=== PATIENT | male | born 1945 | race American Indian/Alaskan Native ===

== ENCOUNTER 2016-10-14 13:35 | Inpatient (IN) | payer MEDICARE, OTHER ==
[2016-10-14 13:45] VITALS: BMI 24.4
[2016-10-14 14:07] LABS: ADD MANUAL DIFF? NO
[2016-10-14 14:15] LABS: BASO # 0.02 K/mm3 (0.0-2.0); BASO % 0.3 % (0.0-3.0); EOS # 0.1 (0.0-0.7); EOS % 1.2 % (1.5-5.0); GRAN # 3.23 (1.4-6.5); GRAN % 53.1 % (50.0-68.0); HEMATOCRIT 37.8 % (42.0-52.0); LYMPH # 2.4 (1.2-3.4); MEAN CELL VOLUME 76.1 fL (80.0-105.0); MEAN CORPUSCULAR HGB CONC 34.1 g/dl (31.0-37.0); MONO # 0.3 (0.1-0.6); MONO % 5.4 % (1.0-6.0); PLATELET COUNT 219 10^3/uL (120.0-450.0); RED CELL DISTRIBUTION WIDTH 16.7 % (11.5-14.5); WHITE BLOOD COUNT 6.1 10^3/ul (4.5-11.0)
--- NOTE | 2016-10-14 14:17 | ED PDOC ---
Arrival/HPI - General Chief Complaint: Shortness Of Breath Time Seen by Provider: 10/14/16 13:39 Historian: Patient - History of Present Illness Narrative History of Present Illness (Text): 10/14/16 13:46 Lucas Harkins Jr. is a 71 year old male, whose past medical history includes hypertension, who presents to the emergency room complaining of runny nose, nasal congestion, body aches and shortness of breath for about one week. Patient says his shortness of breath worsens whenever he walks and says today he got very sob with walking a few steps. Patient's [id number] states that patient has been taking medications (phenergan DM, tamiflu, antihistamine, and flonase) since 10/10/16 which bring no relief. Patient denies and nausea, vomiting , diarrhea, swelling, headache, dizziness, visual changes, appetite changes, urinary symptoms, or any other complaint at this time. PMD: Dr. Martinez Time/Duration: 1 week Symptom Onset: Gradual Symptom Course: Unchanged Activities at Onset: Rest Context: Home Past Medical History - Provider Review Nursing Documentation Reviewed: Yes - Cardiac Hx Hypertension: Yes - Pulmonary Hx Respiratory Disorders: No - Neurological Hx Neurological Disorder: No - HEENT Hx HEENT Disorder: No - Renal Hx Renal Disorder: No - Endocrine/Metabolic Hx Endocrine Disorders: No - Hematological/Oncological Hx Blood Disorders: No - Integumentary Hx Dermatological Disorder: No - Musculoskeletal/Rheumatological Hx Musculoskeletal Disorders: No - Gastrointestinal Hx Gastrointestinal Disorders: No - Genitourinary/Gynecological Hx Genitourinary Disorders: No - Psychiatric Hx Psychophysiologic Disorder: No Hx Substance Use: No - Surgical History Hx Orthopedic Surgery: Yes (left knee) - Anesthesia Hx Anesthesia: Yes Hx Anesthesia Reactions: No Family/Social History - Physician Review Nursing Documentation Reviewed: Yes Family/Social History: No Known Family HX Smoking Status: Current Some Days Smoker Hx Alcohol Use: No Hx Substance Use: No Allergies/Home Meds Allergies/Adverse Reactions: Allergies No Known Allergies Allergy (Verified 10/14/16 13:50) Home Medications: Home Meds Medication Instructions Recorded Confirmed Atorvastatin [Lipitor] 20 mg PO DAILY 10/14/16 10/14/16 Fluticasone Propionate [Flonase] 2 spray .ROUTE DAILY 10/14/16 10/14/16 Loratadine [Allerclear] 10 mg PO DAILY 10/14/16 10/14/16 Metoprolol Succinate [Metoprolol 100 mg PO DAILY 10/14/16 10/14/16 Succinate] Oseltamivir Phosphate [Tamiflu] 75 mg PO DAILY 10/14/16 10/14/16 Promethazine DM [Phenergan DM 10 ml PO TID 10/14/16 10/14/16 Syrup] amLODIPine [Norvasc] 10 mg PO DAILY 10/14/16 10/14/16 Review of Systems - Physician Review All systems were reviewed & negative as marked: Yes - Review of Systems Constitutional: Other (Body aches) Eyes: absent: Vision Changes ENT: absent: Hearing Changes Respiratory: SOB Cardiovascular: TORRES. absent: Chest Pain, Palpitations, Edema Gastrointestinal: absent: Diarrhea, Nausea, Vomiting, Appetite Changes Genitourinary Male: absent: Urinary Output Changes Musculoskeletal: absent: Back Pain, Neck Pain Neurological: absent: Headache, Dizziness Endocrine: absent: Diaphoresis Hemo/Lymphatic: absent: Adenopathy Psychiatric: absent: Depression Physical Exam Vital Signs Reviewed: Yes Vital Signs Temp Pulse Resp BP Pulse Ox 10/14/16 15:04 75 161/126 H 10/14/16 15:03 75 161/126 H 10/14/16 13:36 97.7 F 94 H 18 203/146 H 98 Temperature: Afebrile Blood Pressure: Hypertensive Pulse: Tachycardic Respiratory Rate: Normal Appearance: Positive for: Well-Appearing, Non-Toxic, Comfortable Pain Distress: None Mental Status: Positive for: Alert and Oriented X 3 - Systems Exam Pupils: Present: PERRL Conjunctiva: Present: Normal Mouth: Present: Dry Pharnyx: Present: Normal. No: ERYTHEMA, EXUDATE Neck: Present: JVD Respiratory/Chest: Present: Clear to Auscultation, Good Air Exchange. No: Respiratory Distress, Accessory Muscle Use Cardiovascular: Present: Regular Rate and Rhythm, Normal S1, S2. No: Murmurs Abdomen: Present: Normal Bowel Sounds. No: Tenderness, Distention, Peritoneal Signs Back: Present: Normal Inspection Lower Extremity: Present: Normal Inspection. No: Edema Medical Decision Making ED Course and Treatment: 10/14/16 14:19 Impression: 71 year old male complaining of runny nose, nasal congestion, body aches and shortness of breath for about one week. Differential: pneumonia vs Flu-like illness vs CHF vs atypical ACS Plan: -- EKG -- Chest X-ray -- VBG, Blood Culture -- Urinalysis -- Labs -- Reassess and disposition Progress Notes: Patient with elevated BP; noncompliant with BP meds. CXR shows vascular congestion c/w CHF and BNP is nearly 5K - will give iv lasix. Given significant TORRES - will need to admit to tele for iv diuresis and cardiology eval. Discussed with Dr. Martinez. - Lab Interpretations Lab Results: 10/14/16 14:06 10/14/16 14:06 Lab Results 10/14/16 14:06: WBC 6.1, RBC 4.97, Hgb 12.9 L, Hct 37.8 L, MCV 76.1 L, MCH 26.0 , MCHC 34.1, RDW 16.7 H, Plt Count 219, Gran % 53.1, Lymph % (Auto) 40.0 H, [place] % (Auto) 5.4, Eos % (Auto) 1.2 L, Baso % (Auto) 0.3, Gran # 3.23, Lymph # 2.4, [place] # 0.3, Eos # 0.1, Baso # 0.02, PT 11.0, INR 1.02, APTT 28.2, Sodium 147, Potassium 3.9, Chloride 106, Carbon Dioxide 29, Anion Gap 16, BUN 18, Creatinine 1.1, Est GFR ( Amer) > 60, Est GFR (Non-Af Amer) > 60, Random Glucose 104, Calcium 9.8, Total Bilirubin 0.7, AST 22, ALT 12, Alkaline Phosphatase 100, Lactate Dehydrogenase 425, Total Creatine Kinase 59, Troponin I < 0.01, NT-Pro-B Natriuret Pep 4960 H, Total Protein 8.5 H, Albumin 4.2, Globulin 4.2, Albumin/Globulin Ratio 1.0 L, Lipase 117 I have reviewed the lab results: Yes - RAD Interpretation Radiology Orders: 10/14/16 13:52 CHEST PORTABLE [RAD] Stat - EKG Interpretation EKG Interpretation (Text): 10/14/16 15:36 NSR @ 97 with RBBB wtih LAD with bifascicular block; LVH; QRS is 182; QTc is 548 - Medication Orders Current Medication Orders: Discontinued Medications Amlodipine Besylate (Norvasc) 10 mg PO STAT STA Stop: 10/14/16 14:49 Last Admin: 10/14/16 15:04 Dose: 10 MG MAR Pulse and Blood Pressure Document 10/14/16 15:04 EWO (Rec: 10/14/16 15:[id number]) Pulse Pulse Rate (60-90) 75 Blood Pressure Blood Pressure (100/60-150/90) 161/126 Furosemide (Lasix) 40 mg IVP STAT STA Stop: 10/14/16 14:49 Last Admin: 10/14/16 15:04 Dose: 40 MG MAR Blood Pressure Document 10/14/16 15:04 EWO (Rec: 10/14/16 15:04 [place] [id number]) Blood Pressure Blood Pressure (100/60-150/90) 161/126 IVP Administration Document 10/14/16 15:04 EWO (Rec: 10/14/16 15:04 [place] [id number]) Charges for Administration # of IVP Administrations 1 Metoprolol Tartrate (Lopressor) 100 mg PO STAT STA Stop: 10/14/16 14:48 Last Admin: 10/14/16 15:03 Dose: 100 MG MAR Pulse and Blood Pressure Document 10/14/16 15:03 EWO (Rec: 10/14/16 15:04 [place] [id number]) Pulse Pulse Rate (60-90) 75 Blood Pressure Blood Pressure (100/60-150/90) 161/126 Disposition/Present on Arrival - Present on Arrival Any Indicators Present on Arrival: No History of DVT/PE: No History of Uncontrolled Diabetes: No Urinary Catheter: No History of Decub. Ulcer: No History Surgical Site Infection Following: None - Disposition Have Diagnosis and Disposition been Completed?: Yes Diagnosis: Congestive heart failure, Uncontrolled hypertension Disposition: HOSPITALIZED Disposition Time: 15:15 Patient Plan: Admission, Telemetry Condition: FAIR Discharge Instructions (ExitCare): Heart Failure (ED)
[2016-10-14 14:25] LABS: INR 1.02 (0.93-1.08); PARTIAL THROMBOPLASTIN TIME 28.2 Seconds (23.7-30.8)
[2016-10-14 14:26] LABS: ALKALINE PHOSPHATASE 100 U/L (38-133); ALT/SGPT 12 U/L (7-56); AST/SGOT 22 U/L (15-59); BILIRUBIN,TOTAL 0.7 mg/dL (0.2-1.3); BLOOD UREA NITROGEN 18 mg/dL (7-21); CALCIUM 9.8 mg/dL (8.4-10.5); CARBON DIOXIDE 29 mmol/L (21-33); CHLORIDE 106 mmol/L (98-107); GFR AFRICAN-AMERICAN > 60; GLUCOSE,RANDOM 104 mg/dL (70-110); LIPASE 117 U/L (23-300); POTASSIUM 3.9 mmol/L (3.6-5.0); SODIUM 147 mmol/L (132-148); TOTAL PROTEIN 8.5 g/dL (5.8-8.3)
--- NOTE | 2016-10-14 14:36 | RAD ---
PROCEDURE: Chest portable HISTORY: sob COMPARISON: TECHNIQUE: Technique: Single view portable semi erect @ 14:00. FINDINGS: Cardiomegaly, pulmonary vascular congestion/ CHF. No pleural or osseous abnormalities detected IMPRESSION: Mild congestive heart failure.
[2016-10-14 14:40] LABS: TROPONIN I < 0.01 ng/mL
--- NOTE | 2016-10-14 16:07 | CARD ---
APPROVED REPORT EKG Measurement Heart [id number] [id number] <Conclusion> Sinus rhythm with marked sinus arrhythmia with occasional premature ventricular complexes Right bundle branch block Left anterior fascicular block Bifascicular block Left ventricular hypertrophy with repolarization abnormality Anterior infarct, age undetermined Abnormal ECG
[2016-10-14] MEDS ORDERED: Albuterol-Ipratrop 3 mg / 0.5 (3 ml) UD IH STA (16:55)
[2016-10-14] MEDS: Enoxaparin 40 mg Syringe SC SCH (17:20)
[2016-10-14] MEDS: Nitroglycerin 2% Ointment Foilpak UD TOP SCH ×2 (17:21→21:13)
--- NOTE | 2016-10-14 18:11 | HP ---
ADMITTING DIAGNOSES: Congestive heart failure, pulmonary edema, chest pain. HISTORY OF PRESENT ILLNESS: This unfortunate 71-year-old male began feeling increasing shortness of breath about 5 days ago. He went to [facility] and was given cough medicine and some Tamiflu but he failed to improve. He experienced substernal chest pain radiating to his left arm earlier thi s week and this morning, extremely short of breath, he presented to [facility], was found to be in pulmonary edema. PAST MEDICAL HISTORY: Significant for hypertension, with variable compliance on diet and medications . He reports not taking his medicine frequently and eating ribs rubbed with salt last night. He als o has hyperlipidemia and arthritis. He has had knee arthroscopy surgery in the past. SOCIAL HISTORY: The patient is a smoker, has smoked for over 35 years, still smokes a few cigarettes a day. Does not drink alcohol. FAMILY HISTORY: Significant for heart disease in his father, leukemia in sister. REVIEW OF SYSTEMS: Significant for above-mentioned shortness of breath and chest pain. Denies any n ausea, vomiting, diarrhea, fever, chills, or altered bowel habits. PHYSICAL EXAMINATION: GENERAL: He is a pleasant, well-developed, well-nourished, tall black gentleman, awake, alert, orien caroline x 3 in no acute distress. VITAL SIGNS: Reveal blood pressure of 161/126, respirations 20-24, pulse is 75, temperature 97.7. HEENT: PERRLA, EOMI. Mucous membranes moist. NECK: No JVD. CHEST: Symmetrical. LUNGS: Rales bilaterally. HEART: Regular rhythm and rate. ABDOMEN: Soft, nontender. No guarding or rebound tenderness. EXTREMITIES: No cyanosis, clubbing, or edema. NEUROLOGIC: Nonfocal. LABORATORY DATA: Significant for a proBNP of 4160, BUN 18, creatinine 1.1, GFR greater than 60. Tro ponin less than 0.01. EKG is biventricular block. Hemoglobin 12.9, hematocrit 37.8, platelet count is 219. Chest x-ray with mild congestive heart failure. ASSESSMENT: We have a 71-year-old gentleman with uncontrolled hypertension with congestive heart solo lure with pulmonary edema and progressive shortness of breath the past 4 or 5 days associated with so me chest pain radiating to his left arm. Though his troponin is negative, his EKG abnormal and there are no prior grafts currently available. Electrolytes, CBC, troponin will be followed successively. Cardiology is consulted. Nitro paste and Cozaar have been added to his regimen of amlodipine and m etoprolol. Supplemental oxygen delivered with beneficent effect. More extensive strong admonitions were given to the patient about his smoking. DuoNeb added to the regimen along with 1 aspirin today. Jf Posey MD cc: 84 TT: 10/14/2016 18:11:08 jn
[2016-10-14 18:56] LABS: VENOUS BLOOD GAS BASE EXCESS -0.7 mmol/L (0.0-2.0); VENOUS BLOOD PH 7.39 (7.32-7.43)
[2016-10-14 18:57] LABS: PH,URINE 6.5 (4.7-8.0); URINE BILIRUBIN NEGATIVE (NEGATIVE); URINE BLOOD TRACE-INTACT (NEGATIVE); URINE GLUCOSE (UA) NEGATIVE (NEGATIVE); URINE KETONE NEGATIVE (NEGATIVE); URINE LEUKOCYTE ESTERASE NEGATIVE Leu/uL (NEGATIVE); URINE PROTEIN NEGATIVE mg/dL (<30 mg/dL); URINE UROBILINOGEN 0.2 E.U./dL (<1 E.U./dL)
[2016-10-14 19:08] LABS: URINE APPEARANCE CLEAR (CLEAR); URINE COLOR YELLOW (YELLOW)
[2016-10-14] MEDS ORDERED: Influenza Vaccine 45 MCG/0.5 ml IM ONE (19:12)
[2016-10-14] MEDS ORDERED: Pneumococcal 23-Valent Vaccine IM ONE (19:12)
[2016-10-14 19:13] LABS: URINE BACTERIA FEW (NEG); URINE RBC NEGATIVE /hpf (0-2); URINE WBC 0 - 2 /hpf (0-6)
[2016-10-15] MEDS: Nitroglycerin 2% Ointment Foilpak UD TOP SCH ×6 (00:30→21:54)
[2016-10-15 07:05] LABS: ADD MANUAL DIFF? NO
[2016-10-15 07:30] LABS: BASO # 0.01 K/mm3 (0.0-2.0); BASO % 0.1 % (0.0-3.0); EOS # 0.1 (0.0-0.7); EOS % 1.3 % (1.5-5.0); GRAN # 3.41 (1.4-6.5); GRAN % 48.8 % (50.0-68.0); HEMATOCRIT 38.2 % (42.0-52.0); LYMPH # 3.2 (1.2-3.4); LYMPH % 45.1 % (22.0-35.0); MEAN CELL VOLUME 76.6 fL (80.0-105.0); MEAN CORPUSCULAR HEMOGLOBIN 25.7 pg (25.0-35.0); MEAN CORPUSCULAR HGB CONC 33.5 g/dl (31.0-37.0); MONO # 0.3 (0.1-0.6); MONO % 4.7 % (1.0-6.0); PLATELET COUNT 226 10^3/uL (120.0-450.0); RED CELL DISTRIBUTION WIDTH 16.8 % (11.5-14.5)
[2016-10-15 07:32] LABS: BLOOD UREA NITROGEN 19 mg/dL (7-21); CALCIUM 9.8 mg/dL (8.4-10.5); CARBON DIOXIDE 31 mmol/L (21-33); CHLORIDE 106 mmol/L (98-107); GFR AFRICAN-AMERICAN > 60; GLUCOSE,RANDOM 86 mg/dL (70-110); POTASSIUM 3.5 mmol/L (3.6-5.0); SODIUM 147 mmol/L (132-148)
[2016-10-15] MEDS: Enoxaparin 40 mg Syringe SC SCH (11:39)
--- NOTE | 2016-10-15 15:56 | CARD ---
APPROVED REPORT EKG Measurement Heart [id number] <Conclusion> Sinus bradycardia with occasional premature ventricular complexes Right bundle branch block Left anterior fascicular block Bifascicular block Left ventricular hypertrophy with repolarization abnormality Abnormal ECG
--- NOTE | 2016-10-15 15:58 | CT ---
PROCEDURE: CT HEAD WITHOUT CONTRAST. HISTORY: increased confusion COMPARISON: None available. TECHNIQUE: Axial computed tomography images were obtained through the head/brain without intravenous contrast. Radiation dose: Total exam DLP = 774.23 mGy-cm. FINDINGS: HEMORRHAGE: No intracranial hemorrhage. BRAIN: No mass effect or edema. Cortical atrophy, periventricular small vessel disease. Lacune or infarcts identified right basal ganglia and thalamus. VENTRICLES: Unremarkable. No hydrocephalus. CALVARIUM: Unremarkable. PARANASAL SINUSES: Unremarkable as visualized. No significant inflammatory changes. MASTOID AIR CELLS: Unremarkable as visualized. No inflammatory changes. OTHER FINDINGS: None. IMPRESSION: No acute intracranial abnormalities. No significant findings to account for the clinical presentation.
[2016-10-15] MEDS ORDERED: Potassium Chloride 20 mEq ER Tab PO STA (16:01)
[2016-10-15] MEDS: Insulin Lispro (humaLOG) LOW Coverage SC SCH (17:34)
[2016-10-15] MEDS ORDERED: Potassium Chloride 20 mEq 100 ML IVPB STA (19:29)
[2016-10-15] MEDS ORDERED: Labetalol 5 mg/ml Inj 20ML IV ONE (19:49)
[2016-10-15] MEDS ORDERED: Labetalol 5 mg/ml Inj 20ML ONE (19:56)
[2016-10-15 19:58] LABS: ARTERIAL BLOOD GAS HCO3 16.7 mmol/L (21-28); ARTERIAL BLOOD GAS PH 7.47 (7.35-7.45)
[2016-10-15] MEDS: Potassium Chloride 10 mEq 100 ML IVPB SCH ×2 (20:00→22:05)
[2016-10-15] MEDS ORDERED: Potassium Chloride 20 mEq ER Tab PO ONE (20:00)
--- NOTE | 2016-10-15 20:04 | PN ---
DATE: 10/15/2016 SUBJECTIVE: The patient appears confused this morning on awakening. Family expressed concern. The patient not oriented to place. PHYSICAL EXAMINATION: VITAL SIGNS: Stable. Temperature is 96.6, respirations 16, pulse of 54, current blood pressure 178/ 99. LUNGS: Clear. HEART: Regular rate and rhythm. ABDOMEN: Soft, nontender. EXTREMITIES: No edema. Bladder scan revealed [address] brain performed is negative for acute process. Blood work unremarkable. PLAN: Continue Ativan 2 mg q. 4 hours as needed for p.r.n. agitation or for possible withdrawal symp toms. The family and patient deny any alcoholism at all or any other substance abuse. Follow electro lytes and CBC and BRAYDEN tomorrow. Cardiology followup greatly appreciated. We will keep patient on 1: 1 while he remains confused, most likely secondary to hospital psychosis. The patient appears to be responding to Ativan 2 mg q. 4 hours. Jf Posey MD cc: 84 TT: 10/15/2016 20:04:09 Confirmation # [id number] Dictation # [id number] thom
--- NOTE | 2016-10-15 20:19 | CP.PCM.PN ---
Subjective - Date & Time of Evaluation Date of Evaluation: 10/15/16 Time of Evaluation: 20:12 - Subjective Subjective: Responded to RAPID RESPONSE announcement. Patient was agitated, BP 209/ 115 , Pulse 150/min RR 20/min, Temp; pulse ox 98% on 2L/min. Monitor showed runs of VTACH, SVT. Earlier it was bradyarrhythmia on monitor. This 71 year old male was admitted with sob, cold, congestion symptoms /CHF,pulmonary edema. Has history of HTN,CHF, hyperlipidemia, arthritis. Objective - Vital Signs/Intake and Output Vital Signs (last 24 hours): Temp Pulse Resp BP Pulse Ox 97.4 F L 58 L 19 145/107 H 97 10/15/16 18:00 10/15/16 18:00 10/15/16 18:00 10/15/16 18:46 10/15/16 06:00 - Medications Medications: Current Medications Aspirin (Aspirin Chewable) 81 mg PO DAILY [facility] Last Admin: 10/15/16 18:45 Dose: Not Given Enoxaparin Sodium (Lovenox) 40 mg SC DAILY [facility] PRN Reason: Protocol Last Admin: 10/15/16 11:39 Dose: 40 mg Famotidine (Pepcid) 40 mg PO HS [facility] Last Admin: 10/14/16 21:13 Dose: 40 mg Furosemide (Lasix) 40 mg IVP BID [facility] Last Admin: 10/15/16 18:46 Dose: 40 mg Hydralazine HCl (Apresoline) 10 mg IVP STAT [facility] Last Admin: 10/14/16 20:24 Dose: Not Given Hydralazine HCl (Apresoline) 25 mg PO TID [facility] Potassium Chloride (Potassium Chloride 20 Meq/100 Ml) 100 mls @ 50 mls/hr IVPB STAT STA Stop: 10/15/16 21:28 Nicardipine HCl (Cardene Iv Premix) 200 mls @ 50 mls/hr IV .Q4H PRN; Protocol; 5 MG/HR PRN Reason: TITRATE PER MD ORDER Potassium Chloride (Potassium Chloride 10 Meq/100 Ml) 100 mls @ 100 mls/hr IVPB Q2H [facility]AL[facility] Stop: 10/15/16 22:59 Lisinopril (Zestril) 10 mg PO DAILY [facility] Lorazepam (Ativan) 2 mg IVP Q4H PRN; Protocol PRN Reason: Agitation Nitroglycerin (Nitro-Bid 2% Oint) 1 ea TOP Q4H [facility] Last Admin: 10/15/16 13:05 Dose: 1 ea Pantoprazole Sodium (Protonix Ec Tab) 40 mg PO ACB [facility] Potassium Chloride (K-Dur 20 Meq Er Tab) 20 meq PO BRK [facility] Thiamine HCl (Vitamin B1 Tab) 100 mg PO DAILY ROSALIA - Labs Labs: 10/15/16 07:03 10/15/16 07:03 PT 11.0 Seconds (9.9-11.8) 10/14/16 14:06 INR 1.02 (0.93-1.08) 10/14/16 14:06 APTT 28.2 Seconds (23.7-30.8) 10/14/16 14:06 - Constitutional Appears: In Acute Distress - Head Exam Head Exam: ATRAUMATIC, NORMAL INSPECTION, NORMOCEPHALIC - Eye Exam Eye Exam: Normal appearance - ENT Exam ENT Exam: Normal External Ear Exam - Neck Exam Neck Exam: Normal Inspection - Respiratory Exam Respiratory Exam: Rales (Basal rales positive.) - Cardiovascular Exam Cardiovascular Exam: Tachycardia, REGULAR RHYTHM - GI/Abdominal Exam GI & Abdominal Exam: absent: Distended - Rectal Exam Rectal Exam: Deferred - Extremities Exam Extremities Exam: Normal Inspection - Back Exam Back Exam: NORMAL INSPECTION - Neurological Exam Neurological Exam: Altered - Psychiatric Exam Psychiatric exam: Agitated - Skin Skin Exam: Normal Color Assessment and Plan - Assessment and Plan (Free Text) Assessment: A/P: Short run of VTACH. SVT. Uncontrolled hypertension. Agitated. CHF. Hypokalemia. Borderline anemia. CBC,CMP,troponin, magnesium, ABG ,EKG, lactate level. Hydralazine 10 mg IV x 1. NTP 2 " to ACW stat. Amiadarone 150 mg IV x 2. Adenosine 6 mg IV ,12 mg IV . Ativan 2 mg IV x 1. Geodon 20 mg IM x 1. labetolol 20 mg IV x 1. transferred to ICU. 2, # 20 angiocaths were inserted in right hand. CRITICAL CARE TIME SPENT:30 MINUTES.
[2016-10-15 20:30] LABS: ADD MANUAL DIFF? NO
[2016-10-15] MEDS ORDERED: Amiodarone 360 mg/D5W 200 ml 200 ML IV SCH (20:30)
[2016-10-15 20:39] LABS: BASO # 0.01 K/mm3 (0.0-2.0); BASO % 0.2 % (0.0-3.0); EOS # 0.1 (0.0-0.7); EOS % 0.9 % (1.5-5.0); GRAN # 3.91 (1.4-6.5); GRAN % 60.3 % (50.0-68.0); HEMATOCRIT 37.1 % (42.0-52.0); LYMPH # 2.2 (1.2-3.4); LYMPH % 33.7 % (22.0-35.0); MEAN CELL VOLUME 74.2 fL (80.0-105.0); MEAN CORPUSCULAR HEMOGLOBIN 25.8 pg (25.0-35.0); MEAN CORPUSCULAR HGB CONC 34.8 g/dl (31.0-37.0); MONO # 0.3 (0.1-0.6); MONO % 4.9 % (1.0-6.0); PLATELET COUNT 225 10^3/uL (120.0-450.0); RED CELL DISTRIBUTION WIDTH 16.9 % (11.5-14.5); WHITE BLOOD COUNT 6.5 10^3/ul (4.5-11.0)
[2016-10-15 20:58] LABS: ALKALINE PHOSPHATASE 113 U/L (38-133); ALT/SGPT 12 U/L (7-56); AST/SGOT 32 U/L (15-59); BILIRUBIN,TOTAL 0.7 mg/dL (0.2-1.3); BLOOD UREA NITROGEN 21 mg/dL (7-21); CALCIUM 9.9 mg/dL (8.4-10.5); CARBON DIOXIDE 24 mmol/L (21-33); CHLORIDE 105 mmol/L (98-107); GFR AFRICAN-AMERICAN > 60; GLUCOSE,RANDOM 175 mg/dL (70-110); MAGNESIUM 1.8 mg/dL (1.7-2.2); POTASSIUM 3.5 mmol/L (3.6-5.0); SODIUM 145 mmol/L (132-148); TOTAL PROTEIN 9.1 g/dL (5.8-8.3)
--- NOTE | 2016-10-15 21:04 | CP.PCM.CON ---
History of Present Illness - History of Present Illness History of Present Illness: Reason for ICU Consult: rapid response with ?Vtach vs Afib w/rvr HPI: 71 y/o male with a PMHx Htn, dyslipidemia, Arthritis admitted yesterday for complaints of progressing shortness of breath as well as substernal chest pain radiating to his left arm. The patient was tried on a trial of cough medication as well as tamiflu as an outpatient 2 days prior to arrival to the hospital without any significant improvement. Earlier this evening the patient had an episode of tachycardia, reported to me by the symone LIAO as having sustained Vtach along with acute delirium/agitation requiring extensive sedatives and restraints. The patient was not verbalizing complaints but rather was attempting to remove his leads and IV lines. He was also noted to have a SBP of over 220mmHg. He was treated during the rapid response with Ativan, Geodon, Adenosine, Hydralazine, Labetolol IV and also Amiodarone 150mg IV x 2 doses. Upon my arrival the patient was awake and alert, but disoriented and unable to participate in giving any history. He was extremely agitated and required wrist and ankle restraints however now that he is in the ICU he is much more calm and relaxed. He is lethargic at this time, which is likely secondary to the sedatives, however he is protecting his airway and hemodynamically much more improved now than on the telemetry floor. PMHx: Htn Dyslipidemia Arthritis (Likely has undiagnosed CHF) Allergies: NKDA Fam Hx: Heart disease in his father Leukemia in his sister Soc Hx: tobacco x 35yrs; no history of etoh or drug abuse Home Meds: lipitor 20mg po hs norvasc 10mg po daily metoprolol 100mg po daily phenergan 10ml po tid Tamiflu 75mg po daily Flonase Review of Systems - Review of Systems Systems not reviewed;Unavailable: Altered Mental Status Past Patient History - Past Social History Smoking Status: Current Some Days Smoker Alcohol: None Drugs: Denies Home Situation {Lives}: With Family - CARDIAC Hx Cardiac Disorders: Yes Hx Congestive Heart Failure: Yes Hx Hypertension: Yes - PULMONARY Hx Respiratory Disorders: Yes (SMOKES CIGARETTES 1/2 PPD FOR 40 YRS) - NEUROLOGICAL Hx Neurological Disorder: No - HEENT Hx HEENT Problems: Yes Hx Cataracts: Yes (BILATERAL SX) - RENAL Hx Chronic Kidney Disease: No - ENDOCRINE/METABOLIC Hx Endocrine Disorders: No - HEMATOLOGICAL/ONCOLOGICAL Hx Blood Disorders: No - INTEGUMENTARY Hx Dermatological Problems: Yes (BILATERAL LE SKIN DRYNESS,DRY THIN FLAKY SKIN) - MUSCULOSKELETAL/RHEUMATOLOGICAL Hx Musculoskeletal Disorders: Yes (L KNEE SURGERY) Hx Falls: No - GASTROINTESTINAL Hx Gastrointestinal Disorders: No - GENITOURINARY/GYNECOLOGICAL Hx Genitourinary Disorders: No - PSYCHIATRIC Hx Psychophysiologic Disorder: No Hx Substance Use: No - SURGICAL HISTORY Hx Surgeries: Yes (BILATERAL CATARACT SURGERY) Hx Orthopedic Surgery: Yes (left knee) - ANESTHESIA Hx Anesthesia: Yes Hx Anesthesia Reactions: No Meds Allergies/Adverse Reactions: Allergies Allergy/AdvReac Type Severity Reaction Status Date / Time No Known Allergies Allergy Verified 10/14/16 17:48 - Medications Medications: Current Medications Aspirin (Aspirin Chewable) 81 mg PO DAILY [facility] Last Admin: 10/15/16 18:45 Dose: Not Given Enoxaparin Sodium (Lovenox) 40 mg SC DAILY [facility] PRN Reason: Protocol Last Admin: 10/15/16 11:39 Dose: 40 mg Famotidine (Pepcid) 40 mg PO HS [facility] Last Admin: 10/14/16 21:13 Dose: 40 mg Furosemide (Lasix) 40 mg IVP BID [facility] Last Admin: 10/15/16 18:46 Dose: 40 mg Hydralazine HCl (Apresoline) 10 mg IVP STAT [facility] Last Admin: 10/14/16 20:24 Dose: Not Given Hydralazine HCl (Apresoline) 25 mg PO TID [facility] Potassium Chloride (Potassium Chloride 20 Meq/100 Ml) 100 mls @ 50 mls/hr IVPB STAT STA Stop: 10/15/16 21:28 Nicardipine HCl (Cardene Iv Premix) 200 mls @ 50 mls/hr IV .Q4H PRN; Protocol; 5 MG/HR PRN Reason: TITRATE PER MD ORDER Potassium Chloride (Potassium Chloride 10 Meq/100 Ml) 100 mls @ 100 mls/hr IVPB Q2H [facility] Stop: 10/15/16 22:59 Amiodarone HCl/Dextrose (Nexterone 360 Mg In D5w 200 Ml (Premix)) 200 mls @ 33.333 mls/hr IV .Q6H [facility]; 1 MG/MIN PRN Reason: Protocol Lisinopril (Zestril) 10 mg PO DAILY [facility] Lorazepam (Ativan) 2 mg IVP Q4H PRN; Protocol PRN Reason: Agitation Nitroglycerin (Nitro-Bid 2% Oint) 1 ea TOP Q4H [facility] Last Admin: 10/15/16 13:05 Dose: 1 ea Pantoprazole Sodium (Protonix Ec Tab) 40 mg PO ACB [facility] Potassium Chloride (K-Dur 20 Meq Er Tab) 20 meq PO BRK [facility] Thiamine HCl (Vitamin B1 Tab) 100 mg PO DAILY [facility] Physical Exam - Constitutional Appears: Non-toxic, Agitated, Confused - Head Exam Head Exam: ATRAUMATIC, NORMOCEPHALIC - Eye Exam Eye Exam: EOMI, Normal appearance - ENT Exam ENT Exam: Mucous Membranes Dry - Neck Exam Neck exam: Positive for: Full Rom, Normal Inspection - Respiratory Exam Respiratory Exam: Decreased Breath Sounds (decreased basilar breath sounds), NORMAL BREATHING PATTERN. absent: Respiratory Distress - Cardiovascular Exam Cardiovascular Exam: REGULAR RHYTHM, +S1, +S2 - GI/Abdominal Exam GI & Abdominal Exam: Normal Bowel Sounds, Soft. absent: Guarding, Rebound, Tenderness - Rectal Exam Rectal Exam: Deferred - Extremities Exam Extremities exam: Positive for: normal inspection. Negative for: calf tenderness - Neurological Exam Neurological exam: Alert, Altered - Psychiatric Exam Additional comments: less agitated than earlier; appears more calm and relaxed now - Skin Skin Exam: Dry, Intact, Normal Color, Warm Results - Vital Signs Recent Vital Signs: Last Vital Signs Temp 97.4 F L 10/15/16 18:00 Pulse 58 L 10/15/16 18:00 Resp 19 10/15/16 18:00 BP 145/107 H 10/15/16 18:46 Pulse Ox 97 10/15/16 06:00 - Labs Result Diagrams: 10/15/16 20:25 10/15/16 20:25 Labs: Laboratory Results - last 24 hr 10/14/16 10/15/16 10/15/16 21:45 07:03 19:28 WBC 7.0 RBC 4.99 Hgb 12.8 L Hct 38.2 L MCV 76.6 L MCH 25.7 MCHC 33.5 RDW 16.8 H Plt Count 226 Gran % 48.8 L Lymph % (Auto) 45.1 H Newton % (Auto) 4.7 Eos % (Auto) 1.3 L Baso % (Auto) 0.1 Gran # 3.41 Lymph # 3.2 Newton # 0.3 Eos # 0.1 Baso # 0.01 Sodium 147 Potassium 3.5 L Chloride 106 Carbon Dioxide 31 Anion Gap 14 BUN 19 Creatinine 1.2 Est GFR ( Amer) > 60 Est GFR (Non-Af Amer) 59 POC Glucose (mg/dL) 129 H Random Glucose 86 Calcium 9.8 Troponin I < 0.01 - EKG Data EKG Interpreted by: Myself Rate: Normal (SR @ 97 bpm; PVC's; bifascicular block as seen on earlier EKG this morning) - Imaging and Cardiology CT scan - head Status: Report reviewed by me (no acute infarct/mass/shift) Assessment & Plan - Assessment and Plan (Free Text) Assessment: 71 y/o male with a PMHx Htn, Dyslipidemia, Arthirits and likely CHF was admitted to the hospital for worsening shortness of breath and chest discomfort. While on the telemetry floor the patient became acutely agitated and developed SVT, reportedly had sustained Vtach requiring Amiodarone and also multiple sedatives. He is now transferred to the ICU for further care and management. Plan: Neuro: patient appears to have acute delerium; unclear as to the exact cause, does not appear to be septic/infectious; CT Head was negative; no reason to suspect liver disease; ABG reviewed and he is not hypercapnic; will monitor him closely and evaluate for other possible causes of his acute delirious state; neuro checks Q4h; 1:1 sitter and soft wrist restraints to avoid having him remove his leads and IV lines. Pulm: saturating well; ABG showing adequate oxygenation; will continue on nasal cannula and add xopenex prn for shortness of breath to avoid tachycardia associated with duonebs CVS: I witnessed SVT on the monitor; he was reported to have sustained Vtach however after I reviewed the rhythm strips, I did not see any such event; just wide complex tachycardia. He was placed on Amio 150mg IV x 2; his heart rate is now in the 80's so I will avoid continuing with Amiodarone; hypokalemia is being replaced; will check his magnesium and replace if necessary. His SBP was in the 220's during his acute episode of agitation, which I suspect was secondary to acute systolic CHF worsening his delirium; he has been given Lasix 40mg IV and his SBP is now in the 130's. Will continue with lopressor 5mg IV Q4H prn for HR greater than 130. Will hold off on Cardene drip which was ordered by the rapid response team. Will also check additional trop levels although the first 2 were negative, this does not appear to be ischemic in nature thus far. GI: no acute issues at this time; will remain NPO overnight and attempt a heart healthy diet in the AM Renal: will monitor strict i's and o's; marcos catheter placed with immediate output of about 600cc urine. Will replete his Potassium with IV KCL and recheck a Bmp in the AM ID: blood cultures already sent, urine is negative; will monitor for signs of fever or infection and panculture if needed; I do not think he requires IV Abx at this time. An ABG shock panel was performed during his acute distress revealing an elevated lactic acid of 5.9 which I believe may be secondary to hypoperfusion during the time given a HR nearing 180-190; will repeat a lactate level in the AM to ensure it has normalized. heme: no acute issues at this time; will monitor with daily cbc's psych: will monitor his delirium; 1:1 sitter in the meantime Case discussed with Dr. Elizabeth who is seeing the patient at bedside in the ICU now labs and images reviewed personally Total time of care: 45 minutes
[2016-10-15] MEDS ORDERED: Metoprolol 1 mg/ml Inj IVP PRN (21:05)
[2016-10-15 21:09] LABS: TROPONIN I < 0.01 ng/mL
[2016-10-15] MEDS: Nicardipine 20 MG/200 ML 200 ML IV PRN (23:00)
--- NOTE | 2016-10-16 00:18 | CON ---
DATE: 10/15/2016 LOCATION: ICU bed 128-4. REASON FOR CONSULTATION: Congestive heart failure, run of atrial fib rapid rate. HISTORY OF PRESENT ILLNESS: The patient known to have hypertension, hyperlipidemia, arthritis, admit caroline with shortness of breath, which started a few days ago and continued to get worse. The patient h as experienced some substernal chest pain radiating to his left arm earlier in the week. The patient came to hospital with extreme shortness of breath. The patient was being treated for CHF on the rylan or with IV Lasix and another medication and he started becoming restless and developed atrial fibrill ation, rapid rate. So, patient was transferred to intensive care unit where he is now maintaining si nus rhythm, no chest pain, no palpitation. PAST MEDICAL HISTORY: Significant for hypertension. The patient is not compliant with medication an d he is also noncompliant with diet, hyperlipidemia, arthritis. The patient had knee arthroscopic ely rgery. PERSONAL HISTORY: The patient smokes. He continues to smoke. Denies alcohol intake. FAMILY HISTORY: Father had cardiac problems. MEDICATIONS: The patient's home medication included Lipitor 20 mg daily, Norvasc 10 mg daily, metopr olol succinate 100 mg daily, Phenergan cough syrup, Tamiflu 75 mg daily, loratadine 10 mg daily, Flon ase 2 spray daily. ALLERGIES: No known allergies. REVIEW OF SYSTEMS: All the systems were reviewed, positive mentioned in the history, others were neg ative. PHYSICAL EXAMINATION: VITAL SIGNS: Blood pressure 145/107, respirations 19, pulse 58, temperature 97.4. HEENT: Head is normocephalic. Eyes: Pupils normal. Conjunctivae normal. NECK: JVP low. Carotid equal. THORAX: AP diameter normal. LUNGS: Bibasilar rales. CARDIOVASCULAR: S1, S2. No rub. No click. ABDOMEN: Soft, nontender, no organomegaly. EXTREMITIES: No clubbing, no cyanosis. LABORATORY DATA: WBC 6.5, hemoglobin 12.9, hematocrit 37.1, platelet 225. Sodium 145, potassium 3.5 , BUN 21, creatinine 1.3. Troponin x 2 were negative. Total protein 9.1, albumin 4.5. AST, ALT nor mal. Calcium normal. Magnesium 1.8, normal. AST, ALT normal. BUN 21 and creatinine 1.3. Chest x- ray consistent with congestive heart failure. EKG showed sinus rhythm, occasional PAC, PVCs, right b undle branch block. Rhythm strip showed a run of atrial fibrillation with rapid rate. DIAGNOSES: Congestive heart failure, hypertension, run off atrial fibrillation with rapid rate. Karin st pain radiating to left arm, rule out coronary artery disease, hypokalemia. PLAN: To put patient on hydralazine 25 mg t.i.d., Lasix 40 mg IV b.i.d., potassium 40 mEq p.o. stat was given, now patient in the ICU getting further potassium therapy, Lovenox 40 mg subQ daily, nitro ointment 1 inch q. 4 hourly, Pepcid 40 mg p.o. at bedtime, IV potassium has been ordered, lisinopril 10 mg p.o. daily. The patient also received amiodarone IV. The patient's echo has been already orde red to evaluate LV function and will put on Coreg 3.125 b.i.d. We will correct the potassium and wi ll repeat the labs in the morning, Lasix already 40 IV b.i.d. We will check a lipid profile and TSH and repeat labs in the morning and we will follow with you. Lucrecia Elizabeth MD cc: [id number] TT: 10/16/2016 00:17:23 Confirmation # [id number] Dictation # [id number] hn
[2016-10-16] MEDS: Potassium Chloride 20 mEq 100 ML IVPB SCH ×2 (02:00→05:00)
[2016-10-16] MEDS: Nitroglycerin 2% Ointment Foilpak UD TOP SCH ×2 (02:00→05:13)
[2016-10-16] MEDS: Nicardipine 20 MG/200 ML 200 ML IV PRN ×2 (02:30→04:30)
--- NOTE | 2016-10-16 04:10 | CP.PCM.PN ---
Subjective - Date & Time of Evaluation Date of Evaluation: 10/16/16 Time of Evaluation: 04:10 - Subjective Subjective: Two # 22 angiocath were inserted in left hand dorsum. Dx:Poor venous access. Objective - Vital Signs/Intake and Output Vital Signs (last 24 hours): Temp Pulse Resp BP Pulse Ox 98 F 121 H 31 H 186/117 H 97 10/15/16 20:49 10/16/16 01:28 10/16/16 01:28 10/16/16 01:28 10/16/16 01:28 - Medications Medications: Current Medications Aspirin (Aspirin Chewable) 81 mg PO DAILY [facility] Last Admin: 10/15/16 18:45 Dose: Not Given Enoxaparin Sodium (Lovenox) 40 mg SC DAILY [facility] PRN Reason: Protocol Last Admin: 10/15/16 11:39 Dose: 40 mg Famotidine (Pepcid) 40 mg PO HS [facility] Last Admin: 10/15/16 22:09 Dose: Not Given Furosemide (Lasix) 40 mg IVP BID [facility] Last Admin: 10/15/16 18:46 Dose: 40 mg Hydralazine HCl (Apresoline) 10 mg IVP STAT [facility] Last Admin: 10/14/16 20:24 Dose: Not Given Hydralazine HCl (Apresoline) 25 mg PO TID [facility] Last Admin: 10/15/16 18:45 Dose: Not Given Nicardipine HCl (Cardene Iv Premix) 200 mls @ 50 mls/hr IV .Q4H PRN; Protocol; 5 MG/HR PRN Reason: TITRATE PER MD ORDER Last Titration: 10/16/16 02:30 Dose: 10 mg/hr Potassium Chloride (Potassium Chloride 20 Meq/100 Ml) 100 mls @ 50 mls/hr IVPB Q2H [facility] Stop: 10/16/16 05:29 Last Admin: 10/16/16 02:00 Dose: 50 mls/hr Lisinopril (Zestril) 10 mg PO DAILY [facility] Last Admin: 10/15/16 16:30 Dose: Not Given Lorazepam (Ativan) 2 mg IVP Q4H PRN; Protocol PRN Reason: Agitation Last Admin: 10/15/16 23:55 Dose: 2 mg Metoprolol Tartrate (Lopressor) 5 mg IVP Q4H PRN PRN Reason: Heart rate Last Admin: 10/15/16 21:54 Dose: 5 mg Nitroglycerin (Nitro-Bid 2% Oint) 1 ea TOP Q4H [facility] Last Admin: 10/16/16 02:00 Dose: 1 ea Pantoprazole Sodium (Protonix Ec Tab) 40 mg PO ACB [facility] Potassium Chloride (K-Dur 20 Meq Er Tab) 20 meq PO BRK [facility] Thiamine HCl (Vitamin B1 Tab) 100 mg PO DAILY [facility] Last Admin: 10/15/16 18:45 Dose: Not Given - Labs Labs: 10/15/16 20:25 10/15/16 20:25 PT 11.0 Seconds (9.9-11.8) 10/14/16 14:06 INR 1.02 (0.93-1.08) 10/14/16 14:06 APTT 28.2 Seconds (23.7-30.8) 10/14/16 14:06
[2016-10-16 05:56] LABS: ADD MANUAL DIFF? NO
[2016-10-16 06:03] LABS: BASO # 0.01 K/mm3 (0.0-2.0); BASO % 0.1 % (0.0-3.0); GRAN # 6.26 (1.4-6.5); GRAN % 83.7 % (50.0-68.0); HEMATOCRIT 39.4 % (42.0-52.0); LYMPH # 0.9 (1.2-3.4); LYMPH % 11.7 % (22.0-35.0); MEAN CELL VOLUME 75.8 fL (80.0-105.0); MEAN CORPUSCULAR HEMOGLOBIN 25.8 pg (25.0-35.0); MEAN PLATELET VOLUME 11.4 fl (7.0-11.0); MONO # 0.3 (0.1-0.6); MONO % 4.5 % (1.0-6.0); PLATELET COUNT 242 10^3/uL (120.0-450.0); RED CELL DISTRIBUTION WIDTH 16.5 % (11.5-14.5); WHITE BLOOD COUNT 7.5 10^3/ul (4.5-11.0)
[2016-10-16 06:28] LABS: BLOOD UREA NITROGEN 24 mg/dL (7-21); CARBON DIOXIDE 25 mmol/L (21-33); CHLORIDE 103 mmol/L (95-110); CHOLESTEROL 251 mg/dL (130-200); GFR AFRICAN-AMERICAN > 60; GLUCOSE,RANDOM 201 mg/dL (70-110); MAGNESIUM 1.8 mg/dL (1.7-2.2); POTASSIUM 3.8 mmol/L (3.6-5.0); SODIUM 143 mmol/L (132-148)
[2016-10-16 07:29] LABS: TROPONIN I < 0.01 ng/mL
[2016-10-16] MEDS ORDERED: Pantoprazole 40 mg EC Tab PO SCH (07:30)
[2016-10-16] MEDS ORDERED: Potassium Chloride 20 mEq ER Tab PO SCH (08:00)
[2016-10-16] MEDS: Enoxaparin 40 mg Syringe SC SCH (09:04)
--- NOTE | 2016-10-16 09:44 | CON ---
DATE: 10/16/2016 This is a 71-year-old gentleman with history of hypertension with variable compliance with his medication, who started having increasing shortness of breath about 5 days ago. Since then he was treated with OTC cough medicine and Tamiflu, however, failed to improve. His shortness of breath was getting worse , his mental status was getting dimmer, and he was brought into [facility] by his for further management and evaluation. The patient was admitted to telemetry where he was found to have high blood pressure, not responding to boluses and conventional antihypertensive medication. The patient was transferred to ICU where nicardipine drip was started and diuresis given. Blood pressure substantially improved. Nicardipine drip was weaned. The patient diuresed about 2 liters overnight with subsequent stabilization of his respiratory status and blood pressure. Nevertheless, today patient has substantially altered mental status. It is difficult to wake him up. Seemed protecting his airways, Of note, head CT that was done yesterday did not reveal any acute intracranial pathology. PAST MEDICAL HISTORY: Hypertension. ALLERGIES: NKDA. FAMILY HISTORY: Noncontributory. SOCIAL HISTORY: No alcohol or illicit drug abuse. No tobacco smoking. I spoke with the patient's who said that the patient was fairly awake and alert prior to admission to the hospital. REVIEW OF SYSTEMS: Review of 12-organ system, other than mentioned in history of present illness, is negative. PHYSICAL EXAMINATION: VITAL SIGNS: Blood pressure 154/101, heart rate 82, oxygen saturation 96% on 2 liters nasal cannula. HEAD AND NECK: Atraumatic. LUNGS: Clear to auscultation bilaterally. HEART: Regular rate and rhythm. S1, S2 normal. ABDOMEN: Soft, nontender, nondistended. MUSCULOSKELETAL: No C/C/E. NEUROLOGIC: The patient moves all extremities spontaneously. SKIN: Moist. PSYCHIATRIC: The patient is confused, lethargic and disoriented. LABORATORY DATA: Sodium 143, potassium 3.8, chloride 103, carbon dioxide 25, BUN 24, creatinine 1.4, glucose 201. Troponin x 2 negative. ProBNP 4916. LDL cholesterol 251, HDL cholesterol 195. WBC 7.5, hemoglobin 13.4, platelet count 242. Lactic acid yesterday 5.9. MEDICATIONS: Hydralazine, aspirin, Lasix, metoprolol, Lovenox, Pepcid, Protonix , lisinopril. ASSESSMENT AND PLAN: This is a 71-year-old gentleman who initially presented with hypertensive emergency with altered mental status. Blood pressure was controlled with nicardipine drip; however, patient's mental status continued to deteriorate. His CT head was negative for any intracranial abnormalities; however, I am still concerned about acute intracranial abnormalities that could have been missed by CTH Thus, I will order MRI of the brain. The patient will stay in the ICU for airway monitoring. I will also address advanced directive status with patient's once she arrives at bedside in case we need to consider intubation for airway protection. I will order echocardiogram. The patient will be followed with neurology, cardiology and staffing clerk. We will continue to target euvolemia, euglycemia, normothermia and oxygen saturation more than 90%. We might need to put an NG tube for the medication. Head of bed elevated more than 35 degrees. Aspiration precautions. Deep venous thrombosis and gastrointestinal prophylaxis. Addendum: patient had MRI done, which despite motion artefacts was readable based on my conversation with Dr. Kennedy and did not reveal acute stroke, mass(es ) or temporal lobes acute pathologies (also based on my conversation with Dr. Kennedy). 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 Shortly after patient returned from MRI, mental status deteriorated, saliva and secretion started to pool in the mouth--patient was unable to manage it, started to drool-->decision was made to intubate for airway protection. Will proceed with protective lung ventilation strategy, conservative fluid management. Echo showed LV systolic and diastolic dysfunction -->ACEI were ordered by cardiology consult (Dr. Elizabeth), beta-blockers also were ordered. Patient is hemodynamically stable--no signs of cardiogenic shock, thus will hold off on inotropes. Will get input from neuro, mainly whether LP is indicated for diagnostic purposes (I have my doubts as there is no leukocytosis, patient is afebrile, MRI is negative for temporal lesions and it is not a season for endemic viral encephalitis, and patient doesnt have focal or flaccid paralysis). Will keep eye on renal function-->if continue to deteriorate may need hydration and switching from ACEI to hydralazine/nitrates for afterload reduction. ccm time 40 min Thang Youssef MD cc: [id number] TT: 10/16/2016 09:43:19 Confirmation # [id number] Dictation # [id number] mn MTDD
[2016-10-16] MEDS ORDERED: Potassium Chloride 20 mEq/15 ml LIQ UD PO STA (10:35)
[2016-10-16] MEDS ORDERED: Sodium Chloride 0.9% 1,000 ML IV SCH (11:00)
--- NOTE | 2016-10-16 11:06 | RAD ---
HISTORY: s/p dobhoff COMPARISON: No prior. FINDINGS: LUNGS: No active pulmonary disease. PLEURA: No significant pleural effusion identified, no pneumothorax apparent. CARDIOVASCULAR: Normal. OSSEOUS STRUCTURES: No significant abnormalities. VISUALIZED UPPER ABDOMEN: Normal. OTHER FINDINGS: None. IMPRESSION: The Dobhoff feeding tube is an the left bronchus. I spoke to the patient's nurse at 10:50 a.m.
--- NOTE | 2016-10-16 11:14 | PN ---
DATE: 10/16/2016 REASON FOR CONSULTATION: Congestive heart failure, paroxysmal atrial fibrillation, rule out ventricu lar tachycardia (AFib with aberrancy). BRIEF CLINICAL HISTORY: This is a 71-year-old male with a past medical history of hypertension, hype rlipidemia, arthritis. Admitted with shortness of breath. A few days ago prior to admission, it got worse. The patient was in the telemetry, had a rapid response, found to be wide complex tachycardia , which is AFib with rapid bundle branch block, thought to be VT, transferred to ICU. The patient is restless, confused last night, now is in 2-point restraint. Now is normal sinus, converted to lisa l sinus, probably sedated, did not wake up on calling the name, lying comfortable, hemodynamically st able. PHYSICAL EXAMINATION: VITAL SIGNS: Heart rate 70, blood pressure 130/82. HEENT: PERRLA. Extraocular muscles intact. NECK: Supple. No carotid bruits. No thyromegaly. CHEST: Clear to auscultation. HEART: S1, S2 regular. ABDOMEN: Soft. EXTREMITIES: Clubbing, cyanosis negative. BLOOD WORKUP: WBC 7. , hemoglobin 13.4, hematocrit 39.4, platelet count 242. Chemistry shows so dium 143, potassium 3.8, chloride 103, carbon dioxide 25, anion gap of 19, BUN , creatinine 1.4. Troponin x 4 negative. Triglycerides 73, cholesterol , LDL 195, HDL 42. TSH 0.9. EKG on adm ission, 10/14/2016, sinus rhythm with right bundle branch block, left anterior hemiblock. Yesterday, EKG at 5:15 p.m., sinus tachycardia. IMPRESSION: Paroxysmal atrial fibrillation, now has gone back to sinus, status post rapid response, wide complex tachycardia secondary to right bundle branch block and fast rate atrial fibrillation, so far no evidence of acute myocardial infarction, no evidence of acute coronary syndrome, altered ment al status, confused. RECOMMENDATION: Since the patient is not taking p.o. and now the blood pressure is elevated, we will start IV Lopressor. Continue IV Lopressor. Continue p.r.n. hydralazine for blood pressure. I will give 5 mg of Lopressor if the patient cannot take p.o. Otherwise, we will continue low dose p.o. Lo pressor and hydralazine. We will follow with you. Currently, patient is on nicardipine for IV, but we will follow. I will get an echo to assess left ventricular function. Further recommendation base d on the hospital course and findings of the initial workup. We will simplify the medical regimen de pending upon the patient's intake p.o. Thank you, Dr. Posey, for providing us the opportunity in taking care of the patient. We will foll ow with you. Lucrecia Pérez MD cc: [id number] TT: 10/16/2016 11:14:04 Confirmation # [id number] Dictation # [id number]
--- NOTE | 2016-10-16 11:29 | PN ---
DATE: 10/16/2016 ATTENDING: The patient transferred to CCU last night after arrhythmia noted on monitor. The patient was bolused with amiodarone. MRI brain canceled this morning because of increased agitation despite lorazepam. PHYSICAL EXAMINATION: VITAL SIGNS: Stable. Temperature is 98, respiration 23, pulse is 104, blood pressure 154/101. LUNGS: Have rhonchi. HEART: Regular rhythm, tachycardic. ABDOMEN: Soft, nontender. EXTREMITIES: No edema. Dobbhoff tube placed and discontinued, to be reinserted after intubation for airway protection during MRI. PLAN: Continue CCU monitoring. Cardiology emergent input greatly appreciated. Follow electrolytes, CBC, troponin later today and tomorrow morning. Telemarketing Manager's efforts appreciated as well. Intubation and mechanical ventilation discussed with patient's , _Dank____. Jf Posey MD cc: [id number] TT: 10/16/2016 11:28:58 Confirmation # [id number] Dictation # [id number] en MTDD
--- NOTE | 2016-10-16 11:29 | MRI ---
PROCEDURE: MRI BRAIN WITHOUT CONTRAST HISTORY: stroke COMPARISON: None. TECHNIQUE: Multiplanar, multisequence MR images of the brain were obtained without intravenous contrast enhancement. The study was degraded by motion artifact. FINDINGS: HEMORRHAGE: None DWI: No evidence of an acute or early subacute infarction. BRAIN PARENCHYMA: No mass effect or edema. Severe chronic microvascular changes are seen in the periventricular white matter. VENTRICLES: Unremarkable. No hydrocephalus. CRANIUM: Unremarkable. ORBITS: Grossly unremarkable. PARANASAL SINUSES/MASTOIDS: Clear VASCULAR SYSTEM: Skull base flow voids intact. OTHER FINDINGS: None. IMPRESSION: Study limited by motion artifact. No evidence of acute infarct on diffusion images.
--- NOTE | 2016-10-16 12:22 | RAD ---
HISTORY: ETT placement, NGT COMPARISON: No prior. FINDINGS: LUNGS: No active pulmonary disease. PLEURA: No significant pleural effusion identified, no pneumothorax apparent. CARDIOVASCULAR: Normal. OSSEOUS STRUCTURES: No significant abnormalities. VISUALIZED UPPER ABDOMEN: Normal. OTHER FINDINGS: The endotracheal tube is in satisfactory position. The nasogastric tube terminates in the distal esophagus above the diaphragm and should be advanced IMPRESSION: Suboptimal position of nasogastric tube in the distal esophagus
--- NOTE | 2016-10-16 13:55 | CARD ---
APPROVED REPORT EKG Measurement Heart [id number] <Conclusion> Sinus Tachycardia with frequent and consecutive premature ventricular complexes and fusion complexes Left axis deviation Nonspecific IVCD Left ventricular hypertrophy with QRS widening and repolarization abnormality Abnormal ECG
[2016-10-16 14:01] LABS: ARTERIAL BLOOD GAS HCO3 22.9 mmol/L (21-28); ARTERIAL BLOOD GAS O2 CAPACITY 18.8 mL/dl (16-24); ARTERIAL BLOOD GAS O2 CONTENT 18.7 ML/dl (15-23); ARTERIAL BLOOD HGB O2 SAT 96.9 % (95.0-98.0); CARBOXYHEMOGLOBIN 1.8 % (0.5-1.5); HHB 0.3 % (0-5); METHEMOGLOBIN 0.9 % (0.0-3.0)
--- NOTE | 2016-10-16 15:14 | RAD ---
PROCEDURE: Portable chest HISTORY: repositioned OGT COMPARISON: Earlier same day TECHNIQUE: FINDINGS: IMPRESSION: The gastric tube has been advanced and is now in satisfactory position within the fundus. Endotracheal tube unchanged
--- NOTE | 2016-10-16 15:31 | CARD ---
APPROVED REPORT EXAM: Two-dimensional and M-mode echocardiogram with Doppler and color Doppler. INDICATION Chest Pain 2D DIMENSIONS IVSd1.7 (0.7-1.1cm)LVDd6.4 (3.9-5.9cm) PWd1.6 (0.7-1.1cm)LVDs5.4 (2.5-4.0cm) FS (%) 15.8 %LVEF (%)32.5 (>50%) M-Mode DIMENSIONS Aortic Root3.30 (2.2-3.7cm)Aortic Cusp Exc.1.20 (1.5-2.0cm) Aortic Valve AoV Peak Yqapnejf507.0cm/Sil Peak GR.14mmHg Mitral Valve E/A ratio0.0 TDI E/Lateral E'0.0E/Medial E'0.0 Tricuspid Valve TR Peak [id number]/sRAP [id number] Peak Gr.25mmHg [id number] LEFT VENTRICLE The Left Ventricle is moderately dilated. There is mild to moderate concentric left ventricular hypertrophy. The systolic function is moderately impaired. Multiple wall motion abnormalities.C/W CAD Transmitral Doppler flow pattern is Grade III-reversible restrictive diastolic dysfunction. No left ventricle thrombus noted on this study. There is no ventricular septal defect visualized. There is no left ventricular aneurysm. There is no mass noted in the left ventricle. RIGHT VENTRICLE The right ventricle is normal size. There is normal right ventricular wall thickness. The right ventricular systolic function is normal. ATRIA The left atrium is mildly dilated. The right atrium size is normal. The interatrial septum is intact with no evidence for an atrial septal defect. AORTIC VALVE The aortic valve is calcified and displays decreased opening. The aortic valve is moderately sclerotic. There is mild to moderate aortic regurgitation. There is mild valvular aortic stenosis. There is no aortic valvular vegetation. MITRAL VALVE The mitral valve is thickened but opens well. Mitral annular calcification is mild. Mitral regurgitation is mild. There is no mitral valve stenosis. There is no evidence of mitral valve prolapse. TRICUSPID VALVE The tricuspid valve leaflets are thickened , but open well. There is mild tricuspid regurgitation.RVSP-35 mmof hg. There is no tricuspid valve stenosis. There is no tricuspid valve prolapse or vegetation. PULMONIC VALVE The pulmonic valve is borderline thickened. There is trace pulmonic valvular regurgitation. There is no pulmonic valvular stenosis. GREAT VESSELS The aortic root is normal in size. The ascending aorta is normal in size. The pulmonary artery is normal. The IVC is normal in size and collapses >50% with inspiration. PERICARDIAL EFFUSION There is no pleural effusion. There is a trace pericardial effusion. <Conclusion> The Left Ventricle is moderately dilated. There is mild to moderate concentric left ventricular hypertrophy. The systolic function is moderately impaired. Multiple wall motion abnormalities.C/W CAD There is mild to moderate aortic regurgitation. There is mild valvular aortic stenosis. Mitral regurgitation is mild. There is mild tricuspid regurgitation.RVSP-35 mmof hg. There is a trace pericardial effusion.
--- NOTE | 2016-10-16 16:42 | CARD ---
APPROVED REPORT EKG Measurement Heart [id number] <Conclusion> Sinus rhythm with premature atrial complexes and borderline 1st degree AVB RBBB LAHB STTW changes
[2016-10-16] MEDS ORDERED: Potassium Chloride 20 mEq ER Tab PO ONE (20:00)
[2016-10-17 05:16] LABS: ARTERIAL BLOOD GAS HCO3 23.2 mmol/L (21-28); ARTERIAL BLOOD GAS O2 CAPACITY 16.8 mL/dl (16-24); ARTERIAL BLOOD GAS O2 CONTENT 16.7 ML/dl (15-23); ARTERIAL BLOOD GAS PH 7.43 (7.35-7.45); ARTERIAL BLOOD HGB O2 SAT 96.1 % (95.0-98.0); CARBOXYHEMOGLOBIN 1.9 % (0.5-1.5); HHB 0.5 % (0-5); METHEMOGLOBIN 1.5 % (0.0-3.0)
[2016-10-17 05:17] LABS: ADD MANUAL DIFF? NO
[2016-10-17 05:19] LABS: BASO # 0.01 K/mm3 (0.0-2.0); BASO % 0.1 % (0.0-3.0); EOS % 0.1 % (1.5-5.0); GRAN # 6.63 (1.4-6.5); GRAN % 76.4 % (50.0-68.0); HEMATOCRIT 35.3 % (42.0-52.0); LYMPH # 1.4 (1.2-3.4); LYMPH % 16.1 % (22.0-35.0); MEAN CELL VOLUME 75.3 fL (80.0-105.0); MEAN CORPUSCULAR HEMOGLOBIN 25.8 pg (25.0-35.0); MEAN CORPUSCULAR HGB CONC 34.3 g/dl (31.0-37.0); MONO # 0.6 (0.1-0.6); MONO % 7.3 % (1.0-6.0); PLATELET COUNT 229 10^3/uL (120.0-450.0); RED CELL DISTRIBUTION WIDTH 16.6 % (11.5-14.5); WHITE BLOOD COUNT 8.7 10^3/ul (4.5-11.0)
[2016-10-17 05:56] LABS: ALB/GLOB RATIO 0.9 (1.1-1.8); ALKALINE PHOSPHATASE 102 U/L (38-133); ALT/SGPT 8 U/L (7-56); AST/SGOT 33 U/L (15-59); BILIRUBIN,TOTAL 0.7 mg/dL (0.2-1.3); BLOOD UREA NITROGEN 36 mg/dL (7-21); CALCIUM 9.3 mg/dL (8.4-10.5); CARBON DIOXIDE 24 mmol/L (21-33); CHLORIDE 107 mmol/L (95-110); GFR AFRICAN-AMERICAN 45; GLUCOSE,RANDOM 94 mg/dL (70-110); MAGNESIUM 1.8 mg/dL (1.7-2.2); PHOSPHOROUS 4.1 mg/dL (2.5-4.5); POTASSIUM 3.9 mmol/L (3.6-5.0); SODIUM 145 mmol/L (132-148); TOTAL PROTEIN 8.3 g/dL (5.8-8.3)
[2016-10-17 06:11] LABS: TROPONIN I < 0.01 ng/mL
--- NOTE | 2016-10-17 07:34 | PN ---
DATE: 10/17/2016 REASON FOR CONSULTATION: Congestive heart failure, paroxysmal atrial fibrillation, rule out VT AFib with . BRIEF CLINICAL HISTORY: A 71-year-old male with past medical history significant for hypertension, h yperlipidemia, arthritis, admitted with shortness of breath a few days prior to admission, get more s hort of breath. The patient was in telemetry, had a rapid response, wide complex tachycardia, which is AFib with rapid rate and bundle branch block, thought to be VT transferred to ICU. The patient is restless, confused last night, 2-point restraints. Now the patient is reading normal sinus, convert ed to normal sinus, status post respiratory failure. PHYSICAL EXAMINATION: VITAL SIGNS: Temperature afebrile, heart rate 92, blood pressure 150/120. He is intubated. HEENT: PERRLA. Extraocular muscles intact. NECK: Supple. No carotid bruits. No thyromegaly. CHEST: Clear to auscultation. HEART: Good air entry. ABDOMEN: Soft. EXTREMITIES: Clubbing and cyanosis negative. LABORATORY DATA: Blood workup as follows: WBC 7.5, hemoglobin 13.4, hematocrit 39.4, platelet count 242. Chemistry shows sodium 143, potassium 3.0, chloride 103, carbon dioxide 25, anion gap of 19, B UN 24, creatinine 1.4. Triglycerides 73, VLDL 251, LDL 195, HDL of 42. Troponin 0.01 x2 negative. IMPRESSION: No evidence of acute myocardial infarction, status post respiratory failure, intubated, paroxysmal atrial fibrillation, right bundle branch block. The patient had echocardiography done yes terday, that shows LV is moderately dilated, moderately dilated concentric LVH, systolic function mod erately. Multiple wall motion abnormalities consistent with coronary artery disease, uhqe-jr-anmaniz e aortic stenosis, qhde-bl-jggdgbvr aortic regurgitation, mild aortic stenosis, mild mitral regurgita tion, mild tricuspid regurgitation, right ventricular systolic pressure of 35. Cardiomyopathy, now patient back in sinus, he is status post rapid response, but complex tachycardia secondary to bundle branch block, paroxysmal atrial fibrillation. No evidence of acute myocardial in farction, status post respiratory failure, intubated, altered mental status. RECOMMENDATION: Continue vent management. Continue antibiotic. Continue p.r.n. hydralazine. Tatiana nue Lasix. We will DC IV fluid, continue NG free fluid, lisinopril, and continue p.r.n. hydralazine. Since the patient has decreased LV function. Ejection fraction is in the range of 30%-35%. If it is in 30-35%, we will start low dose of digoxin, amiodarone to prevent back into AFib, through the NG tube continue hydralazine. We will put amiodarone and put Coreg. We will follow with you. Thank you, us the opportunity in taking patient's care. The patient needs to be extubated and is stabilized, consider cardiac catheterization. We will follow with you. We will continue DVT prophylaxis. Lucrecia Pérez MD cc: [id number] TT: 10/17/2016 07:33:58 Confirmation # [id number] Dictation # [id number] tn
--- NOTE | 2016-10-17 10:03 | CON ---
DATE: 10/16/2016 CONSULTATION REQUESTED BY: Dr. Posey. REASON FOR CONSULTATION: Acute renal failure. HISTORY OF PRESENT ILLNESS: The patient is a patient previously unknown to me. This 71-year-old gen adamsman presented to [facility]'s Emergency Department on 10/14 with a complaint of runny nose, nasal congestion, myalgias as well as dyspnea that had worsened to the point that it was occurr ing with minimal exertion. He had been taking several medications including Tamiflu for approximatel y 5 days without any relief. On arrival to the ED, the patient was noted to have a blood pressure of 203/146 with a heart rate of 94, breathing at 18 breaths per minute with an oral temperature of 97.7 . Oxygen saturation was 98%. Chest x-ray revealed mild congestive heart failure and EKG revealed a bifascicular block. He did have sinus rhythm with marked sinus arrhythmia and LVH as well as evidenc ed an anterior wall infarction. CT scan of his head was also performed without contrast, which did n ot reveal any acute pathology. With respect to the patient's elevated blood pressure, he was given n itro paste as well as losartan to continue his outpatient regimen of amlodipine and metoprolol. He w as subsequently admitted for further evaluation and management. The day following admission, the pat ient was noted to be quite agitated with a blood pressure of 209/115 and a heart rate of 150 with medina tricular tachycardia noted on monitoring. He appeared to be in distress and was given amiodarone as well as adenosine, Ativan, Geodon, labetalol and transferred to the intensive care unit for further e valuation and management. Since then, he has been intubated. MRI was performed of his brain without contrast, which revealed severe chronic microvascular disease, but no evidence of an acute infarct. Chest x-ray from 10/16 is unremarkable and an echocardiogram performed earlier in the day revealed a moderately dilated left ventricle with moderate concentric LVH with an ejection fraction of 33%, mul tiple wall motion abnormalities were also noted consistent with coronary artery disease. The patient also had mild aortic stenosis and trace pericardial effusion. At present, he remains intubated in t intensive care unit. Since having been admitted, his creatinine has increased slowly from 1.1 up to 1.4 today. Of note, this is his first hospitalization here at [facility] and there ar e no prior labs of which to compare these. It is noted that his blood pressure has trended down and on several occasions he has had a systolic blood pressure less than 100 since having been admitted, w hich appears to be much less than his baseline. He is currently not on any nephrotoxic medications, although he is on twice daily furosemide for his CHF and 10 mg daily of lisinopril for afterload redu ction. He is not on any NSAIDs and there is no recent IV contrast agents that he received either. O f note, urinalysis reveals only trace microscopic hematuria without any proteinuria on admission. REVIEW OF SYSTEMS: Could not be obtained from the patient because he was intubated, but was reviewed across the chart with all 10 systems in 14 points and was negative unless stated otherwise above. PAST MEDICAL HISTORY: Significant for hypertension with left ventricular hypertrophy, coronary arter y disease with decreased left ventricular systolic function, and dyslipidemia. MEDICATIONS: The patient has been taking at home and prior to admission included atorvastatin 20 mg orally daily, amlodipine 10 mg orally daily, metoprolol succinate 100 mg orally daily, promethazine D M 10 mL orally 3 times a day, Tamiflu 75 mg orally daily, loratadine 10 mg orally daily, and Flonase 2 sprays to each nostril daily. ALLERGIES: The patient had no known drug allergies. SOCIAL HISTORY: Notable for the patient not having any history of tobacco, alcohol, or illicit drug use. FAMILY HISTORY: Negative for any inheritable renal or electrolyte disorders and was otherwise noncon tributory. PHYSICAL EXAMINATION: GENERAL APPEARANCE: When I saw the patient, he was intubated and sedated with Diprivan. The Mathur c atheter was also in place. He was receiving intravenous fluids and had an OG tube in place as well. He had an FiO2 of 50%. VITAL SIGNS: Blood pressure is 127/95 in the last 24-hour period, has been as low as 113/59 and as h igh as 168/112; heart rate is 74, but has ranged from the 70s to approximately 100 beats per minute w ith sinus rhythm and sinus tachycardia noted on telemetry; oral temperature is 98.9 degrees and the p atient's temperature has fluctuated from 96.6 to 98.9; respiratory rate is 15 breaths per minute, but has ranged from 14-38 breaths per minute in the last 24-hour period; oxygen saturation is 100%, but has ranged from 92-100% on an FIO2 of 50%. I's and O's are documented as 1700/2800. The remainder o f the exam is as follows. HEENT: The patient was normocephalic and atraumatic without any sinus tenderness. NECK: Supple with a full range of motion. Trachea midline and freely movable. Thyroid was nontende r nor was it enlarged. There was no jugular venous distention that I could appreciate. Conjunctivae were neither pale nor were they icteric. CHEST: Lungs buckley on my exam were grossly clear to auscultation. There were no rales, rhonchi, or wheezing. CARDIAC: Had a regular rate and rhythm without any rubs or gallops. There were no heaves. PMI was not displaced. ABDOMEN: Soft and mildly distended, but nontender, without any rebounding, guarding, or rigidity. T here was no hepatosplenomegaly. EXTREMITIES: Had trace edema. GENITOURINARY: Notable for the presence of a Mathur catheter. There was no suprapubic tenderness. LABORATORY STUDIES: White count is 7.5, H and H is 13.4/39.4 with a platelet count 242,000. There a re 84% neutrophils, 12% lymphocytes, 5% monocytes. Sodium is 143, potassium 3.8, chloride 103, bicar bonate 25, BUN/creatinine is 24/1.4 with a glucose of 201. Calcium is 10.0, total protein/albumin is 9.1/4.5, AST/ALT is 32/12, alkaline phosphatase is 113. CPK is 59. Urinalysis was yellow, clear wi th a pH of 6.5, specific gravity of 1.010, trace blood, but without any proteinuria. Influenza was n egative for A and B. White count is 7.5 with an H and H of 13.4/39.4 with a platelet count of 242,00 0 with an MCV of 76. There are 84% neutrophils, 12% lymphocytes, 5% monocytes. Most recent chest x- ray is unchanged. IMAGING: As stated above. IMPRESSION AND PLAN: The patient is a 71-year-old gentleman with a known history of hypertension and left ventricular hypertrophy, dyslipidemia, coronary artery disease with decreased left ventricular systolic function on the bases of an echocardiogram performed this hospitalization, admitted with inc reasing shortness of breath that is progressive dyspnea on exertion. He was found to have uncontroll ed hypertension with congestive heart failure compatible with hypertensive emergency. After being ho spitalized, the patient also developed ventricular tachycardia in the setting of uncontrolled hyperte nsion again. He had been on a nicardipine infusion earlier during this hospitalization, but is now o ff it. Of note, review of his blood pressure suggest that it is quite labile, which in my opinion wo uld merit a workup for pheochromocytoma. We can start off by checking plasma total and fractionated metanephrines to rule out this possibility. If these are equivocal as may be the case in patient's o f essential hypertension, then he may need a 24-hour urinary collection for volume creatinine as well as total and fractionated catecholamines and metanephrines. Of note, the patient's creatinine has s teadily increased since admission and now meets criteria for stage I acute kidney injury. I suspect that this may be secondary to relative for the patient, but nonetheless for his benefit he does require treatment for hypertension as is being given. For now, I have no objection to continuing hi m on lisinopril as well as furosemide 40 mg intravenously twice daily, carvedilol 3.125 mg orally twi ce daily as well. I would also add amlodipine 5 mg orally daily for the time being if his blood pres sure would increase. Ultimately, however, his goal blood pressure given the fact that he is a 71-yea r-old should be less than 140/90. For deep venous thrombosis prophylaxis, the patient is currently o n Lovenox 40 mg subcutaneously daily, but if his creatinine continues to increase, we may have to dec rease to 30 mg subcutaneously daily. For gastrointestinal prophylaxis he is currently on pantoprazol e. Cardiology consultation is appreciated and given the fact that the patient has ventricular tachyc ardia as well as paroxysmal atrial fibrillation, now back in sinus rhythm, he is also on the beta blo cker as well. I will be following this complex patient closely for the above complex medical problem s. I thank you very much for the courtesy of this consultation. More than 35 minutes were spent in the care of this ICU patient today. Erik Chan MD cc: [id number] TT: 10/17/2016 10:01:58 Confirmation # [id number] Dictation # [id number]
--- NOTE | 2016-10-17 10:31 | RAD ---
HISTORY: ett COMPARISON: No prior. FINDINGS: LUNGS: The endotracheal tube and nasogastric tube are in satisfactory position PLEURA: No significant pleural effusion identified, no pneumothorax apparent. CARDIOVASCULAR: Mild cardiomegaly OSSEOUS STRUCTURES: No significant abnormalities. VISUALIZED UPPER ABDOMEN: Normal. OTHER FINDINGS: None. IMPRESSION: Endotracheal and nasogastric tubes in satisfactory position
[2016-10-17] MEDS ORDERED: Morphine 2 mg/ml ISec IVP PRN (10:54)
--- NOTE | 2016-10-17 11:38 | CP.CCUPN ---
<Rachael Casillas - Last Filed: 10/17/16 12:04> CCU Subjective - Physician Review Events Since Last Encounter (Free Text): 10/17/16 11:35 Patient seen and examined bedside. BP elevated overnight 178/114. IVF DCed, patient now on Free water flushes 200cc Q6hr through OGT. PRVC 500/14/40/5 sedated on propofol @20mcg. Critical Care Time Spent (in minutes): 30 CCU Objective - Vital Signs / Intake & Output Vital Signs (Last 4 hours): Vital Signs Pulse Resp BP Pulse Ox 10/17/16 11:31 85 25 H 147/72 100 10/17/16 10:15 76 17 100 10/17/16 10:00 84 15 147/72 99 10/17/16 09:54 74 137/47 L 10/17/16 09:45 98 H 20 10/17/16 09:35 28 H 100 10/17/16 09:32 84 23 10/17/16 09:30 75 15 100 10/17/16 09:20 21 100 10/17/16 09:17 25 H 100 10/17/16 09:15 115 H 23 100 10/17/16 09:14 38 H 100 10/17/16 09:00 74 14 144/95 H 100 10/17/16 08:45 86 16 100 10/17/16 08:30 77 14 100 10/17/16 08:15 79 14 100 10/17/16 08:00 83 14 137/47 L 100 10/17/16 07:45 116 H 100 Intake and Output (Last 8hrs): Intake & Output 10/16/16 10/17/16 10/17/16 22:59 06:59 14:59 Intake Total 900 620 Output Total 400 600 Balance 500 20 Weight 178 lb Intake: IV 900 420 Left Hand 800 420 Left thumb 100 Other 200 Output: Urine 400 600 Urethral (Marcos) 400 600 Other: Voiding Method Incontinent # Bowel Movements 1 - Physical Exam Pupils: Positive for: PERRL Extroacular Muscles: Positive for: EOMI Conjunctiva: Positive for: Normal Mouth: Positive for: Dry Pharnyx: Positive for: Normal. Negative for: ERYTHEMA, EXUDATE Neck: Positive for: JVD Respiratory/Chest: Positive for: Good Air Exchange. Negative for: Clear to Auscultation (coarse breath sounds throughout. Intubated PRVC 500/14/40/5), Respiratory Distress, Accessory Muscle Use Cardiovascular: Positive for: Regular Rate and Rhythm, Normal S1, S2. Negative for: Murmurs Abdomen: Positive for: Normal Bowel Sounds. Negative for: Tenderness, Distention, Peritoneal Signs Back: Positive for: Normal Inspection Lower Extremity: Positive for: Normal Inspection. Negative for: Edema Other physical findings (Free Text): sedated RAAS -4 - Medications Active Medications: Active Medications Generic Name Dose Route Start Last Admin Trade Name Freq PRN Reason Stop Dose Admin Amiodarone HCl 200 mg 10/17/16 10:00 10/17/16 09:54 Cordarone PO 200 mg DAILY ROSALIA Administration Aspirin 81 mg 10/15/16 16:15 10/17/16 09:53 Aspirin Chewable PO 81 mg DAILY ROSALIA Administration Atorvastatin Calcium 40 mg 10/16/16 17:00 10/16/16 18:17 Lipitor PO 40 mg DIN ROSALIA Administration Carvedilol 3.125 mg 10/17/16 10:00 10/17/16 09:54 Coreg PO 3.125 mg BID ROSALIA Administration Cyanocobalamin 1,000 mcg 10/16/16 11:30 10/16/16 18:16 Vitamin B12 1000 Mcg/Ml Inj IM 10/19/16 23:59 1,000 mcg BID ROSALIA Administration Digoxin 0.125 mg 10/17/16 14:00 Lanoxin PO 1400 ROSALIA Enoxaparin Sodium 40 mg 10/14/16 17:00 10/16/16 09:04 Lovenox SC 40 mg DAILY ROSALIA Administration Protocol Hydralazine HCl 10 mg 10/16/16 10:35 Apresoline PO QID PRN for SBP>170 7 Diastolic>100 Propofol 100 mls @ 2.411 mls/hr 10/16/16 11:15 10/17/16 09:56 Diprivan IV 10 mcg/kg/min .Q24H PRN Titration TITRATE PER MD ORDER Protocol 5 MCG/KG/MIN Lisinopril 10 mg 10/15/16 16:00 10/16/16 12:55 Zestril PO 10 mg DAILY ROSALIA Administration Lorazepam 2 mg 10/15/16 16:46 10/17/16 08:58 Ativan IVP 2 mg Q4H PRN Administration Agitation Protocol Morphine Sulfate 2 mg 10/17/16 10:54 Morphine IVP Q4H PRN Pain, moderate (4-7) Pantoprazole Sodium 40 mg 10/16/16 12:45 10/17/16 09:55 Protonix Inj IVP 40 mg DAILY ROSALIA Administration Thiamine HCl 100 mg 10/15/16 17:00 10/17/16 09:55 Vitamin B1 Tab PO 100 mg DAILY ROSALIA Administration - Patient Studies Lab Studies: Microbiology Studies 10/15/16 22:40 MRSA Culture (Admit) - Final Nose MRSA NOT DETECTED 10/14/16 18:35 Blood Culture - Preliminary Blood-Venous NO GROWTH AFTER 48 HOURS Lab Studies 10/17/16 10/16/16 Range/Units 05:00 13:57 WBC 8.7 (4.5-11.0) 10^3/ul RBC 4.69 (3.5-6.1) 10^6/uL Hgb 12.1 L (14.0-18.0) gm/dL Hct 35.3 L (42.0-52.0) % MCV 75.3 L (80.0-105.0) fL MCH 25.8 (25.0-35.0) pg MCHC 34.3 (31.0-37.0) g/dl RDW 16.6 H (11.5-14.5) % Plt Count 229 (120.0-450.0) 10^3/uL Gran % 76.4 H (50.0-68.0) % Lymph % (Auto) 16.1 L (22.0-35.0) % [place] % (Auto) 7.3 H (1.0-6.0) % Eos % (Auto) 0.1 L (1.5-5.0) % Baso % (Auto) 0.1 (0.0-3.0) % Gran # 6.63 H (1.4-6.5) Lymph # 1.4 (1.2-3.4) [place] # 0.6 (0.1-0.6) Eos # 0.0 (0.0-0.7) Baso # 0.01 (0.0-2.0) K/mm3 pCO2 35 37 (35-45) mm/Hg pO2 129.0 H 152.0 H (80-100) mm/Hg HCO3 23.2 22.9 (21-28) mmol/L ABG pH 7.43 7.40 (7.35-7.45) ABG Total CO2 24.3 24.0 (22-28) mmol.L ABG O2 Saturation 99.5 H 99.7 H (95-98) % ABG O2 Content 16.7 18.7 (15-23) ML/dl ABG Base Excess -0.7 -1.5 (-2.0-3.0) mmol/L ABG Hemoglobin 12.2 13.5 (11.7-17.4) g/dL ABG Carboxyhemoglobin 1.9 H 1.8 H (0.5-1.5) % POC ABG HHb (Measured) 0.5 0.3 (0-5) % ABG Methemoglobin 1.5 0.9 (0.0-3.0) % ABG O2 Capacity 16.8 18.8 (16-24) mL/dl Hgb O2 Saturation 96.1 96.9 (95.0-98.0) % FiO2 40.0 50.0 % Sodium 145 (132-148) mmol/L Potassium 3.9 (3.6-5.0) mmol/L Chloride 107 (95-110) mmol/L Carbon Dioxide 24 (21-33) mmol/L Anion Gap 18 (10-20) BUN 36 H (7-21) mg/dL Creatinine 1.8 H (0.5-1.4) mg/dL Est GFR ( Amer) 45 Est GFR (Non-Af Amer) 37 Random Glucose 94 (70-110) mg/dL Calcium 9.3 (8.4-10.5) mg/dL Phosphorus 4.1 (2.5-4.5) mg/dL Magnesium 1.8 (1.7-2.2) mg/dL Total Bilirubin 0.7 (0.2-1.3) mg/dL AST 33 (15-59) U/L ALT 8 (7-56) U/L Alkaline Phosphatase 102 (38-133) U/L Lactate Dehydrogenase 409 (333-699) U/L Total Creatine Kinase 389 H (35-230) U/L CK-MB (CK-2) 1.3 (0.0-3.6) ng/mL CK-MB (CK-2) % Cancelled Troponin I < 0.01 ng/mL Total Protein 8.3 (5.8-8.3) g/dL Albumin 4.0 (3.0-4.8) g/dL Globulin 4.3 gm/dL Albumin/Globulin Ratio 0.9 L (1.1-1.8) Digoxin < 0.4 L (0.8-2.0) ng/mL Laboratory Results - last 24 hr 10/16/16 10/17/16 13:57 05:00 WBC 8.7 RBC 4.69 Hgb 12.1 L Hct 35.3 L MCV 75.3 L MCH 25.8 MCHC 34.3 RDW 16.6 H Plt Count 229 Gran % 76.4 H Lymph % (Auto) 16.1 L [place] % (Auto) 7.3 H Eos % (Auto) 0.1 L Baso % (Auto) 0.1 Gran # 6.63 H Lymph # 1.4 [place] # 0.6 Eos # 0.0 Baso # 0.01 pCO2 37 35 pO2 152.0 H 129.0 H HCO3 22.9 23.2 ABG pH 7.40 7.43 ABG Total CO2 24.0 24.3 ABG O2 Saturation 99.7 H 99.5 H ABG O2 Content 18.7 16.7 ABG Base Excess -1.5 -0.7 ABG Hemoglobin 13.5 12.2 ABG Carboxyhemoglobin 1.8 H 1.9 H POC ABG HHb (Measured) 0.3 0.5 ABG Methemoglobin 0.9 1.5 ABG O2 Capacity 18.8 16.8 Hgb O2 Saturation 96.9 96.1 FiO2 50.0 40.0 Sodium 145 Potassium 3.9 Chloride 107 Carbon Dioxide 24 Anion Gap 18 BUN 36 H Creatinine 1.8 H Est GFR ( Amer) 45 Est GFR (Non-Af Amer) 37 Random Glucose 94 Calcium 9.3 Phosphorus 4.1 Magnesium 1.8 Total Bilirubin 0.7 AST 33 ALT 8 Alkaline Phosphatase 102 Lactate Dehydrogenase 409 Total Creatine Kinase 389 H CK-MB (CK-2) 1.3 CK-MB (CK-2) % Cancelled Troponin I < 0.01 Total Protein 8.3 Albumin 4.0 Globulin 4.3 Albumin/Globulin Ratio 0.9 L Digoxin < 0.4 L EKG/Cardiology Studies: Cardiology / EKG Studies 10/16/16 10:37 ELECTROCARDIOGRAM Urgent Comment: rythm changed to NSR Reason For Exam: A fib 10/17/16 07:00 ELECTROCARDIOGRAM Routine Comment: Reason For Exam: chest pain PAF PRE OP:: N Does Patient Have a Pacemaker?: No PERFORMING PHYSICIAN/PROVIDER:: Lucrecia Pérez Review of Systems - Review of Systems Systems not reviewed;Unavailable: Intubated Critical Care Progress Note - Ventilator Checklist Head of Bed 30 Degrees: Yes PUD Prophalyxis: Yes DVT Prophylaxis: Yes Assessment/Plan - Assessment and Plan (Free Text) Assessment: 71 yo M w h/o HTN, HLD, arthritis, medical noncompliance admitted for hypertensive emergency with AMS, transferred to ICU following [employer] for HTN and SVT on Nicardipine drip that has since been weaned off now intubated day #2 for airway protection, course further complicated by JESUSITA. Plan: Neuro: sedated on propofol currently at 20 mcg/kg/min. Wean sedation to maintain RAAS -3 while on PS. Neuro c/s pending. Recs appreciated. Ativan PRN agitation. Morphine PRN pain. Maintain normothermia. CV: HD stable. Cardio following. Continue amio, coreg, lipitor, ASA, hydralazine PRN as per cardio 2D ECHO shows LVEF 35%, mild-mod AR, mild , mild MR, mild TR, RVSP 35mmHg, trace pericardial effusion, grade 3 diastolic dysfunction. Pulm: Pressure support trial, possible extubation today/tomorrow. Daily ABGs, CXRs. Aspiration precautions. HOB >35degrees. Protective lung ventilation strategy. Maintain SpO2>90, PaO2>60 GI: GI ppx. NPO Endo: No active issues. A1c Pending. Maintain euglycemia 140-180 Renal: JESUSITA. DC Lasix, lisinopril, lovenox, potassium, digoxin. Start SQH. Hold all nephrotoxins. Will obtain renal US. Nephrology consult noted and appreciated. Metanephrines pending. Continue free water flushes, monitor renal function ID: No active issues. No signs of infection at this time. Heme: Mild microcytic anemia. Hb 12.1, stable. No signs of bleeding. Hematuria noted in marcos bag yesterday resolved --?trauma Vit B12 deficiency FEN: NPO DVT/GI ppx: SQH. IV protonix. NPO - Date & Time Date: 10/17/16 Time: 11:39 <Ashvin Herrera - Last Filed: 10/17/16 12:41> CCU Objective - Vital Signs / Intake & Output Vital Signs (Last 4 hours): Vital Signs Pulse Resp BP Pulse Ox 10/17/16 12:24 76 10/17/16 11:31 85 25 H 147/72 100 10/17/16 10:15 76 17 100 10/17/16 10:00 84 15 147/72 99 10/17/16 09:54 74 137/47 L 10/17/16 09:45 98 H 20 10/17/16 09:35 28 H 100 10/17/16 09:32 84 23 10/17/16 09:30 75 15 100 10/17/16 09:20 21 100 10/17/16 09:17 25 H 100 10/17/16 09:15 115 H 23 100 10/17/16 09:14 38 H 100 10/17/16 09:00 74 14 144/95 H 100 10/17/16 08:45 86 16 100 Intake and Output (Last 8hrs): Intake & Output 10/16/16 10/17/16 10/17/16 22:59 06:59 14:59 Intake Total 900 620 Output Total 400 600 Balance 500 20 Weight 178 lb Intake: IV 900 420 Left Hand 800 420 Left thumb 100 Other 200 Output: Urine 400 600 Urethral (Marcos) 400 600 Other: Voiding Method Incontinent # Bowel Movements 1 - Medications Active Medications: Active Medications Generic Name Dose Route Start Last Admin Trade Name Freq PRN Reason Stop Dose Admin Amiodarone HCl 200 mg 10/17/16 10:00 10/17/16 09:54 Cordarone PO 200 mg DAILY ROSALIA Administration Aspirin 81 mg 10/15/16 16:15 10/17/16 09:53 Aspirin Chewable PO 81 mg DAILY ROSALIA Administration Atorvastatin Calcium 40 mg 10/16/16 17:00 10/16/16 18:17 Lipitor PO 40 mg DIN ROSALIA Administration Carvedilol 3.125 mg 10/17/16 10:00 10/17/16 09:54 Coreg PO 3.125 mg BID ROSALIA Administration Cyanocobalamin 1,000 mcg 10/16/16 11:30 10/16/16 18:16 Vitamin B12 1000 Mcg/Ml Inj IM 10/19/16 23:59 1,000 mcg BID ROSALIA Administration Digoxin 0.125 mg 10/17/16 14:00 Lanoxin PO 1400 ROSALIA Enoxaparin Sodium 40 mg 10/14/16 17:00 10/16/16 09:04 Lovenox SC 40 mg DAILY ROSALIA Administration Protocol Hydralazine HCl 10 mg 10/16/16 10:35 Apresoline PO QID PRN for SBP>170 7 Diastolic>100 Propofol 100 mls @ 2.411 mls/hr 10/16/16 11:15 10/17/16 09:56 Diprivan IV 10 mcg/kg/min .Q24H PRN Titration TITRATE PER MD ORDER Protocol 5 MCG/KG/MIN Lisinopril 10 mg 10/15/16 16:00 10/16/16 12:55 Zestril PO 10 mg DAILY ROSALIA Administration Lorazepam 2 mg 10/15/16 16:46 10/17/16 08:58 Ativan IVP 2 mg Q4H PRN Administration Agitation Protocol Morphine Sulfate 2 mg 10/17/16 10:54 Morphine IVP Q4H PRN Pain, moderate (4-7) Pantoprazole Sodium 40 mg 10/16/16 12:45 10/17/16 09:55 Protonix Inj IVP 40 mg DAILY ROSALIA Administration Thiamine HCl 100 mg 10/15/16 17:00 10/17/16 09:55 Vitamin B1 Tab PO 100 mg DAILY ROSALIA Administration - Patient Studies Lab Studies: Microbiology Studies 10/15/16 22:40 MRSA Culture (Admit) - Final Nose MRSA NOT DETECTED 10/14/16 18:35 Blood Culture - Preliminary Blood-Venous NO GROWTH AFTER 48 HOURS Lab Studies 10/17/16 10/16/16 Range/Units 05:00 13:57 WBC 8.7 (4.5-11.0) 10^3/ul RBC 4.69 (3.5-6.1) 10^6/uL Hgb 12.1 L (14.0-18.0) gm/dL Hct 35.3 L (42.0-52.0) % MCV 75.3 L (80.0-105.0) fL MCH 25.8 (25.0-35.0) pg MCHC 34.3 (31.0-37.0) g/dl RDW 16.6 H (11.5-14.5) % Plt Count 229 (120.0-450.0) 10^3/uL Gran % 76.4 H (50.0-68.0) % Lymph % (Auto) 16.1 L (22.0-35.0) % [place] % (Auto) 7.3 H (1.0-6.0) % Eos % (Auto) 0.1 L (1.5-5.0) % Baso % (Auto) 0.1 (0.0-3.0) % Gran # 6.63 H (1.4-6.5) Lymph # 1.4 (1.2-3.4) [place] # 0.6 (0.1-0.6) Eos # 0.0 (0.0-0.7) Baso # 0.01 (0.0-2.0) K/mm3 pCO2 35 37 (35-45) mm/Hg pO2 129.0 H 152.0 H (80-100) mm/Hg HCO3 23.2 22.9 (21-28) mmol/L ABG pH 7.43 7.40 (7.35-7.45) ABG Total CO2 24.3 24.0 (22-28) mmol.L ABG O2 Saturation 99.5 H 99.7 H (95-98) % ABG O2 Content 16.7 18.7 (15-23) ML/dl ABG Base Excess -0.7 -1.5 (-2.0-3.0) mmol/L ABG Hemoglobin 12.2 13.5 (11.7-17.4) g/dL ABG Carboxyhemoglobin 1.9 H 1.8 H (0.5-1.5) % POC ABG HHb (Measured) 0.5 0.3 (0-5) % ABG Methemoglobin 1.5 0.9 (0.0-3.0) % ABG O2 Capacity 16.8 18.8 (16-24) mL/dl Hgb O2 Saturation 96.1 96.9 (95.0-98.0) % FiO2 40.0 50.0 % Sodium 145 (132-148) mmol/L Potassium 3.9 (3.6-5.0) mmol/L Chloride 107 (95-110) mmol/L Carbon Dioxide 24 (21-33) mmol/L Anion Gap 18 (10-20) BUN 36 H (7-21) mg/dL Creatinine 1.8 H (0.5-1.4) mg/dL Est GFR ( Amer) 45 Est GFR (Non-Af Amer) 37 Random Glucose 94 (70-110) mg/dL Calcium 9.3 (8.4-10.5) mg/dL Phosphorus 4.1 (2.5-4.5) mg/dL Magnesium 1.8 (1.7-2.2) mg/dL Total Bilirubin 0.7 (0.2-1.3) mg/dL AST 33 (15-59) U/L ALT 8 (7-56) U/L Alkaline Phosphatase 102 (38-133) U/L Lactate Dehydrogenase 409 (333-699) U/L Total Creatine Kinase 389 H (35-230) U/L CK-MB (CK-2) 1.3 (0.0-3.6) ng/mL CK-MB (CK-2) % Cancelled Troponin I < 0.01 ng/mL Total Protein 8.3 (5.8-8.3) g/dL Albumin 4.0 (3.0-4.8) g/dL Globulin 4.3 gm/dL Albumin/Globulin Ratio 0.9 L (1.1-1.8) Digoxin < 0.4 L (0.8-2.0) ng/mL Laboratory Results - last 24 hr 10/16/16 10/17/16 13:57 05:00 WBC 8.7 RBC 4.69 Hgb 12.1 L Hct 35.3 L MCV 75.3 L MCH 25.8 MCHC 34.3 RDW 16.6 H Plt Count 229 Gran % 76.4 H Lymph % (Auto) 16.1 L [place] % (Auto) 7.3 H Eos % (Auto) 0.1 L Baso % (Auto) 0.1 Gran # 6.63 H Lymph # 1.4 [place] # 0.6 Eos # 0.0 Baso # 0.01 pCO2 37 35 pO2 152.0 H 129.0 H HCO3 22.9 23.2 ABG pH 7.40 7.43 ABG Total CO2 24.0 24.3 ABG O2 Saturation 99.7 H 99.5 H ABG O2 Content 18.7 16.7 ABG Base Excess -1.5 -0.7 ABG Hemoglobin 13.5 12.2 ABG Carboxyhemoglobin 1.8 H 1.9 H POC ABG HHb (Measured) 0.3 0.5 ABG Methemoglobin 0.9 1.5 ABG O2 Capacity 18.8 16.8 Hgb O2 Saturation 96.9 96.1 FiO2 50.0 40.0 Sodium 145 Potassium 3.9 Chloride 107 Carbon Dioxide 24 Anion Gap 18 BUN 36 H Creatinine 1.8 H Est GFR ( Amer) 45 Est GFR (Non-Af Amer) 37 Random Glucose 94 Calcium 9.3 Phosphorus 4.1 Magnesium 1.8 Total Bilirubin 0.7 AST 33 ALT 8 Alkaline Phosphatase 102 Lactate Dehydrogenase 409 Total Creatine Kinase 389 H CK-MB (CK-2) 1.3 CK-MB (CK-2) % Cancelled Troponin I < 0.01 Total Protein 8.3 Albumin 4.0 Globulin 4.3 Albumin/Globulin Ratio 0.9 L Digoxin < 0.4 L EKG/Cardiology Studies: Cardiology / EKG Studies 10/17/16 07:00 ELECTROCARDIOGRAM Routine Comment: Reason For Exam: chest pain PAF PRE OP:: N Does Patient Have a Pacemaker?: No PERFORMING PHYSICIAN/PROVIDER:: Lucrecia Pérez Attending/Attestation - Attestation I have personally seen and examined this patient.: Yes I have fully participated in the care of the patient.: Yes I have reviewed all pertinent clinical information: Yes Notes (Text): 10/17/16 12:37 The patient was seen and examined at the bedside. Patient care was discussed with resident Medical records, lab studies, and imaging were reviewed and management issues were discussed and formulated. Last 24H events reviewed. Agree with above treatment plans as outlined in 's note with addition of the following: -hemodynamic monitoring to maintain MAP>65 -continue ASA, Amio and coreg as per cardiology team -mechanical ventilation and o2 supplementation to maintain Spo2 >90 Pao2>60 -monitor for TV 6ml\kg IBW and plateau pressure <30 -ABG in AM reviewed -PS trial this AM -f\u repeat CXR -f\u Bun\Cr and U\o; JESUSITA noted this AM -d\c K+ BID, d\c Lasix, D\c lisinopril, d\c lovenox and switch to heparin subq for DVT prophylaxis -obtain Digoxin level -f\u renal US -consider nephrology eval -tube feeds and aspiration precautions -DVT \ PUD prophylaxis CCM f\u 37min
--- NOTE | 2016-10-17 12:32 | CARD ---
APPROVED REPORT EKG Measurement Heart [id number] <Conclusion> RSR with APCs, PVCs RBBB LAHB STTW changes PVCs are new
--- NOTE | 2016-10-17 13:37 | PN ---
DATE: 10/17/2016 Attending The patient is still in ICU, intubated endotracheally and sedated. Nephrology followup is appreciated as are manager systems's efforts. PHYSICAL EXAMINATION: VITAL SIGNS: Stable. Temperature is 98, respiration is 17-25, blood pressure 147/72, O2 sat 100%. LUNGS: Clear. HEART: Regular rhythm. ABDOMEN: Soft. EXTREMITIES: No edema. MRI brain reported chronic changes. Chest x-ray without acute infiltrates. Troponin is negative. RECOMMENDATION: Continue current therapy with extubation when feasible. We will discuss further care with manager systems and the family. Recommend psychiatric input for his disorientation. If intubation is prolonged would begin enteral feeds Jf Posey MD cc: [id number] TT: 10/17/2016 13:37:19 Confirmation # [id number] Dictation # [id number] MTDD
--- NOTE | 2016-10-17 13:57 | US ---
HISTORY: JESUSITA Move COMPARISON: None. TECHNIQUE: Sonographic evaluation of the retroperitoneum. FINDINGS: RIGHT KIDNEY:: Measures 10 x 5.7cm. Normal echogenicity. No calculus, mass, or hydronephrosis. LEFT KIDNEY:: Measures 10.3 x 4.9cm. Normal echogenicity. No calculus, mass, or hydronephrosis. OTHER FINDINGS: None . IMPRESSION: No significant or acute findings to account for/ related to the clinical presentation.
[2016-10-17] MEDS ORDERED: Digoxin 125 mcg (0.125 mg) Tab PO SCH (14:00)
--- NOTE | 2016-10-18 07:53 | CP.CCUPN ---
<Rachael Casillas - Last Filed: 10/18/16 10:38> CCU Subjective - Physician Review Events Since Last Encounter (Free Text): 10/18/16 09:28 Patient seen and examined bedside. No acute events overnight. Will try off sedation this morning, on CPAP Pressure support 5/5 @35%. Patient has been on PRVC 500/14/35/5, failed weaning trial yesterday. 10/18/16 10:38 Patient agitated, tachycardic, placed back on PRVC, propofol drip, PRN ativan and morphine. Critical Care Time Spent (in minutes): 35 CCU Objective - Vital Signs / Intake & Output Vital Signs (Last 4 hours): Vital Signs Temp Pulse Resp BP Pulse Ox 10/18/16 07:42 97.4 F L 10/18/16 07:15 15 98 10/18/16 06:30 95 H 97 10/18/16 06:15 79 99 10/18/16 06:00 74 15 103/43 L 98 10/18/16 05:45 82 15 98 10/18/16 05:30 92 H 27 H 96 10/18/16 05:15 89 20 100 10/18/16 05:00 87 24 162/86 H 100 10/18/16 04:45 84 16 100 10/18/16 04:30 89 18 100 10/18/16 04:15 86 17 100 10/18/16 04:00 91 H 45 H 153/76 H 100 Intake and Output (Last 8hrs): Intake & Output 10/17/16 10/18/16 10/18/16 22:59 06:59 14:59 Intake Total 0 0 Balance 0 0 Intake: IV 0 0 Other: Voiding Method Indwelling Catheter - Physical Exam Head: Positive for: Atraumatic, Normocephalic Pupils: Positive for: PERRL Extroacular Muscles: Positive for: EOMI Conjunctiva: Positive for: Normal Mouth: Positive for: Dry Pharnyx: Positive for: Normal. Negative for: ERYTHEMA, EXUDATE Neck: Positive for: JVD Respiratory/Chest: Positive for: Good Air Exchange. Negative for: Clear to Auscultation (coarse breath sounds throughout. Intubated PRVC 500/14/40/5), Respiratory Distress, Accessory Muscle Use Cardiovascular: Positive for: Regular Rate and Rhythm, Normal S1, S2. Negative for: Murmurs Abdomen: Positive for: Normal Bowel Sounds. Negative for: Tenderness, Distention, Peritoneal Signs Back: Positive for: Normal Inspection Lower Extremity: Positive for: Normal Inspection. Negative for: Edema - Medications Active Medications: Active Medications Generic Name Dose Route Start Last Admin Trade Name Freq PRN Reason Stop Dose Admin Amiodarone HCl 200 mg 10/17/16 10:00 10/17/16 09:54 Cordarone PO 200 mg DAILY ROSALIA Administration Aspirin 81 mg 10/15/16 16:15 10/17/16 09:53 Aspirin Chewable PO 81 mg DAILY ROSALIA Administration Atorvastatin Calcium 40 mg 10/16/16 17:00 10/17/16 17:00 Lipitor PO 40 mg DIN ROSALIA Administration Carvedilol 3.125 mg 10/17/16 10:00 10/17/16 17:00 Coreg PO 3.125 mg BID ROSALIA Administration Cyanocobalamin 1,000 mcg 10/16/16 11:30 10/17/16 17:14 Vitamin B12 1000 Mcg/Ml Inj IM 10/19/16 23:59 1,000 mcg BID ROSALIA Administration Digoxin 0.125 mg 10/17/16 14:00 Lanoxin PO 1400 ROSALIA Heparin Sodium (Porcine) 5,000 units 10/17/16 13:45 10/17/16 22:30 Heparin SC 5,000 units Q12 ROSALIA Administration Hydralazine HCl 10 mg 10/16/16 10:35 Apresoline PO QID PRN for SBP>170 7 Diastolic>100 Hydralazine HCl 10 mg 10/17/16 18:33 10/17/16 23:26 Apresoline IVP 10 mg Q6 PRN Administration Systolic Blood Pressure Propofol 100 mls @ 2.411 mls/hr 10/16/16 11:15 10/18/16 07:35 Diprivan IV 10 mcg/kg/min .Q24H PRN Titration TITRATE PER MD ORDER Protocol 5 MCG/KG/MIN Lisinopril 10 mg 10/15/16 16:00 10/16/16 12:55 Zestril PO 10 mg DAILY ROSALIA Administration Lorazepam 2 mg 10/15/16 16:46 10/17/16 08:58 Ativan IVP 2 mg Q4H PRN Administration Agitation Protocol Morphine Sulfate 2 mg 10/17/16 10:54 Morphine IVP Q4H PRN Pain, moderate (4-7) Pantoprazole Sodium 40 mg 10/16/16 12:45 10/17/16 09:55 Protonix Inj IVP 40 mg DAILY ROSALIA Administration Thiamine HCl 100 mg 10/15/16 17:00 10/17/16 09:55 Vitamin B1 Tab PO 100 mg DAILY ROSALIA Administration - Patient Studies Lab Studies: Microbiology Studies 10/14/16 18:35 Blood Culture - Preliminary Blood-Venous NO GROWTH AFTER 3 DAYS 10/15/16 22:40 MRSA Culture (Admit) - Final Nose MRSA NOT DETECTED Lab Studies 10/17/16 Range/Units 05:00 Digoxin < 0.4 L (0.8-2.0) ng/mL Laboratory Results - last 24 hr 10/17/16 05:00 Digoxin < 0.4 L EKG/Cardiology Studies: Cardiology / EKG Studies 10/17/16 07:00 ELECTROCARDIOGRAM Routine Comment: Reason For Exam: chest pain PAF PRE OP:: N Does Patient Have a Pacemaker?: No PERFORMING PHYSICIAN/PROVIDER:: Lucrecia Pérez Review of Systems - Review of Systems Systems not reviewed;Unavailable: Intubated Critical Care Progress Note - Ventilator Checklist PUD Prophalyxis: Yes DVT Prophylaxis: Yes Assessment/Plan - Assessment and Plan (Free Text) Assessment: 71 yo M w h/o HTN, HLD, arthritis, medical noncompliance admitted for hypertensive emergency with AMS, transferred to ICU following [employer]OR [employer] for HTN and SVT on Nicardipine drip that has since been weaned off now intubated day #3 for airway protection, course further complicated by JESUSITA. Plan: Neuro: sedated on propofol currently at 20 mcg/kg/min. Wean sedation to maintain RAAS -3 Neuro c/s pending. Recs appreciated. Ativan PRN agitation. Morphine PRN pain. Maintain normothermia. CV: PAF. HD stable. Cardio following. Continue amio, coreg, lipitor, ASA, hydralazine PRN as per cardio 2D ECHO shows LVEF 35%, mild-mod AR, mild , mild MR, mild TR, RVSP 35mmHg, trace pericardial effusion, grade 3 diastolic dysfunction. Pulm: Failed pressure support trial. Daily ABGs, CXRs. Aspiration precautions. HOB >35degrees. Protective lung ventilation strategy. Maintain SpO2>90, PaO2>60 GI: GI ppx. Tube feeds Endo: No active issues. A1c Pending. Maintain euglycemia 140-180 Renal: JESUSITA worsening. Continue holding Lasix, lisinopril, lovenox, potassium, digoxin. SQH. Hold all nephrotoxins. Renal US showed no significant or acute findings Nephrology consult noted and appreciated. Metanephrines pending. ID: No active issues. Afebrile. No signs of infection at this time. Will send blood, urine, sputum cultures. Blood cultures 10/14 negative at 3 days Heme: Mild microcytic anemia. Hb 13.3, stable. No signs of bleeding. Vit B12 deficiency being replaced IM BID DVT/GI ppx: SQH. IV protonix. Tube feeds - Date & Time Date: 10/18/16 Time: 10:44 <Ashvin Herrera - Last Filed: 10/18/16 11:57> CCU Objective - Vital Signs / Intake & Output Vital Signs (Last 4 hours): Vital Signs Pulse BP 10/18/16 09:03 90 129/69 10/18/16 09:02 88 129/69 10/18/16 08:23 92 H Intake and Output (Last 8hrs): Intake & Output 10/17/16 10/18/16 10/18/16 22:59 06:59 14:59 Intake Total 0 0 Balance 0 0 Intake: IV 0 0 Other: Voiding Method Indwelling Catheter Indwelling Catheter - Medications Active Medications: Active Medications Generic Name Dose Route Start Last Admin Trade Name Freq PRN Reason Stop Dose Admin Albuterol/Ipratropium 3 ml 10/18/16 11:30 Duoneb 3 Mg/0.5 Mg (3 Ml) Ud IH [id number] COUNTS INCLUDE 234 BEDS AT THE [facility] Amiodarone HCl 200 mg 10/17/16 10:00 10/18/16 09:02 Cordarone PO 200 mg DAILY ROSALIA Administration Aspirin 81 mg 10/15/16 16:15 10/18/16 09:02 Aspirin Chewable PO 81 mg DAILY ROSALIA Administration Atorvastatin Calcium 40 mg 10/16/16 17:00 10/17/16 17:00 Lipitor PO 40 mg DIN ROSALIA Administration Carvedilol 3.125 mg 10/17/16 10:00 10/18/16 09:03 Coreg PO 3.125 mg BID ROSALIA Administration Cyanocobalamin 1,000 mcg 10/16/16 11:30 10/18/16 09:04 Vitamin B12 1000 Mcg/Ml Inj IM 10/19/16 23:59 1,000 mcg BID ROSALIA Administration Digoxin 0.125 mg 10/17/16 14:00 Lanoxin PO 1400 ROSALIA Heparin Sodium (Porcine) 5,000 units 10/17/16 13:45 10/18/16 09:03 Heparin SC 5,000 units Q12 ROSALIA Administration Hydralazine HCl 10 mg 10/16/16 10:35 Apresoline PO QID PRN for SBP>170 7 Diastolic>100 Hydralazine HCl 10 mg 10/17/16 18:33 10/17/16 23:26 Apresoline IVP 10 mg Q6 PRN Administration Systolic Blood Pressure Propofol 100 mls @ 2.411 mls/hr 10/16/16 11:15 10/18/16 10:12 Diprivan IV 30 mcg/kg/min .Q24H PRN Titration TITRATE PER MD ORDER Protocol 5 MCG/KG/MIN Sodium Chloride 1,000 mls @ 75 mls/hr 10/18/16 10:30 Sodium Chloride 0.9% IV .[id number] COUNTS INCLUDE 234 BEDS AT THE [facility] Lisinopril 10 mg 10/15/16 16:00 10/16/16 12:55 Zestril PO 10 mg DAILY ROSALIA Administration Lorazepam 2 mg 10/15/16 16:46 10/18/16 09:15 Ativan IVP 2 mg Q4H PRN Administration Agitation Protocol Morphine Sulfate 2 mg 10/17/16 10:54 Morphine IVP Q4H PRN Pain, moderate (4-7) Pantoprazole Sodium 40 mg 10/16/16 12:45 10/18/16 09:04 Protonix Inj IVP 40 mg DAILY ROSALIA Administration Thiamine HCl 100 mg 10/15/16 17:00 10/18/16 09:02 Vitamin B1 Tab PO 100 mg DAILY ROSALIA Administration - Patient Studies Lab Studies: Microbiology Studies 10/14/16 18:35 Blood Culture - Preliminary Blood-Venous NO GROWTH AFTER 3 DAYS 10/15/16 22:40 MRSA Culture (Admit) - Final Nose MRSA NOT DETECTED Lab Studies 10/18/16 10/18/16 Range/Units 08:50 08:30 WBC 9.8 (4.5-11.0) 10^3/ul RBC 5.14 (3.5-6.1) 10^6/uL Hgb 13.3 L (14.0-18.0) gm/dL Hct 39.1 L (42.0-52.0) % MCV 76.1 L (80.0-105.0) fL MCH 25.9 (25.0-35.0) pg MCHC 34.0 (31.0-37.0) g/dl RDW 16.6 H (11.5-14.5) % Plt Count 224 (120.0-450.0) 10^3/uL Gran % 78.3 H (50.0-68.0) % Lymph % (Auto) 13.2 L (22.0-35.0) % [place] % (Auto) 8.5 H (1.0-6.0) % Eos % (Auto) 0.0 L (1.5-5.0) % Baso % (Auto) 0.0 (0.0-3.0) % Gran # 7.66 H (1.4-6.5) Lymph # 1.3 (1.2-3.4) [place] # 0.8 H (0.1-0.6) Eos # 0.0 (0.0-0.7) Baso # 0.00 (0.0-2.0) K/mm3 pCO2 33 L (35-45) mm/Hg pO2 88.0 (80-100) mm/Hg HCO3 20.0 L (21-28) mmol/L ABG pH 7.39 (7.35-7.45) ABG Total CO2 21.0 L (22-28) mmol.L ABG O2 Saturation 98.6 H (95-98) % ABG O2 Content 17.6 (15-23) ML/dl ABG Base Excess -4.1 L (-2.0-3.0) mmol/L ABG Hemoglobin 13.0 (11.7-17.4) g/dL ABG Carboxyhemoglobin 1.8 H (0.5-1.5) % POC ABG HHb (Measured) 1.4 (0-5) % ABG Methemoglobin 0.8 (0.0-3.0) % ABG O2 Capacity 17.8 (16-24) mL/dl Hgb O2 Saturation 96.0 (95.0-98.0) % FiO2 35.0 % Sodium 148 (132-148) mmol/L Potassium 3.9 (3.6-5.0) mmol/L Chloride 110 H (98-107) mmol/L Carbon Dioxide 23 (21-33) mmol/L Anion Gap 19 (10-20) BUN 52 H (7-21) mg/dL Creatinine 2.0 H (0.5-1.4) mg/dL Est GFR ( Amer) 40 Est GFR (Non-Af Amer) 33 Random Glucose 103 (70-110) mg/dL Calcium 9.9 (8.4-10.5) mg/dL Phosphorus 5.2 H (2.5-4.5) mg/dL Magnesium 2.2 (1.7-2.2) mg/dL Total Bilirubin 0.9 (0.2-1.3) mg/dL AST 29 (15-59) U/L ALT 13 (7-56) U/L Alkaline Phosphatase 110 (38-133) U/L Total Protein 8.7 H (5.8-8.3) g/dL Albumin 4.2 (3.0-4.8) g/dL Globulin 4.5 gm/dL Albumin/Globulin Ratio 0.9 L (1.1-1.8) Laboratory Results - last 24 hr 10/18/16 10/18/16 08:30 08:50 WBC 9.8 RBC 5.14 Hgb 13.3 L Hct 39.1 L MCV 76.1 L MCH 25.9 MCHC 34.0 RDW 16.6 H Plt Count 224 Gran % 78.3 H Lymph % (Auto) 13.2 L [place] % (Auto) 8.5 H Eos % (Auto) 0.0 L Baso % (Auto) 0.0 Gran # 7.66 H Lymph # 1.3 [place] # 0.8 H Eos # 0.0 Baso # 0.00 pCO2 33 L pO2 88.0 HCO3 20.0 L ABG pH 7.39 ABG Total CO2 21.0 L ABG O2 Saturation 98.6 H ABG O2 Content 17.6 ABG Base Excess -4.1 L ABG Hemoglobin 13.0 ABG Carboxyhemoglobin 1.8 H POC ABG HHb (Measured) 1.4 ABG Methemoglobin 0.8 ABG O2 Capacity 17.8 Hgb O2 Saturation 96.0 FiO2 35.0 Sodium 148 Potassium 3.9 Chloride 110 H Carbon Dioxide 23 Anion Gap 19 BUN 52 H Creatinine 2.0 H Est GFR ( Amer) 40 Est GFR (Non-Af Amer) 33 Random Glucose 103 Calcium 9.9 Phosphorus 5.2 H Magnesium 2.2 Total Bilirubin 0.9 AST 29 ALT 13 Alkaline Phosphatase 110 Total Protein 8.7 H Albumin 4.2 Globulin 4.5 Albumin/Globulin Ratio 0.9 L Attending/Attestation - Attestation I have personally seen and examined this patient.: Yes I have fully participated in the care of the patient.: Yes I have reviewed all pertinent clinical information: Yes Notes (Text): 10/18/16 11:54 The patient was seen and examined at the bedside. Patient care was discussed with resident Medical records, lab studies, and imaging were reviewed and management issues were discussed and formulated. Last 24H events reviewed. Agree with above treatment plans as outlined in 's note with addition of the following: -hemodynamic monitoring to maintain MAP>65 -continue ASA, Amio and coreg as per cardiology team -mechanical ventilation and o2 supplementation to maintain Spo2 >90 Pao2>60 -monitor for TV 6ml\kg IBW and plateau pressure <30 -ABG in AM reviewed -continue PS trials this AM -f\u repeat CXR -f\u Bun\Cr and U\o; JESUSITA worsened; hold nephrotoxic meds -start NS at 75ml\hr -renal team eval appreciated -renal US shows no hydronephrosis -tube feeds and aspiration precautions -neurology team eval -monitor WBC and fever curve closely; f\u cultures -DVT \ PUD prophylaxis CCM f\u 37min
[2016-10-18 08:52] LABS: ADD MANUAL DIFF? NO
[2016-10-18 09:00] LABS: GRAN # 7.66 (1.4-6.5); GRAN % 78.3 % (50.0-68.0); HEMATOCRIT 39.1 % (42.0-52.0); LYMPH # 1.3 (1.2-3.4); LYMPH % 13.2 % (22.0-35.0); MEAN CELL VOLUME 76.1 fL (80.0-105.0); MEAN CORPUSCULAR HEMOGLOBIN 25.9 pg (25.0-35.0); MONO # 0.8 (0.1-0.6); MONO % 8.5 % (1.0-6.0); PLATELET COUNT 224 10^3/uL (120.0-450.0); RED CELL DISTRIBUTION WIDTH 16.6 % (11.5-14.5); WHITE BLOOD COUNT 9.8 10^3/ul (4.5-11.0)
[2016-10-18 09:02] LABS: ARTERIAL BLOOD GAS O2 CAPACITY 17.8 mL/dl (16-24); ARTERIAL BLOOD GAS O2 CONTENT 17.6 ML/dl (15-23); ARTERIAL BLOOD GAS PH 7.39 (7.35-7.45); CARBOXYHEMOGLOBIN 1.8 % (0.5-1.5); HHB 1.4 % (0-5); METHEMOGLOBIN 0.8 % (0.0-3.0)
[2016-10-18 09:05] LABS: ALB/GLOB RATIO 0.9 (1.1-1.8); BILIRUBIN,TOTAL 0.9 mg/dL (0.2-1.3); CALCIUM 9.9 mg/dL (8.4-10.5); MAGNESIUM 2.2 mg/dL (1.7-2.2); PHOSPHOROUS 5.2 mg/dL (2.5-4.5); POTASSIUM 3.9 mmol/L (3.6-5.0); TOTAL PROTEIN 8.7 g/dL (5.8-8.3)
--- NOTE | 2016-10-18 09:59 | PN ---
DATE: 10/18/2016 REASON FOR CONSULTATION AND FOLLOWUP: Congestive heart failure, proximal atrial fibrillation, status post rapid response, status post intubated, status post wide complex tachycardia, through to be VT ( AFib with bundle branch block). BRIEF CLINICAL HISTORY: This is a 71-year-old male with a past medical history significant for hyper tension, hyperlipidemia, arthritis. Admitted with shortness of breath. A few days ago, got more jazmine rt of breath. The patient was in telemetry, had a rapid response. It was wide complex tachycardia, which was thought to be initially VFib, VT, but actually it is AFib with bundle branch block. The everton paige is still being intubated, is in ICU. PHYSICAL EXAMINATION: VITAL SIGNS: Temperature afebrile, heart rate 92, blood pressure 103/43. HEENT: PERRLA. Extraocular muscles intact. NECK: Supple. No carotid bruit, no thyromegaly. CHEST: Clear to auscultation. HEART: S1, S2 regular. ABDOMEN: Soft. EXTREMITIES: Clubbing, cyanosis negative. BLOOD WORKUP: WBC 8.7, hemoglobin 12.1, hematocrit 35.3, platelet count 229. Chemistry shows sodium 145, potassium 3.9, chloride 107, carbon dioxide 24, anion gap of 18, BUN 36, creatinine 1.8. Tropo carie 0.01 x 3, negative. IMPRESSION: No evidence of acute coronary syndrome, troponin negative, no evidence of unstable angin a, acute kidney injury, status post respiratory failure, wide complex tachycardia, thought to be vent ricular tachycardia, but actually it is atrial fibrillation with bundle branch block. Baseline EKG i s right bundle, left anterior hemiblock, QRS is 170 milliseconds, so that is when the patient went in to atrial fibrillation, appears ventricular tachycardia because atrial fibrillation with rapid ventri cular rate, now telemetry is in normal sinus with atrial premature contractions and premature ventric ular contractions. The patient had echocardiography done that shows multiple wall motion abnormality consistent with coronary artery disease, decreased left ventricular function, ejection fraction arou nd 30%-35%, mild aortic stenosis, mild mitral regurgitation, mild tricuspid regurgitation, right vent ricular systolic pressure 35, status post intubated, respiratory failure, cardiomyopathy. Now, patie nt is back to normal sinus, paroxysmal atrial fibrillation. RECOMMENDATIONS: Yesterday feeding started. Continue antibiotic. We will start free fluid 200 mL a n hour. Continue amiodarone to prevent going back into AFib. Continue low dose Coreg, p.r.n. hydral azine, low dose Coreg started. Supplement electrolytes as needed. Digoxin also started low dose. C ontinue atorvastatin. Hold lisinopril because of the renal insufficiency and we will give p.r.n. [place] as needed. Start free fluid 200 mL through the NG tube. Also increase feeding to 50 mL an hour. We will increase tube feeding to 50 mL an hour. Try to extubate the patient. Continue vent managem ent for now. Once patient gets extubated, is stable, consider cardiac catheterization because of mul tiple wall motion abnormalities as well as cardiomyopathy. We will follow with you. Thank you, Dr. Posey, for providing us the opportunity in taking care of the patient. We will also start aspirin if it is not given. We will follow with you. Once the renal function improves, we wi ll restart CHELLE inhibitor. Right now, patient is not on CHELLE inhibitor because of the worsening renal insufficiency. Lucrecia Pérez MD cc: [id number] TT: 10/18/2016 09:58:54 Confirmation # [id number] Dictation # [id number]
--- NOTE | 2016-10-18 10:05 | RAD ---
HISTORY: on vent COMPARISON: 10/17/2016 FINDINGS: LUNGS: No active pulmonary disease. PLEURA: No significant pleural effusion identified, no pneumothorax apparent. CARDIOVASCULAR: Mild cardiomegaly OSSEOUS STRUCTURES: No significant abnormalities. VISUALIZED UPPER ABDOMEN: Normal. OTHER FINDINGS: Endotracheal and nasogastric tubes are in satisfactory position IMPRESSION: No active disease.
[2016-10-18] MEDS ORDERED: Sodium Chloride 0.9% 1,000 ML IV SCH (10:30)
[2016-10-18] MEDS: Albuterol-Ipratrop 3 mg / 0.5 (3 ml) UD IH SCH ×4 (13:09→23:50)
--- NOTE | 2016-10-18 13:13 | PN ---
DATE: 10/18/2016 SUBJECTIVE: The patient is seen in the intensive care unit. He currently remains intubated with an FIO2 of 35%. He is being sedated with propofol. OG tube is in place and he is receiving feeds at 30 mL per hour as well as water flushes 200 mL every 6 hours via the OG tube. Mathur catheter is also n oted to be in place. The patient has been restless and has wrist restraints in place as well. At pr esent, because he is sedated he is not responsive. OBJECTIVE: VITAL SIGNS: Blood pressure is 129/69 with a minimum blood pressure of 103/43 and a maximum of 196/1 19 in the last 24-hour period. Heart rate is 90, but has ranged from the 80s approximately 102 beats per minute in the last 24-hour period. Oral temperature is 97.4 and the patient has been afebrile f or the last 24-hour period. Respiratory rate is 15, but has ranged from 15-45 breaths per minute in the last 24-hour period. Oxygen saturation is 100%, but has ranged from 95-100% in the last 24-hour period with an FIO2 of 35%. I's and O's are 1520/1000. HEENT: The patient was normocephalic. As stated above, he was intubated and did have an OG tube in place. NECK: There is no jugular venous distention that I could appreciate. Conjunctivae were neither pale nor were they icteric. CHEST: Lungs buckley are auscultated anteriorly and were clear without any rales, rhonchi or wheezing . Diaphragmatic excursion as well as airflow into both lung buckley was bilaterally symmetrical. CARDIAC: Shows a regular rate and rhythm without any rubs or gallops. Earlier he was noted to have had atrial fibrillation with rapid ventricular response. ABDOMEN: Distended but nontender, without any rebound, guarding or rigidity. There is no hepatosple nomegaly that I could appreciate. EXTREMITIES: Had 1+ sacral edema. VASCULAR: Had no bruits. GENITOURINARY: Notable for Mathur catheter with linda colored urine. There was no suprapubic tendern ess. NEUROLOGIC: He was sedated as stated above. SKIN: Intact. LABORATORY STUDIES: White count is 9.8, H and H are 13.3 and 39.1 with a platelet count of 224,000. There are 78% neutrophils, 13% lymphocytes, 9% monocytes. Sodium is 148, potassium 3.0, chloride 11 0, bicarbonate 23, BUN/creatinine is 52 is 2.0 with a glucose of 103, phosphorus is 5.2, calcium is 9 .9. Total protein/albumin is 8.7/4.2. ABG has a pH of 7.39 with a pCO2 of 33, PaO2 of 88 and an oxy gen saturation of 99%. Influenza is negative. Blood cultures have no growth to date. Chest x-ray f rom earlier today does not reveal any acute pathology but did reveal mild cardiomegaly. IMPRESSION AND PLAN: The patient is a 71-year-old gentleman with history of hypertension and left ve ntricular hypertrophy, dyslipidemia, coronary artery disease with decreased left ventricular systolic function as per echocardiogram performed during this hospitalization, admitted with dyspnea on exert ion. He was found to have uncontrolled hypertension with congestive heart failure compatible with hy pertensive emergency for which he was on a nicardipine infusion. Hospitalization has been complicate d by ventricular tachycardia as well. Of note, the patient is currently intubated. Since having ursula lambert admitted, he has developed acute kidney injury with an increase in his creatinine from 1.1 up to 2. 0 in the setting of blood pressures that have been quite labile, as low as 97/33 two days earlier. 1. The patient's sodium is trending higher despite being on 200 mL of water every 6 hours, and I wou ld increase it to 300 mL every 6 hours instead. 2. The patient's creatinine has increased, but I believe that this reflects episodes of occasional h ypotension. I would hold off on starting intravenous fluids at this time and, rather, observe the everton paige for now. He has demonstrated excursions in his blood pressure that are quite worrisome, and I fear that we may increase his blood pressure dramatically if we were to start intravenous fluids. 3. Given his labile hypertension, labs have been sent to rule out pheochromocytoma (total and fracti onated plasma metanephrines) and these are currently pending. If these are borderline then he will r equire 24-hour urine collection for volume creatinine as well as total and fractionated catecholamine s, and total and fractionated metanephrines. 4. Given the fact that the patient is in acute kidney injury, I would perhaps consider administratin g digoxin every other day instead of on a daily basis. 5. Continue to hold lisinopril while the patient does have acute kidney injury. 6. Given his history of coronary artery disease and known decreased left ventricular systolic functi on, I agree with carvedilol and high intensity statin therapy with atorvastatin as well as aspirin 81 mg orally daily. For his recent ventricular tachycardia, he is also on amiodarone. He is receiving hydralazine, but only on a p.r.n. basis, and we could start this 25 mg via OG tube 3 times a day if his blood pressure does remain elevated for afterload reduction with isosorbide added for preload red uction. 7. For now, continue Mathur catheter in place while the patient remains intubated and while he has ac [place] kidney injury. 8. Continue OG tube feeds at present. 9. Another reservation I have about giving intravenous fluids is that I feel we should try to extuba te the patient early as possible. 10. For deep venous thrombosis prophylaxis, the patient remains on heparin 5000 units subcutaneously twice daily. For gastrointestinal prophylaxis, he is on pantoprazole. Via the chart, review of systems, past medical history, social history and family history were all re viewed and there were no new changes. More than 35 minutes were spent in the care of this ICU patien t today. Erik Chan MD cc: [phone] TT: 10/18/2016 13:13:06 Confirmation # [id number] Dictation # [id number] mn
[2016-10-18] MEDS ORDERED: Vancomycin 1gm in NS 250ml 250 ML IVPB STA (15:15)
[2016-10-18] MEDS: Piperacillin/Tazobact 3.375 gm 100 ML IVPB SCH ×2 (15:49→17:01)
[2016-10-18] MEDS ORDERED: Linezolid 600 mg in D5W 300 ml 300 ML IVPB SCH (16:45)
--- NOTE | 2016-10-18 16:46 | CT ---
PROCEDURE: CT HEAD WITHOUT CONTRAST. HISTORY: ?cva COMPARISON: Comparison is made to the previous study dated 10/15/2016 TECHNIQUE: Axial computed tomography images were obtained through the head/brain without intravenous contrast. Radiation dose: Total exam DLP = 823.97 mGy-cm. FINDINGS: HEMORRHAGE: No intracranial hemorrhage. BRAIN: Foci of calcification in the basal ganglia are again seen. Old lacunar infarcts are again seen especially at the right basal ganglia. Atrophy and moderate white matter chronic microvascular ischemic disease are again seen. VENTRICLES: Unremarkable. No hydrocephalus. CALVARIUM: Unremarkable. PARANASAL SINUSES: Mild sinuses mucosal thickening. Opacification at the posterior nasal cavity. MASTOID AIR CELLS: Unremarkable as visualized. No inflammatory changes. OTHER FINDINGS: None. IMPRESSION: No evidence of acute intracranial hemorrhage territorial infarct mass effect or midline shift. No significant interval change in the brain since previous exam. Mild sinuses mucosal thickening.
--- NOTE | 2016-10-18 17:54 | PN ---
DATE: 10/18/2016 Attending. SUBJECTIVE: The patient seen in ICU, still on ventilator. Wean unsuccessful due to agitation yester day. Propofol, currently discontinued. The patient spiked a fever above 103 today. PHYSICAL EXAMINATION: CURRENT VITAL SIGNS: Temperature 102.2, respirations 21, pulse is 113, blood pressure 138/79. LUNGS: Have decreased sounds bilaterally. HEART: Regular rhythm, tachycardic. ABDOMEN: Soft. EXTREMITIES: No edema. PLAN: I agree with holding propofol, repeating chest x-ray, urinalysis. Urinary catheter reveals bl ood in urine. We will check for RBC casts. BRAYDEN is still pending. We will discontinue hydralazine a t this time. Follow electrolytes, CBC today and tomorrow. Jf Posey MD cc: [id number] TT: 10/18/2016 17:53:53 Confirmation # [id number] Dictation # [id number]
[2016-10-18 17:57] LABS: ADD MANUAL DIFF? NO
--- NOTE | 2016-10-18 17:57 | RAD ---
HISTORY: Fever. Technique: Single view portable semi erect @ 17:15. COMPARISON: October 18, 2016. 09:16. FINDINGS: LUNGS: No active pulmonary disease. PLEURA: No significant pleural effusion identified, no pneumothorax apparent. CARDIOVASCULAR: Cardiomegaly. No evidence of acute, significant cardiovascular disease. OSSEOUS STRUCTURES: No significant abnormalities. VISUALIZED UPPER ABDOMEN: Normal. OTHER FINDINGS: Stable, satisfactory position ventilatory and nasogastric apparatus. IMPRESSION: No significant interval change compared to the prior examination(s).
[2016-10-18 18:08] LABS: BASO # 0.01 K/mm3 (0.0-2.0); BASO % 0.1 % (0.0-3.0); GRAN # 5.72 (1.4-6.5); GRAN % 80.8 % (50.0-68.0); HEMATOCRIT 37.7 % (42.0-52.0); LYMPH # 0.7 (1.2-3.4); LYMPH % 9.5 % (22.0-35.0); MEAN CELL VOLUME 76.5 fL (80.0-105.0); MEAN CORPUSCULAR HEMOGLOBIN 26.2 pg (25.0-35.0); MEAN CORPUSCULAR HGB CONC 34.2 g/dl (31.0-37.0); MONO # 0.7 (0.1-0.6); MONO % 9.6 % (1.0-6.0); PLATELET COUNT 210 10^3/uL (120.0-450.0); RED CELL DISTRIBUTION WIDTH 16.5 % (11.5-14.5); WHITE BLOOD COUNT 7.1 10^3/ul (4.5-11.0)
[2016-10-18 18:12] LABS: BLOOD UREA NITROGEN 66 mg/dL (7-21); CALCIUM 9.2 mg/dL (8.4-10.5); CARBON DIOXIDE 22 mmol/L (21-33); CHLORIDE 109 mmol/L (98-107); GFR AFRICAN-AMERICAN 31; GLUCOSE,RANDOM 159 mg/dL (70-110); POTASSIUM 3.7 mmol/L (3.6-5.0); SODIUM 144 mmol/L (132-148)
[2016-10-18 18:27] LABS: TROPONIN I < 0.01 ng/mL
[2016-10-18] MEDS: Meropenem 1 GM in Sodium Chloride 0.9% 100 ML IVPB SCH (19:04)
[2016-10-19] MEDS: Piperacillin/Tazobact 3.375 gm 100 ML IVPB SCH (00:29)
[2016-10-19 01:47] LABS: PH,URINE 5.5 (4.7-8.0); URINE BILIRUBIN NEGATIVE (NEGATIVE); URINE BLOOD LARGE (NEGATIVE); URINE GLUCOSE (UA) NEGATIVE (NEGATIVE); URINE KETONE NEGATIVE (NEGATIVE); URINE LEUKOCYTE ESTERASE TRACE Leu/uL (NEGATIVE); URINE PROTEIN 100 mg/dL (<30 mg/dL)
[2016-10-19 01:59] LABS: URINE COLOR LIGHT RED (YELLOW)
[2016-10-19 02:00] LABS: URINE APPEARANCE CLOUDY (CLEAR)
[2016-10-19 02:04] LABS: URINE BACTERIA SMALL (NEG); URINE EPITHELIAL CELLS 0 - 2 /hpf (0-5); URINE RBC TNTC /hpf (0-2)
[2016-10-19] MEDS: Albuterol-Ipratrop 3 mg / 0.5 (3 ml) UD IH SCH ×5 (03:30→21:27)
[2016-10-19] MEDS ORDERED: Vancomycin 1gm in NS 250ml 250 ML IVPB SCH (05:00)
[2016-10-19 06:12] LABS: ARTERIAL BLOOD GAS HCO3 19.5 mmol/L (21-28); ARTERIAL BLOOD GAS PH 7.42 (7.35-7.45)
[2016-10-19 06:31] LABS: ALB/GLOB RATIO 0.9 (1.1-1.8); CALCIUM 9.4 mg/dL (8.4-10.5); MAGNESIUM 2.3 mg/dL (1.7-2.2); PHOSPHOROUS 3.8 mg/dL (2.5-4.5); POTASSIUM 3.6 mmol/L (3.6-5.0)
[2016-10-19 06:48] LABS: HEMATOCRIT 36.4 % (42.0-52.0); MEAN CELL VOLUME 75.2 fL (80.0-105.0); MEAN CORPUSCULAR HGB CONC 34.6 g/dl (31.0-37.0); PLATELET COUNT 194 10^3/uL (120.0-450.0); RED CELL DISTRIBUTION WIDTH 16.2 % (11.5-14.5); WHITE BLOOD COUNT 8.8 10^3/ul (4.5-11.0)
[2016-10-19 07:01] LABS: ADD MANUAL DIFF? YES
[2016-10-19 08:45] LABS: BAND 6 % (0-2); NEUTROPHIL 85 % (50.0-70.0); PLATELET ESTIMATE NORMAL (NORMAL)
[2016-10-19 08:46] LABS: ANISOCYTOSIS 1+; MICROCYTOSIS 1+; OVALOCYTES SLIGHT; TEAR DROP CELLS SLIGHT
[2016-10-19 08:47] LABS: POIKILOCYTOSIS SLIGHT
[2016-10-19] MEDS: Meropenem 1 GM in Sodium Chloride 0.9% 100 ML IVPB SCH ×2 (09:43→21:14)
--- NOTE | 2016-10-19 09:44 | CP.PCM.CON ---
History of Present Illness - History of Present Illness History of Present Illness: Palliative consult requested by Dr Ajit Posey notified 71 year old male who presented to ED with increasing shortness of breath x 5 days, new sub sternal chest pain which radiated to left arm. EKG showed RBBB, LAFB, anterior infarct,age undetermined. Chest xray reveals CHF. Troponin normal , BNP 4960. On the evening of admission the patient developed a run of V tach associated with altered mental and was transferred to the ICU. He subsequently developed pneumonia, respiratory distress and is intubated. PMHx: HTN, hyperlipidemia,poor compliance with medications, arthritis Social History: Current long time smoker, denied alcohol or drug use. , lives with spouse. Family History: Significant for heart disease in father,sister had leukemia. Advance Care Planning:The patient does not have an advanced directive Review of Systems: Patient is intubated, unable to obtain. Past Patient History - Past Social History Smoking Status: Current Some Days Smoker Alcohol: None Drugs: Denies Home Situation {Lives}: With Family - CARDIAC Hx Cardiac Disorders: Yes Hx Congestive Heart Failure: Yes Hx Hypertension: Yes - PULMONARY Hx Respiratory Disorders: Yes (SMOKES CIGARETTES 1/2 PPD FOR 40 YRS) - NEUROLOGICAL Hx Neurological Disorder: No - HEENT Hx HEENT Problems: Yes Hx Cataracts: Yes (BILATERAL SX) - RENAL Hx Chronic Kidney Disease: No - ENDOCRINE/METABOLIC Hx Endocrine Disorders: No - HEMATOLOGICAL/ONCOLOGICAL Hx Blood Disorders: No - INTEGUMENTARY Hx Dermatological Problems: Yes (BILATERAL LE SKIN DRYNESS,DRY THIN FLAKY SKIN) - MUSCULOSKELETAL/RHEUMATOLOGICAL Hx Musculoskeletal Disorders: Yes (L KNEE SURGERY) Hx Falls: No - GASTROINTESTINAL Hx Gastrointestinal Disorders: No - GENITOURINARY/GYNECOLOGICAL Hx Genitourinary Disorders: No - PSYCHIATRIC Hx Psychophysiologic Disorder: No Hx Substance Use: No - SURGICAL HISTORY Hx Surgeries: Yes (BILATERAL CATARACT SURGERY) Hx Orthopedic Surgery: Yes (left knee) - ANESTHESIA Hx Anesthesia: Yes Hx Anesthesia Reactions: No Meds Allergies/Adverse Reactions: Allergies Allergy/AdvReac Type Severity Reaction Status Date / Time No Known Allergies Allergy Verified 10/14/16 17:48 - Medications Medications: Current Medications Acetaminophen (Tylenol 325mg Tab) 650 mg PO Q6H PRN PRN Reason: Fever >100.4 F Last Admin: 10/18/16 15:34 Dose: 650 mg Albuterol/Ipratropium (Duoneb 3 Mg/0.5 Mg (3 Ml) Ud) 3 ml IH [id number] [facility] Last Admin: 10/19/16 07:38 Dose: 3 ml Amiodarone HCl (Cordarone) 200 mg PO DAILY [facility] Last Admin: 10/18/16 09:02 Dose: 200 mg Aspirin (Aspirin Chewable) 81 mg PO DAILY [facility] Last Admin: 10/18/16 09:02 Dose: 81 mg Atorvastatin Calcium (Lipitor) 40 mg PO DIN [facility] Last Admin: 10/18/16 17:20 Dose: 40 mg Carvedilol (Coreg) 3.125 mg PO BID [facility] Last Admin: 10/18/16 17:21 Dose: 3.125 mg Cyanocobalamin (Vitamin B12 1000 Mcg/Ml Inj) 1,000 mcg IM BID [facility] Stop: 10/19/16 23:59 Last Admin: 10/18/16 17:21 Dose: 1,000 mcg Digoxin (Lanoxin) 0.125 mg PO 1400 [facility] Heparin Sodium (Porcine) (Heparin) 5,000 units SC Q12 [facility] Last Admin: 10/18/16 22:41 Dose: 5,000 units Propofol (Diprivan) 100 mls @ 2.411 mls/hr IV .Q24H PRN; Protocol; 5 MCG/KG/MIN PRN Reason: TITRATE PER MD ORDER Last Titration: 10/19/16 08:01 Dose: 5 mcg/kg/min Meropenem 1 gm/ Sodium (Chloride) 100 mls @ 100 mls/hr IVPB Q12 [facility] PRN Reason: Protocol Stop: 10/25/16 16:46 Last Admin: 10/18/16 19:04 Dose: 100 mls/hr Lorazepam (Ativan) 2 mg IVP Q4H PRN; Protocol PRN Reason: Agitation Last Admin: 10/18/16 12:59 Dose: 2 mg Morphine Sulfate (Morphine) 2 mg IVP Q4H PRN PRN Reason: Pain, moderate (4-7) Pantoprazole Sodium (Protonix Inj) 40 mg IVP DAILY [facility] Last Admin: 10/18/16 09:04 Dose: 40 mg Thiamine HCl (Vitamin B1 Tab) 100 mg PO DAILY [facility] Last Admin: 10/18/16 09:02 Dose: 100 mg Physical Exam - Constitutional Appears: Chronically Ill - Head Exam Head Exam: NORMAL INSPECTION - Eye Exam Eye Exam: Normal appearance, PERRL - ENT Exam ENT Exam: Mucous Membranes Moist Additional comments: OG tube /feedings - Respiratory Exam Respiratory Exam: Decreased Breath Sounds, NORMAL BREATHING PATTERN - Cardiovascular Exam Cardiovascular Exam: Tachycardia, Irregular Rhythm, +S1, +S2 - GI/Abdominal Exam GI & Abdominal Exam: Normal Bowel Sounds, Soft Additional comments: no tenderness - Extremities Exam Extremities exam: Positive for: normal capillary refill, pedal edema - Neurological Exam Additional comments: sedated - Skin Skin Exam: Dry - Additional Findings Additional findings: Palliative performance scale rating 20 % Results - Vital Signs Recent Vital Signs: Last Vital Signs Temp 98.4 F 10/19/16 08:00 Pulse 75 10/19/16 06:45 Resp 34 H 10/18/16 15:30 BP 102/47 L 10/19/16 06:00 Pulse Ox 98 10/19/16 06:45 - Labs Result Diagrams: 10/19/16 06:40 10/19/16 06:00 Labs: Laboratory Results - last 24 hr 10/17/16 10/18/16 10/19/16 05:00 17:50 01:25 WBC 7.1 D RBC 4.93 Hgb 12.9 L Hct 37.7 L MCV 76.5 L MCH 26.2 MCHC 34.2 RDW 16.5 H Plt Count 210 Gran % 80.8 H Lymph % (Auto) 9.5 L [place] % (Auto) 9.6 H Eos % (Auto) 0.0 L Baso % (Auto) 0.1 Gran # 5.72 Lymph # 0.7 L [place] # 0.7 H Eos # 0.0 Baso # 0.01 Neutrophils % (Manual) Band Neutrophils % Lymphocytes % (Manual) Monocytes % (Manual) Platelet Evaluation Poikilocytosis (manual Anisocytosis (manual) Microcytosis (manual) Tear Drop Cells Ovalocytes pCO2 pO2 HCO3 ABG pH ABG Total CO2 ABG O2 Saturation ABG Base Excess ABG Potassium Glucose Lactate FiO2 Sodium 144 Potassium 3.7 Chloride 109 H Carbon Dioxide 22 Anion Gap 17 BUN 66 H Creatinine 2.5 H Est GFR ( Amer) 31 Est GFR (Non-Af Amer) 25 Random Glucose 159 H Hemoglobin A1c 5.1 Calcium 9.2 Phosphorus Magnesium Total Bilirubin AST ALT Alkaline Phosphatase Troponin I < 0.01 Total Protein Albumin Globulin Albumin/Globulin Ratio Procalcitonin 27.54 H Arterial Blood Potassium Urine Color Light red Urine Appearance Cloudy Urine pH 5.5 Ur Specific [place] 1.025 Urine Protein 100 H Urine Glucose (UA) Negative Urine Ketones Negative Urine Blood Large H Urine Nitrate Positive H Urine Bilirubin Negative Urine Urobilinogen 1.0 H Ur Leukocyte Esterase Trace H Urine RBC Tntc Urine WBC 1 - 3 Ur Epithelial Cells 0 - 2 Urine Bacteria Small Vancomycin Trough 10/19/16 10/19/16 10/19/16 06:00 06:08 06:40 WBC 8.8 D RBC 4.84 Hgb 12.6 L Hct 36.4 L MCV 75.2 L MCH 26.0 MCHC 34.6 RDW 16.2 H Plt Count 194 Gran % Lymph % (Auto) [place] % (Auto) Eos % (Auto) Baso % (Auto) Gran # Lymph # [place] # Eos # Baso # Neutrophils % (Manual) 85 H Band Neutrophils % 6 H Lymphocytes % (Manual) 8 L Monocytes % (Manual) 1 Platelet Evaluation Normal Poikilocytosis (manual Slight Anisocytosis (manual) 1+ Microcytosis (manual) 1+ Tear Drop Cells Slight Ovalocytes Slight pCO2 30 L pO2 70.0 L HCO3 19.5 L ABG pH 7.42 ABG Total CO2 20.4 L ABG O2 Saturation 96.8 ABG Base Excess -3.9 L ABG Potassium 3.0 L Glucose 106 Lactate 1.1 FiO2 35.0 Sodium 147 145.0 Potassium 3.6 Chloride 109 H 119.0 H Carbon Dioxide 24 Anion Gap 18 BUN 73 H Creatinine 2.3 H Est GFR ( Amer) 34 Est GFR (Non-Af Amer) 28 Random Glucose 123 H Hemoglobin A1c Calcium 9.4 Phosphorus 3.8 Magnesium 2.3 H Total Bilirubin 1.0 AST 35 ALT 10 Alkaline Phosphatase 81 Troponin I Total Protein 8.0 Albumin 3.7 Globulin 4.3 Albumin/Globulin Ratio 0.9 L Procalcitonin Arterial Blood Potassium 3.0 L Urine Color Urine Appearance Urine pH Ur Specific [place] Urine Protein Urine Glucose (UA) Urine Ketones Urine Blood Urine Nitrate Urine Bilirubin Urine Urobilinogen Ur Leukocyte Esterase Urine RBC Urine WBC Ur Epithelial Cells Urine Bacteria Vancomycin Trough < 5.0 L Assessment & Plan - Assessment and Plan (Free Text) Assessment: 71 year old male admitted with uncontrolled hypertension, respiratory failure, intubated,,ventricular arrhythmia, JESUSITA, altered mental status. Patient's and son at bedside. Family states that patient was not always compliant with blood pressure medication at home. They state that over the prior weeks he had a decreased appetite, mild fatigue and shortness of breath. Family denies any behavioral changes prior to this admission. Family states the patient did not have an advance directive. They understand that he is critically ill but are hoping that he will bounce back to baseline status. They did ask what would happen if he does not improve, specifically if he is unable to breath on his own. We briefly talked about decisions that would have to be made in such a situation. I explained that in the interim the medical team will continue to treat underlying illness. Psychosocial support given. Family is appreciative of supportive care. Plan: Continue current medical management Will follow and assist family in with establishing future goals of care
--- NOTE | 2016-10-19 09:56 | CP.PCM.CON ---
History of Present Illness - History of Present Illness History of Present Illness: 71 year old male with PMH of HTN, dyslipidemia, arthritis S/P left knee surgery , S/P bilateral cataract surgery was initially admitted in [facility] because of altered mental status associated with Supraventricular tachycardia and acute renal failure. He was sent to the ICU since he was in critical condition with hypertensive emergency and was also put on the ventilator because of his mental status and needed airway protection. The BP, SVT was being controlled, and the acute renal failure is slowly improving. The patient yesterday, on the 3rd day of intubation, started developing fever and Infectious Diseases consult is requested to further evaluate and manage. Currently the patient is on the ventilator and sedated but arousable by verbal and tactile stimuli. He had fever at midnight (100.6 F), not tachypneic at the moment, no note of diarrhea, no no hematuria, no convulsions. Full review of systems is unobtainable because of the patient's medical condition. Review of Systems - Review of Systems Systems not reviewed;Unavailable: Intubated Past Patient History - Past Medical History & Family History Past Medical History?: Yes - Past Social History Smoking Status: Current Some Days Smoker Alcohol: None Drugs: Denies Home Situation {Lives}: With Family - CARDIAC Hx Cardiac Disorders: Yes Hx Congestive Heart Failure: Yes Hx Hypertension: Yes - PULMONARY Hx Respiratory Disorders: Yes (SMOKES CIGARETTES 1/2 PPD FOR 40 YRS) - NEUROLOGICAL Hx Neurological Disorder: No - HEENT Hx HEENT Problems: Yes Hx Cataracts: Yes (BILATERAL SX) - RENAL Hx Chronic Kidney Disease: No - ENDOCRINE/METABOLIC Hx Endocrine Disorders: No - HEMATOLOGICAL/ONCOLOGICAL Hx Blood Disorders: No - INTEGUMENTARY Hx Dermatological Problems: Yes (BILATERAL LE SKIN DRYNESS,DRY THIN FLAKY SKIN) - MUSCULOSKELETAL/RHEUMATOLOGICAL Hx Musculoskeletal Disorders: Yes (L KNEE SURGERY) Hx Falls: No - GASTROINTESTINAL Hx Gastrointestinal Disorders: No - GENITOURINARY/GYNECOLOGICAL Hx Genitourinary Disorders: No - PSYCHIATRIC Hx Psychophysiologic Disorder: No Hx Substance Use: No - SURGICAL HISTORY Hx Surgeries: Yes (BILATERAL CATARACT SURGERY) Hx Orthopedic Surgery: Yes (left knee) - ANESTHESIA Hx Anesthesia: Yes Hx Anesthesia Reactions: No Meds Allergies/Adverse Reactions: Allergies Allergy/AdvReac Type Severity Reaction Status Date / Time No Known Allergies Allergy Verified 03/11/17 17:48 - Medications Medications: Current Medications Acetaminophen (Tylenol 325mg Tab) 650 mg PO Q6H PRN PRN Reason: Fever >100.4 F Last Admin: 10/18/16 15:34 Dose: 650 mg Albuterol/Ipratropium (Duoneb 3 Mg/0.5 Mg (3 Ml) Ud) 3 ml IH [id number] [facility] Last Admin: 10/18/16 13:09 Dose: 3 ml Amiodarone HCl (Cordarone) 200 mg PO DAILY [facility] Last Admin: 10/18/16 09:02 Dose: 200 mg Aspirin (Aspirin Chewable) 81 mg PO DAILY [facility] Last Admin: 10/18/16 09:02 Dose: 81 mg Atorvastatin Calcium (Lipitor) 40 mg PO DIN [facility] Last Admin: 10/17/16 17:00 Dose: 40 mg Carvedilol (Coreg) 3.125 mg PO BID [facility] Last Admin: 10/18/16 09:03 Dose: 3.125 mg Cyanocobalamin (Vitamin B12 1000 Mcg/Ml Inj) 1,000 mcg IM BID [facility] Stop: 10/19/16 23:59 Last Admin: 10/18/16 09:04 Dose: 1,000 mcg Digoxin (Lanoxin) 0.125 mg PO 1400 [facility] Heparin Sodium (Porcine) (Heparin) 5,000 units SC Q12 [facility] Last Admin: 10/18/16 09:03 Dose: 5,000 units Hydralazine HCl (Apresoline) 10 mg PO QID PRN PRN Reason: for SBP>170 7 Diastolic>100 Hydralazine HCl (Apresoline) 10 mg IVP Q6 PRN PRN Reason: Systolic Blood Pressure Last Admin: 10/17/16 23:26 Dose: 10 mg Propofol (Diprivan) 100 mls @ 2.411 mls/hr IV .Q24H PRN; Protocol; 5 MCG/KG/MIN PRN Reason: TITRATE PER MD ORDER Last Titration: 10/18/16 13:26 Dose: 25 mcg/kg/min Piperacillin Sod/Tazobactam Sod (Zosyn 3.375 In Ns 100ml) 100 mls @ 200 mls/hr IVPB Q6 [facility] PRN Reason: Protocol Stop: 10/19/16 00:29 Last Admin: 10/18/16 15:49 Dose: 200 mls/hr Vancomycin HCl (Vancomycin 1gm) 250 mls @ 167 mls/hr IVPB STAT STA PRN Reason: Protocol Stop: 10/18/16 16:44 Lorazepam (Ativan) 2 mg IVP Q4H PRN; Protocol PRN Reason: Agitation Last Admin: 10/18/16 12:59 Dose: 2 mg Morphine Sulfate (Morphine) 2 mg IVP Q4H PRN PRN Reason: Pain, moderate (4-7) Pantoprazole Sodium (Protonix Inj) 40 mg IVP DAILY [facility] Last Admin: 10/18/16 09:04 Dose: 40 mg Thiamine HCl (Vitamin B1 Tab) 100 mg PO DAILY [facility] Last Admin: 10/18/16 09:02 Dose: 100 mg Physical Exam - Constitutional Appears: Other (Intubated and sedated, arousable by verbal and tactile stimuli; not in distress) - Head Exam Head Exam: NORMAL INSPECTION - ENT Exam ENT Exam: Mucous Membranes Moist - Neck Exam Neck exam: Negative for: Lymphadenopathy, Meningismus - Respiratory Exam Respiratory Exam: Decreased Breath Sounds - Cardiovascular Exam Cardiovascular Exam: +S1, +S2 - GI/Abdominal Exam GI & Abdominal Exam: Soft. absent: Tenderness Results - Vital Signs Recent Vital Signs: Last Vital Signs Temp 103.5 F H 10/18/16 16:21 Pulse 113 H 10/18/16 15:00 Resp 15 10/18/16 07:15 BP 138/79 10/18/16 15:01 Pulse Ox 96 10/18/16 15:02 - Labs Result Diagrams: 10/19/16 06:40 10/19/16 06:00 Labs: Laboratory Results - last 24 hr 10/17/16 10/18/16 10/18/16 05:00 08:30 08:50 WBC 9.8 RBC 5.14 Hgb 13.3 L Hct 39.1 L MCV 76.1 L MCH 25.9 MCHC 34.0 RDW 16.6 H Plt Count 224 Gran % 78.3 H Lymph % (Auto) 13.2 L [place] % (Auto) 8.5 H Eos % (Auto) 0.0 L Baso % (Auto) 0.0 Gran # 7.66 H Lymph # 1.3 [place] # 0.8 H Eos # 0.0 Baso # 0.00 pCO2 33 L pO2 88.0 HCO3 20.0 L ABG pH 7.39 ABG Total CO2 21.0 L ABG O2 Saturation 98.6 H ABG O2 Content 17.6 ABG Base Excess -4.1 L ABG Hemoglobin 13.0 ABG Carboxyhemoglobin 1.8 H POC ABG HHb (Measured) 1.4 ABG Methemoglobin 0.8 ABG O2 Capacity 17.8 Hgb O2 Saturation 96.0 FiO2 35.0 Sodium 148 Potassium 3.9 Chloride 110 H Carbon Dioxide 23 Anion Gap 19 BUN 52 H Creatinine 2.0 H Est GFR ( Amer) 40 Est GFR (Non-Af Amer) 33 Random Glucose 103 Hemoglobin A1c 5.1 Calcium 9.9 Phosphorus 5.2 H Magnesium 2.2 Total Bilirubin 0.9 AST 29 ALT 13 Alkaline Phosphatase 110 Total Protein 8.7 H Albumin 4.2 Globulin 4.5 Albumin/Globulin Ratio 0.9 L Assessment & Plan - Assessment and Plan (Free Text) Plan: Assessment Systemic Inflammatory Response Syndrome (fever and tachycardia) in a patient who is currently with ventilator-dependent respiratory failure, R/O sepsis, R/O ventilator-acquired pneumonia Hypertensive emergency with acute renal failure HTN dyslipidemia arthritis S/P left knee surgery S/P bilateral cataract surgery Plan Patient given one dose of IV Vancomycin and started Merrem pending sputum cx, blood cx, urine cx, PCT; awaiting repeat CXR done today Will monitor clinically Discussed with Dr. Herrera, ICU physician
--- NOTE | 2016-10-19 09:56 | CARD ---
APPROVED REPORT EKG Measurement Heart [id number] <Conclusion> RSR PVCs RBBB LAHB STTW changes No change
--- NOTE | 2016-10-19 11:08 | CP.CCUPN ---
<Rachael Casillas - Last Filed: 10/19/16 13:04> CCU Subjective - Physician Review Events Since Last Encounter (Free Text): 10/19/16 11:19 Patient seen and examined bedside. Febrile overnight and last evening Tmax 103.5. New opacities on CXR, now on abx. Currently on propofol at 15mcg/kg/min. Patient going for PICC line today. Critical Care Time Spent (in minutes): 45 CCU Objective - Vital Signs / Intake & Output Vital Signs (Last 4 hours): Vital Signs Temp Pulse BP 10/19/16 09:29 72 141/74 10/19/16 08:55 68 10/19/16 08:00 98.4 F Intake and Output (Last 8hrs): Intake & Output 10/18/16 10/19/16 10/19/16 22:59 06:59 14:59 Intake Total 1665 881 Output Total 200 300 Balance 1465 581 Weight 179 lb 3.2 oz Intake: IV 845 141 Right Forearm 650 55 Right Thumb 195 86 Tube Feeding 370 440 Other 450 300 Output: Urine 200 300 Urethral (Mathur) 200 300 Emesis 0 Oral Regurgitation 0 Other 0 Other: Voiding Method Indwelling Catheter # Bowel Movements 0 - Physical Exam Head: Positive for: Atraumatic, Normocephalic Pupils: Positive for: PERRL Extroacular Muscles: Positive for: EOMI Conjunctiva: Positive for: Normal Mouth: Positive for: Dry Pharnyx: Positive for: Normal. Negative for: ERYTHEMA, EXUDATE Neck: Positive for: JVD Respiratory/Chest: Positive for: Good Air Exchange. Negative for: Clear to Auscultation (coarse breath sounds throughout. Intubated PRVC 500/14/40/5), Respiratory Distress, Accessory Muscle Use Cardiovascular: Positive for: Regular Rate and Rhythm, Normal S1, S2. Negative for: Murmurs Abdomen: Positive for: Normal Bowel Sounds. Negative for: Tenderness, Distention, Peritoneal Signs Back: Positive for: Normal Inspection Lower Extremity: Positive for: Normal Inspection. Negative for: Edema - Medications Active Medications: Active Medications Generic Name Dose Route Start Last Admin Trade Name Freq PRN Reason Stop Dose Admin Acetaminophen 650 mg 10/18/16 15:23 10/18/16 15:34 Tylenol 325mg Tab PO 650 mg Q6H PRN Administration Fever >100.4 F Albuterol/Ipratropium 3 ml 10/18/16 11:30 10/19/16 07:38 Duoneb 3 Mg/0.5 Mg (3 Ml) Ud IH 3 ml [id number] ROSALIA Administration Amiodarone HCl 200 mg 10/17/16 10:00 10/19/16 09:29 Cordarone PO 200 mg DAILY ROSALIA Administration Aspirin 81 mg 10/15/16 16:15 10/19/16 09:29 Aspirin Chewable PO 81 mg DAILY ROSALIA Administration Atorvastatin Calcium 40 mg 10/16/16 17:00 10/18/16 17:20 Lipitor PO 40 mg DIN ROSALIA Administration Carvedilol 3.125 mg 10/17/16 10:00 10/19/16 09:29 Coreg PO 3.125 mg BID ROSALIA Administration Cyanocobalamin 1,000 mcg 10/16/16 11:30 10/19/16 09:28 Vitamin B12 1000 Mcg/Ml Inj IM 10/19/16 23:59 1,000 mcg BID ROSALIA Administration Digoxin 0.125 mg 10/17/16 14:00 Lanoxin PO 1400 ROSALIA Heparin Sodium (Porcine) 5,000 units 10/17/16 13:45 10/19/16 09:28 Heparin SC 5,000 units Q12 ROSALIA Administration Propofol 100 mls @ 2.411 mls/hr 10/16/16 11:15 10/19/16 08:01 Diprivan IV 5 mcg/kg/min .Q24H PRN Titration TITRATE PER MD ORDER Protocol 5 MCG/KG/MIN Meropenem 1 gm/ Sodium 100 mls @ 100 mls/hr 10/18/16 16:45 10/19/16 09:43 Chloride IVPB 10/25/16 16:46 100 mls/hr Q12 ROSALIA Administration Protocol Lorazepam 2 mg 10/15/16 16:46 10/18/16 12:59 Ativan IVP 2 mg Q4H PRN Administration Agitation Protocol Morphine Sulfate 2 mg 10/17/16 10:54 Morphine IVP Q4H PRN Pain, moderate (4-7) Pantoprazole Sodium 40 mg 10/16/16 12:45 10/19/16 09:32 Protonix Inj IVP 40 mg DAILY ROSALIA Administration Thiamine HCl 100 mg 10/15/16 17:00 03/16/17 09:29 Vitamin B1 Tab PO 100 mg DAILY ROSALIA Administration - Patient Studies Lab Studies: Microbiology Studies 10/18/16 14:58 Gram Stain - Final Trachasp 10/14/16 18:35 Blood Culture - Preliminary Blood-Venous NO GROWTH AFTER 4 DAYS Lab Studies 10/19/16 10/19/16 10/19/16 Range/Units 06:40 06:08 06:00 WBC 8.8 D (4.5-11.0) 10^3/ul RBC 4.84 (3.5-6.1) 10^6/uL Hgb 12.6 L (14.0-18.0) gm/dL Hct 36.4 L (42.0-52.0) % MCV 75.2 L (80.0-105.0) fL MCH 26.0 (25.0-35.0) pg MCHC 34.6 (31.0-37.0) g/dl RDW 16.2 H (11.5-14.5) % Plt Count 194 (120.0-450.0) 10^3/uL Gran % (50.0-68.0) % Lymph % (Auto) (22.0-35.0) % Hardeman % (Auto) (1.0-6.0) % Eos % (Auto) (1.5-5.0) % Baso % (Auto) (0.0-3.0) % Gran # (1.4-6.5) Lymph # (1.2-3.4) Hardeman # (0.1-0.6) Eos # (0.0-0.7) Baso # (0.0-2.0) K/mm3 Neutrophils % (Manual) 85 H (50.0-70.0) % Band Neutrophils % 6 H (0-2) % Lymphocytes % (Manual) 8 L (22.0-35.0) % Monocytes % (Manual) 1 (1.0-6.0) % Platelet Evaluation Normal (NORMAL) Poikilocytosis (manual Slight Anisocytosis (manual) 1+ Microcytosis (manual) 1+ Tear Drop Cells Slight Ovalocytes Slight pCO2 30 L (35-45) mm/Hg pO2 70.0 L (80-100) mm/Hg HCO3 19.5 L (21-28) mmol/L ABG pH 7.42 (7.35-7.45) ABG Total CO2 20.4 L (22-28) mmol.L ABG O2 Saturation 96.8 (95-98) % ABG Base Excess -3.9 L (-2.0-3.0) mmol/L ABG Potassium 3.0 L (3.6-5.2) mmol/L Sodium 145.0 147 (132-148) mmol/L Chloride 119.0 H 109 H (98-107) mmol/L Glucose 106 (75-110) mg/dl Lactate 1.1 (0.7-2.1) mmol/L FiO2 35.0 % Potassium 3.6 (3.6-5.0) mmol/L Carbon Dioxide 24 (21-33) mmol/L Anion Gap 18 (10-20) BUN 73 H (7-21) mg/dL Creatinine 2.3 H (0.5-1.4) mg/dL Est GFR ( Amer) 34 Est GFR (Non-Af Amer) 28 Random Glucose 123 H (70-110) mg/dL Hemoglobin A1c (4.2-6.5) % Calcium 9.4 (8.4-10.5) mg/dL Phosphorus 3.8 (2.5-4.5) mg/dL Magnesium 2.3 H (1.7-2.2) mg/dL Total Bilirubin 1.0 (0.2-1.3) mg/dL AST 35 (15-59) U/L ALT 10 (7-56) U/L Alkaline Phosphatase 81 (38-133) U/L Troponin I ng/mL Total Protein 8.0 (5.8-8.3) g/dL Albumin 3.7 (3.0-4.8) g/dL Globulin 4.3 gm/dL Albumin/Globulin Ratio 0.9 L (1.1-1.8) Procalcitonin (0.19-0.49) NG/ML Arterial Blood Potassium 3.0 L (3.6-5.2) mmol/L Urine Color (YELLOW) Urine Appearance (CLEAR) Urine pH (4.7-8.0) Ur Specific [place] (1.005-1.035) Urine Protein (<30 mg/dL) mg/dL Urine Glucose (UA) (NEGATIVE) mg/dL Urine Ketones (NEGATIVE) mg/dL Urine Blood (NEGATIVE) Urine Nitrate (NEGATIVE) Urine Bilirubin (NEGATIVE) Urine Urobilinogen (<1 E.U./dL) E.U./dL Ur Leukocyte Esterase (NEGATIVE) Natali/uL Urine RBC (0-2) /hpf Urine WBC (0-6) /hpf Ur Epithelial Cells (0-5) /hpf Urine Bacteria (NEG) Vancomycin Trough < 5.0 L (5.0-10.0) ug/mL 10/19/16 10/18/16 10/17/16 Range/Units 01:25 17:50 05:00 WBC 7.1 D (4.5-11.0) 10^3/ul RBC 4.93 (3.5-6.1) 10^6/uL Hgb 12.9 L (14.0-18.0) gm/dL Hct 37.7 L (42.0-52.0) % MCV 76.5 L (80.0-105.0) fL MCH 26.2 (25.0-35.0) pg MCHC 34.2 (31.0-37.0) g/dl RDW 16.5 H (11.5-14.5) % Plt Count 210 (120.0-450.0) 10^3/uL Gran % 80.8 H (50.0-68.0) % Lymph % (Auto) 9.5 L (22.0-35.0) % Hardeman % (Auto) 9.6 H (1.0-6.0) % Eos % (Auto) 0.0 L (1.5-5.0) % Baso % (Auto) 0.1 (0.0-3.0) % Gran # 5.72 (1.4-6.5) Lymph # 0.7 L (1.2-3.4) Hardeman # 0.7 H (0.1-0.6) Eos # 0.0 (0.0-0.7) Baso # 0.01 (0.0-2.0) K/mm3 Neutrophils % (Manual) (50.0-70.0) % Band Neutrophils % (0-2) % Lymphocytes % (Manual) (22.0-35.0) % Monocytes % (Manual) (1.0-6.0) % Platelet Evaluation (NORMAL) Poikilocytosis (manual Anisocytosis (manual) Microcytosis (manual) Tear Drop Cells Ovalocytes pCO2 (35-45) mm/Hg pO2 (80-100) mm/Hg HCO3 (21-28) mmol/L ABG pH (7.35-7.45) ABG Total CO2 (22-28) mmol.L ABG O2 Saturation (95-98) % ABG Base Excess (-2.0-3.0) mmol/L ABG Potassium (3.6-5.2) mmol/L Sodium 144 (132-148) mmol/L Chloride 109 H (98-107) mmol/L Glucose (75-110) mg/dl Lactate (0.7-2.1) mmol/L FiO2 % Potassium 3.7 (3.6-5.0) mmol/L Carbon Dioxide 22 (21-33) mmol/L Anion Gap 17 (10-20) BUN 66 H (7-21) mg/dL Creatinine 2.5 H (0.5-1.4) mg/dL Est GFR ( Amer) 31 Est GFR (Non-Af Amer) 25 Random Glucose 159 H (70-110) mg/dL Hemoglobin A1c 5.1 (4.2-6.5) % Calcium 9.2 (8.4-10.5) mg/dL Phosphorus (2.5-4.5) mg/dL Magnesium (1.7-2.2) mg/dL Total Bilirubin (0.2-1.3) mg/dL AST (15-59) U/L ALT (7-56) U/L Alkaline Phosphatase (38-133) U/L Troponin I < 0.01 ng/mL Total Protein (5.8-8.3) g/dL Albumin (3.0-4.8) g/dL Globulin gm/dL Albumin/Globulin Ratio (1.1-1.8) Procalcitonin 27.54 H (0.19-0.49) NG/ML Arterial Blood Potassium (3.6-5.2) mmol/L Urine Color Light red (YELLOW) Urine Appearance Cloudy (CLEAR) Urine pH 5.5 (4.7-8.0) Ur Specific [place] 1.025 (1.005-1.035) Urine Protein 100 H (<30 mg/dL) mg/dL Urine Glucose (UA) Negative (NEGATIVE) mg/dL Urine Ketones Negative (NEGATIVE) mg/dL Urine Blood Large H (NEGATIVE) Urine Nitrate Positive H (NEGATIVE) Urine Bilirubin Negative (NEGATIVE) Urine Urobilinogen 1.0 H (<1 E.U./dL) E.U./dL Ur Leukocyte Esterase Trace H (NEGATIVE) Natali/uL Urine RBC Tntc (0-2) /hpf Urine WBC 1 - 3 (0-6) /hpf Ur Epithelial Cells 0 - 2 (0-5) /hpf Urine Bacteria Small (NEG) Vancomycin Trough (5.0-10.0) ug/mL Laboratory Results - last 24 hr 10/17/16 10/18/16 10/19/16 05:00 17:50 01:25 WBC 7.1 D RBC 4.93 Hgb 12.9 L Hct 37.7 L MCV 76.5 L MCH 26.2 MCHC 34.2 RDW 16.5 H Plt Count 210 Gran % 80.8 H Lymph % (Auto) 9.5 L Hardeman % (Auto) 9.6 H Eos % (Auto) 0.0 L Baso % (Auto) 0.1 Gran # 5.72 Lymph # 0.7 L Hardeman # 0.7 H Eos # 0.0 Baso # 0.01 Neutrophils % (Manual) Band Neutrophils % Lymphocytes % (Manual) Monocytes % (Manual) Platelet Evaluation Poikilocytosis (manual Anisocytosis (manual) Microcytosis (manual) Tear Drop Cells Ovalocytes pCO2 pO2 HCO3 ABG pH ABG Total CO2 ABG O2 Saturation ABG Base Excess ABG Potassium Glucose Lactate FiO2 Sodium 144 Potassium 3.7 Chloride 109 H Carbon Dioxide 22 Anion Gap 17 BUN 66 H Creatinine 2.5 H Est GFR ( Amer) 31 Est GFR (Non-Af Amer) 25 Random Glucose 159 H Hemoglobin A1c 5.1 Calcium 9.2 Phosphorus Magnesium Total Bilirubin AST ALT Alkaline Phosphatase Troponin I < 0.01 Total Protein Albumin Globulin Albumin/Globulin Ratio Procalcitonin 27.54 H Arterial Blood Potassium Urine Color Light red Urine Appearance Cloudy Urine pH 5.5 Ur Specific [place] 1.025 Urine Protein 100 H Urine Glucose (UA) Negative Urine Ketones Negative Urine Blood Large H Urine Nitrate Positive H Urine Bilirubin Negative Urine Urobilinogen 1.0 H Ur Leukocyte Esterase Trace H Urine RBC Tntc Urine WBC 1 - 3 Ur Epithelial Cells 0 - 2 Urine Bacteria Small Vancomycin Trough 10/19/16 10/19/16 10/19/16 06:00 06:08 06:40 WBC 8.8 D RBC 4.84 Hgb 12.6 L Hct 36.4 L MCV 75.2 L MCH 26.0 MCHC 34.6 RDW 16.2 H Plt Count 194 Gran % Lymph % (Auto) [place]eman % (Auto) Eos % (Auto) Baso % (Auto) Gran # Lymph # Hardeman # Eos # Baso # Neutrophils % (Manual) 85 H Band Neutrophils % 6 H Lymphocytes % (Manual) 8 L Monocytes % (Manual) 1 Platelet Evaluation Normal Poikilocytosis (manual Slight Anisocytosis (manual) 1+ Microcytosis (manual) 1+ Tear Drop Cells Slight Ovalocytes Slight pCO2 30 L pO2 70.0 L HCO3 19.5 L ABG pH 7.42 ABG Total CO2 20.4 L ABG O2 Saturation 96.8 ABG Base Excess -3.9 L ABG Potassium 3.0 L Glucose 106 Lactate 1.1 FiO2 35.0 Sodium 147 145.0 Potassium 3.6 Chloride 109 H 119.0 H Carbon Dioxide 24 Anion Gap 18 BUN 73 H Creatinine 2.3 H Est GFR ( Amer) 34 Est GFR (Non-Af Amer) 28 Random Glucose 123 H Hemoglobin A1c Calcium 9.4 Phosphorus 3.8 Magnesium 2.3 H Total Bilirubin 1.0 AST 35 ALT 10 Alkaline Phosphatase 81 Troponin I Total Protein 8.0 Albumin 3.7 Globulin 4.3 Albumin/Globulin Ratio 0.9 L Procalcitonin Arterial Blood Potassium 3.0 L Urine Color Urine Appearance Urine pH Ur Specific [place] Urine Protein Urine Glucose (UA) Urine Ketones Urine Blood Urine Nitrate Urine Bilirubin Urine Urobilinogen Ur Leukocyte Esterase Urine RBC Urine WBC Ur Epithelial Cells Urine Bacteria Vancomycin Trough < 5.0 L EKG/Cardiology Studies: Cardiology / EKG Studies 10/18/16 17:11 EKG [ELECTROCARDIOGRAM] Stat Comment: Reason For Exam: extrasystoles PRE OP:: N Does Patient Have a Pacemaker?: No 10/19/16 10:57 EKG [ELECTROCARDIOGRAM] Routine Comment: Reason For Exam: followup r/o heart block Review of Systems - Review of Systems Systems not reviewed;Unavailable: Intubated Critical Care Progress Note - Ventilator Checklist PUD Prophalyxis: Yes DVT Prophylaxis: Yes - Vent Settings MODE:: PRVC TIDAL VOLUME:: 450 RESP RATE:: 15 FIO2:: 35 PEEP:: 5 Assessment/Plan - Assessment and Plan (Free Text) Assessment: 71 yo M w h/o HTN, HLD, arthritis, medical noncompliance admitted for hypertensive emergency with AMS, transferred to ICU following GAUGER DELIVERY for HTN and SVT on Nicardipine drip that has since been weaned off now intubated day #4 for airway protection, course further complicated by JESUSITA. Plan: Neuro: sedated on propofol currently at 5mcg/kg/min. Wean sedation to maintain RAAS -3 Neuro c/s pending. Recs appreciated. Ativan PRN agitation. Morphine PRN pain. Maintain normothermia. 3 CT head showed no evidence of acute intracranial hemorrhage, territorial infarct, masseffect or midline shift. 10/16 MRI brain had a lot of movement artifact but no significant intracranial pathology as per radiology read Neurology following CV: PAF. Slight hypotension this AM 102/47, resolved. Cardio following. Continue amio, coreg, lipitor, ASA, hydralazine PRN as per cardio Maintain MAP>65 2D ECHO shows LVEF 35%, mild-mod AR, mild , mild MR, mild TR, RVSP 35mmHg, trace pericardial effusion, grade 3 diastolic dysfunction. Possible cardiac cath once extubated and medically stable as per cardiology recs Pulm: VDRF Day #4. Failed pressure support trial. Daily ABGs, CXRs. Aspiration precautions. HOB >35degrees. Protective lung ventilation strategy. Maintain SpO2>90, PaO2>60 GI: GI ppx. Tube feeds and free water flushes Endo: No active issues. A1c 5.1. Maintain euglycemia 140-180 Renal: JESUSITA Slightly improved today. Continue holding Lasix, lisinopril, lovenox , potassium, digoxin; Hold all nephrotoxins. Renal US showed no significant or acute findings Nephrology consult noted and appreciated. Metanephrines pending. ID: Procalcitonin [id number]. New opacities on CXR. Sputum gram stain significant for many GNR, moderate GPC, few GPB. Continue Meropenem as per ID. Blood cultures negative after 4 days. Heme: Mild microcytic anemia. Hb 12.6, stable. No signs of bleeding. Vit B12 deficiency being replaced IM BID DVT/GI ppx: SQH. IV protonix. Tube feeds with free water flushes - Date & Time Date: 10/19/16 Time: 13:04 <Ashvin Herrera - Last Filed: 10/19/16 13:30> CCU Objective - Vital Signs / Intake & Output Vital Signs (Last 4 hours): Vital Signs Temp Pulse BP Pulse Ox 10/19/16 10:34 98.1 F 66 110/59 L 98 10/19/16 10:30 98.1 F 66 98 10/19/16 10:15 98.4 F 69 98 10/19/16 10:10 98.4 F 70 98 10/19/16 10:00 98.2 F 70 92/41 L 96 10/19/16 09:45 98.2 F 69 96 10/19/16 09:30 98.1 F 71 97 Intake and Output (Last 8hrs): Intake & Output 10/18/16 10/19/16 10/19/16 22:59 06:59 14:59 Intake Total 1665 881 Output Total 200 300 Balance 1465 581 Weight 179 lb 3.2 oz Intake: IV 845 141 Right Forearm 650 55 Right Thumb 195 86 Tube Feeding 370 440 Other 450 300 Output: Urine 200 300 Urethral (Mathur) 200 300 Emesis 0 Oral Regurgitation 0 Other 0 Other: Voiding Method Indwelling Catheter Indwelling Catheter # Bowel Movements 0 - Medications Active Medications: Active Medications Generic Name Dose Route Start Last Admin Trade Name Freq PRN Reason Stop Dose Admin Acetaminophen 650 mg 10/18/16 15:23 10/18/16 15:34 Tylenol 325mg Tab PO 650 mg Q6H PRN Administration Fever >100.4 F Albuterol/Ipratropium 3 ml 10/18/16 11:30 10/19/16 12:02 Duoneb 3 Mg/0.5 Mg (3 Ml) Ud IH 3 ml [id number] ROSALIA Administration Amiodarone HCl 200 mg 10/17/16 10:00 10/19/16 09:29 Cordarone PO 200 mg DAILY ROSALIA Administration Aspirin 81 mg 10/15/16 16:15 10/19/16 09:29 Aspirin Chewable PO 81 mg DAILY ROSALIA Administration Atorvastatin Calcium 40 mg 10/16/16 17:00 10/18/16 17:20 Lipitor PO 40 mg DIN ROSALIA Administration Carvedilol 3.125 mg 10/17/16 10:00 10/19/16 09:29 Coreg PO 3.125 mg BID ROSALIA Administration Cyanocobalamin 1,000 mcg 10/16/16 11:30 10/19/16 09:28 Vitamin B12 1000 Mcg/Ml Inj IM 10/19/16 23:59 1,000 mcg BID ROSALIA Administration Digoxin 0.125 mg 10/17/16 14:00 Lanoxin PO 1400 ROSALIA Heparin Sodium (Porcine) 5,000 units 10/17/16 13:45 10/19/16 09:28 Heparin SC 5,000 units Q12 ROSALIA Administration Propofol 100 mls @ 2.411 mls/hr 10/16/16 11:15 10/19/16 13:00 Diprivan IV 10 mcg/kg/min .Q24H PRN Titration TITRATE PER MD ORDER Protocol 5 MCG/KG/MIN Meropenem 1 gm/ Sodium 100 mls @ 100 mls/hr 10/18/16 16:45 10/19/16 09:43 Chloride IVPB 10/25/16 16:46 100 mls/hr Q12 ROSALIA Administration Protocol Lorazepam 2 mg 10/15/16 16:46 10/18/16 12:59 Ativan IVP 2 mg Q4H PRN Administration Agitation Protocol Morphine Sulfate 2 mg 10/17/16 10:54 Morphine IVP Q4H PRN Pain, moderate (4-7) Pantoprazole Sodium 40 mg 10/16/16 12:45 10/19/16 09:32 Protonix Inj IVP 40 mg DAILY ROSALIA Administration Thiamine HCl 100 mg 10/15/16 17:00 10/19/16 09:29 Vitamin B1 Tab PO 100 mg DAILY ROSALIA Administration - Patient Studies Lab Studies: Microbiology Studies 10/18/16 14:58 Gram Stain - Final Trachasp Sputum Culture - Preliminary Gram Negative Ever 10/18/16 11:30 Blood Culture - Preliminary Blood NO GROWTH AFTER 24 HOURS 10/14/16 18:35 Blood Culture - Preliminary Blood-Venous NO GROWTH AFTER 4 DAYS Lab Studies 10/19/16 10/19/16 10/19/16 Range/Units 12:02 06:40 06:08 WBC 8.8 D (4.5-11.0) 10^3/ul RBC 4.84 (3.5-6.1) 10^6/uL Hgb 12.6 L (14.0-18.0) gm/dL Hct 36.4 L (42.0-52.0) % MCV 75.2 L (80.0-105.0) fL MCH 26.0 (25.0-35.0) pg MCHC 34.6 (31.0-37.0) g/dl RDW 16.2 H (11.5-14.5) % Plt Count 194 (120.0-450.0) 10^3/uL Gran % (50.0-68.0) % Lymph % (Auto) (22.0-35.0) % [place] % (Auto) (1.0-6.0) % Eos % (Auto) (1.5-5.0) % Baso % (Auto) (0.0-3.0) % Gran # (1.4-6.5) Lymph # (1.2-3.4) [place] # (0.1-0.6) Eos # (0.0-0.7) Baso # (0.0-2.0) K/mm3 Neutrophils % (Manual) 85 H (50.0-70.0) % Band Neutrophils % 6 H (0-2) % Lymphocytes % (Manual) 8 L (22.0-35.0) % Monocytes % (Manual) 1 (1.0-6.0) % Platelet Evaluation Normal (NORMAL) Poikilocytosis (manual Slight Anisocytosis (manual) 1+ Microcytosis (manual) 1+ Tear Drop Cells Slight Ovalocytes Slight pCO2 30 L (35-45) mm/Hg pO2 70.0 L (80-100) mm/Hg HCO3 19.5 L (21-28) mmol/L ABG pH 7.42 (7.35-7.45) ABG Total CO2 20.4 L (22-28) mmol.L ABG O2 Saturation 96.8 (95-98) % ABG Base Excess -3.9 L (-2.0-3.0) mmol/L ABG Potassium 3.0 L (3.6-5.2) mmol/L Sodium 145.0 (132-148) mmol/L Chloride 119.0 H (98-107) mmol/L Glucose 106 (75-110) mg/dl Lactate 1.1 (0.7-2.1) mmol/L FiO2 35.0 % Potassium (3.6-5.0) mmol/L Carbon Dioxide (21-33) mmol/L Anion Gap (10-20) BUN (7-21) mg/dL Creatinine (0.5-1.4) mg/dL Est GFR ( Amer) Est GFR (Non-Af Amer) Random Glucose (70-110) mg/dL Hemoglobin A1c (4.2-6.5) % Calcium (8.4-10.5) mg/dL Phosphorus (2.5-4.5) mg/dL Magnesium (1.7-2.2) mg/dL Total Bilirubin (0.2-1.3) mg/dL AST (15-59) U/L ALT (7-56) U/L Alkaline Phosphatase (38-133) U/L Troponin I ng/mL Total Protein (5.8-8.3) g/dL Albumin (3.0-4.8) g/dL Globulin gm/dL Albumin/Globulin Ratio (1.1-1.8) Procalcitonin (0.19-0.49) NG/ML Arterial Blood Potassium 3.0 L (3.6-5.2) mmol/L Urine Color Yellow (YELLOW) Urine Appearance Cloudy (CLEAR) Urine pH 5.5 (4.7-8.0) Ur Specific [place] 1.020 (1.005-1.035) Urine Protein Trace H (<30 mg/dL) mg/dL Urine Glucose (UA) Negative (NEGATIVE) mg/dL Urine Ketones Negative (NEGATIVE) mg/dL Urine Blood Large H (NEGATIVE) Urine Nitrate Negative (NEGATIVE) Urine Bilirubin Negative (NEGATIVE) Urine Urobilinogen 0.2 (<1 E.U./dL) E.U./dL Ur Leukocyte Esterase Negative (NEGATIVE) Natali/uL Urine RBC Tntc (0-2) /hpf Urine WBC 0 - 2 (0-6) /hpf Ur Epithelial Cells 0 - 2 (0-5) /hpf Amorphous Sediment Few Urine Bacteria Few (NEG) Vancomycin Trough (5.0-10.0) ug/mL 10/19/16 10/19/16 10/18/16 Range/Units 06:00 01:25 17:50 WBC 7.1 D (4.5-11.0) 10^3/ul RBC 4.93 (3.5-6.1) 10^6/uL Hgb 12.9 L (14.0-18.0) gm/dL Hct 37.7 L (42.0-52.0) % MCV 76.5 L (80.0-105.0) fL MCH 26.2 (25.0-35.0) pg MCHC 34.2 (31.0-37.0) g/dl RDW 16.5 H (11.5-14.5) % Plt Count 210 (120.0-450.0) 10^3/uL Gran % 80.8 H (50.0-68.0) % Lymph % (Auto) 9.5 L (22.0-35.0) % [place] % (Auto) 9.6 H (1.0-6.0) % Eos % (Auto) 0.0 L (1.5-5.0) % Baso % (Auto) 0.1 (0.0-3.0) % Gran # 5.72 (1.4-6.5) Lymph # 0.7 L (1.2-3.4) [place] # 0.7 H (0.1-0.6) Eos # 0.0 (0.0-0.7) Baso # 0.01 (0.0-2.0) K/mm3 Neutrophils % (Manual) (50.0-70.0) % Band Neutrophils % (0-2) % Lymphocytes % (Manual) (22.0-35.0) % Monocytes % (Manual) (1.0-6.0) % Platelet Evaluation (NORMAL) Poikilocytosis (manual Anisocytosis (manual) Microcytosis (manual) Tear Drop Cells Ovalocytes pCO2 (35-45) mm/Hg pO2 (80-100) mm/Hg HCO3 (21-28) mmol/L ABG pH (7.35-7.45) ABG Total CO2 (22-28) mmol.L ABG O2 Saturation (95-98) % ABG Base Excess (-2.0-3.0) mmol/L ABG Potassium (3.6-5.2) mmol/L Sodium 147 144 (132-148) mmol/L Chloride 109 H 109 H (98-107) mmol/L Glucose (75-110) mg/dl Lactate (0.7-2.1) mmol/L FiO2 % Potassium 3.6 3.7 (3.6-5.0) mmol/L Carbon Dioxide 24 22 (21-33) mmol/L Anion Gap 18 17 (10-20) BUN 73 H 66 H (7-21) mg/dL Creatinine 2.3 H 2.5 H (0.5-1.4) mg/dL Est GFR ( Amer) 34 31 Est GFR (Non-Af Amer) 28 25 Random Glucose 123 H 159 H (70-110) mg/dL Hemoglobin A1c (4.2-6.5) % Calcium 9.4 9.2 (8.4-10.5) mg/dL Phosphorus 3.8 (2.5-4.5) mg/dL Magnesium 2.3 H (1.7-2.2) mg/dL Total Bilirubin 1.0 (0.2-1.3) mg/dL AST 35 (15-59) U/L ALT 10 (7-56) U/L Alkaline Phosphatase 81 (38-133) U/L Troponin I < 0.01 ng/mL Total Protein 8.0 (5.8-8.3) g/dL Albumin 3.7 (3.0-4.8) g/dL Globulin 4.3 gm/dL Albumin/Globulin Ratio 0.9 L (1.1-1.8) Procalcitonin 27.54 H (0.19-0.49) NG/ML Arterial Blood Potassium (3.6-5.2) mmol/L Urine Color Light red (YELLOW) Urine Appearance Cloudy (CLEAR) Urine pH 5.5 (4.7-8.0) Ur Specific [place] 1.025 (1.005-1.035) Urine Protein 100 H (<30 mg/dL) mg/dL Urine Glucose (UA) Negative (NEGATIVE) mg/dL Urine Ketones Negative (NEGATIVE) mg/dL Urine Blood Large H (NEGATIVE) Urine Nitrate Positive H (NEGATIVE) Urine Bilirubin Negative (NEGATIVE) Urine Urobilinogen 1.0 H (<1 E.U./dL) E.U./dL Ur Leukocyte Esterase Trace H (NEGATIVE) Natali/uL Urine RBC Tntc (0-2) /hpf Urine WBC 1 - 3 (0-6) /hpf Ur Epithelial Cells 0 - 2 (0-5) /hpf Amorphous Sediment Urine Bacteria Small (NEG) Vancomycin Trough < 5.0 L (5.0-10.0) ug/mL 10/17/16 Range/Units 05:00 WBC (4.5-11.0) 10^3/ul RBC (3.5-6.1) 10^6/uL Hgb (14.0-18.0) gm/dL Hct (42.0-52.0) % MCV (80.0-105.0) fL MCH (25.0-35.0) pg MCHC (31.0-37.0) g/dl RDW (11.5-14.5) % Plt Count (120.0-450.0) 10^3/uL Gran % (50.0-68.0) % Lymph % (Auto) (22.0-35.0) % [place] % (Auto) (1.0-6.0) % Eos % (Auto) (1.5-5.0) % Baso % (Auto) (0.0-3.0) % Gran # (1.4-6.5) Lymph # (1.2-3.4) [place] # (0.1-0.6) Eos # (0.0-0.7) Baso # (0.0-2.0) K/mm3 Neutrophils % (Manual) (50.0-70.0) % Band Neutrophils % (0-2) % Lymphocytes % (Manual) (22.0-35.0) % Monocytes % (Manual) (1.0-6.0) % Platelet Evaluation (NORMAL) Poikilocytosis (manual Anisocytosis (manual) Microcytosis (manual) Tear Drop Cells Ovalocytes pCO2 (35-45) mm/Hg pO2 (80-100) mm/Hg HCO3 (21-28) mmol/L ABG pH (7.35-7.45) ABG Total CO2 (22-28) mmol.L ABG O2 Saturation (95-98) % ABG Base Excess (-2.0-3.0) mmol/L ABG Potassium (3.6-5.2) mmol/L Sodium (132-148) mmol/L Chloride (98-107) mmol/L Glucose (75-110) mg/dl Lactate (0.7-2.1) mmol/L FiO2 % Potassium (3.6-5.0) mmol/L Carbon Dioxide (21-33) mmol/L Anion Gap (10-20) BUN (7-21) mg/dL Creatinine (0.5-1.4) mg/dL Est GFR ( Amer) Est GFR (Non-Af Amer) Random Glucose (70-110) mg/dL Hemoglobin A1c 5.1 (4.2-6.5) % Calcium (8.4-10.5) mg/dL Phosphorus (2.5-4.5) mg/dL Magnesium (1.7-2.2) mg/dL Total Bilirubin (0.2-1.3) mg/dL AST (15-59) U/L ALT (7-56) U/L Alkaline Phosphatase (38-133) U/L Troponin I ng/mL Total Protein (5.8-8.3) g/dL Albumin (3.0-4.8) g/dL Globulin gm/dL Albumin/Globulin Ratio (1.1-1.8) Procalcitonin (0.19-0.49) NG/ML Arterial Blood Potassium (3.6-5.2) mmol/L Urine Color (YELLOW) Urine Appearance (CLEAR) Urine pH (4.7-8.0) Ur Specific [place] (1.005-1.035) Urine Protein (<30 mg/dL) mg/dL Urine Glucose (UA) (NEGATIVE) mg/dL Urine Ketones (NEGATIVE) mg/dL Urine Blood (NEGATIVE) Urine Nitrate (NEGATIVE) Urine Bilirubin (NEGATIVE) Urine Urobilinogen (<1 E.U./dL) E.U./dL Ur Leukocyte Esterase (NEGATIVE) Natali/uL Urine RBC (0-2) /hpf Urine WBC (0-6) /hpf Ur Epithelial Cells (0-5) /hpf Amorphous Sediment Urine Bacteria (NEG) Vancomycin Trough (5.0-10.0) ug/mL Laboratory Results - last 24 hr 10/17/16 10/18/16 10/19/16 05:00 17:50 01:25 WBC 7.1 D RBC 4.93 Hgb 12.9 L Hct 37.7 L MCV 76.5 L MCH 26.2 MCHC 34.2 RDW 16.5 H Plt Count 210 Gran % 80.8 H Lymph % (Auto) 9.5 L Hardeman % (Auto) 9.6 H Eos % (Auto) 0.0 L Baso % (Auto) 0.1 Gran # 5.72 Lymph # 0.7 L Hardeman # 0.7 H Eos # 0.0 Baso # 0.01 Neutrophils % (Manual) Band Neutrophils % Lymphocytes % (Manual) Monocytes % (Manual) Platelet Evaluation Poikilocytosis (manual Anisocytosis (manual) Microcytosis (manual) Tear Drop Cells Ovalocytes pCO2 pO2 HCO3 ABG pH ABG Total CO2 ABG O2 Saturation ABG Base Excess ABG Potassium Glucose Lactate FiO2 Sodium 144 Potassium 3.7 Chloride 109 H Carbon Dioxide 22 Anion Gap 17 BUN 66 H Creatinine 2.5 H Est GFR ( Amer) 31 Est GFR (Non-Af Amer) 25 Random Glucose 159 H Hemoglobin A1c 5.1 Calcium 9.2 Phosphorus Magnesium Total Bilirubin AST ALT Alkaline Phosphatase Troponin I < 0.01 Total Protein Albumin Globulin Albumin/Globulin Ratio Procalcitonin 27.54 H Arterial Blood Potassium Urine Color Light red Urine Appearance Cloudy Urine pH 5.5 Ur Specific [place] 1.025 Urine Protein 100 H Urine Glucose (UA) Negative Urine Ketones Negative Urine Blood Large H Urine Nitrate Positive H Urine Bilirubin Negative Urine Urobilinogen 1.0 H Ur Leukocyte Esterase Trace H Urine RBC Tntc Urine WBC 1 - 3 Ur Epithelial Cells 0 - 2 Amorphous Sediment Urine Bacteria Small Vancomycin Trough 10/19/16 10/19/16 10/19/16 06:00 06:08 06:40 WBC 8.8 D RBC 4.84 Hgb 12.6 L Hct 36.4 L MCV 75.2 L MCH 26.0 MCHC 34.6 RDW 16.2 H Plt Count 194 Gran % Lymph % (Auto) Hardeman % (Auto) Eos % (Auto) Baso % (Auto) Gran # Lymph # Hardeman # Eos # Baso # Neutrophils % (Manual) 85 H Band Neutrophils % 6 H Lymphocytes % (Manual) 8 L Monocytes % (Manual) 1 Platelet Evaluation Normal Poikilocytosis (manual Slight Anisocytosis (manual) 1+ Microcytosis (manual) 1+ Tear Drop Cells Slight Ovalocytes Slight pCO2 30 L pO2 70.0 L HCO3 19.5 L ABG pH 7.42 ABG Total CO2 20.4 L ABG O2 Saturation 96.8 ABG Base Excess -3.9 L ABG Potassium 3.0 L Glucose 106 Lactate 1.1 FiO2 35.0 Sodium 147 145.0 Potassium 3.6 Chloride 109 H 119.0 H Carbon Dioxide 24 Anion Gap 18 BUN 73 H Creatinine 2.3 H Est GFR ( Amer) 34 Est GFR (Non-Af Amer) 28 Random Glucose 123 H Hemoglobin A1c Calcium 9.4 Phosphorus 3.8 Magnesium 2.3 H Total Bilirubin 1.0 AST 35 ALT 10 Alkaline Phosphatase 81 Troponin I Total Protein 8.0 Albumin 3.7 Globulin 4.3 Albumin/Globulin Ratio 0.9 L Procalcitonin Arterial Blood Potassium 3.0 L Urine Color Urine Appearance Urine pH Ur Specific [place] Urine Protein Urine Glucose (UA) Urine Ketones Urine Blood Urine Nitrate Urine Bilirubin Urine Urobilinogen Ur Leukocyte Esterase Urine RBC Urine WBC Ur Epithelial Cells Amorphous Sediment Urine Bacteria Vancomycin Trough < 5.0 L 10/19/16 12:02 WBC RBC Hgb Hct MCV MCH MCHC RDW Plt Count Gran % Lymph % (Auto) [place] % (Auto) Eos % (Auto) Baso % (Auto) Gran # Lymph # Hardeman # Eos # Baso # Neutrophils % (Manual) Band Neutrophils % Lymphocytes % (Manual) Monocytes % (Manual) Platelet Evaluation Poikilocytosis (manual Anisocytosis (manual) Microcytosis (manual) Tear Drop Cells Ovalocytes pCO2 pO2 HCO3 ABG pH ABG Total CO2 ABG O2 Saturation ABG Base Excess ABG Potassium Glucose Lactate FiO2 Sodium Potassium Chloride Carbon Dioxide Anion Gap BUN Creatinine Est GFR ( Amer) Est GFR (Non-Af Amer) Random Glucose Hemoglobin A1c Calcium Phosphorus Magnesium Total Bilirubin AST ALT Alkaline Phosphatase Troponin I Total Protein Albumin Globulin Albumin/Globulin Ratio Procalcitonin Arterial Blood Potassium Urine Color Yellow Urine Appearance Cloudy Urine pH 5.5 Ur Specific [place] 1.020 Urine Protein Trace H Urine Glucose (UA) Negative Urine Ketones Negative Urine Blood Large H Urine Nitrate Negative Urine Bilirubin Negative Urine Urobilinogen 0.2 Ur Leukocyte Esterase Negative Urine RBC Tntc Urine WBC 0 - 2 Ur Epithelial Cells 0 - 2 Amorphous Sediment Few Urine Bacteria Few Vancomycin Trough EKG/Cardiology Studies: Cardiology / EKG Studies 10/18/16 17:11 EKG [ELECTROCARDIOGRAM] Stat Comment: Reason For Exam: extrasystoles PRE OP:: N Does Patient Have a Pacemaker?: No 10/19/16 10:57 EKG [ELECTROCARDIOGRAM] Routine Comment: Reason For Exam: followup r/o heart block Attending/Attestation - Attestation I have personally seen and examined this patient.: Yes I have fully participated in the care of the patient.: Yes I have reviewed all pertinent clinical information: Yes Notes (Text): 10/19/16 13:29 The patient was seen and examined at the bedside. Patient care was discussed with resident Medical records, lab studies, and imaging were reviewed and management issues were discussed and formulated. Last 24H events reviewed. Agree with above treatment plans as outlined in 's note with addition of the following: -hemodynamic monitoring to maintain MAP>65 -continue ASA, Amio and coreg as per cardiology team -mechanical ventilation and o2 supplementation to maintain Spo2 >90 Pao2>60 -monitor for TV 6ml\kg IBW and plateau pressure <30 -ABG in AM reviewed -continue PS trials -repeat CXR reviewed -f\u Bun\Cr and U\o; JESUSITA worsened; hold nephrotoxic meds -renal team eval appreciated -renal US shows no hydronephrosis -tube feeds and free water flushes and aspiration precautions -neurology team eval appreciated -CT head negative for acute pathology -broad spectrum Abx started; ID eval appreciated; f\u cultures -DVT \ PUD prophylaxis CCM f\u 39min
--- NOTE | 2016-10-19 12:10 | CON ---
DATE: 10/19/2016 HISTORY OF PRESENT ILLNESS: This is a 71-year-old male with past medical history of hypertension, hy perlipidemia, arthritis who was admitted with shortness of breath. The patient had a rapid response and was transferred to ICU. Patient had a cardiac problem, atrial fibrillation and bundle juany blo ck was intubated in the ICU. I was called to evaluate the patient. PAST MEDICAL HISTORY: As above. PHYSICAL EXAMINATION: The patient, on examination, not unresponsive on a ventilatory support. Does not follow commands. The patient was under propofol and pupils reactive. No spontaneous movement of either extremity noted. Deep tendon reflexes 1+. Both plantars downgoing. Sensory tests unable to respond. Cerebellar gait deferred. IMPRESSION: Encephalopathy, possibly pneumonia due to cardiac conditions. MRI and CT scan was done, which did not show any acute infarct. PLAN: Continue present management. We will follow up. Rik Brown MD cc: [id number] TT: 10/19/2016 12:10:13 Confirmation # [id number] Dictation # [id number] warren
[2016-10-19 12:17] LABS: PH,URINE 5.5 (4.7-8.0); URINE BILIRUBIN NEGATIVE (NEGATIVE); URINE BLOOD LARGE (NEGATIVE); URINE GLUCOSE (UA) NEGATIVE (NEGATIVE); URINE KETONE NEGATIVE (NEGATIVE); URINE LEUKOCYTE ESTERASE NEGATIVE Leu/uL (NEGATIVE); URINE PROTEIN TRACE mg/dL (<30 mg/dL); URINE UROBILINOGEN 0.2 E.U./dL (<1 E.U./dL)
[2016-10-19 12:21] LABS: URINE APPEARANCE CLOUDY (CLEAR); URINE COLOR YELLOW (YELLOW)
[2016-10-19] MEDS ORDERED: Potassium Chloride 20 mEq/15 ml LIQ UD PO STA (12:23)
[2016-10-19] MEDS ORDERED: Lidocaine 2% Inj (20ml) ONE (12:48)
--- NOTE | 2016-10-19 12:54 | PN ---
DATE: 10/19/2016 REASON FOR CONSULTATION AND FOLLOWUP: Congestive heart failure, paroxysmal atrial fibrillation, stat us post rapid response, status post intubated, status post wide complex tachycardia thought to be VT (AFib with bundle branch block), now is in normal sinus. BRIEF CLINICAL HISTORY: This is a 71-year-old male with a past medical history significant for hyper tension, hyperlipidemia, arthritis, admitted with shortness of breath; a few days ago got more worse respiratory status. The patient was in telemetry, had a rapid response, had wide complex tachycardia thought to be initially VT, but actually it was atrial fibrillation with bundle branch block. Lona zamorano the course of hospitalization, the patient developed pneumonia and sepsis requiring intubation. Di scussed in length with the family - son, [id number], and the who was at the bedside about t he patient's condition, snf prognosis and line of action. PHYSICAL EXAMINATION: VITAL SIGNS: Temperature afebrile, heart rate ____, blood pressure 110/59. HEENT: PERRLA. Extraocular muscles intact. NECK: Supple. No carotid bruits. No thyromegaly. CHEST: Clear to auscultation. HEART: S1, S2 regular. ABDOMEN: Soft. EXTREMITIES: Clubbing and cyanosis negative. BLOOD WORKUP: WBC 8.8, hemoglobin 12.7, hematocrit 36.4, platelet count 194. Chemistry shows sodium 147, potassium 3.6, chloride 109, carbon dioxide 24, anion gap of 18, BUN 73, creatinine 2.3. IMPRESSION: Acute kidney injury, status post respiratory failure, no evidence of acute myocardial in farction. Troponin x 4 negative. No evidence of acute coronary syndrome. Low grade fever, possible pneumonia, respiratory failure. The patient had echocardiography done that shows multiple wall gato on abnormalities consistent with coronary artery disease, decreased left ventricular function, ejecti on fraction 30-35%, mild aortic stenosis, mild mitral regurgitation, mild tricuspid regurgitation, ri ght ventricular systolic pressure of 35. Status post intubated, respiratory failure; cardiomyopathy, possibly ischemic; history of paroxysmal atrial fibrillation. Baseline electrocardiogram shows righ t bundle and left anterior hemiblock, QRS 170 msec. The patient went into rapid atrial fibrillation with rapid ventricular rate that appears as ventricular tachycardia/ventricular fibrillation. No alma dence of ventricular tachycardia/ventricular fibrillation. RECOMMENDATIONS: Discussed as mentioned above with the patient's family - and son. Discussed w ith the neurologist. Discussed with the resident taking care of this. For now, continue the vent ma nagement, continue broad spectrum antibiotic, keep a negative fluid balance. Started NG feeding. Wi ll increase free fluid to 300 mL an hour; keep a negative fluid balance. Monitor renal function clos migue. Continue digoxin to control the heart rate. Continue atorvastatin, continue aspirin, continue Coreg. Continue amiodarone to control the atrial fibrillation. Now patient is in normal sinus. Con tinue hydralazine p.r.n. Continue broad spectrum antibiotic. Once the patient is extubated and medi corry stable, consider cardiac catheterization. Discussed with the family. Follow up with neurologi st. Continue radiology manager. Will follow with you. Thank you, Dr. Posey, for providing the opportunity in taking care of this patient. Will follow wi th you. Acute kidney injury and chronic renal insufficiency have plateaued now; trending is down. Will incre ase fluids to free water through the NG tube to 300 mL q. 6. We will follow with you. Thank you, Dr. Posey, for providing us the opportunity in taking care of this patient. Lucrecia Pérez MD cc:Jf Posey MD [phone] TT: 10/19/2016 12:54:14 Confirmation # [id number] Dictation # [id number] josefa
[2016-10-19 12:59] LABS: URINE BACTERIA FEW (NEG); URINE EPITHELIAL CELLS 0 - 2 /hpf (0-5); URINE RBC TNTC /hpf (0-2); URINE WBC 0 - 2 /hpf (0-6)
[2016-10-19 13:00] LABS: URINE AMORPHOUS SEDIMENT FEW
--- NOTE | 2016-10-19 14:11 | PN ---
DATE: 10/19/2016 SUBJECTIVE: The patient was seen in the intensive care unit. He remains intubated with an FiO2 of 3 5%. He continues to have an OG tube in place and is receiving feeds at rate of 50 mL per hour and he is also receiving water at a rate of 300 mL every [address] hours[address] are in place. The patient is movi ng in bed. He does not appear to be in any pain or distress. Mathur catheter is also in place. [facility] members are present at bedside. OBJECTIVE: VITAL SIGNS: Blood pressure is currently 110/59 with a minimum blood pressure of 92/51 in the last 2 4-hour period and a maximum of 190/117. Heart rate is 66, but has ranged from the 60s to approximate ly 92 beats per minute in the last 24-hour period. Oral temperature is 98.1, and the patient has bee n afebrile for the last 48-hour period. Respiratory rate is 34, but has ranged from 15-45 breaths pe r minute in the last 24-hour period. Oxygen saturation is 98%, but has ranged from 97-100% in the 24-hour period with an FIO2 of 35%. I's and O's in the last 24-hour period are 2400/500. The rem ainder of the exam is as follows. HEENT: The patient was intubated as stated above with OG tube in place as well. He was otherwise no rmocephalic. NECK: There was no jugular venous distention that I could appreciate on the patient. CHEST: Lung buckley were auscultated anteriorly and were clear without any rales, rhonchi or wheezing . Diaphragmatic excursion as well as airflow into both lung buckley was bilaterally symmetrical. CARDIAC: Had a regular rate and rhythm. There were no rubs or gallops. ABDOMEN: Distended, but nontender and there was no rebounding, guarding or rigidity that I could joaquim reciate. There was no hepatosplenomegaly. EXTREMITIES: Had trace sacral edema. NEUROLOGIC: The patient was sedated on Diprivan, but he was moving all extremities on the bed. VASCULAR: Had no bruits. SKIN: Intact. GENITOURINARY: Notable for the presence of a Mathur catheter with linda-colored urine. LABORATORY STUDIES: White count is 8.8, H and H is 12.6/36.4 with a platelet count of 194,000. Ther e are 85% neutrophils, 6% bands, 8% lymphocytes, 1% monocytes. ABG had a pH of 7.42 with a pCO2 of 3 0, PaO2 of 70 and an oxygen saturation of 97%. Sodium is 147, potassium 3.6, chloride is 109, bicarb ruddy 24, BUN/creatinine 73/2.3 with a glucose of 123, total protein/albumin is 8/3.7, calcium is 9.4 , phosphorus is 3.8, magnesium is 2.3. Urinalysis was yellow, cloudy with a pH of 5.5, specific grav ity 1.020, trace protein with "large blood" and too numerous to count RBCs per high power field. Karin st x-ray from earlier today is pending. Cultures are positive for gram-negative rods in tracheal asp iration. IMPRESSION AND PLAN: The patient is a 71-year-old gentleman with history of hypertension and left ve ntricular hypertrophy, dyslipidemia, coronary artery disease with decreased left ventricular systolic function as per echocardiogram performed during this hospitalization, who was admitted with dyspnea on exertion. He was found to have uncontrolled hypertension with congestive heart failure compatible with a diagnosis of hypertensive emergency for which he was initially treated with a nicardipine inf usion. During the hospitalization, he has had ventricular tachycardia and ultimately required intuba tion. Of note, the patient has acute kidney injury as well, but this is in the setting of documented dips in his blood pressure and in fact, his hypertension has been quite labile. 1. Given the patient's labile hypertension, there is a concern about pheochromocytoma and so plasma total and fractionated metanephrines have been sent to the lab, the results of which are still pendin g. 2. I would continue water via the orogastric tube at a rate of 300 mL every 6 hours for now. In my opinion, we do not need to give the patient any intravenous fluids unless he becomes overly hypotensi ve in which case we should just bolus him and not have him on maintenance intravenous fluids. 3. The patient's total protein versus albumin ratio is elevated which may represent polyclonal gammo clari from possible sepsis. He has been given 1 dose of vancomycin and started on meropenem pending the results of culture data: Chest x-ray was performed with the results from today, still pending. Of note, his procalcitonin level is markedly elevated, which would suggest sepsis. I do not believe the patient requires an SPEP immunofixation or free light chain assay for his increased total protein versus albumin ratio. 4. Continue the patient's current feeds since his acute kidney injury does appear to be improving. I do not feel that he requires conversion to Nepro at this time. 5. While the patient is intubated and with acute kidney injury, continue Mathur catheter in place. 6. For underlying coronary artery disease, continue aspirin as well as atorvastatin via the orogastr ic tube. Additionally, the patient remains on carvedilol. 7. For deep venous thrombosis prophylaxis, continue subcutaneous heparin and for gastrointestinal pr ophylaxis, the patient is on pantoprazole. 8. Once the patient has been extubated and he is medically stable, he will require cardiac catheteri zation for his episode of ventricular tachycardia described above. Ideally, this should be performed after his acute kidney injury has fully resolved. The above was discussed with the patient's christianne curran at bedside. Review of systems, past medical history, social history and family history were all reviewed and ther e were no new changes and more than 35 minutes were spent in the care of this ICU patient today. Erik Chan MD cc: [id number] TT: 10/19/2016 14:10:49 Confirmation # [id number] Dictation # [id number] tn
--- NOTE | 2016-10-19 14:46 | RAD ---
HISTORY: ETT, OGT COMPARISON: 10/18/2016 FINDINGS: LUNGS: Opacity mid and lower right lung not evident on earlier examination. Suspicious for infectious or inflammatory process. No other abnormal opacity elsewhere. PLEURA: No significant pleural effusion identified, no pneumothorax apparent. CARDIOVASCULAR: Endotracheal tube and nasogastric tube are grossly unchanged. OSSEOUS STRUCTURES: No significant abnormalities. VISUALIZED UPPER ABDOMEN: Normal. OTHER FINDINGS: None. IMPRESSION: Developing opacity mid and lower right lung. Infectious or inflammatory process. Followup advised. Lines and tubes unchanged.
--- NOTE | 2016-10-19 15:35 | VASCULAR ---
PROCEDURE: Ultrasound and fluoroscopically placed left upper extremity PICC line. HISTORY: Congestive heart failure. Sedated. Renal failure. Limited IV access. Needs PICC line. PHYSICIAN(S): Tim Javier MD. TECHNIQUE: The relative risks and indications of the procedure were explained to the patient's family and consent obtained. The patient was placed supine on the arteriogram table and the left arm prepped and draped in the usual sterile fashion. A tourniquet was applied to the left axilla. 1% Xylocaine was used to anesthetize the skin and soft tissues at the puncture site above the elbow. The basilic vein was punctured under direct ultrasound guidance with a micropuncture set. A 0.018 guidewire was advanced centrally and used to measure the length to the SVC/RA junction. A 5 [place] dual lumen PICC line 41 cm long was advanced to the SVC/RA junction. The catheter was flushed and secured. The patient tolerated the procedure well. IMPRESSION: 1. Ultrasound and fluoroscopically placed left upper extremity PICC line. A 5 [place] dual lumen PICC line 41 cm long was advanced to the SVC/RA junction.
--- NOTE | 2016-10-19 21:57 | PCM.PSYCH ---
Initial Psychiatric Evaluation - Initial Psychiatric Evaluation Legal Status: Other Chief Complaint (in patient's own words): Patient evaluated in ICU. Chart reviewed and case discussed with staff. Case also discussed with of 34 years who was at his bedside Patient had been agitated earlier. Is being treated for congestive heart failure with pulmonary involvement may be a with this in some denial. Children reportedly also may be in some denial. assures me that prior to this patient was capable of helping her with her diabetes and neuropathy. Yet also tells me that he has been somewhat forgetful over the past 2 years. It is not clear to me when he was offered a diagnosis of dementia nursing indicates there may be a history of alcohol use although this was presently denied. Patient had previously worked for [employer] but reportedly has been retired for about 30 years (if this is correct that I suspected there appeared to be some disability that prevented the patient from working over these years) in any event he seems that they have been home bound. He is a [employer] [facility] [place] The patient has 2 children who live nearby. A familial psychiatric history was denied. Patient's Reaction to Hospitalization: Patient resting comfortably presently (sedate and (even as he has not recently received Ativan. History of Present Illness and Precipitating Events: 0. As noted above. is indicated he was functional prior to his shortness of breath episode leading to ultimately is being treated in the ICU. Brain imaging reveals lacunar infarcts in the left basal ganglia, with some ischemic changes in CT scan imaging. Current Medications: Active Medications Generic Name Dose Route Start Last Admin Trade Name Freq PRN Reason Stop Dose Admin Acetaminophen 650 mg 10/18/16 15:23 10/18/16 15:34 Tylenol 325mg Tab PO 650 mg Q6H PRN Administration Fever >100.4 F Albuterol/Ipratropium 3 ml 10/18/16 11:30 10/19/16 21:27 Duoneb 3 Mg/0.5 Mg (3 Ml) Ud IH 3 ml [id number] ROSALIA Administration Amiodarone HCl 200 mg 10/17/16 10:00 10/19/16 09:29 Cordarone PO 200 mg DAILY ROSALIA Administration Aspirin 81 mg 10/15/16 16:15 10/19/16 09:29 Aspirin Chewable PO 81 mg DAILY ROSALIA Administration Atorvastatin Calcium 40 mg 10/16/16 17:00 10/19/16 17:25 Lipitor PO 40 mg DIN ROSALIA Administration Carvedilol 3.125 mg 10/17/16 10:00 10/19/16 17:22 Coreg PO Not Given BID ROSALIA Cyanocobalamin 1,000 mcg 10/16/16 11:30 10/19/16 17:24 Vitamin B12 1000 Mcg/Ml Inj IM 10/19/16 23:59 1,000 mcg BID ROSALIA Administration Digoxin 0.125 mg 10/17/16 14:00 Lanoxin PO 1400 ROSALIA Heparin Sodium (Porcine) 5,000 units 10/17/16 13:45 10/19/16 21:16 Heparin SC 5,000 units Q12 ROSALIA Administration Propofol 100 mls @ 2.411 mls/hr 10/16/16 11:15 10/19/16 18:46 Diprivan IV 4.823 mls/hr .Q24H PRN Administration TITRATE PER MD ORDER Protocol 5 MCG/KG/MIN Meropenem 1 gm/ Sodium 100 mls @ 100 mls/hr 10/18/16 16:45 10/19/16 21:14 Chloride IVPB 10/25/16 16:46 100 mls/hr Q12 ROSALIA Administration Protocol Lorazepam 2 mg 10/15/16 16:46 10/19/16 20:56 Ativan IVP 2 mg Q4H PRN Administration Agitation Protocol Morphine Sulfate 2 mg 10/17/16 10:54 Morphine IVP Q4H PRN Pain, moderate (4-7) Pantoprazole Sodium 40 mg 10/16/16 12:45 10/19/16 09:32 Protonix Inj IVP 40 mg DAILY ROSALIA Administration Thiamine HCl 100 mg 10/15/16 17:00 10/19/16 09:29 Vitamin B1 Tab PO 100 mg DAILY ROSALIA Administration Psychotropic leave had been on on Ativan drip Past Psychiatric History - Past Psychiatric History Previous Treatment History: None Prior Professional Help: denied by Prior Psychiatric Treatment: Denied by History of Abuse: Uncertain. Denied by History of Family Illness: Ileal psychiatric or substance abuse history denied by Pertinent Medical Hx (Current Medical&Sleep Prob, Allergies): Allergies Allergy/AdvReac Type Severity Reaction Status Date / Time No Known Allergies Allergy Verified 10/14/16 17:48 Atorvastatin [Lipitor] 20 mg PO DAILY 10/14/16 Fluticasone Propionate [Flonase] 2 spray .ROUTE DAILY 10/14/16 Loratadine [Allerclear] 10 mg PO DAILY 10/14/16 Metoprolol Succinate [Metoprolol Succinate] 100 mg PO DAILY 10/14/16 Oseltamivir Phosphate [Tamiflu] 75 mg PO DAILY 10/14/16 Promethazine DM [Phenergan DM Syrup] 10 ml PO TID 10/14/16 amLODIPine [Norvasc] 10 mg PO DAILY 10/14/16 Review of Systems - Review of Systems Systems not reviewed;Unavailable: Altered Mental Status - Constitutional Constitutional: UN - EENT Eyes: UNREMARKABLE Ears: As Per HPI, UNREMARKABLE Nose/Mouth/Throat: As Per HPI, UNREMARKABLE - Cardiovascular Cardiovascular: UNREMARKABLE - Respiratory Respiratory: UNREMARKABLE - Gastrointestinal Gastrointestinal: UNREMARKABLE - Genitourinary Genitourinary: UNREMARKABLE - Reproductive: Male Reproductive:Male: UNREMARKABLE - Musculoskeletal Musculoskeletal: UNREMARKABLE - Integumentary Integumentary: UNREMARKABLE - Neurological Neurological: UNREMARKABLE - Psychiatric Psychiatric: Confusion, Difficulty Concentrating, Other, UNREMARKABLE - Endocrine Endocrine: As Per HPI - Hematologic/Lymphatic Hematologic: UNREMARKABLE Mental Status Examination - Affect Affect: Other - Motor Activity Motor Activity: Psychomotor Retardation - Reliability in Providing Information Reliability in Providing Information: Poor, due to altered mood (provided by ) - Speech Speech: Other - Mood Mood: Other - Formal Thought Process Formal Thought Process: Other - Hallucinations/Delusions Delusions: Other - Cognitive Functions Sensorium: Lethargic - Risk Risk: Other - Strength & Assets Inventory Strength & Assets Inventory: Family support - Limitations Limitations: Decreased memory, recent, Other DSM 5 DX - DSM 5 DSM 5 Diagnosis: Delirium Cognitive impairment
--- NOTE | 2016-10-19 23:04 | PN ---
DATE: 10/19/2016 ATTENDING: Associate Curator, dust collector attendant, and neurosurgery research director input appreciated. The patient is still intubated endotracheally. Chest x-ray with new infiltrates. mental status, slight improvement. VITAL SIGNS: Reveal a temperature of 100, respiration is at 18, pulse is 75, blood pressure 109/52. LUNGS: Have decreased sounds on the right. HEART: Regular rhythm. ABDOMEN: Soft. EXTREMITIES: No edema. PLAN: Continue enteral hydration with empiric antibiotics. White blood cell count today is 8.8. Will repeat this tomorrow. BRAYDEN discussed with laboratory and will be available likely tomorrow. Follow electrolytes and CBC again tomorrow. Again attempt taper event if clinical status continues to improve. Jf Posey MD cc: [id number] TT: 10/19/2016 23:04:21 Confirmation # [id number] Dictation # [id number] MTDD
[2016-10-20] MEDS: Albuterol-Ipratrop 3 mg / 0.5 (3 ml) UD IH SCH ×7 (00:24→23:15)
[2016-10-20 05:47] LABS: ADD MANUAL DIFF? NO
[2016-10-20 05:49] LABS: ARTERIAL BLOOD GAS HCO3 20.3 mmol/L (21-28); ARTERIAL BLOOD GAS O2 CAPACITY 15.7 mL/dl (16-24); ARTERIAL BLOOD GAS O2 CONTENT 15.1 ML/dl (15-23); ARTERIAL BLOOD GAS PH 7.41 (7.35-7.45); ARTERIAL BLOOD HGB O2 SAT 93.9 % (95.0-98.0); BASO # 0.01 K/mm3 (0.0-2.0); BASO % 0.1 % (0.0-3.0); CARBOXYHEMOGLOBIN 1.7 % (0.5-1.5); EOS % 0.3 % (1.5-5.0); GRAN # 8.97 (1.4-6.5); GRAN % 82.3 % (50.0-68.0); HHB 3.5 % (0-5); LYMPH # 1.2 (1.2-3.4); LYMPH % 10.6 % (22.0-35.0); MEAN CELL VOLUME 74.7 fL (80.0-105.0); MEAN CORPUSCULAR HEMOGLOBIN 25.9 pg (25.0-35.0); MEAN CORPUSCULAR HGB CONC 34.7 g/dl (31.0-37.0); METHEMOGLOBIN 0.9 % (0.0-3.0); MONO # 0.7 (0.1-0.6); MONO % 6.7 % (1.0-6.0); PLATELET COUNT 166 10^3/uL (120.0-450.0); RED CELL DISTRIBUTION WIDTH 16.3 % (11.5-14.5); WHITE BLOOD COUNT 10.9 10^3/ul (4.5-11.0)
[2016-10-20 06:33] LABS: ALB/GLOB RATIO 0.9 (1.1-1.8); BILIRUBIN,TOTAL 0.6 mg/dL (0.2-1.3); CALCIUM 9.2 mg/dL (8.4-10.5); MAGNESIUM 2.4 mg/dL (1.7-2.2); PHOSPHOROUS 3.6 mg/dL (2.5-4.5); TOTAL PROTEIN 7.3 g/dL (5.8-8.3)
--- NOTE | 2016-10-20 09:28 | PN ---
DATE: 10/20/2016 REASON FOR CONSULTATION AND FOLLOWUP: Congestive heart failure, paroxysmal atrial fibrillation, stat us post rapid response, status post intubated, difficult to wean off the vent, wide complex tachycard ia (AFib with bundle branch block, no evidence of VT). BRIEF CLINICAL HISTORY: A 71-year-old male with a past medical history significant for hypertension, hyperlipidemia, arthritis. Admitted with shortness of breath a few days ago. Respiratory status go t worse, had a rapid response, transferred to ICU, intubated, altered mental status. Now, patient is on the vent, difficult to wean off. Yesterday, attempt failed to wean off. This morning, patient t ried to wean off the vent, but patient is still on propofol. Telemetry, normal sinus, APCs. PHYSICAL EXAMINATION: VITAL SIGNS: Temperature 100.4, heart rate 108, blood pressure 128/86. HEENT: PERRLA. Extraocular muscles intact. NECK: Supple. No carotid bruit, no thyromegaly. CHEST: Clear to auscultation. ABDOMEN: Soft. EXTREMITIES: Clubbing, cyanosis negative. BLOOD WORKUP: WBC 10.9, hemoglobin 11.8, hematocrit 34, platelet count 166. Chemistry shows sodium 146, potassium 4, chloride 110, carbon dioxide 24, anion gap of 16, BUN 98, creatinine 2.6. IMPRESSION: Acute kidney injury, status post respiratory failure, cardiomyopathy, arrhythmia, paroxy smal atrial fibrillation, right bundle branch block, wide complex tachycardia, this is secondary to a trial fibrillation with rapid ventricular rate and bundle branch block, doubt it is ventricular tachy cardia, cardiomyopathy, decreased left ventricular function, ejection fraction by echo dated 7 is 35%, multiple wall motion abnormalities consistent with coronary artery disease, moderate aortic regurgitation, mild aortic stenosis, mild mitral regurgitation, mild tricuspid regurgitation, right ventricular systolic pressure 35, status post respiratory failure, difficult to wean, pneumonia, seps is, low grade fever. Baseline EKG shows right bundle with left anterior hemiblock, QRS 170 milliseco nds, this "ventricular tachycardia" is actually atrial fibrillation with rapid ventricular rate secon dena to bundle branch block. It appears as ventricular tachycardia. So far, no evidence of myocardi al infarction. Troponin x 4 negative. No evidence for acute coronary syndrome. RECOMMENDATION: Continue vent management. Continue nasogastric feeding. Supplement electrolytes as needed. Continue free fluid 300 mL q. 6. Monitor I's and O's. We will hold propofol and give a tr y to wean off the vent. Once the patient ventilator is off and kidney function remains stable, will consider cardiac catheterization, probably early next week or so. Discussed yesterday with the and the son and the [id number] in length. Thank you, Dr. Posey, for providing us the opportunity in taking care of the patient. Interim, con tinue baby aspirin, continue hydralazine. Avoid any nephrotoxic medication. Continue amiodarone for going back into atrial fibrillation. Continue Coreg low dose. We will change the digoxin to Sunday , Sunday, Sunday because of worsening renal insufficiency. We will check the digoxin level today. We will follow with you. Thank you, Dr. Posey, for providing us the opportunity in taking care of the patient. Continue ant ibiotic. We will follow with you. Lucrecia Pérez MD cc:Jf Posey MD [id number] TT: 10/20/2016 09:27:48 Confirmation # [id number] Dictation # [id number]
--- NOTE | 2016-10-20 09:30 | RAD ---
PROCEDURE: Portable chest HISTORY: PICC placement COMPARISON: 10/19/2016 earlier TECHNIQUE: FINDINGS: There is a new left-sided PICC line that terminates at the junction of the SVC and right atrium endotracheal and nasogastric tubes are unchanged IMPRESSION: Satisfactory position of central line
[2016-10-20 09:41] LABS: ARTERIAL BLOOD GAS HCO3 20.6 mmol/L (21-28); ARTERIAL BLOOD GAS O2 CAPACITY 16.6 mL/dl (16-24); ARTERIAL BLOOD GAS O2 CONTENT 16.2 ML/dl (15-23); ARTERIAL BLOOD GAS PH 7.43 (7.35-7.45); CARBOXYHEMOGLOBIN 1.9 % (0.5-1.5); HHB 2.2 % (0-5); METHEMOGLOBIN 0.9 % (0.0-3.0)
[2016-10-20] MEDS: Linezolid 600 mg in D5W 300 ml 300 ML IVPB SCH ×2 (09:47→21:04)
[2016-10-20] MEDS: Meropenem 1 GM in Sodium Chloride 0.9% 100 ML IVPB SCH ×2 (09:49→21:51)
[2016-10-20] MEDS: Digoxin 125 mcg (0.125 mg) Tab PO SCH (09:52)
--- NOTE | 2016-10-20 09:53 | CP.PCM.PN ---
Subjective - Date & Time of Evaluation Date of Evaluation: 10/20/16 Time of Evaluation: 09:00 - Subjective Subjective: Patient continues to be on the ventilator, still having fevers overnight and this morning still with low grade fever; no note of diarrhea; patient still lethargic. Objective - Vital Signs/Intake and Output Vital Signs (last 24 hours): Temp Pulse Resp BP Pulse Ox 100.4 F H 106 H 28 H 120/77 93 L 10/20/16 04:00 10/20/16 06:00 10/20/16 06:00 10/20/16 06:00 10/20/16 06:00 Intake and Output: 10/20/16 10/20/16 06:59 18:59 Intake Total 158 Output Total 251 Balance -93 - Medications Medications: Current Medications Acetaminophen (Tylenol 325mg Tab) 650 mg PO Q6H PRN PRN Reason: Fever >100.4 F Last Admin: 10/20/16 01:12 Dose: 650 mg Albuterol/Ipratropium (Duoneb 3 Mg/0.5 Mg (3 Ml) Ud) 3 ml IH [id number] [facility] Last Admin: 10/20/16 07:53 Dose: 3 ml Amiodarone HCl (Cordarone) 200 mg PO DAILY [facility] Last Admin: 10/19/16 09:29 Dose: 200 mg Aspirin (Aspirin Chewable) 81 mg PO DAILY [facility] Last Admin: 10/19/16 09:29 Dose: 81 mg Atorvastatin Calcium (Lipitor) 40 mg PO DIN [facility] Last Admin: 10/19/16 17:25 Dose: 40 mg Carvedilol (Coreg) 3.125 mg PO BID [facility] Last Admin: 10/19/16 17:22 Dose: Not Given Digoxin (Lanoxin) 0.125 mg PO 1400 [facility] Heparin Sodium (Porcine) (Heparin) 5,000 units SC Q12 [facility] Last Admin: 10/19/16 21:16 Dose: 5,000 units Propofol (Diprivan) 100 mls @ 2.411 mls/hr IV .Q24H PRN; Protocol; 5 MCG/KG/MIN PRN Reason: TITRATE PER MD ORDER Last Admin: 10/19/16 18:46 Dose: 4.823 mls/hr Meropenem 1 gm/ Sodium (Chloride) 100 mls @ 100 mls/hr IVPB Q12 [facility] PRN Reason: Protocol Stop: 10/25/16 16:46 Last Admin: 10/19/16 21:14 Dose: 100 mls/hr Linezolid (Zyvox 600mg/300ml D5w) 300 mls @ 200 mls/hr IVPB Q12 [facility] PRN Reason: Protocol Stop: 10/27/16 10:01 Lorazepam (Ativan) 2 mg IVP Q4H PRN; Protocol PRN Reason: Agitation Last Admin: 10/19/16 20:56 Dose: 2 mg Morphine Sulfate (Morphine) 2 mg IVP Q4H PRN PRN Reason: Pain, moderate (4-7) Pantoprazole Sodium (Protonix Inj) 40 mg IVP DAILY [facility] Last Admin: 10/19/16 09:32 Dose: 40 mg Thiamine HCl (Vitamin B1 Tab) 100 mg PO DAILY [facility] Last Admin: 10/19/16 09:29 Dose: 100 mg - Labs Labs: 10/20/16 05:30 10/20/16 05:30 PT 11.0 Seconds (9.9-11.8) 10/14/16 14:06 INR 1.02 (0.93-1.08) 10/14/16 14:06 APTT 28.2 Seconds (23.7-30.8) 10/14/16 14:06 - Constitutional Appears: Other (Intubated, lethargic) - ENT Exam Additional comments: ET tube in place - Neck Exam Neck Exam: absent: Lymphadenopathy, Meningismus - Respiratory Exam Respiratory Exam: Decreased Breath Sounds (especially on the right lower lung buckley) - Cardiovascular Exam Cardiovascular Exam: +S1, +S2 - GI/Abdominal Exam GI & Abdominal Exam: Soft. absent: Tenderness - Extremities Exam Extremities Exam: absent: Pedal Edema Additional comments: left upper extremity PICC site intact and clean Assessment and Plan - Assessment and Plan (Free Text) Plan: Assessment Systemic Inflammatory Response Syndrome (fever and tachycardia) in a patient who is currently with ventilator-dependent respiratory failure consider severe sepsis with acute renal failure and acute encephalopathy probably due to right- sided hospital-acquired pneumonia, currently sputum growing gram negative bacilli but still need to rule out gram positive cocci such as staph Hypertensive emergency with acute renal failure HTN dyslipidemia arthritis S/P left knee surgery S/P bilateral cataract surgery Plan Patient given one dose of IV Vancomycin and will continue Zyvox and Merrem pending final sputum cx results; blood cx have been negative; PCT is 27.54; reviewed CXR today and discussed with ICU team Will continue to monitor clinically, trend fever curve
--- NOTE | 2016-10-20 09:57 | CARD ---
APPROVED REPORT EKG Measurement Heart [id number] <Conclusion> RSR PVCs RBBB LAHB STTW changes LVH
[2016-10-20] MEDS ORDERED: Digoxin 125 mcg (0.125 mg) Tab PO SCH (10:00)
--- NOTE | 2016-10-20 10:38 | RAD ---
HISTORY: ETT COMPARISON: 10/19/2016 FINDINGS: Endotracheal tube terminates 4 CM proximal to the latoya. The nasogastric tube terminates in the stomach. The left PICC line terminates in the SVC. LUNGS: There is no significant interval change in right infrahilar airspace disease. The left lung is clear. PLEURA: No significant pleural effusion identified, no pneumothorax apparent. CARDIOVASCULAR: Normal. OSSEOUS STRUCTURES: No significant abnormalities. VISUALIZED UPPER ABDOMEN: Normal. OTHER FINDINGS: None. IMPRESSION: Stable position of line and tubes. Persistent right infrahilar airspace disease which may represent pneumonia however mass cannot be entirely excluded. Follow-up to resolution is advised.
--- NOTE | 2016-10-20 11:37 | CP.CCUPN ---
<Rachael Casillas - Last Filed: 10/20/16 13:04> CCU Subjective - Physician Review Events Since Last Encounter (Free Text): 10/20/16 11:30 Patient seen and examined bedside. Febrile overnight and last evening Tmax 101.3. s/p PICC line yesterday. Sputum cultures now significant for Pseudomonas aeruginosa. R perihilar infiltrate persistent on CXR. Failed weaning yesterday. Minimally arousable on 10mcg/kg/min propofol. Will attempt weaning again today. Critical Care Time Spent (in minutes): 40 CCU Objective - Vital Signs / Intake & Output Vital Signs (Last 4 hours): Vital Signs Temp Pulse Resp BP Pulse Ox 10/20/16 10:11 100.2 F H 118 H 32 H 121/65 99 10/20/16 09:48 92 H 114/62 10/20/16 09:00 100.4 F H 99 H 121/65 96 10/20/16 08:45 100.4 F H 89 97 10/20/16 08:30 100.2 F H 97 H 96 10/20/16 08:15 100.2 F H 97 H 97 10/20/16 08:00 100.4 F H 99 H 114/62 95 10/20/16 07:45 100.4 F H 95 H 95 Intake and Output (Last 8hrs): Intake & Output 10/19/16 10/20/16 10/20/16 22:59 06:59 14:59 Intake Total 1410 158 Output Total 200 251 Balance 1210 -93 Weight 179 lb Intake: IV 210 158 Right Forearm 210 100 Left Upper arm 58 Tube Feeding 600 Other 600 Output: Urine 200 250 Urethral (Mathur) 200 250 Stool 1 Other: Voiding Method Indwelling Catheter Indwelling Catheter - Physical Exam Head: Positive for: Atraumatic, Normocephalic Pupils: Positive for: PERRL Extroacular Muscles: Positive for: EOMI Conjunctiva: Positive for: Normal Mouth: Positive for: Dry Pharnyx: Positive for: Normal. Negative for: ERYTHEMA, EXUDATE Neck: Positive for: JVD Respiratory/Chest: Positive for: Good Air Exchange. Negative for: Clear to Auscultation (coarse breath sounds throughout. Intubated PRVC 500/14/40/5), Respiratory Distress, Accessory Muscle Use Cardiovascular: Positive for: Regular Rate and Rhythm, Normal S1, S2. Negative for: Murmurs Abdomen: Positive for: Normal Bowel Sounds. Negative for: Tenderness, Distention, Peritoneal Signs Back: Positive for: Normal Inspection Lower Extremity: Positive for: Normal Inspection. Negative for: Edema - Medications Active Medications: Active Medications Generic Name Dose Route Start Last Admin Trade Name Freq PRN Reason Stop Dose Admin Acetaminophen 650 mg 10/18/16 15:23 10/20/16 01:12 Tylenol 325mg Tab PO 650 mg Q6H PRN Administration Fever >100.4 F Albuterol/Ipratropium 3 ml 10/18/16 11:30 10/20/16 11:03 Duoneb 3 Mg/0.5 Mg (3 Ml) Ud IH 3 ml [id number] ROSALIA Administration Amiodarone HCl 200 mg 10/17/16 10:00 10/20/16 09:48 Cordarone PO 200 mg DAILY ROSALIA Administration Aspirin 81 mg 10/15/16 16:15 10/20/16 09:47 Aspirin Chewable PO 81 mg DAILY ROSALIA Administration Atorvastatin Calcium 40 mg 10/16/16 17:00 10/19/16 17:25 Lipitor PO 40 mg DIN ROSALIA Administration Digoxin 0.125 mg 10/20/16 10:00 10/20/16 09:52 Lanoxin PO 0.125 mg MWF ROSALIA Administration Heparin Sodium (Porcine) 5,000 units 10/17/16 13:45 10/20/16 09:53 Heparin SC 5,000 units Q12 ROSALIA Administration Propofol 100 mls @ 2.411 mls/hr 10/16/16 11:15 10/20/16 09:37 Diprivan IV 0 mcg/kg/min .Q24H PRN Titration TITRATE PER MD ORDER Protocol 5 MCG/KG/MIN Meropenem 1 gm/ Sodium 100 mls @ 100 mls/hr 10/18/16 16:45 10/20/16 09:49 Chloride IVPB 10/25/16 16:46 100 mls/hr Q12 ROSALIA Administration Protocol Linezolid 300 mls @ 200 mls/hr 10/20/16 10:00 10/20/16 09:47 Zyvox 600mg/300ml D5w IVPB 10/27/16 10:01 200 mls/hr Q12 ROSALIA Administration Protocol Metoprolol Tartrate 25 mg 10/20/16 10:00 10/20/16 09:48 Lopressor PO 25 mg BID ROSALIA Administration Morphine Sulfate 2 mg 10/17/16 10:54 Morphine IVP Q4H PRN Pain, moderate (4-7) Pantoprazole Sodium 40 mg 10/16/16 12:45 10/20/16 09:47 Protonix Inj IVP 40 mg DAILY ROSALIA Administration Thiamine HCl 100 mg 10/15/16 17:00 10/20/16 09:48 Vitamin B1 Tab PO 100 mg DAILY ROSALIA Administration - Patient Studies Lab Studies: Microbiology Studies 10/19/16 01:25 Urine Culture - Final Urine,Mathur No Growth (<1,000 CFU/ML) 10/18/16 14:58 Gram Stain - Final Trachasp Sputum Culture - Final Pseudomonas Aeruginosa 10/14/16 18:35 Blood Culture - Final Blood-Venous NO GROWTH AFTER 5 DAYS Gram Stain - Final TEST NOT PERFORMED 10/18/16 11:30 Blood Culture - Preliminary Blood NO GROWTH AFTER 24 HOURS Lab Studies 10/20/16 10/20/16 10/20/16 Range/Units 09:38 08:50 05:30 WBC 10.9 D (4.5-11.0) 10^3/ul RBC 4.55 (3.5-6.1) 10^6/uL Hgb 11.8 L (14.0-18.0) gm/dL Hct 34.0 L (42.0-52.0) % MCV 74.7 L (80.0-105.0) fL MCH 25.9 (25.0-35.0) pg MCHC 34.7 (31.0-37.0) g/dl RDW 16.3 H (11.5-14.5) % Plt Count 166 (120.0-450.0) 10^3/uL Gran % 82.3 H (50.0-68.0) % Lymph % (Auto) 10.6 L (22.0-35.0) % [place] % (Auto) 6.7 H (1.0-6.0) % Eos % (Auto) 0.3 L (1.5-5.0) % Baso % (Auto) 0.1 (0.0-3.0) % Gran # 8.97 H (1.4-6.5) Lymph # 1.2 (1.2-3.4) [place] # 0.7 H (0.1-0.6) Eos # 0.0 (0.0-0.7) Baso # 0.01 (0.0-2.0) K/mm3 pCO2 31 L 32 L (35-45) mm/Hg pO2 79.0 L 73.0 L (80-100) mm/Hg HCO3 20.6 L 20.3 L (21-28) mmol/L ABG pH 7.43 7.41 (7.35-7.45) ABG Total CO2 21.6 L 21.3 L (22-28) mmol.L ABG O2 Saturation 97.7 96.4 (95-98) % ABG O2 Content 16.2 15.1 (15-23) ML/dl ABG Base Excess -2.9 L -3.6 L (-2.0-3.0) mmol/L ABG Hemoglobin 12.1 11.4 L (11.7-17.4) g/dL ABG Carboxyhemoglobin 1.9 H 1.7 H (0.5-1.5) % POC ABG HHb (Measured) 2.2 3.5 (0-5) % ABG Methemoglobin 0.9 0.9 (0.0-3.0) % ABG O2 Capacity 16.6 15.7 L (16-24) mL/dl Hgb O2 Saturation 95.0 93.9 L (95.0-98.0) % FiO2 35.0 35.0 % Sodium 146 (132-148) mmol/L Potassium 4.0 (3.6-5.0) mmol/L Chloride 110 (95-110) mmol/L Carbon Dioxide 24 (21-33) mmol/L Anion Gap 16 (10-20) BUN 98 H (7-21) mg/dL Creatinine 2.6 H (0.5-1.4) mg/dL Est GFR ( Amer) 29 Est GFR (Non-Af Amer) 24 Random Glucose 95 (70-110) mg/dL Calcium 9.2 (8.4-10.5) mg/dL Phosphorus 3.6 (2.5-4.5) mg/dL Magnesium 2.4 H (1.7-2.2) mg/dL Total Bilirubin 0.6 (0.2-1.3) mg/dL AST 30 (15-59) U/L ALT 14 (7-56) U/L Alkaline Phosphatase 80 (38-133) U/L Total Protein 7.3 (5.8-8.3) g/dL Albumin 3.4 (3.0-4.8) g/dL Globulin 3.9 gm/dL Albumin/Globulin Ratio 0.9 L (1.1-1.8) Urine Color (YELLOW) Urine Appearance (CLEAR) Urine pH (4.7-8.0) Ur Specific [place] (1.005-1.035) Urine Protein (<30 mg/dL) mg/dL Urine Glucose (UA) (NEGATIVE) mg/dL Urine Ketones (NEGATIVE) mg/dL Urine Blood (NEGATIVE) Urine Nitrate (NEGATIVE) Urine Bilirubin (NEGATIVE) Urine Urobilinogen (<1 E.U./dL) E.U./dL Ur Leukocyte Esterase (NEGATIVE) Natali/uL Urine RBC (0-2) /hpf Urine WBC (0-6) /hpf Ur Epithelial Cells (0-5) /hpf Amorphous Sediment Urine Bacteria (NEG) Digoxin < 0.4 L (0.8-2.0) ng/mL 03/16/17 Range/Units 12:02 WBC (4.5-11.0) 10^3/ul RBC (3.5-6.1) 10^6/uL Hgb (14.0-18.0) gm/dL Hct (42.0-52.0) % MCV (80.0-105.0) fL MCH (25.0-35.0) pg MCHC (31.0-37.0) g/dl RDW (11.5-14.5) % Plt Count (120.0-450.0) 10^3/uL Gran % (50.0-68.0) % Lymph % (Auto) (22.0-35.0) % [place] % (Auto) (1.0-6.0) % Eos % (Auto) (1.5-5.0) % Baso % (Auto) (0.0-3.0) % Gran # (1.4-6.5) Lymph # (1.2-3.4) [place] # (0.1-0.6) Eos # (0.0-0.7) Baso # (0.0-2.0) K/mm3 pCO2 (35-45) mm/Hg pO2 (80-100) mm/Hg HCO3 (21-28) mmol/L ABG pH (7.35-7.45) ABG Total CO2 (22-28) mmol.L ABG O2 Saturation (95-98) % ABG O2 Content (15-23) ML/dl ABG Base Excess (-2.0-3.0) mmol/L ABG Hemoglobin (11.7-17.4) g/dL ABG Carboxyhemoglobin (0.5-1.5) % POC ABG HHb (Measured) (0-5) % ABG Methemoglobin (0.0-3.0) % ABG O2 Capacity (16-24) mL/dl Hgb O2 Saturation (95.0-98.0) % FiO2 % Sodium (132-148) mmol/L Potassium (3.6-5.0) mmol/L Chloride (95-110) mmol/L Carbon Dioxide (21-33) mmol/L Anion Gap (10-20) BUN (7-21) mg/dL Creatinine (0.5-1.4) mg/dL Est GFR ( Amer) Est GFR (Non-Af Amer) Random Glucose (70-110) mg/dL Calcium (8.4-10.5) mg/dL Phosphorus (2.5-4.5) mg/dL Magnesium (1.7-2.2) mg/dL Total Bilirubin (0.2-1.3) mg/dL AST (15-59) U/L ALT (7-56) U/L Alkaline Phosphatase (38-133) U/L Total Protein (5.8-8.3) g/dL Albumin (3.0-4.8) g/dL Globulin gm/dL Albumin/Globulin Ratio (1.1-1.8) Urine Color Yellow (YELLOW) Urine Appearance Cloudy (CLEAR) Urine pH 5.5 (4.7-8.0) Ur Specific [place] 1.020 (1.005-1.035) Urine Protein Trace H (<30 mg/dL) mg/dL Urine Glucose (UA) Negative (NEGATIVE) mg/dL Urine Ketones Negative (NEGATIVE) mg/dL Urine Blood Large H (NEGATIVE) Urine Nitrate Negative (NEGATIVE) Urine Bilirubin Negative (NEGATIVE) Urine Urobilinogen 0.2 (<1 E.U./dL) E.U./dL Ur Leukocyte Esterase Negative (NEGATIVE) Natali/uL Urine RBC Tntc (0-2) /hpf Urine WBC 0 - 2 (0-6) /hpf Ur Epithelial Cells 0 - 2 (0-5) /hpf Amorphous Sediment Few Urine Bacteria Few (NEG) Digoxin (0.8-2.0) ng/mL Laboratory Results - last 24 hr 10/19/16 10/20/16 10/20/16 12:02 05:30 08:50 WBC 10.9 D RBC 4.55 Hgb 11.8 L Hct 34.0 L MCV 74.7 L MCH 25.9 MCHC 34.7 RDW 16.3 H Plt Count 166 Gran % 82.3 H Lymph % (Auto) 10.6 L [place] % (Auto) 6.7 H Eos % (Auto) 0.3 L Baso % (Auto) 0.1 Gran # 8.97 H Lymph # 1.2 [place] # 0.7 H Eos # 0.0 Baso # 0.01 pCO2 32 L pO2 73.0 L HCO3 20.3 L ABG pH 7.41 ABG Total CO2 21.3 L ABG O2 Saturation 96.4 ABG O2 Content 15.1 ABG Base Excess -3.6 L ABG Hemoglobin 11.4 L ABG Carboxyhemoglobin 1.7 H POC ABG HHb (Measured) 3.5 ABG Methemoglobin 0.9 ABG O2 Capacity 15.7 L Hgb O2 Saturation 93.9 L FiO2 35.0 Sodium 146 Potassium 4.0 Chloride 110 Carbon Dioxide 24 Anion Gap 16 BUN 98 H Creatinine 2.6 H Est GFR ( Amer) 29 Est GFR (Non-Af Amer) 24 Random Glucose 95 Calcium 9.2 Phosphorus 3.6 Magnesium 2.4 H Total Bilirubin 0.6 AST 30 ALT 14 Alkaline Phosphatase 80 Total Protein 7.3 Albumin 3.4 Globulin 3.9 Albumin/Globulin Ratio 0.9 L Urine Color Yellow Urine Appearance Cloudy Urine pH 5.5 Ur Specific [place] 1.020 Urine Protein Trace H Urine Glucose (UA) Negative Urine Ketones Negative Urine Blood Large H Urine Nitrate Negative Urine Bilirubin Negative Urine Urobilinogen 0.2 Ur Leukocyte Esterase Negative Urine RBC Tntc Urine WBC 0 - 2 Ur Epithelial Cells 0 - 2 Amorphous Sediment Few Urine Bacteria Few Digoxin < 0.4 L 10/20/16 09:38 WBC RBC Hgb Hct MCV MCH MCHC RDW Plt Count Gran % Lymph % (Auto) [place] % (Auto) Eos % (Auto) Baso % (Auto) Gran # Lymph # [place] # Eos # Baso # pCO2 31 L pO2 79.0 L HCO3 20.6 L ABG pH 7.43 ABG Total CO2 21.6 L ABG O2 Saturation 97.7 ABG O2 Content 16.2 ABG Base Excess -2.9 L ABG Hemoglobin 12.1 ABG Carboxyhemoglobin 1.9 H POC ABG HHb (Measured) 2.2 ABG Methemoglobin 0.9 ABG O2 Capacity 16.6 Hgb O2 Saturation 95.0 FiO2 35.0 Sodium Potassium Chloride Carbon Dioxide Anion Gap BUN Creatinine Est GFR ( Amer) Est GFR (Non-Af Amer) Random Glucose Calcium Phosphorus Magnesium Total Bilirubin AST ALT Alkaline Phosphatase Total Protein Albumin Globulin Albumin/Globulin Ratio Urine Color Urine Appearance Urine pH Ur Specific [place] Urine Protein Urine Glucose (UA) Urine Ketones Urine Blood Urine Nitrate Urine Bilirubin Urine Urobilinogen Ur Leukocyte Esterase Urine RBC Urine WBC Ur Epithelial Cells Amorphous Sediment Urine Bacteria Digoxin EKG/Cardiology Studies: Cardiology / EKG Studies 10/19/16 10:57 EKG [ELECTROCARDIOGRAM] Routine Comment: Reason For Exam: followup r/o heart block Review of Systems - Review of Systems Systems not reviewed;Unavailable: Intubated Critical Care Progress Note - Ventilator Checklist PUD Prophalyxis: Yes DVT Prophylaxis: Yes Assessment/Plan - Assessment and Plan (Free Text) Assessment: 71 yo M w h/o HTN, HLD, arthritis, medical noncompliance admitted for hypertensive emergency with AMS, transferred to ICU following [employer] for HTN and SVT on Nicardipine drip that has since been weaned off now intubated day #4 for airway protection, course further complicated by JESUSITA. Plan: Neuro: sedated on propofol, currently on hold for vent weaning parameters Neuro c/s appreciated. Will obtain EEG to r/o seizures. Hold sedation, ativan, morphine to accurately assess neurological function. PRN Precedex Maintain normothermia. 10/18 CT head showed no evidence of acute intracranial hemorrhage, territorial infarct, mass effect or midline shift. 10/16 MRI brain had a lot of movement artifact but no significant intracranial pathology as per radiology read Pulm: VDRF Day #5. Failed pressure support trial yesterday. Will try again today. Daily ABGs, CXRs while intubated Aspiration precautions. HOB >35degrees. Protective lung ventilation strategy. Duonebs Q4hr Maintain SpO2>90, PaO2>60 CV: PAF. HD stable. Cardio following. Continue amio, lopressor, digoxin, lipitor , ASA,hydralazine PRN as per cardio Maintain MAP>65 2D ECHO shows LVEF 35%, mild-mod AR, mild , mild MR, mild TR, RVSP 35mmHg, trace pericardial effusion, grade 3 diastolic dysfunction. Possible cardiac cath once extubated and medically stable as per cardiology recs GI: GI ppx. Tube feeds and free water flushes Endo: No active issues. A1c 5.1. Maintain euglycemia 140-180 Renal: JESUSITA worsened. Urine output down. Continue holding Lasix, lisinopril, lovenox, potassium, digoxin; Hold all nephrotoxins. Renal US showed no significant or acute findings Nephrology consult noted and appreciated. Normetanephrines elevated at 204. ID: Procalcitonin [id number]. New opacities on CXR. Sputum culture significant for Pseudomonas aeruginosa. Continue Meropenem and Linezolid as per ID. 10/14 blood cultures negative after 5 days. 10/18 blood cultures negative at 48 hours. Heme: Mild microcytic anemia. Hb 11.8, stable. No signs of bleeding. Vit B12 deficiency being replaced IM BID Slowly downtrending platelet count. Continue to monitor. DVT/GI ppx: SQH. IV protonix. Tube feeds with free water flushes - Date & Time Date: 10/20/16 Time: 13:13 <Malcom LIAO,Zeb H - Last Filed: 10/20/16 15:39> CCU Objective - Vital Signs / Intake & Output Vital Signs (Last 4 hours): Vital Signs Pulse Pulse Ox 10/20/16 11:30 83 99 Intake and Output (Last 8hrs): Intake & Output 10/20/16 10/20/16 10/20/16 06:59 14:59 22:59 Intake Total 158 Output Total 251 Balance -93 Weight 179 lb Intake: IV 158 Right Forearm 100 Left Upper arm 58 Output: Urine 250 Urethral (Mathur) 250 Stool 1 Other: Voiding Method Indwelling Catheter Indwelling Catheter - Medications Active Medications: Active Medications Generic Name Dose Route Start Last Admin Trade Name Freq PRN Reason Stop Dose Admin Acetaminophen 650 mg 10/18/16 15:23 10/20/16 01:12 Tylenol 325mg Tab PO 650 mg Q6H PRN Administration Fever >100.4 F Albuterol/Ipratropium 3 ml 10/18/16 11:30 10/20/16 11:03 Duoneb 3 Mg/0.5 Mg (3 Ml) Ud IH 3 ml [id number] ROSALIA Administration Amiodarone HCl 200 mg 10/17/16 10:00 10/20/16 09:48 Cordarone PO 200 mg DAILY ROSALIA Administration Aspirin 81 mg 10/15/16 16:15 10/20/16 09:47 Aspirin Chewable PO 81 mg DAILY ROSALIA Administration Atorvastatin Calcium 40 mg 10/16/16 17:00 10/19/16 17:25 Lipitor PO 40 mg DIN ROSALIA Administration Digoxin 0.125 mg 10/20/16 10:00 10/20/16 09:52 Lanoxin PO 0.125 mg MWF ROSALIA Administration Heparin Sodium (Porcine) 5,000 units 10/17/16 13:45 10/20/16 09:53 Heparin SC 5,000 units Q12 ROSALIA Administration Propofol 100 mls @ 2.411 mls/hr 10/16/16 11:15 10/20/16 09:37 Diprivan IV 0 mcg/kg/min .Q24H PRN Titration TITRATE PER MD ORDER Protocol 5 MCG/KG/MIN Meropenem 1 gm/ Sodium 100 mls @ 100 mls/hr 10/18/16 16:45 10/20/16 09:49 Chloride IVPB 10/25/16 16:46 100 mls/hr Q12 ROSALIA Administration Protocol Linezolid 300 mls @ 200 mls/hr 10/20/16 10:00 10/20/16 09:47 Zyvox 600mg/300ml D5w IVPB 10/27/16 10:01 200 mls/hr Q12 ROSALIA Administration Protocol Dexmedetomidine HCl 100 mls @ 4.06 mls/hr 10/20/16 12:32 10/20/16 14:46 Precedex 4 Mcg/Ml (100 Ml) IV 4.06 mls/hr .Q24H PRN Administration Agitation Protocol 0.2 MCG/KG/HR Sodium Chloride 1,000 mls @ 100 mls/hr 10/20/16 14:15 10/20/16 14:43 Sodium Chloride 0.45% IV 100 mls/hr .Q10H ROSALIA Administration Metoprolol Tartrate 25 mg 10/20/16 10:00 10/20/16 09:48 Lopressor PO 25 mg BID ROSALIA Administration Morphine Sulfate 2 mg 10/17/16 10:54 Morphine IVP Q4H PRN Pain, moderate (4-7) Pantoprazole Sodium 40 mg 10/16/16 12:45 10/20/16 09:47 Protonix Inj IVP 40 mg DAILY ROSALIA Administration Thiamine HCl 100 mg 10/15/16 17:00 10/20/16 09:48 Vitamin B1 Tab PO 100 mg DAILY ROSALIA Administration - Patient Studies Lab Studies: Microbiology Studies 10/18/16 11:30 Blood Culture - Preliminary Blood NO GROWTH AFTER 48 HOURS 10/19/16 01:25 Urine Culture - Final Urine,Mathur No Growth (<1,000 CFU/ML) 10/18/16 14:58 Gram Stain - Final Trachasp Sputum Culture - Final Pseudomonas Aeruginosa 10/14/16 18:35 Blood Culture - Final Blood-Venous NO GROWTH AFTER 5 DAYS Gram Stain - Final TEST NOT PERFORMED Lab Studies 10/20/16 10/20/16 10/20/16 Range/Units 09:38 08:50 05:30 WBC 10.9 D (4.5-11.0) 10^3/ul RBC 4.55 (3.5-6.1) 10^6/uL Hgb 11.8 L (14.0-18.0) gm/dL Hct 34.0 L (42.0-52.0) % MCV 74.7 L (80.0-105.0) fL MCH 25.9 (25.0-35.0) pg MCHC 34.7 (31.0-37.0) g/dl RDW 16.3 H (11.5-14.5) % Plt Count 166 (120.0-450.0) 10^3/uL Gran % 82.3 H (50.0-68.0) % Lymph % (Auto) 10.6 L (22.0-35.0) % [place] % (Auto) 6.7 H (1.0-6.0) % Eos % (Auto) 0.3 L (1.5-5.0) % Baso % (Auto) 0.1 (0.0-3.0) % Gran # 8.97 H (1.4-6.5) Lymph # 1.2 (1.2-3.4) [place] # 0.7 H (0.1-0.6) Eos # 0.0 (0.0-0.7) Baso # 0.01 (0.0-2.0) K/mm3 pCO2 31 L 32 L (35-45) mm/Hg pO2 79.0 L 73.0 L (80-100) mm/Hg HCO3 20.6 L 20.3 L (21-28) mmol/L ABG pH 7.43 7.41 (7.35-7.45) ABG Total CO2 21.6 L 21.3 L (22-28) mmol.L ABG O2 Saturation 97.7 96.4 (95-98) % ABG O2 Content 16.2 15.1 (15-23) ML/dl ABG Base Excess -2.9 L -3.6 L (-2.0-3.0) mmol/L ABG Hemoglobin 12.1 11.4 L (11.7-17.4) g/dL ABG Carboxyhemoglobin 1.9 H 1.7 H (0.5-1.5) % POC ABG HHb (Measured) 2.2 3.5 (0-5) % ABG Methemoglobin 0.9 0.9 (0.0-3.0) % ABG O2 Capacity 16.6 15.7 L (16-24) mL/dl Hgb O2 Saturation 95.0 93.9 L (95.0-98.0) % FiO2 35.0 35.0 % Sodium 146 (132-148) mmol/L Potassium 4.0 (3.6-5.0) mmol/L Chloride 110 (95-110) mmol/L Carbon Dioxide 24 (21-33) mmol/L Anion Gap 16 (10-20) BUN 98 H (7-21) mg/dL Creatinine 2.6 H (0.5-1.4) mg/dL Est GFR ( Amer) 29 Est GFR (Non-Af Amer) 24 Random Glucose 95 (70-110) mg/dL Calcium 9.2 (8.4-10.5) mg/dL Phosphorus 3.6 (2.5-4.5) mg/dL Magnesium 2.4 H (1.7-2.2) mg/dL Total Bilirubin 0.6 (0.2-1.3) mg/dL AST 30 (15-59) U/L ALT 14 (7-56) U/L Alkaline Phosphatase 80 (38-133) U/L Total Protein 7.3 (5.8-8.3) g/dL Albumin 3.4 (3.0-4.8) g/dL Globulin 3.9 gm/dL Albumin/Globulin Ratio 0.9 L (1.1-1.8) Plasma Metanephrine (<=57) pg/mL Plasma Normetanephrine (<=148) pg/mL Plas Total Metaneph (<=205) pg/mL Digoxin < 0.4 L (0.8-2.0) ng/mL BRAYDEN Screen (Negative) BRAYDEN Titer (<1:40) Titer BRAYDEN Titer 2 BRADYEN Pattern (()) BRAYDEN Pattern 2 10/17/16 10/15/16 Range/Units 05:00 20:35 WBC (4.5-11.0) 10^3/ul RBC (3.5-6.1) 10^6/uL Hgb (14.0-18.0) gm/dL Hct (42.0-52.0) % MCV (80.0-105.0) fL MCH (25.0-35.0) pg MCHC (31.0-37.0) g/dl RDW (11.5-14.5) % Plt Count (120.0-450.0) 10^3/uL Gran % (50.0-68.0) % Lymph % (Auto) (22.0-35.0) % [place] % (Auto) (1.0-6.0) % Eos % (Auto) (1.5-5.0) % Baso % (Auto) (0.0-3.0) % Gran # (1.4-6.5) Lymph # (1.2-3.4) [place] # (0.1-0.6) Eos # (0.0-0.7) Baso # (0.0-2.0) K/mm3 pCO2 (35-45) mm/Hg pO2 (80-100) mm/Hg HCO3 (21-28) mmol/L ABG pH (7.35-7.45) ABG Total CO2 (22-28) mmol.L ABG O2 Saturation (95-98) % ABG O2 Content (15-23) ML/dl ABG Base Excess (-2.0-3.0) mmol/L ABG Hemoglobin (11.7-17.4) g/dL ABG Carboxyhemoglobin (0.5-1.5) % POC ABG HHb (Measured) (0-5) % ABG Methemoglobin (0.0-3.0) % ABG O2 Capacity (16-24) mL/dl Hgb O2 Saturation (95.0-98.0) % FiO2 % Sodium (132-148) mmol/L Potassium (3.6-5.0) mmol/L Chloride (95-110) mmol/L Carbon Dioxide (21-33) mmol/L Anion Gap (10-20) BUN (7-21) mg/dL Creatinine (0.5-1.4) mg/dL Est GFR ( Amer) Est GFR (Non-Af Amer) Random Glucose (70-110) mg/dL Calcium (8.4-10.5) mg/dL Phosphorus (2.5-4.5) mg/dL Magnesium (1.7-2.2) mg/dL Total Bilirubin (0.2-1.3) mg/dL AST (15-59) U/L ALT (7-56) U/L Alkaline Phosphatase (38-133) U/L Total Protein (5.8-8.3) g/dL Albumin (3.0-4.8) g/dL Globulin gm/dL Albumin/Globulin Ratio (1.1-1.8) Plasma Metanephrine <25 (<=57) pg/mL Plasma Normetanephrine 204 H (<=148) pg/mL Plas Total Metaneph 204 (<=205) pg/mL Digoxin (0.8-2.0) ng/mL BRAYDEN Screen Positive H (Negative) BRAYDEN Titer 1:320 H (<1:40) Titer BRAYDEN Titer 2 TEST NOT PERFORMED BRAYDEN Pattern Speckled H (()) BRAYDEN Pattern 2 TEST NOT PERFORMED Laboratory Results - last 24 hr 10/15/16 10/17/16 10/20/16 20:35 05:00 05:30 WBC 10.9 D RBC 4.55 Hgb 11.8 L Hct 34.0 L MCV 74.7 L MCH 25.9 MCHC 34.7 RDW 16.3 H Plt Count 166 Gran % 82.3 H Lymph % (Auto) 10.6 L [place] % (Auto) 6.7 H Eos % (Auto) 0.3 L Baso % (Auto) 0.1 Gran # 8.97 H Lymph # 1.2 [place] # 0.7 H Eos # 0.0 Baso # 0.01 pCO2 32 L pO2 73.0 L HCO3 20.3 L ABG pH 7.41 ABG Total CO2 21.3 L ABG O2 Saturation 96.4 ABG O2 Content 15.1 ABG Base Excess -3.6 L ABG Hemoglobin 11.4 L ABG Carboxyhemoglobin 1.7 H POC ABG HHb (Measured) 3.5 ABG Methemoglobin 0.9 ABG O2 Capacity 15.7 L Hgb O2 Saturation 93.9 L FiO2 35.0 Sodium 146 Potassium 4.0 Chloride 110 Carbon Dioxide 24 Anion Gap 16 BUN 98 H Creatinine 2.6 H Est GFR ( Amer) 29 Est GFR (Non-Af Amer) 24 Random Glucose 95 Calcium 9.2 Phosphorus 3.6 Magnesium 2.4 H Total Bilirubin 0.6 AST 30 ALT 14 Alkaline Phosphatase 80 Total Protein 7.3 Albumin 3.4 Globulin 3.9 Albumin/Globulin Ratio 0.9 L Plasma Metanephrine <25 Plasma Normetanephrine 204 H Plas Total Metaneph 204 Digoxin BRAYDEN Screen Positive H BRAYDEN Titer 1:320 H BRAYDEN Titer 2 TEST NOT PERFORMED BRAYDEN Pattern Speckled H BRAYDEN Pattern 2 TEST NOT PERFORMED 10/20/16 10/20/16 08:50 09:38 WBC RBC Hgb Hct MCV MCH MCHC RDW Plt Count Gran % Lymph % (Auto) [place] % (Auto) Eos % (Auto) Baso % (Auto) Gran # Lymph # [place] # Eos # Baso # pCO2 31 L pO2 79.0 L HCO3 20.6 L ABG pH 7.43 ABG Total CO2 21.6 L ABG O2 Saturation 97.7 ABG O2 Content 16.2 ABG Base Excess -2.9 L ABG Hemoglobin 12.1 ABG Carboxyhemoglobin 1.9 H POC ABG HHb (Measured) 2.2 ABG Methemoglobin 0.9 ABG O2 Capacity 16.6 Hgb O2 Saturation 95.0 FiO2 35.0 Sodium Potassium Chloride Carbon Dioxide Anion Gap BUN Creatinine Est GFR ( Amer) Est GFR (Non-Af Amer) Random Glucose Calcium Phosphorus Magnesium Total Bilirubin AST ALT Alkaline Phosphatase Total Protein Albumin Globulin Albumin/Globulin Ratio Plasma Metanephrine Plasma Normetanephrine Plas Total Metaneph Digoxin < 0.4 L BRAYDEN Screen BRAYDEN Titer BRAYDEN Titer 2 BRAYDEN Pattern BRAYDEN Pattern 2 Attending/Attestation - Attestation I have personally seen and examined this patient.: Yes I have fully participated in the care of the patient.: Yes I have reviewed all pertinent clinical information: Yes Notes (Text): 10/20/16 15:26 71 y/o M s/p intubation #5 HTN emergency - BP now controlled. Metoprolol bid. AC/VC resp failure- SBT today lasted 45 min . rr>35 . Mental status too poor for extubation AMS- CT head neg, porbable metabolic encephalopathy BRAYDEN positive 1:320 speckled, other antibodies pending. Pseudomonas HCAP- On Meropenum I.D following JESUSITA- Off diuretics, urine output decreasing, may need to monitor for worsening UREMIA , and need for HD NSTEMI - Troponin stable trend down CHF EF 30%- Plans for possible cath if mental status improves and PNA improves. Possible PHEO with elevated Plasma Levels - Need urine Metanephrine and catecholamine and VMA sent . Nephrology helping greatly May need MRi or CT soon. cc time 72 min
--- NOTE | 2016-10-20 11:47 | PN ---
DATE: 10/20/2016 ATTENDING INTENSIVE CARE UNIT: The patient is still ventilated. Chest x-ray with right-sided infilt rate. The patient appears to follow commands at this point. PHYSICAL EXAMINATION: VITAL SIGNS: Stable. Temperature 100.2, respiration 32, pulse is 118, blood pressure 122/65. LUNGS: Have decreased sounds on the right. HEART: Regular rhythm. ABDOMEN: Soft. EXTREMITIES: No edema. PLAN: Weaning parameters if possible. Watch renal function carefully. BRAYDEN is still pending, call p lora to laboratory. Follow electrolytes and CBC. Continue enteral hydration and empiric antibiotic s. Sputum grew pseudomonas sensitive to cefepime. Jf Posey MD cc: [id number] TT: 10/20/2016 11:46:42 Confirmation # [id number] Dictation # [id number]
[2016-10-20 13:59] LABS: METANEPHRINES <25 pg/mL (<=57); TOTAL METANEPHRINES 204 pg/mL (<=205)
[2016-10-20] MEDS: Sodium Chloride 0.45% 1,000 ML IV SCH (14:43)
[2016-10-20] MEDS: Dexmedetomidine HCl 4mcg/ml 100 ML IV PRN ×2 (14:46→21:12)
--- NOTE | 2016-10-20 15:11 | PN ---
DATE: 10/20/2016 SUBJECTIVE: The patient was seen in the intensive care unit. He remains intubated with an FiO2 of 3 5%. When the patient's sedation is lifted (he is on propofol), he is increasingly awake and moves al l limbs. Family members are present at bedside. OG tube is in place and the patient is receiving fe eds as well as water via the OG tube. He does not appear to be in any pain or distress. Mathur eliz ter is also in place with dark colored urine. OBJECTIVE: VITAL SIGNS: Blood pressure is 120/81 with a minimum blood pressure in the last 24-hour period of 92 /41 and a maximum of 153/78. Heart rate is 83, but has ranged from the 70s to approximately 109 beat s per minute in the last 24-hour period. Oral temperature is 100.2 and the patient has a T-max of 10 1.3. Respiratory rate is 32, but has ranged from 20 to approximately 44 breaths per minute in the 24-hour period. Oxygen saturation is 99%, but has changed from 91-100% with the patient currently on an FIO2 of 35%. I's and O's were 1600/450. HEENT: The patient was normocephalic and atraumatic except the fact that he was intubated with an OG tube in place. Conjunctivae did not appear to be pale or icteric. CHEST: Lung buckley were auscultated anteriorly and on my exam were clear without any rales, rhonchi or wheezing. CARDIAC: Had a regular rate and rhythm without any rubs. ABDOMEN: The abdomen was mildly distended but nontender. There was no rebound, guarding or rigidity . There was no hepatosplenomegaly that I could appreciate. EXTREMITIES: Had no edema. NEUROLOGIC: The patient was moving all of his limbs but he otherwise did not appear to be awake. He was intubated at stated above. His sedation was currently on hold. VASCULAR: Had no bruits. GENITOURINARY: Notable for the presence of a Mathur catheter. There was no appreciable suprapubic te nderness. LABORATORY STUDIES: White count is 10.9, H and H is 11.8/34 with a platelet count of 166,000. MCV i s 75. There are 82% neutrophils, 11% lymphocytes, 7% monocytes. ABG had a pH of 7.43 with a pCO2 of 31, PaO2 of 79 and an oxygen saturation of 22%. Sodium is 146, potassium is 4.0, chloride is 110, b icarbonate 24, BUN/creatinine is 98/2.6 with a glucose of 95. Calcium is 9.2, phosphorus is 3.6, mag nesium is 2.4. Urinalysis from yesterday had a specific gravity of 1.020 with trace protein and larg e blood. Chest x-ray from today reveals a persistent right infrahilar airspace disease thought to re present pneumonia; however, underlying mass cannot be excluded. There is no new microbiology data to report. IMPRESSION AND PLAN: The patient is a 71-year-old gentleman with a history of hypertension and left ventricular hypertrophy, dyslipidemia, coronary artery disease with decreased left ventricular systol ic function based on echocardiogram performed during this hospitalization and was admitted with dyspn ea on exertion and found to have hypertensive emergency with congestive heart failure, initially requ iring nicardipine infusion. Hospitalization has also been complicated by atrial fibrillation with a rapid ventricular response and the patient ultimately required intubation where he currently remains intubated. Of note, his blood pressure has also been quite labile during this examination as well. 1. With respect to the patient's acute kidney injury, as stated above his blood pressure is quite la bile. On exam, however, he is noted to not have any edema with a BUN to creatinine ratio of almost 4 0:1. Urinalysis has a specific gravity that is greater than 1.010 suggesting that this is not acute tubular necrosis. Since the patient does not have any congestive heart failure radiographically or o n exam, we will start the patient on intravenous fluids in particular because his sodium level remain s high normal at 146. We will start him on one-half normal saline at 100 mL per hour for the time be ing. 2. If he is found to become hyponatremic in the next day or so, then we can discontinue the water fl ushes he is receiving via OG tube. For now, we will continue feeds via the OG tube. 3. To confirm that the patient is in volume responsive state, we will check his urine sodium as well as urine creatinine and urine urea nitrogen to see that his fractional excretion of sodium is less t nicholas 1% and his fractional excretion of urea nitrogen is less than 35%. 4. For deep vein thrombosis prophylaxis, continue subcutaneous heparin 5000 units twice daily. 5. Cardiology followup is appreciated. It appears that the patient likely did not have ventricular tachycardia but instead atrial fibrillation with rapid ventricular response. When he is more stable, he is to undergo cardiac catheterization; however, ideally this should be deferred until after the p atient's acute kidney injury has resolved. 6. Infectious disease followup is appreciated, and the patient remains on Zyvox as well as meropenem for the time being. Procalcitonin level is noted to be elevated. He also has received 1 dose of va ncomycin also. 7. I agree with changing digoxin to 3 times a week (every Sunday, Sunday, Sunday) since he has ac javier kidney injury. 8. For deep venous thrombosis prophylaxis, continue heparin 5000 units subcutaneously twice daily. For gastrointestinal prophylaxis, the patient remains on pantoprazole. 9. Continue feeds via OG tube. 10. Given the fact that the patient's blood pressure has been labile, workup for pheochromocytoma is pending and plasma total of fractionated metanephrines were sent, and we are waiting for these to re turn. The above was discussed with the patient's family members present at bedside and, via them, re view of systems, past medical history, social history and family history were all reviewed and there were no new changes. More than 35 minutes were spent in the care of this ICU patient today. Erik Chan MD cc: [id number] TT: 10/20/2016 15:11:14 Confirmation # [id number] Dictation # [id number] mn
--- NOTE | 2016-10-20 16:26 | PCM.PYCHPN ---
Psychiatric Progress Note - Psychiatric Progress Note Patient seen today, length of contact: 25 Patient Chief Complaint: Patient evaluated in ICU. Chart reviewed and case discussed with staff. Case also discussed with of 34 years who was at his bedside Patient had been agitated earlier. Is being treated for congestive heart failure with pulmonary involvement may be a with this in some denial. Children reportedly also may be in some denial. assures me that prior to this patient was capable of helping her with her diabetes and neuropathy. Yet also tells me that he has been somewhat forgetful over the past 2 years. It is not clear to me when he was offered a diagnosis of dementia nursing indicates there may be a history of alcohol use although this was presently denied. Patient had previously worked for [employer] but reportedly has been retired for about 30 years (if this is correct that I suspected there appeared to be some disability that prevented the patient from working over these years) in any event he seems that they have been home bound. He is a alturas of the [facility].. The patient has 2 children who live nearby. A familial psychiatric history was denied. Problems Identified/Issues Discussed: Case reviewed with nursing. Chart reviewed. Family members at the bedside. Patient dealing with multiple medical problems who seems to be able to follow verbal commands. Agitation not reported Medical Problems: Multiple. Including history of hypertension with blood pressure lability presently, left ventricular hypertrophy, his lipidemia, coronary artery disease , left ventricular diastolic dysfunction, hyponatremia deep vein thrombosis prophylaxis Diagnostic Results: As noted in chart DSM 5 Symptoms Update: Can respond to verbal commands. Not agitated. Medication Change: No Medical Record Reviewed: Yes Consults ordered or reviewed: Reviewed records of Dr. Vale and Dr. Prince Chung's Mental Status Examination - Cognitive Function Orientation: Person (Nonverbal. Appears to respond to verbal commands) - Mood Mood: Other - Affect Affect: Other - Formal Thought Process Formal Thought Process: Other Goal/Treatment Plan - Goal/Treatment Plan Need for Continued Stay: Severe functional impairment, Other Progress Toward Problem(s) and Goals/Treatment Plan: Awaiting improved cognitive status of that will presumably be coupled with improved medical status
[2016-10-21] MEDS: Sodium Chloride 0.45% 1,000 ML IV SCH (03:49)
[2016-10-21 05:28] LABS: ARTERIAL BLOOD GAS HCO3 20.4 mmol/L (21-28); ARTERIAL BLOOD GAS O2 CONTENT 14.9 ML/dl (15-23); ARTERIAL BLOOD HGB O2 SAT 95.7 % (95.0-98.0); CARBOXYHEMOGLOBIN 1.8 % (0.5-1.5); HHB 0.9 % (0-5); METHEMOGLOBIN 1.6 % (0.0-3.0)
[2016-10-21 06:01] LABS: ADD MANUAL DIFF? NO
[2016-10-21 06:18] LABS: ALB/GLOB RATIO 0.8 (1.1-1.8); BILIRUBIN,TOTAL 0.6 mg/dL (0.2-1.3); CALCIUM 8.6 mg/dL (8.4-10.5); MAGNESIUM 2.4 mg/dL (1.7-2.2); PHOSPHOROUS 4.9 mg/dL (2.5-4.5); TOTAL PROTEIN 6.5 g/dL (5.8-8.3)
[2016-10-21] MEDS: Albuterol-Ipratrop 3 mg / 0.5 (3 ml) UD IH SCH ×4 (08:31→21:26)
[2016-10-21] MEDS: Meropenem 1 GM in Sodium Chloride 0.9% 100 ML IVPB SCH ×2 (09:01→22:25)
[2016-10-21] MEDS: Linezolid 600 mg in D5W 300 ml 300 ML IVPB SCH ×2 (09:02→22:27)
[2016-10-21 09:17] LABS: BASO # 0.01 K/mm3 (0.0-2.0); BASO % 0.1 % (0.0-3.0); EOS % 0.4 % (1.5-5.0); GRAN # 8.86 (1.4-6.5); GRAN % 83.8 % (50.0-68.0); HEMATOCRIT 30.2 % (42.0-52.0); LYMPH % 9.1 % (22.0-35.0); MEAN CELL VOLUME 75.3 fL (80.0-105.0); MEAN CORPUSCULAR HEMOGLOBIN 25.7 pg (25.0-35.0); MEAN CORPUSCULAR HGB CONC 34.1 g/dl (31.0-37.0); MONO # 0.7 (0.1-0.6); MONO % 6.6 % (1.0-6.0); PLATELET COUNT 173 10^3/uL (120.0-450.0); RED CELL DISTRIBUTION WIDTH 16.2 % (11.5-14.5); WHITE BLOOD COUNT 10.6 10^3/ul (4.5-11.0)
--- NOTE | 2016-10-21 09:30 | PN ---
DATE: 10/21/2016 SUBJECTIVE: The patient seen earlier today in 128, bed 5 in the ICU and patient remains in the ICU 1 28, bed 5, intubated on a ventilator, there have been no fevers reported this morning, although the patient did have a fever yesterday up to 100.4. PHYSICAL EXAMINATION: VITAL SIGNS: Temperature is 97.5, blood pressure is 100/40, respiratory rate of 21 on the vent, a he art rate of 46. HEENT: ET tube in place. NECK: Supple. LUNGS: Have decreased breath sounds. HEART: Normal S1, S2. ABDOMEN: Soft, nontender. LABORATORY DATA: Reveals a white count of 10.9, hemoglobin of 11, platelets of 166 and BUN of 106, c reatinine of 2.5. Urinalysis is noted. BRAYDEN screen is positive with titer is 1:320. Serology influe nza is negative. Trach Culture is positive for Pseudomonas aeruginosa. The blood cultures have no g rowth. Trach culture positive for Pseudomonas sensitive to cefepime and imipenem. Review of the orders reveals the patient to be on meropenem and linezolid. ASSESSMENT AND PLAN: This is a 71-year-old male with severe sepsis, respiratory failure, intubated o n a ventilator with nosocomial pseudomonas, healthcare-associated pneumonia in a patient with acute k idney injury and acute encephalopathy with right-sided healthcare-associated pseudomonas pneumonia, o n Zyvox and meropenem and patient with hypertensive emergency, hypertension, dyslipidemia, history of arthritis, status post left knee surgery, and bilateral cataract surgery with elevated procalcitonin . Overall, prognosis is poor. We will follow closely with you. There appears to be a drop in plate lets, we will continue to follow platelets. May discontinue the Zyvox as all other cultures are nega tive. Sp Arora MD cc: [id number] TT: 10/21/2016 09:29:32 Confirmation # [id number] Dictation # [id number] warren
[2016-10-21] MEDS: Sodium Chloride 0.9% 1,000 ML IV SCH ×2 (10:47→22:26)
[2016-10-21] MEDS: Dexmedetomidine HCl 4mcg/ml 100 ML IV PRN (10:48)
--- NOTE | 2016-10-21 11:02 | RAD ---
HISTORY: on current settings COMPARISON: Chest x-ray performed 10/18/16 TECHNIQUE: Chest, one view. FINDINGS: Left-sided PICC terminates at the expected location of the cavoatrial junction. Endotracheal tube terminates approximately 7.5 cm above the latoya. LUNGS: Right infrahilar opacity re-identified. Hyperinflation may be seen in the setting of COPD. Please note that chest x-ray has limited sensitivity for the detection of pulmonary masses. PLEURA: No significant pleural effusion identified. No definite pneumothorax . CARDIOVASCULAR: Cardiomegaly. OSSEOUS STRUCTURES: Degenerative changes. VISUALIZED UPPER ABDOMEN: Unremarkable. OTHER FINDINGS: None. IMPRESSION: Left-sided PICC terminates at the expected location of the cavoatrial junction. Right infrahilar opacity re-identified. Hyperinflation may be seen in setting of COPD. Cardiomegaly. Endotracheal tube terminates approximately 7.5 cm above the latoya.
--- NOTE | 2016-10-21 12:00 | CP.CCUPN ---
<Rachael Casillas - Last Filed: 10/21/16 15:47> CCU Subjective - Physician Review Events Since Last Encounter (Free Text): 10/21/16 15:47 Patient seen and examined bedside. Tmax over the past 24 hours 100.4. No acute events overnight. Failed weaning again yesterday. Will attempt weaning again today. Will attempt again today. Currently slightly more easily arousable, to verbal and tactile stimuli, opens eyes but does not follow commands. Critical Care Time Spent (in minutes): 40 CCU Objective - Vital Signs / Intake & Output Vital Signs (Last 4 hours): Vital Signs Temp Pulse Resp BP Pulse Ox 10/21/16 10:00 97.9 F 74 21 164/86 H 100 10/21/16 09:15 69 100 10/21/16 09:01 69 164/86 H 100 10/21/16 09:00 70 121/71 100 10/21/16 08:45 57 L 99 10/21/16 08:30 58 L 100 10/21/16 08:15 73 100 Intake and Output (Last 8hrs): Intake & Output 10/20/16 10/21/16 10/21/16 22:59 06:59 14:59 Intake Total 1596 3500 Output Total 325 300 Balance 1271 3200 Weight 179 lb 9.6 oz Intake: IV 96 2300 Left Upper arm 96 500 left 1800 Tube Feeding 1100 600 Other 400 600 Output: Urine 325 300 Urethral (Mathur) 325 300 Other: Voiding Method Indwelling Catheter Indwelling Catheter Indwelling Catheter # Bowel Movements 3 2 - Physical Exam Head: Positive for: Atraumatic, Normocephalic Pupils: Positive for: PERRL Extroacular Muscles: Positive for: EOMI Conjunctiva: Positive for: Normal Mouth: Positive for: Dry Pharnyx: Positive for: Normal. Negative for: ERYTHEMA, EXUDATE Neck: Positive for: JVD Respiratory/Chest: Positive for: Good Air Exchange. Negative for: Clear to Auscultation (coarse breath sounds throughout. Intubated PRVC 500/14/40/5), Respiratory Distress, Accessory Muscle Use Cardiovascular: Positive for: Regular Rate and Rhythm, Normal S1, S2. Negative for: Murmurs Abdomen: Positive for: Normal Bowel Sounds. Negative for: Tenderness, Distention, Peritoneal Signs Back: Positive for: Normal Inspection Lower Extremity: Positive for: Normal Inspection. Negative for: Edema - Medications Active Medications: Active Medications Generic Name Dose Route Start Last Admin Trade Name Freq PRN Reason Stop Dose Admin Acetaminophen 650 mg 10/18/16 15:23 10/20/16 01:12 Tylenol 325mg Tab PO 650 mg Q6H PRN Administration Fever >100.4 F Albuterol/Ipratropium 3 ml 10/18/16 11:30 10/21/16 08:31 Duoneb 3 Mg/0.5 Mg (3 Ml) Ud IH 3 ml [id number] ROSALIA Administration Amiodarone HCl 200 mg 10/17/16 10:00 10/21/16 09:00 Cordarone PO 200 mg DAILY ROSALIA Administration Aspirin 81 mg 10/15/16 16:15 10/21/16 09:00 Aspirin Chewable PO 81 mg DAILY ROSALIA Administration Atorvastatin Calcium 40 mg 10/16/16 17:00 10/20/16 18:32 Lipitor PO 40 mg DIN ROSALIA Administration Digoxin 0.125 mg 10/20/16 10:00 10/20/16 09:52 Lanoxin PO 0.125 mg MWF ROSALIA Administration Heparin Sodium (Porcine) 5,000 units 10/17/16 13:45 10/21/16 09:00 Heparin SC 5,000 units Q12 ROSALIA Administration Propofol 100 mls @ 2.411 mls/hr 10/16/16 11:15 10/20/16 09:37 Diprivan IV 0 mcg/kg/min .Q24H PRN Titration TITRATE PER MD ORDER Protocol 5 MCG/KG/MIN Meropenem 1 gm/ Sodium 100 mls @ 100 mls/hr 10/18/16 16:45 10/21/16 09:01 Chloride IVPB 10/25/16 16:46 100 mls/hr Q12 ROSALIA Administration Protocol Linezolid 300 mls @ 200 mls/hr 10/20/16 10:00 10/21/16 09:02 Zyvox 600mg/300ml D5w IVPB 10/27/16 10:01 200 mls/hr Q12 ROSALIA Administration Protocol Dexmedetomidine HCl 100 mls @ 4.06 mls/hr 10/20/16 12:32 10/21/16 11:05 Precedex 4 Mcg/Ml (100 Ml) IV 0.4 mcg/kg/hr .Q24H PRN Titration Agitation Protocol 0.2 MCG/KG/HR Sodium Chloride 1,000 mls @ 100 mls/hr 10/21/16 10:30 10/21/16 10:47 Sodium Chloride 0.9% IV 100 mls/hr .Q10H ROSALIA Administration Metoprolol Tartrate 25 mg 10/20/16 10:00 10/21/16 09:01 Lopressor PO Not Given BID ROSALIA Morphine Sulfate 2 mg 10/17/16 10:54 Morphine IVP Q4H PRN Pain, moderate (4-7) Pantoprazole Sodium 40 mg 10/16/16 12:45 10/21/16 09:02 Protonix Inj IVP 40 mg DAILY ROSALIA Administration Thiamine HCl 100 mg 10/15/16 17:00 10/21/16 09:02 Vitamin B1 Tab PO 100 mg DAILY ROSALIA Administration - Patient Studies Lab Studies: Microbiology Studies 10/18/16 11:30 Blood Culture - Preliminary Blood NO GROWTH AFTER 3 DAYS 10/19/16 01:25 Urine Culture - Final Urine,Mathur No Growth (<1,000 CFU/ML) 10/18/16 14:58 Gram Stain - Final Trachasp Sputum Culture - Final Pseudomonas Aeruginosa Lab Studies 10/21/16 10/21/16 10/20/16 Range/Units 05:15 03:45 15:17 WBC 10.6 (4.5-11.0) 10^3/ul RBC 4.01 (3.5-6.1) 10^6/uL Hgb 10.3 L (14.0-18.0) gm/dL Hct 30.2 L (42.0-52.0) % MCV 75.3 L (80.0-105.0) fL MCH 25.7 (25.0-35.0) pg MCHC 34.1 (31.0-37.0) g/dl RDW 16.2 H (11.5-14.5) % Plt Count 173 (120.0-450.0) 10^3/uL Gran % 83.8 H (50.0-68.0) % Lymph % (Auto) 9.1 L (22.0-35.0) % Gates % (Auto) 6.6 H (1.0-6.0) % Eos % (Auto) 0.4 L (1.5-5.0) % Baso % (Auto) 0.1 (0.0-3.0) % Gran # 8.86 H (1.4-6.5) Lymph # 1.0 L (1.2-3.4) Gates # 0.7 H (0.1-0.6) Eos # 0.0 (0.0-0.7) Baso # 0.01 (0.0-2.0) K/mm3 pCO2 33 L (35-45) mm/Hg pO2 114.0 H (80-100) mm/Hg HCO3 20.4 L (21-28) mmol/L ABG pH 7.40 (7.35-7.45) ABG Total CO2 21.4 L (22-28) mmol.L ABG O2 Saturation 99.1 H (95-98) % ABG O2 Content 14.9 L (15-23) ML/dl ABG Base Excess -3.7 L (-2.0-3.0) mmol/L ABG Hemoglobin 10.9 L (11.7-17.4) g/dL ABG Carboxyhemoglobin 1.8 H (0.5-1.5) % POC ABG HHb (Measured) 0.9 (0-5) % ABG Methemoglobin 1.6 (0.0-3.0) % ABG O2 Capacity 15.0 L (16-24) mL/dl Hgb O2 Saturation 95.7 (95.0-98.0) % FiO2 35.0 % Sodium 143 (132-148) mmol/L Potassium 4.0 (3.6-5.0) mmol/L Chloride 110 (95-110) mmol/L Carbon Dioxide 23 (21-33) mmol/L Anion Gap 14 (10-20) BUN 106 H (7-21) mg/dL Creatinine 2.5 H (0.5-1.4) mg/dL Est GFR ( Amer) 31 Est GFR (Non-Af Amer) 25 Random Glucose 107 (70-110) mg/dL Calcium 8.6 (8.4-10.5) mg/dL Phosphorus 4.9 H (2.5-4.5) mg/dL Magnesium 2.4 H (1.7-2.2) mg/dL Total Bilirubin 0.6 (0.2-1.3) mg/dL AST 32 (15-59) U/L ALT 14 (7-56) U/L Alkaline Phosphatase 82 (38-133) U/L Total Protein 6.5 (5.8-8.3) g/dL Albumin 3.0 (3.0-4.8) g/dL Globulin 3.5 gm/dL Albumin/Globulin Ratio 0.8 L (1.1-1.8) Plasma Metanephrine (<=57) pg/mL Plasma Normetanephrine (<=148) pg/mL Plas Total Metaneph (<=205) pg/mL Ur Random Creatinine 126 mg/dL Ur Random Sodium 29 meq/L Ur Random Urea Nitrogn 760 mg/dL BRAYDEN Screen (Negative) BRAYDEN Titer (<1:40) Titer BRAYDEN Titer 2 BRAYDEN Pattern (()) BRAYDEN Pattern 2 10/17/16 10/15/16 Range/Units 05:00 20:35 WBC (4.5-11.0) 10^3/ul RBC (3.5-6.1) 10^6/uL Hgb (14.0-18.0) gm/dL Hct (42.0-52.0) % MCV (80.0-105.0) fL MCH (25.0-35.0) pg MCHC (31.0-37.0) g/dl RDW (11.5-14.5) % Plt Count (120.0-450.0) 10^3/uL Gran % (50.0-68.0) % Lymph % (Auto) (22.0-35.0) % Gates % (Auto) (1.0-6.0) % Eos % (Auto) (1.5-5.0) % Baso % (Auto) (0.0-3.0) % Gran # (1.4-6.5) Lymph # (1.2-3.4) Gates # (0.1-0.6) Eos # (0.0-0.7) Baso # (0.0-2.0) K/mm3 pCO2 (35-45) mm/Hg pO2 (80-100) mm/Hg HCO3 (21-28) mmol/L ABG pH (7.35-7.45) ABG Total CO2 (22-28) mmol.L ABG O2 Saturation (95-98) % ABG O2 Content (15-23) ML/dl ABG Base Excess (-2.0-3.0) mmol/L ABG Hemoglobin (11.7-17.4) g/dL ABG Carboxyhemoglobin (0.5-1.5) % POC ABG HHb (Measured) (0-5) % ABG Methemoglobin (0.0-3.0) % ABG O2 Capacity (16-24) mL/dl Hgb O2 Saturation (95.0-98.0) % FiO2 % Sodium (132-148) mmol/L Potassium (3.6-5.0) mmol/L Chloride (95-110) mmol/L Carbon Dioxide (21-33) mmol/L Anion Gap (10-20) BUN (7-21) mg/dL Creatinine (0.5-1.4) mg/dL Est GFR ( Amer) Est GFR (Non-Af Amer) Random Glucose (70-110) mg/dL Calcium (8.4-10.5) mg/dL Phosphorus (2.5-4.5) mg/dL Magnesium (1.7-2.2) mg/dL Total Bilirubin (0.2-1.3) mg/dL AST (15-59) U/L ALT (7-56) U/L Alkaline Phosphatase (38-133) U/L Total Protein (5.8-8.3) g/dL Albumin (3.0-4.8) g/dL Globulin gm/dL Albumin/Globulin Ratio (1.1-1.8) Plasma Metanephrine <25 (<=57) pg/mL Plasma Normetanephrine 204 H (<=148) pg/mL Plas Total Metaneph 204 (<=205) pg/mL Ur Random Creatinine mg/dL Ur Random Sodium meq/L Ur Random Urea Nitrogn mg/dL BRAYDEN Screen Positive H (Negative) BRAYDEN Titer 1:320 H (<1:40) Titer BRAYDEN Titer 2 TEST NOT PERFORMED BRAYDEN Pattern Speckled H (()) BRAYDEN Pattern 2 TEST NOT PERFORMED Laboratory Results - last 24 hr 10/15/16 10/17/16 10/20/16 20:35 05:00 15:17 WBC RBC Hgb Hct MCV MCH MCHC RDW Plt Count Gran % Lymph % (Auto) Gates % (Auto) Eos % (Auto) Baso % (Auto) Gran # Lymph # Gates # Eos # Baso # pCO2 pO2 HCO3 ABG pH ABG Total CO2 ABG O2 Saturation ABG O2 Content ABG Base Excess ABG Hemoglobin ABG Carboxyhemoglobin POC ABG HHb (Measured) ABG Methemoglobin ABG O2 Capacity Hgb O2 Saturation FiO2 Sodium Potassium Chloride Carbon Dioxide Anion Gap BUN Creatinine Est GFR ( Amer) Est GFR (Non-Af Amer) Random Glucose Calcium Phosphorus Magnesium Total Bilirubin AST ALT Alkaline Phosphatase Total Protein Albumin Globulin Albumin/Globulin Ratio Plasma Metanephrine <25 Plasma Normetanephrine 204 H Plas Total Metaneph 204 Ur Random Creatinine 126 Ur Random Sodium 29 Ur Random Urea Nitrogn 760 BRAYDEN Screen Positive H BRAYDEN Titer 1:320 H BRAYDEN Titer 2 TEST NOT PERFORMED BRAYDEN Pattern Speckled H BRAYDEN Pattern 2 TEST NOT PERFORMED 10/21/16 10/21/16 03:45 05:15 WBC 10.6 RBC 4.01 Hgb 10.3 L Hct 30.2 L MCV 75.3 L MCH 25.7 MCHC 34.1 RDW 16.2 H Plt Count 173 Gran % 83.8 H Lymph % (Auto) 9.1 L Gates % (Auto) 6.6 H Eos % (Auto) 0.4 L Baso % (Auto) 0.1 Gran # 8.86 H Lymph # 1.0 L Gates # 0.7 H Eos # 0.0 Baso # 0.01 pCO2 33 L pO2 114.0 H HCO3 20.4 L ABG pH 7.40 ABG Total CO2 21.4 L ABG O2 Saturation 99.1 H ABG O2 Content 14.9 L ABG Base Excess -3.7 L ABG Hemoglobin 10.9 L ABG Carboxyhemoglobin 1.8 H POC ABG HHb (Measured) 0.9 ABG Methemoglobin 1.6 ABG O2 Capacity 15.0 L Hgb O2 Saturation 95.7 FiO2 35.0 Sodium 143 Potassium 4.0 Chloride 110 Carbon Dioxide 23 Anion Gap 14 BUN 106 H Creatinine 2.5 H Est GFR ( Amer) 31 Est GFR (Non-Af Amer) 25 Random Glucose 107 Calcium 8.6 Phosphorus 4.9 H Magnesium 2.4 H Total Bilirubin 0.6 AST 32 ALT 14 Alkaline Phosphatase 82 Total Protein 6.5 Albumin 3.0 Globulin 3.5 Albumin/Globulin Ratio 0.8 L Plasma Metanephrine Plasma Normetanephrine Plas Total Metaneph Ur Random Creatinine Ur Random Sodium Ur Random Urea Nitrogn BRAYDEN Screen BRAYDEN Titer BRAYDEN Titer 2 BRAYDEN Pattern BRAYDEN Pattern 2 Review of Systems - Review of Systems Systems not reviewed;Unavailable: Intubated Critical Care Progress Note - Ventilator Checklist PUD Prophalyxis: Yes DVT Prophylaxis: Yes Assessment/Plan - Assessment and Plan (Free Text) Assessment: 71 yo M w h/o HTN, HLD, arthritis, medical noncompliance admitted for hypertensive emergency with AMS, transferred to ICU following [employer] for HTN and SVT on Nicardipine drip that has since been weaned off now intubated day #4 for airway protection, course further complicated by JESUSITA. Plan: Neuro: sedated on propofol, currently on hold for vent weaning parameters Neuro c/s appreciated. Will obtain EEG to r/o seizures. Hold sedation, ativan, morphine to accurately assess neurological function. PRN Precedex Maintain normothermia. 3 CT head showed no evidence of acute intracranial hemorrhage, territorial infarct, mass effect or midline shift. 3 MRI brain had a lot of movement artifact but no significant intracranial pathology as per radiology read Pulm: VDRF Day #6. Failed pressure support trial yesterday. Will try again today. Daily ABGs, CXRs while intubated Aspiration precautions. HOB >35degrees. Protective lung ventilation strategy. Duonebs Q4hr Maintain SpO2>90, PaO2>60 CV: PAF. HD stable. Cardio following. Continue amio, lopressor, digoxin, lipitor , ASA as per cardio Maintain MAP>65 2D ECHO shows LVEF 35%, mild-mod AR, mild , mild MR, mild TR, RVSP 35mmHg, trace pericardial effusion, grade 3 diastolic dysfunction. Possible cardiac cath once extubated and medically stable as per cardiology recs GI: GI ppx. Tube feeds and free water flushes Endo: No active issues. A1c 5.1. Maintain euglycemia 140-180 Renal: JESUSITA stable. Urine output down. Continue holding Lasix, lisinopril, lovenox, potassium, digoxin; Hold all nephrotoxins. Renal US showed no significant or acute findings Nephrology consult noted and appreciated. Normetanephrines elevated at 204. Free fractionated metanephrines pending. VNA pending. BRAYDEN titer 1:320 in speckled pattern. DS DNA pending. ID: Procalcitonin [id number]. New opacities on CXR. Sputum culture significant for Pseudomonas aeruginosa. Continue Meropenem and Linezolid as per ID. 10/14 blood cultures negative after 5 days. 10/18 blood cultures negative at 48 hours. Heme: Mild microcytic anemia. Hb 10.3, stable. No signs of bleeding. Vit B12 deficiency being replaced IM BID Slowly downtrending platelet count. Continue to monitor. DVT/GI ppx: SQH. IV protonix. Tube feeds with free water flushes - Date & Time Date: 10/21/16 Time: 15:49 <Zeb العراقي MD - Last Filed: 10/21/16 16:35> CCU Objective - Vital Signs / Intake & Output Vital Signs (Last 4 hours): Vital Signs Pulse BP Pulse Ox 10/21/16 16:00 60 10/21/16 15:15 59 L 100 10/21/16 15:00 60 126/57 L 100 10/21/16 14:45 57 L 100 10/21/16 14:30 58 L 100 10/21/16 14:15 58 L 100 10/21/16 14:00 58 L 121/59 L 100 10/21/16 13:45 59 L 100 10/21/16 13:30 60 100 10/21/16 13:15 58 L 100 10/21/16 13:00 57 L 114/39 L 99 10/21/16 12:45 64 99 Intake and Output (Last 8hrs): Intake & Output 10/21/16 10/21/16 10/21/16 06:59 14:59 22:59 Intake Total 3500 Output Total 300 Balance 3200 Weight 179 lb 9.6 oz Intake: IV 2300 Left Upper arm 500 left 1800 Tube Feeding 600 Other 600 Output: Urine 300 Urethral (Mathur) 300 Other: Voiding Method Indwelling Catheter Indwelling Catheter # Bowel Movements 2 - Medications Active Medications: Active Medications Generic Name Dose Route Start Last Admin Trade Name Freq PRN Reason Stop Dose Admin Acetaminophen 650 mg 10/18/16 15:23 10/20/16 01:12 Tylenol 325mg Tab PO 650 mg Q6H PRN Administration Fever >100.4 F Albuterol/Ipratropium 3 ml 03/15/17 11:30 10/21/16 13:55 Duoneb 3 Mg/0.5 Mg (3 Ml) Ud IH Not Given [id number] ROSALIA Amiodarone HCl 200 mg 10/17/16 10:00 10/21/16 09:00 Cordarone PO 200 mg DAILY ROSALIA Administration Aspirin 81 mg 10/15/16 16:15 10/21/16 09:00 Aspirin Chewable PO 81 mg DAILY ROSALIA Administration Atorvastatin Calcium 40 mg 10/16/16 17:00 10/20/16 18:32 Lipitor PO 40 mg DIN ROSALIA Administration Digoxin 0.125 mg 10/20/16 10:00 10/20/16 09:52 Lanoxin PO 0.125 mg MWF ROSALIA Administration Heparin Sodium (Porcine) 5,000 units 10/17/16 13:45 10/21/16 09:00 Heparin SC 5,000 units Q12 ROSALIA Administration Propofol 100 mls @ 2.411 mls/hr 10/16/16 11:15 10/20/16 09:37 Diprivan IV 0 mcg/kg/min .Q24H PRN Titration TITRATE PER MD ORDER Protocol 5 MCG/KG/MIN Meropenem 1 gm/ Sodium 100 mls @ 100 mls/hr 10/18/16 16:45 10/21/16 09:01 Chloride IVPB 10/25/16 16:46 100 mls/hr Q12 ROSALIA Administration Protocol Linezolid 300 mls @ 200 mls/hr 10/20/16 10:00 10/21/16 09:02 Zyvox 600mg/300ml D5w IVPB 10/27/16 10:01 200 mls/hr Q12 ROSALIA Administration Protocol Dexmedetomidine HCl 100 mls @ 4.06 mls/hr 10/20/16 12:32 10/21/16 11:05 Precedex 4 Mcg/Ml (100 Ml) IV 0.4 mcg/kg/hr .Q24H PRN Titration Agitation Protocol 0.2 MCG/KG/HR Sodium Chloride 1,000 mls @ 100 mls/hr 10/21/16 10:30 10/21/16 10:47 Sodium Chloride 0.9% IV 100 mls/hr .Q10H ROSALIA Administration Metoprolol Tartrate 25 mg 10/20/16 10:00 10/21/16 09:01 Lopressor PO Not Given BID [facility] Morphine Sulfate 2 mg 10/17/16 10:54 Morphine IVP Q4H PRN Pain, moderate (4-7) Pantoprazole Sodium 40 mg 10/16/16 12:45 10/21/16 09:02 Protonix Inj IVP 40 mg DAILY ROSALIA Administration Thiamine HCl 100 mg 10/15/16 17:00 10/21/16 09:02 Vitamin B1 Tab PO 100 mg DAILY ROSALIA Administration - Patient Studies Lab Studies: Microbiology Studies 10/18/16 11:30 Blood Culture - Preliminary Blood NO GROWTH AFTER 3 DAYS Lab Studies 10/21/16 10/21/16 10/21/16 Range/Units 13:10 12:20 05:15 WBC (4.5-11.0) 10^3/ul RBC (3.5-6.1) 10^6/uL Hgb (14.0-18.0) gm/dL Hct (42.0-52.0) % MCV (80.0-105.0) fL MCH (25.0-35.0) pg MCHC (31.0-37.0) g/dl RDW (11.5-14.5) % Plt Count (120.0-450.0) 10^3/uL Gran % (50.0-68.0) % Lymph % (Auto) (22.0-35.0) % Gates % (Auto) (1.0-6.0) % Eos % (Auto) (1.5-5.0) % Baso % (Auto) (0.0-3.0) % Gran # (1.4-6.5) Lymph # (1.2-3.4) Gates # (0.1-0.6) Eos # (0.0-0.7) Baso # (0.0-2.0) K/mm3 ESR 68 H (0.00-15.0) mm/hr pCO2 33 L (35-45) mm/Hg pO2 114.0 H (80-100) mm/Hg HCO3 20.4 L (21-28) mmol/L ABG pH 7.40 (7.35-7.45) ABG Total CO2 21.4 L (22-28) mmol.L ABG O2 Saturation 99.1 H (95-98) % ABG O2 Content 14.9 L (15-23) ML/dl ABG Base Excess -3.7 L (-2.0-3.0) mmol/L ABG Hemoglobin 10.9 L (11.7-17.4) g/dL ABG Carboxyhemoglobin 1.8 H (0.5-1.5) % POC ABG HHb (Measured) 0.9 (0-5) % ABG Methemoglobin 1.6 (0.0-3.0) % ABG O2 Capacity 15.0 L (16-24) mL/dl Hgb O2 Saturation 95.7 (95.0-98.0) % FiO2 35.0 % Sodium (132-148) mmol/L Potassium (3.6-5.0) mmol/L Chloride (95-110) mmol/L Carbon Dioxide (21-33) mmol/L Anion Gap (10-20) BUN (7-21) mg/dL Creatinine (0.5-1.4) mg/dL Est GFR ( Amer) Est GFR (Non-Af Amer) Random Glucose (70-110) mg/dL Calcium (8.4-10.5) mg/dL Phosphorus (2.5-4.5) mg/dL Magnesium (1.7-2.2) mg/dL Total Bilirubin (0.2-1.3) mg/dL AST (15-59) U/L ALT (7-56) U/L Alkaline Phosphatase (38-133) U/L Total Protein (5.8-8.3) g/dL Albumin (3.0-4.8) g/dL Globulin gm/dL Albumin/Globulin Ratio (1.1-1.8) Thyroxine (T4) 8.7 (5.5-11.0) ug/dL Total T3 0.66 L (0.97-1.69) ng/mL TSH 3rd Generation 0.61 (0.46-4.68) mIU/mL 17 Range/Units 03:45 WBC 10.6 (4.5-11.0) 10^3/ul RBC 4.01 (3.5-6.1) 10^6/uL Hgb 10.3 L (14.0-18.0) gm/dL Hct 30.2 L (42.0-52.0) % MCV 75.3 L (80.0-105.0) fL MCH 25.7 (25.0-35.0) pg MCHC 34.1 (31.0-37.0) g/dl RDW 16.2 H (11.5-14.5) % Plt Count 173 (120.0-450.0) 10^3/uL Gran % 83.8 H (50.0-68.0) % Lymph % (Auto) 9.1 L (22.0-35.0) % Gates % (Auto) 6.6 H (1.0-6.0) % Eos % (Auto) 0.4 L (1.5-5.0) % Baso % (Auto) 0.1 (0.0-3.0) % Gran # 8.86 H (1.4-6.5) Lymph # 1.0 L (1.2-3.4) Gates # 0.7 H (0.1-0.6) Eos # 0.0 (0.0-0.7) Baso # 0.01 (0.0-2.0) K/mm3 ESR (0.00-15.0) mm/hr pCO2 (35-45) mm/Hg pO2 (80-100) mm/Hg HCO3 (21-28) mmol/L ABG pH (7.35-7.45) ABG Total CO2 (22-28) mmol.L ABG O2 Saturation (95-98) % ABG O2 Content (15-23) ML/dl ABG Base Excess (-2.0-3.0) mmol/L ABG Hemoglobin (11.7-17.4) g/dL ABG Carboxyhemoglobin (0.5-1.5) % POC ABG HHb (Measured) (0-5) % ABG Methemoglobin (0.0-3.0) % ABG O2 Capacity (16-24) mL/dl Hgb O2 Saturation (95.0-98.0) % FiO2 % Sodium 143 (132-148) mmol/L Potassium 4.0 (3.6-5.0) mmol/L Chloride 110 (95-110) mmol/L Carbon Dioxide 23 (21-33) mmol/L Anion Gap 14 (10-20) BUN 106 H (7-21) mg/dL Creatinine 2.5 H (0.5-1.4) mg/dL Est GFR ( Amer) 31 Est GFR (Non-Af Amer) 25 Random Glucose 107 (70-110) mg/dL Calcium 8.6 (8.4-10.5) mg/dL Phosphorus 4.9 H (2.5-4.5) mg/dL Magnesium 2.4 H (1.7-2.2) mg/dL Total Bilirubin 0.6 (0.2-1.3) mg/dL AST 32 (15-59) U/L ALT 14 (7-56) U/L Alkaline Phosphatase 82 (38-133) U/L Total Protein 6.5 (5.8-8.3) g/dL Albumin 3.0 (3.0-4.8) g/dL Globulin 3.5 gm/dL Albumin/Globulin Ratio 0.8 L (1.1-1.8) Thyroxine (T4) (5.5-11.0) ug/dL Total T3 (0.97-1.69) ng/mL TSH 3rd Generation (0.46-4.68) mIU/mL Laboratory Results - last 24 hr 10/21/16 10/21/16 10/21/16 03:45 05:15 12:20 WBC 10.6 RBC 4.01 Hgb 10.3 L Hct 30.2 L MCV 75.3 L MCH 25.7 MCHC 34.1 RDW 16.2 H Plt Count 173 Gran % 83.8 H Lymph % (Auto) 9.1 L Gates % (Auto) 6.6 H Eos % (Auto) 0.4 L Baso % (Auto) 0.1 Gran # 8.86 H Lymph # 1.0 L Gates # 0.7 H Eos # 0.0 Baso # 0.01 ESR pCO2 33 L pO2 114.0 H HCO3 20.4 L ABG pH 7.40 ABG Total CO2 21.4 L ABG O2 Saturation 99.1 H ABG O2 Content 14.9 L ABG Base Excess -3.7 L ABG Hemoglobin 10.9 L ABG Carboxyhemoglobin 1.8 H POC ABG HHb (Measured) 0.9 ABG Methemoglobin 1.6 ABG O2 Capacity 15.0 L Hgb O2 Saturation 95.7 FiO2 35.0 Sodium 143 Potassium 4.0 Chloride 110 Carbon Dioxide 23 Anion Gap 14 BUN 106 H Creatinine 2.5 H Est GFR ( Amer) 31 Est GFR (Non-Af Amer) 25 Random Glucose 107 Calcium 8.6 Phosphorus 4.9 H Magnesium 2.4 H Total Bilirubin 0.6 AST 32 ALT 14 Alkaline Phosphatase 82 Total Protein 6.5 Albumin 3.0 Globulin 3.5 Albumin/Globulin Ratio 0.8 L Thyroxine (T4) 8.7 Total T3 0.66 L TSH 3rd Generation 0.61 10/21/16 13:10 WBC RBC Hgb Hct MCV MCH MCHC RDW Plt Count Gran % Lymph % (Auto) Gates % (Auto) Eos % (Auto) Baso % (Auto) Gran # Lymph # Gates # Eos # Baso # ESR 68 H pCO2 pO2 HCO3 ABG pH ABG Total CO2 ABG O2 Saturation ABG O2 Content ABG Base Excess ABG Hemoglobin ABG Carboxyhemoglobin POC ABG HHb (Measured) ABG Methemoglobin ABG O2 Capacity Hgb O2 Saturation FiO2 Sodium Potassium Chloride Carbon Dioxide Anion Gap BUN Creatinine Est GFR ( Amer) Est GFR (Non-Af Amer) Random Glucose Calcium Phosphorus Magnesium Total Bilirubin AST ALT Alkaline Phosphatase Total Protein Albumin Globulin Albumin/Globulin Ratio Thyroxine (T4) Total T3 TSH 3rd Generation Attending/Attestation - Attestation I have personally seen and examined this patient.: Yes I have fully participated in the care of the patient.: Yes I have reviewed all pertinent clinical information: Yes Notes (Text): 10/21/16 16:31 71 y/o M w/ VDRF Pseudomonas PNA NSTEMI w/ CHF 30% EF JESUSITA unclear causes, mulifactorial, making 35-40cc/hr off diuretics On empiric abx for PNA , SBT passed today , mental status improved mildly on precedex but not safe to extubate yet. awiting full work up for possible PHEO, including MEtaneprines/ catecholamines 24 hr urine collection, VMA BP WNL off Cardene, on lopressor. Tube feeds continued Overall prognosis poor If patient isn't able to extubate by sunday , discussions to be had about TRACH placement. cc time 65 min
--- NOTE | 2016-10-21 12:43 | PN ---
DATE: 10/21/2016 ATTENDING: ICU. The patient appears comfortable. Still endotracheally ventilated. Family member was at bedside. The patient appears calmer. Does now follow commands, blinks on command, and squeezes hands. PHYSICAL EXAMINATION: VITAL SIGNS: Stable. Temperature is 97.9, respiration 21, pulse 74, blood pressure 164/86. LUNGS: Clear. HEART: Regular rhythm. ABDOMEN: Soft, nontender. EXTREMITIES: No edema. PLAN: Continue current therapy for now. BRAYDEN is positive. Double stranded DNA sent. 24-hour urine for protein requested. Ruling out acute glomerulonephritis from drug-induced systemic lupus erythematosus. Follow electrolytes, CBC, and sed rate tomorrow. Double stranded DNA requests to be done stat. Urine for proteinuria requested Jf Posey MD cc: [id number] TT: 10/21/2016 12:43:10 Confirmation # [id number] Dictation # [id number] ln MTDD
[2016-10-21 13:28] LABS: T4 8.7 ug/dL (5.5-11.0)
[2016-10-21 13:42] LABS: T3 0.66 ng/mL (0.97-1.69); THYROID STIMULATING HORMONE 0.61 mIU/mL (0.46-4.68)
--- NOTE | 2016-10-21 15:39 | PN ---
DATE: 10/21/2016 This is a 71-year-old black male with a past medical history of hypertension and hyperlipidemia. The patient was admitted a few days ago with shortness of breath and a rapid response was called and was transferred to TCU, intubated and has altered mental status and now he opens his eyes with difficult y and follows 1-step commands. The family is at bedside. I was called to evaluate the patient. PHYSICAL EXAMINATION: HEENT: Normocephalic, atraumatic. NECK: Supple. NEUROLOGIC: The patient is on a ventilatory support, opens eyes, but not following commands. No spo ntaneous movement of the extremities noted. Deep tendon reflexes 1+. Both plantars are downgoing. Sensory appears intact. Cerebellar and gait was deferred. IMPRESSION: Encephalopathy, possibly cardiac, and pneumonia. PLAN: Continue present management. Will followup. Rik Brown MD cc: [id number] TT: 10/21/2016 15:38:18 Confirmation # [id number] Dictation # [id number] kristal
[2016-10-22] MEDS: Albuterol-Ipratrop 3 mg / 0.5 (3 ml) UD IH SCH ×4 (02:30→20:15)
[2016-10-22 06:38] LABS: ARTERIAL BLOOD GAS HCO3 21.8 mmol/L (21-28); ARTERIAL BLOOD GAS O2 CAPACITY 14.8 mL/dl (16-24); ARTERIAL BLOOD GAS O2 CONTENT 14.5 ML/dl (15-23); ARTERIAL BLOOD GAS PH 7.39 (7.35-7.45); ARTERIAL BLOOD HGB O2 SAT 95.5 % (95.0-98.0); CARBOXYHEMOGLOBIN 1.7 % (0.5-1.5); HHB 2.1 % (0-5); METHEMOGLOBIN 0.6 % (0.0-3.0)
[2016-10-22 07:12] LABS: ADD MANUAL DIFF? NO
[2016-10-22 07:17] LABS: BASO # 0.01 K/mm3 (0.0-2.0); BASO % 0.1 % (0.0-3.0); EOS % 0.2 % (1.5-5.0); GRAN # 8.87 (1.4-6.5); GRAN % 80.7 % (50.0-68.0); HEMATOCRIT 30.5 % (42.0-52.0); LYMPH # 1.1 (1.2-3.4); LYMPH % 10.4 % (22.0-35.0); MEAN CELL VOLUME 75.1 fL (80.0-105.0); MEAN CORPUSCULAR HEMOGLOBIN 26.1 pg (25.0-35.0); MEAN CORPUSCULAR HGB CONC 34.8 g/dl (31.0-37.0); MONO % 8.6 % (1.0-6.0); PLATELET COUNT 200 10^3/uL (120.0-450.0)
[2016-10-22 07:45] LABS: ALB/GLOB RATIO 0.7 (1.1-1.8); ALKALINE PHOSPHATASE 80 U/L (38-133); ALT/SGPT 21 U/L (7-56); AST/SGOT 43 U/L (15-59); BILIRUBIN,TOTAL 0.6 mg/dL (0.2-1.3); BLOOD UREA NITROGEN 71 mg/dL (7-21); CALCIUM 8.4 mg/dL (8.4-10.5); CARBON DIOXIDE 22 mmol/L (21-33); CHLORIDE 114 mmol/L (98-107); GFR AFRICAN-AMERICAN > 60; GLUCOSE,RANDOM 107 mg/dL (70-110); MAGNESIUM 2.4 mg/dL (1.7-2.2); PHOSPHOROUS 3.4 mg/dL (2.5-4.5); POTASSIUM 3.7 mmol/L (3.6-5.0); SODIUM 147 mmol/L (132-148); TOTAL PROTEIN 6.4 g/dL (5.8-8.3)
[2016-10-22] MEDS: Dexmedetomidine HCl 4mcg/ml 100 ML IV PRN (08:00)
--- NOTE | 2016-10-22 08:22 | CP.CCUPN ---
<Rachael Casillas - Last Filed: 10/22/16 07:54> CCU Subjective - Physician Review Events Since Last Encounter (Free Text): 10/22/16 07:54 Patient seen and examined bedside. No acute events overnight. Tolerated Pressure support yesterday. Unable to extubate due to mental status, still not waking up enough to protect airway. However, today following more commands, more alert. Having copious amounts of secretions. CXR worsened. T max over past 24 hours 100.4. Critical Care Time Spent (in minutes): 40 CCU Objective - Vital Signs / Intake & Output Vital Signs (Last 4 hours): Vital Signs Temp Pulse Resp BP Pulse Ox 10/22/16 05:15 64 25 H 99 10/22/16 05:00 72 25 H 156/69 H 98 10/22/16 04:45 90 26 H 10/22/16 04:30 78 22 10/22/16 04:15 65 22 100 10/22/16 04:01 63 18 157/64 H 99 10/22/16 04:00 99.5 F 67 22 100 Intake and Output (Last 8hrs): Intake & Output 10/21/16 10/22/16 10/22/16 22:59 06:59 14:59 Intake Total 2711 2699 Output Total 860 1900 Balance 1851 799 Weight 214 lb 11.2 oz Intake: IV 1431 1499 Precedex 81 99 IVF 950 1000 Antibiotics 400 400 Tube Feeding 1280 600 Other 600 Output: Urine 860 1900 Urethral (Mathur) 860 1900 Other: Voiding Method Indwelling Catheter # Bowel Movements 1 1 - Physical Exam Head: Positive for: Atraumatic, Normocephalic Pupils: Positive for: PERRL Extroacular Muscles: Positive for: EOMI Conjunctiva: Positive for: Normal Mouth: Positive for: Dry Pharnyx: Positive for: Normal. Negative for: ERYTHEMA, EXUDATE Neck: Positive for: JVD Respiratory/Chest: Positive for: Good Air Exchange. Negative for: Clear to Auscultation (coarse breath sounds throughout. Intubated PRVC 500/14/40/5), Respiratory Distress, Accessory Muscle Use Cardiovascular: Positive for: Regular Rate and Rhythm, Normal S1, S2. Negative for: Murmurs Abdomen: Positive for: Normal Bowel Sounds. Negative for: Tenderness, Distention, Peritoneal Signs Back: Positive for: Normal Inspection Lower Extremity: Positive for: Normal Inspection. Negative for: Edema Neurological: Positive for: Other (intubated) Psychiatric: Positive for: Alert. Negative for: Oriented x 3 - Medications Active Medications: Active Medications Generic Name Dose Route Start Last Admin Trade Name Freq PRN Reason Stop Dose Admin Acetaminophen 650 mg 10/18/16 15:23 10/20/16 01:12 Tylenol 325mg Tab PO 650 mg Q6H PRN Administration Fever >100.4 F Albuterol/Ipratropium 3 ml 10/21/16 18:00 10/22/16 07:44 Duoneb 3 Mg/0.5 Mg (3 Ml) Ud IH 3 ml Q6 ROSALIA Administration Amiodarone HCl 200 mg 10/17/16 10:00 10/21/16 09:00 Cordarone PO 200 mg DAILY ROSALIA Administration Aspirin 81 mg 10/15/16 16:15 10/21/16 09:00 Aspirin Chewable PO 81 mg DAILY ROSALIA Administration Atorvastatin Calcium 40 mg 10/16/16 17:00 10/21/16 16:27 Lipitor PO 40 mg DIN ROSALIA Administration Digoxin 0.125 mg 10/20/16 10:00 10/20/16 09:52 Lanoxin PO 0.125 mg MWF ROSALIA Administration Heparin Sodium (Porcine) 5,000 units 10/17/16 13:45 10/21/16 22:24 Heparin SC 5,000 units Q12 ROSALIA Administration Propofol 100 mls @ 2.411 mls/hr 10/16/16 11:15 10/20/16 09:37 Diprivan IV 0 mcg/kg/min .Q24H PRN Titration TITRATE PER MD ORDER Protocol 5 MCG/KG/MIN Meropenem 1 gm/ Sodium 100 mls @ 100 mls/hr 10/18/16 16:45 10/21/16 22:25 Chloride IVPB 10/25/16 16:46 100 mls/hr Q12 ROSALIA Administration Protocol Linezolid 300 mls @ 200 mls/hr 10/20/16 10:00 10/21/16 22:27 Zyvox 600mg/300ml D5w IVPB 10/27/16 10:01 200 mls/hr Q12 ROSALIA Administration Protocol Dexmedetomidine HCl 100 mls @ 4.06 mls/hr 10/20/16 12:32 10/21/16 22:26 Precedex 4 Mcg/Ml (100 Ml) IV 0.4 mcg/kg/hr .Q24H PRN Titration Agitation Protocol 0.2 MCG/KG/HR Sodium Chloride 1,000 mls @ 100 mls/hr 10/21/16 10:30 10/21/16 22:26 Sodium Chloride 0.9% IV 100 mls/hr .Q10H ROSALIA Administration Metoprolol Tartrate 25 mg 10/20/16 10:00 10/21/16 19:05 Lopressor PO Not Given BID ROSALIA Morphine Sulfate 2 mg 10/17/16 10:54 Morphine IVP Q4H PRN Pain, moderate (4-7) Pantoprazole Sodium 40 mg 10/16/16 12:45 10/21/16 09:02 Protonix Inj IVP 40 mg DAILY ROSALIA Administration Thiamine HCl 100 mg 10/15/16 17:00 10/21/16 09:02 Vitamin B1 Tab PO 100 mg DAILY ROSALIA Administration - Patient Studies Lab Studies: Microbiology Studies 10/18/16 11:30 Blood Culture - Preliminary Blood NO GROWTH AFTER 3 DAYS Lab Studies 10/22/16 10/22/16 10/21/16 Range/Units 07:11 06:28 13:10 WBC 11.0 (4.5-11.0) 10^3/ul RBC 4.06 (3.5-6.1) 10^6/uL Hgb 10.6 L (14.0-18.0) gm/dL Hct 30.5 L (42.0-52.0) % MCV 75.1 L (80.0-105.0) fL MCH 26.1 (25.0-35.0) pg MCHC 34.8 (31.0-37.0) g/dl RDW 16.0 H (11.5-14.5) % Plt Count 200 (120.0-450.0) 10^3/uL Gran % 80.7 H (50.0-68.0) % Lymph % (Auto) 10.4 L (22.0-35.0) % [place] % (Auto) 8.6 H (1.0-6.0) % Eos % (Auto) 0.2 L (1.5-5.0) % Baso % (Auto) 0.1 (0.0-3.0) % Gran # 8.87 H (1.4-6.5) Lymph # 1.1 L (1.2-3.4) [place] # 1.0 H (0.1-0.6) Eos # 0.0 (0.0-0.7) Baso # 0.01 (0.0-2.0) K/mm3 ESR 68 H (0.00-15.0) mm/hr pCO2 36 (35-45) mm/Hg pO2 83.0 (80-100) mm/Hg HCO3 21.8 (21-28) mmol/L ABG pH 7.39 (7.35-7.45) ABG Total CO2 22.9 (22-28) mmol.L ABG O2 Saturation 97.8 (95-98) % ABG O2 Content 14.5 L (15-23) ML/dl ABG Base Excess -2.7 L (-2.0-3.0) mmol/L ABG Hemoglobin 10.7 L (11.7-17.4) g/dL ABG Carboxyhemoglobin 1.7 H (0.5-1.5) % POC ABG HHb (Measured) 2.1 (0-5) % ABG Methemoglobin 0.6 (0.0-3.0) % ABG O2 Capacity 14.8 L (16-24) mL/dl Hgb O2 Saturation 95.5 (95.0-98.0) % FiO2 35.0 % Sodium 147 (132-148) mmol/L Potassium 3.7 (3.6-5.0) mmol/L Chloride 114 H (98-107) mmol/L Carbon Dioxide 22 (21-33) mmol/L Anion Gap 15 (10-20) BUN 71 H (7-21) mg/dL Creatinine 1.3 (0.5-1.4) mg/dL Est GFR ( Amer) > 60 Est GFR (Non-Af Amer) 54 Random Glucose 107 (70-110) mg/dL Calcium 8.4 (8.4-10.5) mg/dL Phosphorus 3.4 (2.5-4.5) mg/dL Magnesium 2.4 H (1.7-2.2) mg/dL Total Bilirubin 0.6 (0.2-1.3) mg/dL AST 43 (15-59) U/L ALT 21 (7-56) U/L Alkaline Phosphatase 80 (38-133) U/L Total Protein 6.4 (5.8-8.3) g/dL Albumin 2.7 L (3.0-4.8) g/dL Globulin 3.7 gm/dL Albumin/Globulin Ratio 0.7 L (1.1-1.8) Thyroxine (T4) (5.5-11.0) ug/dL Total T3 (0.97-1.69) ng/mL TSH 3rd Generation (0.46-4.68) mIU/mL Complement C3 (88.0-165.0) mg/dL Complement C4 (14.0-44.0) mg/dL 10/21/16 10/21/16 10/21/16 Range/Units 12:30 12:20 03:45 WBC 10.6 (4.5-11.0) 10^3/ul RBC 4.01 (3.5-6.1) 10^6/uL Hgb 10.3 L (14.0-18.0) gm/dL Hct 30.2 L (42.0-52.0) % MCV 75.3 L (80.0-105.0) fL MCH 25.7 (25.0-35.0) pg MCHC 34.1 (31.0-37.0) g/dl RDW 16.2 H (11.5-14.5) % Plt Count 173 (120.0-450.0) 10^3/uL Gran % 83.8 H (50.0-68.0) % Lymph % (Auto) 9.1 L (22.0-35.0) % [place] % (Auto) 6.6 H (1.0-6.0) % Eos % (Auto) 0.4 L (1.5-5.0) % Baso % (Auto) 0.1 (0.0-3.0) % Gran # 8.86 H (1.4-6.5) Lymph # 1.0 L (1.2-3.4) [place] # 0.7 H (0.1-0.6) Eos # 0.0 (0.0-0.7) Baso # 0.01 (0.0-2.0) K/mm3 ESR (0.00-15.0) mm/hr pCO2 (35-45) mm/Hg pO2 (80-100) mm/Hg HCO3 (21-28) mmol/L ABG pH (7.35-7.45) ABG Total CO2 (22-28) mmol.L ABG O2 Saturation (95-98) % ABG O2 Content (15-23) ML/dl ABG Base Excess (-2.0-3.0) mmol/L ABG Hemoglobin (11.7-17.4) g/dL ABG Carboxyhemoglobin (0.5-1.5) % POC ABG HHb (Measured) (0-5) % ABG Methemoglobin (0.0-3.0) % ABG O2 Capacity (16-24) mL/dl Hgb O2 Saturation (95.0-98.0) % FiO2 % Sodium (132-148) mmol/L Potassium (3.6-5.0) mmol/L Chloride (98-107) mmol/L Carbon Dioxide (21-33) mmol/L Anion Gap (10-20) BUN (7-21) mg/dL Creatinine (0.5-1.4) mg/dL Est GFR ( Amer) Est GFR (Non-Af Amer) Random Glucose (70-110) mg/dL Calcium (8.4-10.5) mg/dL Phosphorus (2.5-4.5) mg/dL Magnesium (1.7-2.2) mg/dL Total Bilirubin (0.2-1.3) mg/dL AST (15-59) U/L ALT (7-56) U/L Alkaline Phosphatase (38-133) U/L Total Protein (5.8-8.3) g/dL Albumin (3.0-4.8) g/dL Globulin gm/dL Albumin/Globulin Ratio (1.1-1.8) Thyroxine (T4) 8.7 (5.5-11.0) ug/dL Total T3 0.66 L (0.97-1.69) ng/mL TSH 3rd Generation 0.61 (0.46-4.68) mIU/mL Complement C3 112.0 (88.0-165.0) mg/dL Complement C4 29.5 (14.0-44.0) mg/dL Laboratory Results - last 24 hr 10/21/16 10/21/16 10/21/16 03:45 12:20 12:30 WBC 10.6 RBC 4.01 Hgb 10.3 L Hct 30.2 L MCV 75.3 L MCH 25.7 MCHC 34.1 RDW 16.2 H Plt Count 173 Gran % 83.8 H Lymph % (Auto) 9.1 L [place] % (Auto) 6.6 H Eos % (Auto) 0.4 L Baso % (Auto) 0.1 Gran # 8.86 H Lymph # 1.0 L [place] # 0.7 H Eos # 0.0 Baso # 0.01 ESR pCO2 pO2 HCO3 ABG pH ABG Total CO2 ABG O2 Saturation ABG O2 Content ABG Base Excess ABG Hemoglobin ABG Carboxyhemoglobin POC ABG HHb (Measured) ABG Methemoglobin ABG O2 Capacity Hgb O2 Saturation FiO2 Sodium Potassium Chloride Carbon Dioxide Anion Gap BUN Creatinine Est GFR ( Amer) Est GFR (Non-Af Amer) Random Glucose Calcium Phosphorus Magnesium Total Bilirubin AST ALT Alkaline Phosphatase Total Protein Albumin Globulin Albumin/Globulin Ratio Thyroxine (T4) 8.7 Total T3 0.66 L TSH 3rd Generation 0.61 Complement C3 112.0 Complement C4 29.5 10/21/16 10/22/16 10/22/16 13:10 06:28 07:11 WBC 11.0 RBC 4.06 Hgb 10.6 L Hct 30.5 L MCV 75.1 L MCH 26.1 MCHC 34.8 RDW 16.0 H Plt Count 200 Gran % 80.7 H Lymph % (Auto) 10.4 L [place] % (Auto) 8.6 H Eos % (Auto) 0.2 L Baso % (Auto) 0.1 Gran # 8.87 H Lymph # 1.1 L [place] # 1.0 H Eos # 0.0 Baso # 0.01 ESR 68 H pCO2 36 pO2 83.0 HCO3 21.8 ABG pH 7.39 ABG Total CO2 22.9 ABG O2 Saturation 97.8 ABG O2 Content 14.5 L ABG Base Excess -2.7 L ABG Hemoglobin 10.7 L ABG Carboxyhemoglobin 1.7 H POC ABG HHb (Measured) 2.1 ABG Methemoglobin 0.6 ABG O2 Capacity 14.8 L Hgb O2 Saturation 95.5 FiO2 35.0 Sodium 147 Potassium 3.7 Chloride 114 H Carbon Dioxide 22 Anion Gap 15 BUN 71 H Creatinine 1.3 Est GFR ( Amer) > 60 Est GFR (Non-Af Amer) 54 Random Glucose 107 Calcium 8.4 Phosphorus 3.4 Magnesium 2.4 H Total Bilirubin 0.6 AST 43 ALT 21 Alkaline Phosphatase 80 Total Protein 6.4 Albumin 2.7 L Globulin 3.7 Albumin/Globulin Ratio 0.7 L Thyroxine (T4) Total T3 TSH 3rd Generation Complement C3 Complement C4 Review of Systems - Review of Systems Systems not reviewed;Unavailable: Intubated Critical Care Progress Note - Ventilator Checklist PUD Prophalyxis: Yes DVT Prophylaxis: Yes - Vent Settings MODE:: PRVC Assessment/Plan - Assessment and Plan (Free Text) Assessment: 71 yo M w h/o HTN, HLD, arthritis, medical noncompliance admitted for hypertensive emergency with AMS, transferred to ICU following [employer] for HTN and SVT on Nicardipine drip that has since been weaned off now intubated day #7 for airway protection, course further complicated by JESUSITA and Pseudomonas PNA. Plan: Neuro: Mildly sedated on Precedex. [facility] Day #7. Will attempt weaning off vent again today, work towards possible extubation if patient can protect airway EEG read pending to r/o seizures. Neuro following Hold sedation, ativan, morphine to accurately assess neurological function. PRN Precedex Maintain normothermia. 3 CT head showed no evidence of acute intracranial hemorrhage, territorial infarct, mass effect or midline shift. 3 MRI brain had a lot of movement artifact but no significant intracranial pathology as per radiology read [facility]. Tolerated pressure support trial yesterday. Daily ABGs, CXRs while intubated Aspiration precautions. HOB >35degrees. Protective lung ventilation strategy. Duonebs Q4hr Maintain SpO2>90, PaO2>60 CV: PAF. HD stable. Cardio following. Continue amio, lopressor, digoxin, lipitor , ASA as per cardio Maintain MAP>65 2D ECHO shows LVEF 35%, mild-mod AR, mild , mild MR, mild TR, RVSP 35mmHg, trace pericardial effusion, grade 3 diastolic dysfunction. Possible cardiac cath once extubated and medically stable as per cardiology recs GI: GI ppx. Continue free water flushes. Holding tube feeds while on vent pressure support. If cannot extubate, will resume TFs Endo: A1c 5.1. Maintain euglycemia 140-180 Possible pheochromocytoma workup pending. Normetanephrines elevated at 204. Renal: JESUSITA significantly improved today. Urine output 2760cc in past 24 hours. Cr 1.3 from 2.5. GFR >60. Hold all nephrotoxins. Continue NS @100cc/hr as per nephro recs. Continue to monitor renal function , strict I&Os Renal US showed no significant or acute findings Rheum: [place] titer 1:320 in speckled pattern. SLE vs mixed connective tissue disease. DS DNA pending. ID: Sputum culture significant for Pseudomonas aeruginosa. Continue Meropenem and Linezolid as per ID. 10/14 blood cultures negative after 5 days. 10/18 blood cultures negative at 3 days. Heme: Mild microcytic anemia. Hb 10.6, stable. No signs of bleeding. Will send iron panel. Vit B12 deficiency being replaced IM BID Platelet count stabilized, WNL. Continue to monitor DVT/GI ppx: SQH. IV protonix. Holding tube feeds while on PS, will resume if remains intubated today, continue free water flushes - Date & Time Date: 10/22/16 Time: 08:29 <Zeb العراقي MD H - Last Filed: 10/22/16 10:54> CCU Objective - Vital Signs / Intake & Output Vital Signs (Last 4 hours): Vital Signs Temp Pulse Resp BP Pulse Ox 10/22/16 09:13 50 L 112/62 10/22/16 09:12 50 L 112/89 10/22/16 08:00 99.9 F H 10/22/16 07:53 53 L 20 99 10/22/16 07:45 52 L 15 98 10/22/16 07:30 52 L 15 99 10/22/16 07:23 53 L 15 99 10/22/16 07:22 57 L 14 99 10/22/16 07:15 55 L 18 99 10/22/16 07:00 50 L 20 127/55 L 99 Intake and Output (Last 8hrs): Intake & Output 10/21/16 10/22/16 10/22/16 22:59 06:59 14:59 Intake Total 2711 2699 Output Total 860 1900 Balance 1851 799 Weight 214 lb 11.2 oz Intake: IV 1431 1499 Precedex 81 99 IVF 950 1000 Antibiotics 400 400 Tube Feeding 1280 600 Other 600 Output: Urine 860 1900 Urethral (Mathur) 860 1900 Other: Voiding Method Indwelling Catheter # Bowel Movements 1 1 - Medications Active Medications: Active Medications Generic Name Dose Route Start Last Admin Trade Name Freq PRN Reason Stop Dose Admin Acetaminophen 650 mg 10/18/16 15:23 10/20/16 01:12 Tylenol 325mg Tab PO 650 mg Q6H PRN Administration Fever >100.4 F Albuterol/Ipratropium 3 ml 10/21/16 18:00 10/22/16 07:44 Duoneb 3 Mg/0.5 Mg (3 Ml) Ud IH 3 ml Q6 ROSALIA Administration Amiodarone HCl 200 mg 10/17/16 10:00 10/22/16 09:13 Cordarone PO Not Given DAILY ROSALIA Aspirin 81 mg 10/15/16 16:15 10/22/16 09:11 Aspirin Chewable PO 81 mg DAILY ROSALIA Administration Atorvastatin Calcium 40 mg 10/16/16 17:00 10/21/16 16:27 Lipitor PO 40 mg DIN ROSALIA Administration Digoxin 0.125 mg 10/20/16 10:00 10/20/16 09:52 Lanoxin PO 0.125 mg MWF ROSALIA Administration Heparin Sodium (Porcine) 5,000 units 10/17/16 13:45 10/22/16 09:11 Heparin SC 5,000 units Q12 ROSALIA Administration Meropenem 1 gm/ Sodium 100 mls @ 100 mls/hr 10/18/16 16:45 10/22/16 09:08 Chloride IVPB 10/25/16 16:46 100 mls/hr Q12 ROSALIA Administration Protocol Dexmedetomidine HCl 100 mls @ 4.06 mls/hr 10/20/16 12:32 10/22/16 08:00 Precedex 4 Mcg/Ml (100 Ml) IV 14.209 mls/hr .Q24H PRN Administration Agitation Protocol 0.2 MCG/KG/HR Sodium Chloride 1,000 mls @ 100 mls/hr 10/21/16 10:30 10/22/16 09:07 Sodium Chloride 0.9% IV 100 mls/hr .Q10H ROSALIA Administration Metoprolol Tartrate 25 mg 10/20/16 10:00 10/22/16 09:12 Lopressor PO Not Given BID [facility] Pantoprazole Sodium 40 mg 10/16/16 12:45 10/22/16 09:11 Protonix Inj IVP 40 mg DAILY ROSALIA Administration Thiamine HCl 100 mg 10/15/16 17:00 10/22/16 09:13 Vitamin B1 Tab PO 100 mg DAILY ROSALIA Administration - Patient Studies Lab Studies: Microbiology Studies 10/20/16 20:00 C. difficile Antigen & Toxin A,B (M - Final Stool 10/18/16 11:30 Blood Culture - Preliminary Blood NO GROWTH AFTER 3 DAYS Lab Studies 10/22/16 10/22/16 10/21/16 Range/Units 07:11 06:28 13:10 WBC 11.0 (4.5-11.0) 10^3/ul RBC 4.06 (3.5-6.1) 10^6/uL Hgb 10.6 L (14.0-18.0) gm/dL Hct 30.5 L (42.0-52.0) % MCV 75.1 L (80.0-105.0) fL MCH 26.1 (25.0-35.0) pg MCHC 34.8 (31.0-37.0) g/dl RDW 16.0 H (11.5-14.5) % Plt Count 200 (120.0-450.0) 10^3/uL Gran % 80.7 H (50.0-68.0) % Lymph % (Auto) 10.4 L (22.0-35.0) % [place] % (Auto) 8.6 H (1.0-6.0) % Eos % (Auto) 0.2 L (1.5-5.0) % Baso % (Auto) 0.1 (0.0-3.0) % Gran # 8.87 H (1.4-6.5) Lymph # 1.1 L (1.2-3.4) [place] # 1.0 H (0.1-0.6) Eos # 0.0 (0.0-0.7) Baso # 0.01 (0.0-2.0) K/mm3 ESR 68 H (0.00-15.0) mm/hr pCO2 36 (35-45) mm/Hg pO2 83.0 (80-100) mm/Hg HCO3 21.8 (21-28) mmol/L ABG pH 7.39 (7.35-7.45) ABG Total CO2 22.9 (22-28) mmol.L ABG O2 Saturation 97.8 (95-98) % ABG O2 Content 14.5 L (15-23) ML/dl ABG Base Excess -2.7 L (-2.0-3.0) mmol/L ABG Hemoglobin 10.7 L (11.7-17.4) g/dL ABG Carboxyhemoglobin 1.7 H (0.5-1.5) % POC ABG HHb (Measured) 2.1 (0-5) % ABG Methemoglobin 0.6 (0.0-3.0) % ABG O2 Capacity 14.8 L (16-24) mL/dl Hgb O2 Saturation 95.5 (95.0-98.0) % FiO2 35.0 % Sodium 147 (132-148) mmol/L Potassium 3.7 (3.6-5.0) mmol/L Chloride 114 H (98-107) mmol/L Carbon Dioxide 22 (21-33) mmol/L Anion Gap 15 (10-20) BUN 71 H (7-21) mg/dL Creatinine 1.3 (0.5-1.4) mg/dL Est GFR ( Amer) > 60 Est GFR (Non-Af Amer) 54 Random Glucose 107 (70-110) mg/dL Calcium 8.4 (8.4-10.5) mg/dL Phosphorus 3.4 (2.5-4.5) mg/dL Magnesium 2.4 H (1.7-2.2) mg/dL Total Bilirubin 0.6 (0.2-1.3) mg/dL AST 43 (15-59) U/L ALT 21 (7-56) U/L Alkaline Phosphatase 80 (38-133) U/L Total Protein 6.4 (5.8-8.3) g/dL Albumin 2.7 L (3.0-4.8) g/dL Globulin 3.7 gm/dL Albumin/Globulin Ratio 0.7 L (1.1-1.8) Thyroxine (T4) (5.5-11.0) ug/dL Total T3 (0.97-1.69) ng/mL TSH 3rd Generation (0.46-4.68) mIU/mL Complement C3 (88.0-165.0) mg/dL Complement C4 (14.0-44.0) mg/dL 10/21/16 10/21/16 Range/Units 12:30 12:20 WBC (4.5-11.0) 10^3/ul RBC (3.5-6.1) 10^6/uL Hgb (14.0-18.0) gm/dL Hct (42.0-52.0) % MCV (80.0-105.0) fL MCH (25.0-35.0) pg MCHC (31.0-37.0) g/dl RDW (11.5-14.5) % Plt Count (120.0-450.0) 10^3/uL Gran % (50.0-68.0) % Lymph % (Auto) (22.0-35.0) % [place] % (Auto) (1.0-6.0) % Eos % (Auto) (1.5-5.0) % Baso % (Auto) (0.0-3.0) % Gran # (1.4-6.5) Lymph # (1.2-3.4) [place] # (0.1-0.6) Eos # (0.0-0.7) Baso # (0.0-2.0) K/mm3 ESR (0.00-15.0) mm/hr pCO2 (35-45) mm/Hg pO2 (80-100) mm/Hg HCO3 (21-28) mmol/L ABG pH (7.35-7.45) ABG Total CO2 (22-28) mmol.L ABG O2 Saturation (95-98) % ABG O2 Content (15-23) ML/dl ABG Base Excess (-2.0-3.0) mmol/L ABG Hemoglobin (11.7-17.4) g/dL ABG Carboxyhemoglobin (0.5-1.5) % POC ABG HHb (Measured) (0-5) % ABG Methemoglobin (0.0-3.0) % ABG O2 Capacity (16-24) mL/dl Hgb O2 Saturation (95.0-98.0) % FiO2 % Sodium (132-148) mmol/L Potassium (3.6-5.0) mmol/L Chloride (98-107) mmol/L Carbon Dioxide (21-33) mmol/L Anion Gap (10-20) BUN (7-21) mg/dL Creatinine (0.5-1.4) mg/dL Est GFR ( Amer) Est GFR (Non-Af Amer) Random Glucose (70-110) mg/dL Calcium (8.4-10.5) mg/dL Phosphorus (2.5-4.5) mg/dL Magnesium (1.7-2.2) mg/dL Total Bilirubin (0.2-1.3) mg/dL AST (15-59) U/L ALT (7-56) U/L Alkaline Phosphatase (38-133) U/L Total Protein (5.8-8.3) g/dL Albumin (3.0-4.8) g/dL Globulin gm/dL Albumin/Globulin Ratio (1.1-1.8) Thyroxine (T4) 8.7 (5.5-11.0) ug/dL Total T3 0.66 L (0.97-1.69) ng/mL TSH 3rd Generation 0.61 (0.46-4.68) mIU/mL Complement C3 112.0 (88.0-165.0) mg/dL Complement C4 29.5 (14.0-44.0) mg/dL Laboratory Results - last 24 hr 10/21/16 10/21/16 10/21/16 12:20 12:30 13:10 WBC RBC Hgb Hct MCV MCH MCHC RDW Plt Count Gran % Lymph % (Auto) [place] % (Auto) Eos % (Auto) Baso % (Auto) Gran # Lymph # [place] # Eos # Baso # ESR 68 H pCO2 pO2 HCO3 ABG pH ABG Total CO2 ABG O2 Saturation ABG O2 Content ABG Base Excess ABG Hemoglobin ABG Carboxyhemoglobin POC ABG HHb (Measured) ABG Methemoglobin ABG O2 Capacity Hgb O2 Saturation FiO2 Sodium Potassium Chloride Carbon Dioxide Anion Gap BUN Creatinine Est GFR ( Amer) Est GFR (Non-Af Amer) Random Glucose Calcium Phosphorus Magnesium Total Bilirubin AST ALT Alkaline Phosphatase Total Protein Albumin Globulin Albumin/Globulin Ratio Thyroxine (T4) 8.7 Total T3 0.66 L TSH 3rd Generation 0.61 Complement C3 112.0 Complement C4 29.5 10/22/16 10/22/16 06:28 07:11 WBC 11.0 RBC 4.06 Hgb 10.6 L Hct 30.5 L MCV 75.1 L MCH 26.1 MCHC 34.8 RDW 16.0 H Plt Count 200 Gran % 80.7 H Lymph % (Auto) 10.4 L [place] % (Auto) 8.6 H Eos % (Auto) 0.2 L Baso % (Auto) 0.1 Gran # 8.87 H Lymph # 1.1 L [place] # 1.0 H Eos # 0.0 Baso # 0.01 ESR pCO2 36 pO2 83.0 HCO3 21.8 ABG pH 7.39 ABG Total CO2 22.9 ABG O2 Saturation 97.8 ABG O2 Content 14.5 L ABG Base Excess -2.7 L ABG Hemoglobin 10.7 L ABG Carboxyhemoglobin 1.7 H POC ABG HHb (Measured) 2.1 ABG Methemoglobin 0.6 ABG O2 Capacity 14.8 L Hgb O2 Saturation 95.5 FiO2 35.0 Sodium 147 Potassium 3.7 Chloride 114 H Carbon Dioxide 22 Anion Gap 15 BUN 71 H Creatinine 1.3 Est GFR ( Amer) > 60 Est GFR (Non-Af Amer) 54 Random Glucose 107 Calcium 8.4 Phosphorus 3.4 Magnesium 2.4 H Total Bilirubin 0.6 AST 43 ALT 21 Alkaline Phosphatase 80 Total Protein 6.4 Albumin 2.7 L Globulin 3.7 Albumin/Globulin Ratio 0.7 L Thyroxine (T4) Total T3 TSH 3rd Generation Complement C3 Complement C4 Attending/Attestation - Attestation I have personally seen and examined this patient.: Yes I have fully participated in the care of the patient.: Yes I have reviewed all pertinent clinical information: Yes Notes (Text): 10/22/16 10:52 71 y/o w/ VDRF Pseudomonas PNA CHF NSTEMI BRAYDEN increased (speckled) Possible Pheochromocytoma JESUSITA Currently awake on minimal precedex, on SBT, able to follow commands day#7 intubation Plans to check for GAG, cough and cuff leak before possible extubation On Meropenum for Pseudomonas with ID following CHF, with no signs of further hypoxia JESUSITA, resolving and urine output increasing overnight > 1.5L cc time 65 min
[2016-10-22] MEDS: Sodium Chloride 0.9% 1,000 ML IV SCH ×2 (09:07→21:24)
[2016-10-22] MEDS: Meropenem 1 GM in Sodium Chloride 0.9% 100 ML IVPB SCH ×2 (09:08→21:34)
[2016-10-22] MEDS: Linezolid 600 mg in D5W 300 ml 300 ML IVPB SCH (09:10)
--- NOTE | 2016-10-22 10:18 | PN ---
DATE: 10/22/2016 FOLLOWUP SUBJECTIVE: This is a 71-year-old male with past medical history of hypertension, hyperlipidemia. T he patient was transferred to TCU, intubated, and altered mental status. The patient opens eyes to v erbal commands. PHYSICAL EXAMINATION: GENERAL: The patient is on ventilatory support, not following commands. EXTREMITIES: No spontaneous movement of the extremities. Deep tendon reflexes 1+. Plantars are iván ngoing. Cerebellar gait deferred. IMPRESSION: Encephalopathy, possibly cardiac metabolic. Continue present management. We will follo w up. Rik Brown MD cc: [id number] TT: 10/22/2016 10:17:51 Confirmation # [id number] Dictation # [id number] jn
--- NOTE | 2016-10-22 10:55 | PN ---
DATE: 10/22/2016 The patient seen earlier this morning in ICU bed #5. SUBJECTIVE: The patient is status unchanged. The case discussed with the nursing staff who state th e patient had an uneventful night and had low grade fevers and no diarrhea reported. The patient rem ains intubated on a ventilator. PHYSICAL EXAMINATION: VITAL SIGNS: Temperature is 99.9, blood pressure is 112/80, respiratory rate on the vent, a heart ra te of 53. HEENT: Reveals the ET tube in place. NECK: Supple. LUNGS: Have decreased breath sounds. HEART: Normal S1, S2. ABDOMEN: Soft, nontender. No organomegaly, no rebound. LABORATORY DATA: Reveals the patient's white count of 11,000, hemoglobin of 10, platelets of 200. C hemistries reveal a BUN of 71, creatinine of 1.3 this morning. LFTs are normal. Alkaline phosphatas e is normal with a magnesium of 2.4. The patient's last procalcitonin was 27. Microbiology reveals Pseudomonas aeruginosa in the trachea culture, and sensitivity is reviewed. The patient also had a s tool for C. diff antigen, negative and toxin negative. Review of the orders confirms the patient to be on meropenem and linezolid. ASSESSMENT AND PLAN: This is a 71-year-old male with severe sepsis, respiratory failure, intubated o n a ventilator with pseudomonas healthcare-associated pneumonia, acute kidney injury, acute encephalo clari, right-sided healthcare-associated pseudomonas pneumonia. We will discontinue the Zyvox and co ntinue the meropenem at this time and repeat a procalcitonin. Review of the platelets reveals the everton paige's platelets to be 200,000, and whose note is reviewed. Dr. Brown's note is reviewed. We will follow with you. Sp Arora MD cc: [id number] TT: 10/22/2016 10:54:49 Confirmation # [id number] Dictation # [id number] mn
--- NOTE | 2016-10-22 12:15 | RAD ---
HISTORY: on current settings COMPARISON: Chest x-ray performed 10/21/16 TECHNIQUE: Chest, one view. FINDINGS: Nasogastric tube extends to the expected of the stomach. Left-sided PICC extends the cavoatrial junction. LUNGS: Right infrahilar opacity re-identified. Hyperinflation may be seen in the setting of COPD. Right greater than left pleural effusions. Pulmonary venous congestion. Bibasilar atelectasis/infiltrates. No definite pneumothorax. Please note that chest x-ray has limited sensitivity for the detection of pulmonary masses. CARDIOVASCULAR: Cardiomegaly. OSSEOUS STRUCTURES: Osseous demineralization. Degenerative changes. VISUALIZED UPPER ABDOMEN: Unremarkable. OTHER FINDINGS: None. IMPRESSION: Nasogastric tube extends to the expected of the stomach. Left-sided PICC extends the cavoatrial junction. Right infrahilar opacity re-identified. Right greater than left pleural effusions. Pulmonary venous congestion. Bibasilar atelectasis/infiltrates. Hyperinflation may be seen in the setting of COPD. Cardiomegaly.
--- NOTE | 2016-10-22 12:50 | PN ---
DATE: 10/22/2016 SUBJECTIVE: The patient appears comfortable, extubated today, appears oriented to person. PHYSICAL EXAMINATION: VITAL SIGNS: Stable. Temperature is 99.9, respiration is 16, pulse is 50, blood pressure 112/62. LUNGS: Have decreased sounds at bilateral bases. HEART: Regular rhythm. ABDOMEN: Soft, nontender. EXTREMITIES: No edema. PLAN: Continue current therapy. We will attempt to see the patient later today. Awaiting patient's to give the family reports. Renal function appears improved. Double stranded DNA is still pen ding. Off hydralazine. Follow electrolytes, CBC tomorrow. Mobilize the patient out of bed as possi ble. Jf Posey MD cc: [id number] TT: 10/22/2016 12:49:46 Confirmation # [id number] Dictation # [id number]
--- NOTE | 2016-10-22 23:09 | CP.PCM.PN ---
Subjective - Date & Time of Evaluation Date of Evaluation: 10/22/16 Time of Evaluation: 23:09 - Subjective Subjective: I was asked to renew restraint order.(Co-Sign.) Patient was seen at bedside. I was also asked to sign order for mittens restraints.Mittens were applied as patient was trying to pull Mathur catheter out. This 71 year old male was admitted with sob, substernal chest pain/CHF. Has PMH of Hypertension, CHF, HLD, pulmonary edema, arthritis, arthroscopy. Objective - Vital Signs/Intake and Output Vital Signs (last 24 hours): Temp Pulse Resp BP Pulse Ox 99.9 F H 88 32 H 157/122 H 87 L 10/22/16 16:00 10/22/16 18:15 10/22/16 18:15 10/22/16 18:00 10/22/16 18:00 Intake and Output: 10/22/16 10/23/16 18:59 06:59 Intake Total 1960 Output Total 900 Balance 1060 - Medications Medications: Current Medications Acetaminophen (Tylenol 325mg Tab) 650 mg PO Q6H PRN PRN Reason: Fever >100.4 F Last Admin: 10/20/16 01:12 Dose: 650 mg Albuterol/Ipratropium (Duoneb 3 Mg/0.5 Mg (3 Ml) Ud) 3 ml IH Q6 [facility] Last Admin: 10/22/16 20:15 Dose: 3 ml Amiodarone HCl (Cordarone) 200 mg PO DAILY [facility] Last Admin: 10/22/16 09:13 Dose: Not Given Aspirin (Aspirin Chewable) 81 mg PO DAILY [facility] Last Admin: 10/22/16 09:11 Dose: 81 mg Atorvastatin Calcium (Lipitor) 40 mg PO DIN [facility] Last Admin: 10/22/16 16:36 Dose: Not Given Digoxin (Lanoxin) 0.125 mg PO MWF [facility] Last Admin: 10/20/16 09:52 Dose: 0.125 mg Heparin Sodium (Porcine) (Heparin) 5,000 units SC Q12 [facility] Last Admin: 10/22/16 21:39 Dose: 5,000 units Meropenem 1 gm/ Sodium (Chloride) 100 mls @ 100 mls/hr IVPB Q12 ROSALIA PRN Reason: Protocol Stop: 10/25/16 16:46 Last Admin: 10/22/16 21:34 Dose: 100 mls/hr Dexmedetomidine HCl (Precedex 4 Mcg/Ml (100 Ml)) 100 mls @ 4.06 mls/hr IV .Q24H PRN; Protocol; 0.2 MCG/KG/HR PRN Reason: Agitation Last Admin: 10/22/16 08:00 Dose: 14.209 mls/hr Sodium Chloride (Sodium Chloride 0.9%) 1,000 mls @ 100 mls/hr IV .Q10H [facility] Last Admin: 10/22/16 21:24 Dose: 100 mls/hr Metoprolol Tartrate (Lopressor) 25 mg PO BID [facility] Last Admin: 10/22/16 18:00 Dose: Not Given Pantoprazole Sodium (Protonix Inj) 40 mg IVP DAILY [facility] Last Admin: 10/22/16 09:11 Dose: 40 mg Thiamine HCl (Vitamin B1 Tab) 100 mg PO DAILY [facility] Last Admin: 10/22/16 09:13 Dose: 100 mg - Labs Labs: 10/22/16 07:11 10/22/16 07:11 PT 11.0 Seconds (9.9-11.8) 10/14/16 14:06 INR 1.02 (0.93-1.08) 10/14/16 14:06 APTT 28.2 Seconds (23.7-30.8) 10/14/16 14:06 - Constitutional Appears: Well, No Acute Distress - Head Exam Head Exam: ATRAUMATIC, NORMAL INSPECTION, NORMOCEPHALIC - Eye Exam Eye Exam: Normal appearance - ENT Exam ENT Exam: Normal External Ear Exam - Neck Exam Neck Exam: Normal Inspection - Respiratory Exam Respiratory Exam: NORMAL BREATHING PATTERN - Cardiovascular Exam Cardiovascular Exam: absent: JVD - GI/Abdominal Exam GI & Abdominal Exam: absent: Distended - Rectal Exam Rectal Exam: Deferred - Extremities Exam Extremities Exam: Normal Inspection - Back Exam Back Exam: NORMAL INSPECTION - Neurological Exam Neurological Exam: Alert - Psychiatric Exam Psychiatric exam: Agitated - Skin Skin Exam: Normal Color Assessment and Plan - Assessment and Plan (Free Text) Assessment: A/P: Agitation. CHF. Pulmonary edema. HTN. HLD. Arthritis. Vest restraint ordered. Bilateral mittens was ordered.
[2016-10-22] MEDS ORDERED: Metoprolol 1 mg/ml Inj IVP STA (23:58)
[2016-10-23] MEDS ORDERED: Labetalol 5 mg/ml Inj 20ML IV ONE (02:28)
[2016-10-23] MEDS: Albuterol-Ipratrop 3 mg / 0.5 (3 ml) UD IH SCH ×2 (02:30→19:50)
[2016-10-23] MEDS: Nicardipine 20 MG/200 ML 200 ML IV PRN ×3 (03:00→10:28)
[2016-10-23 06:06] LABS: ADD MANUAL DIFF? NO
[2016-10-23 06:23] LABS: BASO # 0.02 K/mm3 (0.0-2.0); BASO % 0.2 % (0.0-3.0); GRAN # 9.67 (1.4-6.5); GRAN % 81.5 % (50.0-68.0); HEMATOCRIT 30.3 % (42.0-52.0); LYMPH # 0.9 (1.2-3.4); LYMPH % 7.8 % (22.0-35.0); MEAN CELL VOLUME 75.2 fL (80.0-105.0); MEAN CORPUSCULAR HEMOGLOBIN 25.8 pg (25.0-35.0); MEAN CORPUSCULAR HGB CONC 34.3 g/dl (31.0-37.0); MONO # 1.3 (0.1-0.6); MONO % 10.5 % (1.0-6.0); PLATELET COUNT 208 10^3/uL (120.0-450.0); RED CELL DISTRIBUTION WIDTH 15.8 % (11.5-14.5); WHITE BLOOD COUNT 11.9 10^3/ul (4.5-11.0)
[2016-10-23 06:35] LABS: ARTERIAL BLOOD GAS HCO3 22.1 mmol/L (21-28); ARTERIAL BLOOD GAS O2 CONTENT 11.7 ML/dl (15-23); ARTERIAL BLOOD GAS PH 7.49 (7.35-7.45); CARBOXYHEMOGLOBIN 2.1 % (0.5-1.5); HHB 2.1 % (0-5); METHEMOGLOBIN 0.8 % (0.0-3.0)
[2016-10-23 06:46] LABS: ALB/GLOB RATIO 0.8 (1.1-1.8); ALKALINE PHOSPHATASE 82 U/L (38-133); ALT/SGPT 21 U/L (7-56); AST/SGOT 48 U/L (15-59); BILIRUBIN,TOTAL 0.5 mg/dL (0.2-1.3); BLOOD UREA NITROGEN 35 mg/dL (7-21); CALCIUM 8.4 mg/dL (8.4-10.5); CARBON DIOXIDE 23 mmol/L (21-33); CHLORIDE 112 mmol/L (95-110); GFR AFRICAN-AMERICAN > 60; MAGNESIUM 2.2 mg/dL (1.7-2.2); PHOSPHOROUS 1.9 mg/dL (2.5-4.5); POTASSIUM 3.3 mmol/L (3.6-5.0); SODIUM 145 mmol/L (132-148); TOTAL PROTEIN 6.3 g/dL (5.8-8.3)
[2016-10-23 06:57] LABS: GLUCOSE,RANDOM 326 mg/dL (70-110)
[2016-10-23 07:01] LABS: IRON 52 ug/dL (45-180)
--- NOTE | 2016-10-23 07:37 | CP.CCUPN ---
<ApolloodalisRachael aguilar - Last Filed: 10/23/16 13:15> CCU Subjective - Physician Review Events Since Last Encounter (Free Text): 10/23/16 11:50 Patient seen and examined bedside. Tried to pull his marcos out overnight, was placed in [place] [facility], currently still in [place]. BP went up to 218/115, was given a total of 40mg IV hydralazine, 5mg IV lopressor, and started on Nicardipine drip. Current BP 130/83. Patient was on Precedex overnight, somnolent currently, able to answer some questions but not as alert as yesterday. Patient currently denies CP, SOB, abd pain. Critical Care Time Spent (in minutes): 40 CCU Objective - Vital Signs / Intake & Output Vital Signs (Last 4 hours): Vital Signs Temp Pulse Resp BP Pulse Ox 10/23/16 05:15 81 34 H 137/57 L 91 L 10/23/16 05:01 95 H 41 H 136/100 H 93 L 10/23/16 05:00 74 28 H 93 L 10/23/16 04:45 83 77 H 146/67 90 L 10/23/16 04:43 68 30 H 143/64 94 L 10/23/16 04:30 83 47 H 113/64 90 L 10/23/16 04:15 86 27 H 144/89 92 L 10/23/16 04:14 90 35 H 94 L 10/23/16 04:00 99.2 F 93 H 26 H 147/58 L 94 L 10/23/16 03:55 92 H 47 H 148/76 93 L 10/23/16 03:50 94 H 31 H 164/49 H 93 L 10/23/16 03:48 96 H 26 H 95 10/23/16 03:45 84 38 H 152/71 H 92 L Intake and Output (Last 8hrs): Intake & Output 10/22/16 10/23/16 10/23/16 22:59 06:59 14:59 Intake Total 1960 1460 Output Total 900 2000 Balance 1060 -540 Weight 215 lb 11.2 oz Intake: IV 1260 1460 Left Upper arm 200 Precedex 60 60 IVF 1100 Antibiotics 1200 100 Oral 0 Tube Feeding 100 Other 600 Output: Drainage 0 Right Upper Abdomen 0 Urine 900 2000 Urethral (Marcos) 900 2000 Emesis 0 Oral Regurgitation 0 Other 0 Other: Voiding Method Indwelling Catheter # Bowel Movements 1 0 - Physical Exam Head: Positive for: Atraumatic, Normocephalic Pupils: Positive for: PERRL Extroacular Muscles: Positive for: EOMI Conjunctiva: Positive for: Normal Mouth: Positive for: Dry Pharnyx: Positive for: Normal. Negative for: ERYTHEMA, EXUDATE Neck: Positive for: JVD Respiratory/Chest: Positive for: Good Air Exchange. Negative for: Clear to Auscultation (coarse breath sounds throughout. Intubated PRVC 500/14/40/5), Respiratory Distress, Accessory Muscle Use Cardiovascular: Positive for: Regular Rate and Rhythm, Normal S1, S2. Negative for: Murmurs Abdomen: Positive for: Normal Bowel Sounds. Negative for: Tenderness, Distention, Peritoneal Signs Back: Positive for: Normal Inspection Lower Extremity: Positive for: Normal Inspection. Negative for: Edema Neurological: Positive for: Other (intubated) Psychiatric: Positive for: Alert. Negative for: Oriented x 3 - Medications Active Medications: Active Medications Generic Name Dose Route Start Last Admin Trade Name Freq PRN Reason Stop Dose Admin Acetaminophen 650 mg 10/18/16 15:23 10/20/16 01:12 Tylenol 325mg Tab PO 650 mg Q6H PRN Administration Fever >100.4 F Albuterol/Ipratropium 3 ml 10/21/16 18:00 10/23/16 02:30 Duoneb 3 Mg/0.5 Mg (3 Ml) Ud IH 3 ml Q6 ROSALIA Administration Amiodarone HCl 200 mg 10/17/16 10:00 10/22/16 09:13 Cordarone PO Not Given DAILY ROSALIA Aspirin 81 mg 10/15/16 16:15 10/22/16 09:11 Aspirin Chewable PO 81 mg DAILY ROSALIA Administration Atorvastatin Calcium 40 mg 10/16/16 17:00 10/22/16 16:36 Lipitor PO Not Given DIN ROSALIA Digoxin 0.125 mg 10/20/16 10:00 10/20/16 09:52 Lanoxin PO 0.125 mg MWF ROSALIA Administration Heparin Sodium (Porcine) 5,000 units 10/17/16 13:45 10/22/16 21:39 Heparin SC 5,000 units Q12 ROSALIA Administration Meropenem 1 gm/ Sodium 100 mls @ 100 mls/hr 10/18/16 16:45 10/22/16 21:34 Chloride IVPB 10/25/16 16:46 100 mls/hr Q12 ROSALIA Administration Protocol Dexmedetomidine HCl 100 mls @ 4.06 mls/hr 10/20/16 12:32 10/23/16 02:35 Precedex 4 Mcg/Ml (100 Ml) IV 0.5 mcg/kg/hr .Q24H PRN Titration Agitation Protocol 0.2 MCG/KG/HR Sodium Chloride 1,000 mls @ 100 mls/hr 10/21/16 10:30 10/22/16 21:24 Sodium Chloride 0.9% IV 100 mls/hr .Q10H ROSALIA Administration Nicardipine HCl 200 mls @ 100 mls/hr 10/23/16 02:50 10/23/16 06:00 Cardene Iv Premix IV 7 mg/hr .Q2H PRN Titration TITRATE PER MD ORDER Protocol 10 MG/HR Metoprolol Tartrate 25 mg 10/20/16 10:00 10/22/16 18:00 Lopressor PO Not Given BID ROSALIA Pantoprazole Sodium 40 mg 10/16/16 12:45 10/22/16 09:11 Protonix Inj IVP 40 mg DAILY ROSALIA Administration Thiamine HCl 100 mg 10/15/16 17:00 10/22/16 09:13 Vitamin B1 Tab PO 100 mg DAILY ROSALIA Administration - Patient Studies Lab Studies: Microbiology Studies 10/18/16 11:30 Blood Culture - Preliminary Blood NO GROWTH AFTER 4 DAYS 10/20/16 20:00 C. difficile Antigen & Toxin A,B (M - Final Stool Lab Studies 10/23/16 10/23/16 10/22/16 Range/Units 06:15 05:45 13:20 WBC 11.9 H (4.5-11.0) 10^3/ul RBC 4.03 (3.5-6.1) 10^6/uL Hgb 10.4 L (14.0-18.0) gm/dL Hct 30.3 L (42.0-52.0) % MCV 75.2 L (80.0-105.0) fL MCH 25.8 (25.0-35.0) pg MCHC 34.3 (31.0-37.0) g/dl RDW 15.8 H (11.5-14.5) % Plt Count 208 (120.0-450.0) 10^3/uL Gran % 81.5 H (50.0-68.0) % Lymph % (Auto) 7.8 L (22.0-35.0) % Simpson % (Auto) 10.5 H (1.0-6.0) % Eos % (Auto) 0.0 L (1.5-5.0) % Baso % (Auto) 0.2 (0.0-3.0) % Gran # 9.67 H (1.4-6.5) Lymph # 0.9 L (1.2-3.4) Simpson # 1.3 H (0.1-0.6) Eos # 0.0 (0.0-0.7) Baso # 0.02 (0.0-2.0) K/mm3 pCO2 29 L (35-45) mm/Hg pO2 70.0 L (80-100) mm/Hg HCO3 22.1 (21-28) mmol/L ABG pH 7.49 H (7.35-7.45) ABG Total CO2 23.0 (22-28) mmol.L ABG O2 Saturation 97.8 (95-98) % ABG O2 Content 11.7 L (15-23) ML/dl ABG Base Excess -0.8 (-2.0-3.0) mmol/L ABG Hemoglobin 8.7 L (11.7-17.4) g/dL ABG Carboxyhemoglobin 2.1 H (0.5-1.5) % POC ABG HHb (Measured) 2.1 (0-5) % ABG Methemoglobin 0.8 (0.0-3.0) % ABG O2 Capacity 12.0 L (16-24) mL/dl Hgb O2 Saturation 95.0 (95.0-98.0) % FiO2 32.0 % Sodium 145 (132-148) mmol/L Potassium 3.3 L (3.6-5.0) mmol/L Chloride 112 H (95-110) mmol/L Carbon Dioxide 23 (21-33) mmol/L Anion Gap 13 (10-20) BUN 35 H (7-21) mg/dL Creatinine 1.0 (0.5-1.4) mg/dL Est GFR ( Amer) > 60 Est GFR (Non-Af Amer) > 60 Random Glucose 326 H* D (70-110) mg/dL Calcium 8.4 (8.4-10.5) mg/dL Phosphorus 1.9 L (2.5-4.5) mg/dL Magnesium 2.2 (1.7-2.2) mg/dL Iron 52 (45-180) ug/dL TIBC 177 L (261-462) ug/dL % Saturation 30 (20-55) % Total Bilirubin 0.5 (0.2-1.3) mg/dL AST 48 (15-59) U/L ALT 21 (7-56) U/L Alkaline Phosphatase 82 (38-133) U/L Total Protein 6.3 (5.8-8.3) g/dL Albumin 2.7 L (3.0-4.8) g/dL Globulin 3.6 gm/dL Albumin/Globulin Ratio 0.8 L (1.1-1.8) Procalcitonin 13.80 H (0.19-0.49) NG/ML 10/22/16 Range/Units 07:11 WBC 11.0 (4.5-11.0) 10^3/ul RBC 4.06 (3.5-6.1) 10^6/uL Hgb 10.6 L (14.0-18.0) gm/dL Hct 30.5 L (42.0-52.0) % MCV 75.1 L (80.0-105.0) fL MCH 26.1 (25.0-35.0) pg MCHC 34.8 (31.0-37.0) g/dl RDW 16.0 H (11.5-14.5) % Plt Count 200 (120.0-450.0) 10^3/uL Gran % 80.7 H (50.0-68.0) % Lymph % (Auto) 10.4 L (22.0-35.0) % Simpson % (Auto) 8.6 H (1.0-6.0) % Eos % (Auto) 0.2 L (1.5-5.0) % Baso % (Auto) 0.1 (0.0-3.0) % Gran # 8.87 H (1.4-6.5) Lymph # 1.1 L (1.2-3.4) Simpson # 1.0 H (0.1-0.6) Eos # 0.0 (0.0-0.7) Baso # 0.01 (0.0-2.0) K/mm3 pCO2 (35-45) mm/Hg pO2 (80-100) mm/Hg HCO3 (21-28) mmol/L ABG pH (7.35-7.45) ABG Total CO2 (22-28) mmol.L ABG O2 Saturation (95-98) % ABG O2 Content (15-23) ML/dl ABG Base Excess (-2.0-3.0) mmol/L ABG Hemoglobin (11.7-17.4) g/dL ABG Carboxyhemoglobin (0.5-1.5) % POC ABG HHb (Measured) (0-5) % ABG Methemoglobin (0.0-3.0) % ABG O2 Capacity (16-24) mL/dl Hgb O2 Saturation (95.0-98.0) % FiO2 % Sodium 147 (132-148) mmol/L Potassium 3.7 (3.6-5.0) mmol/L Chloride 114 H (95-110) mmol/L Carbon Dioxide 22 (21-33) mmol/L Anion Gap 15 (10-20) BUN 71 H (7-21) mg/dL Creatinine 1.3 (0.5-1.4) mg/dL Est GFR ( Amer) > 60 Est GFR (Non-Af Amer) 54 Random Glucose 107 (70-110) mg/dL Calcium 8.4 (8.4-10.5) mg/dL Phosphorus 3.4 (2.5-4.5) mg/dL Magnesium 2.4 H (1.7-2.2) mg/dL Iron (45-180) ug/dL TIBC (261-462) ug/dL % Saturation (20-55) % Total Bilirubin 0.6 (0.2-1.3) mg/dL AST 43 (15-59) U/L ALT 21 (7-56) U/L Alkaline Phosphatase 80 (38-133) U/L Total Protein 6.4 (5.8-8.3) g/dL Albumin 2.7 L (3.0-4.8) g/dL Globulin 3.7 gm/dL Albumin/Globulin Ratio 0.7 L (1.1-1.8) Procalcitonin (0.19-0.49) NG/ML Laboratory Results - last 24 hr 10/22/16 10/22/16 10/23/16 07:11 13:20 05:45 WBC 11.0 11.9 H RBC 4.06 4.03 Hgb 10.6 L 10.4 L Hct 30.5 L 30.3 L MCV 75.1 L 75.2 L MCH 26.1 25.8 MCHC 34.8 34.3 RDW 16.0 H 15.8 H Plt Count 200 208 Gran % 80.7 H 81.5 H Lymph % (Auto) 10.4 L 7.8 L Simpson % (Auto) 8.6 H 10.5 H Eos % (Auto) 0.2 L 0.0 L Baso % (Auto) 0.1 0.2 Gran # 8.87 H 9.67 H Lymph # 1.1 L 0.9 L Simpson # 1.0 H 1.3 H Eos # 0.0 0.0 Baso # 0.01 0.02 pCO2 pO2 HCO3 ABG pH ABG Total CO2 ABG O2 Saturation ABG O2 Content ABG Base Excess ABG Hemoglobin ABG Carboxyhemoglobin POC ABG HHb (Measured) ABG Methemoglobin ABG O2 Capacity Hgb O2 Saturation FiO2 Sodium 147 145 Potassium 3.7 3.3 L Chloride 114 H 112 H Carbon Dioxide 22 23 Anion Gap 15 13 BUN 71 H 35 H Creatinine 1.3 1.0 Est GFR ( Amer) > 60 > 60 Est GFR (Non-Af Amer) 54 > 60 Random Glucose 107 326 H* D Calcium 8.4 8.4 Phosphorus 3.4 1.9 L Magnesium 2.4 H 2.2 Iron 52 TIBC 177 L % Saturation 30 Total Bilirubin 0.6 0.5 AST 43 48 ALT 21 21 Alkaline Phosphatase 80 82 Total Protein 6.4 6.3 Albumin 2.7 L 2.7 L Globulin 3.7 3.6 Albumin/Globulin Ratio 0.7 L 0.8 L Procalcitonin 13.80 H 10/23/16 06:15 WBC RBC Hgb Hct MCV MCH MCHC RDW Plt Count Gran % Lymph % (Auto) Simpson % (Auto) Eos % (Auto) Baso % (Auto) Gran # Lymph # Simpson # Eos # Baso # pCO2 29 L pO2 70.0 L HCO3 22.1 ABG pH 7.49 H ABG Total CO2 23.0 ABG O2 Saturation 97.8 ABG O2 Content 11.7 L ABG Base Excess -0.8 ABG Hemoglobin 8.7 L ABG Carboxyhemoglobin 2.1 H POC ABG HHb (Measured) 2.1 ABG Methemoglobin 0.8 ABG O2 Capacity 12.0 L Hgb O2 Saturation 95.0 FiO2 32.0 Sodium Potassium Chloride Carbon Dioxide Anion Gap BUN Creatinine Est GFR ( Amer) Est GFR (Non-Af Amer) Random Glucose Calcium Phosphorus Magnesium Iron TIBC % Saturation Total Bilirubin AST ALT Alkaline Phosphatase Total Protein Albumin Globulin Albumin/Globulin Ratio Procalcitonin Review of Systems - Cardiovascular Cardiovascular: absent: Chest Pain, Dyspnea - Gastrointestinal Gastrointestinal: absent: Abdominal Pain Critical Care Progress Note - Ventilator Checklist PUD Prophalyxis: Yes DVT Prophylaxis: Yes Assessment/Plan - Assessment and Plan (Free Text) Assessment: 71 yo M w h/o HTN, HLD, arthritis, medical noncompliance admitted for hypertensive emergency with AMS, transferred to ICU following AUTHORIZATION REP for HTN and SVT on Nicardipine drip that has since been weaned off now intubated day #7 for airway protection, course further complicated by JESUSITA and Pseudomonas PNA. Plan: Neuro: AAOx2, NAD. Cardiac and metabolic encephalopathy slowly improving. Able to protect airway, appears comfortable on NC EEG read pending to r/o seizures. Neuro following Hold all sedation, ativan, morphine, precedex to accurately assess neurological function. Maintain normothermia. 10/18 CT head showed no evidence of acute intracranial hemorrhage, territorial infarct, mass effect or midline shift. 10/16 MRI brain had a lot of movement artifact but no significant intracranial pathology as per radiology read Pulm: s/p successful extubation yesterday Aspiration precautions. HOB >35degrees. Duonebs Q6hr Maintain SpO2>90 CV: PAF. Occasional significant hypertensive episodes. Cardio following. Continue amio, digoxin, lipitor, ASA as per cardio. Holding Lopressor due to possible pheo and unopposed beta blockade. Nicardipine drip discontinued by cardiology. Now on labetalol 100mg PO TID as per cardio Maintain MAP>65 2D ECHO shows LVEF 35%, mild-mod AR, mild , mild MR, mild TR, RVSP 35mmHg, trace pericardial effusion, grade 3 diastolic dysfunction. Possible cardiac cath in the future when medically stable GI: GI ppx. NPO pending swallow eval Endo: A1c 5.1. Maintain euglycemia 140-180. Lab reported BS 328 repeat was 160. Start Lispro Low SSI Possible pheochromocytoma workup pending. Normetanephrines elevated at 204. Renal: JESUSITA resolved. Urine output 2900cc in past 24 hours. Cr 1.0 from 2.5. GFR >60. Hold all nephrotoxins. D/C IVF Continue to monitor renal function, strict I&Os Renal US showed no significant or acute findings Rheum: BRAYDEN titer 1:320 in speckled pattern. SLE vs mixed connective tissue disease. DS DNA pending. ID: Sputum culture significant for Pseudomonas aeruginosa. Continue Meropenem as per ID. Off Linezolid 10/14 and 10/18 blood cultures negative after 5 days. Heme: Mild microcytic anemia - of chronic disease and B12 deficiency. Hb 10.6, stable. No signs of bleeding. Will start PO B12 supplementation once patient passes swallow Eval Platelet count stabilized, WNL. Continue to monitor FEN: Mild hypokalemia and hypophophatemia - replaced. Recheck AM labs DVT/GI ppx: SQH, PT/OT. IV protonix, NPO. Swallow eval tomorrow when more awake. Diet pending swallow eval - Date & Time Date: 10/23/16 Time: 12:08 <Zeb العراقي MD H - Last Filed: 10/23/16 15:54> CCU Objective - Vital Signs / Intake & Output Vital Signs (Last 4 hours): Vital Signs Pulse BP 10/23/16 13:30 85 120/56 L Intake and Output (Last 8hrs): Intake & Output 10/23/16 10/23/16 10/23/16 06:59 14:59 22:59 Intake Total 1460 Output Total 1999 Balance -540 Weight 215 lb 11.2 oz Intake: IV 1460 Left Upper arm 200 Precedex 60 IVF 1100 Antibiotics 100 Oral 0 Output: Drainage 0 Right Upper Abdomen 0 Urine 2000 Urethral (Marcos) 1999 Other: # Bowel Movements 0 - Medications Active Medications: Active Medications Generic Name Dose Route Start Last Admin Trade Name Freq PRN Reason Stop Dose Admin Acetaminophen 650 mg 10/18/16 15:23 10/20/16 01:12 Tylenol 325mg Tab PO 650 mg Q6H PRN Administration Fever >100.4 F Albuterol/Ipratropium 3 ml 10/21/16 18:00 10/23/16 02:30 Duoneb 3 Mg/0.5 Mg (3 Ml) Ud IH 3 ml Q6 ROSALIA Administration Amiodarone HCl 200 mg 10/17/16 10:00 10/23/16 10:01 Cordarone PO 200 mg DAILY ROSALIA Administration Aspirin 81 mg 10/15/16 16:15 10/23/16 10:01 Aspirin Chewable PO 81 mg DAILY ROSALIA Administration Atorvastatin Calcium 40 mg 10/16/16 17:00 10/22/16 16:36 Lipitor PO Not Given DIN ROSALIA Cyanocobalamin 1,000 mcg 10/25/16 10:00 Vitamin B12 1000 Mcg Tab PO DAILY ROSALIA Digoxin 0.125 mg 10/20/16 10:00 10/23/16 10:04 Lanoxin PO 0.125 mg MWF ROSALIA Administration Heparin Sodium (Porcine) 5,000 units 10/17/16 13:45 10/23/16 10:02 Heparin SC 5,000 units Q12 ROSALIA Administration Meropenem 1 gm/ Sodium 100 mls @ 100 mls/hr 10/18/16 16:45 10/23/16 10:08 Chloride IVPB 10/25/16 16:46 100 mls/hr Q12 ROSALIA Administration Protocol Insulin Human Lispro 0 units 10/23/16 11:30 Humalog Low SC ACHS [facility] Protocol Labetalol HCl 100 mg 10/23/16 10:45 10/23/16 13:31 Trandate PO Not Given TID ROSALIA Metoprolol Tartrate 25 mg 10/20/16 10:00 10/23/16 10:19 Lopressor PO Not Given BID ROSALIA Pantoprazole Sodium 40 mg 10/16/16 12:45 10/23/16 10:00 Protonix Inj IVP 40 mg DAILY ROSALIA Administration Thiamine HCl 100 mg 10/15/16 17:00 10/23/16 10:06 Vitamin B1 Tab PO 100 mg DAILY ROSALIA Administration - Patient Studies Lab Studies: Microbiology Studies 10/18/16 11:30 Blood Culture - Final Blood NO GROWTH AFTER 5 DAYS Gram Stain - Final TEST NOT PERFORMED Lab Studies 10/23/16 10/23/16 10/22/16 Range/Units 06:15 05:45 13:20 WBC 11.9 H (4.5-11.0) 10^3/ul RBC 4.03 (3.5-6.1) 10^6/uL Hgb 10.4 L (14.0-18.0) gm/dL Hct 30.3 L (42.0-52.0) % MCV 75.2 L (80.0-105.0) fL MCH 25.8 (25.0-35.0) pg MCHC 34.3 (31.0-37.0) g/dl RDW 15.8 H (11.5-14.5) % Plt Count 208 (120.0-450.0) 10^3/uL Gran % 81.5 H (50.0-68.0) % Lymph % (Auto) 7.8 L (22.0-35.0) % Simpson % (Auto) 10.5 H (1.0-6.0) % Eos % (Auto) 0.0 L (1.5-5.0) % Baso % (Auto) 0.2 (0.0-3.0) % Gran # 9.67 H (1.4-6.5) Lymph # 0.9 L (1.2-3.4) Simpson # 1.3 H (0.1-0.6) Eos # 0.0 (0.0-0.7) Baso # 0.02 (0.0-2.0) K/mm3 pCO2 29 L (35-45) mm/Hg pO2 70.0 L (80-100) mm/Hg HCO3 22.1 (21-28) mmol/L ABG pH 7.49 H (7.35-7.45) ABG Total CO2 23.0 (22-28) mmol.L ABG O2 Saturation 97.8 (95-98) % ABG O2 Content 11.7 L (15-23) ML/dl ABG Base Excess -0.8 (-2.0-3.0) mmol/L ABG Hemoglobin 8.7 L (11.7-17.4) g/dL ABG Carboxyhemoglobin 2.1 H (0.5-1.5) % POC ABG HHb (Measured) 2.1 (0-5) % ABG Methemoglobin 0.8 (0.0-3.0) % ABG O2 Capacity 12.0 L (16-24) mL/dl Hgb O2 Saturation 95.0 (95.0-98.0) % FiO2 32.0 % Sodium 145 (132-148) mmol/L Potassium 3.3 L (3.6-5.0) mmol/L Chloride 112 H (95-110) mmol/L Carbon Dioxide 23 (21-33) mmol/L Anion Gap 13 (10-20) BUN 35 H (7-21) mg/dL Creatinine 1.0 (0.5-1.4) mg/dL Est GFR ( Amer) > 60 Est GFR (Non-Af Amer) > 60 Random Glucose 326 H* D (70-110) mg/dL Calcium 8.4 (8.4-10.5) mg/dL Phosphorus 1.9 L (2.5-4.5) mg/dL Magnesium 2.2 (1.7-2.2) mg/dL Iron 52 (45-180) ug/dL TIBC 177 L (261-462) ug/dL % Saturation 30 (20-55) % Transferrin 126.85 L (206-381) mg/dL Total Bilirubin 0.5 (0.2-1.3) mg/dL AST 48 (15-59) U/L ALT 21 (7-56) U/L Alkaline Phosphatase 82 (38-133) U/L Total Protein 6.3 (5.8-8.3) g/dL Albumin 2.7 L (3.0-4.8) g/dL Globulin 3.6 gm/dL Albumin/Globulin Ratio 0.8 L (1.1-1.8) Procalcitonin 13.80 H (0.19-0.49) NG/ML Laboratory Results - last 24 hr 10/22/16 10/23/16 10/23/16 13:20 05:45 06:15 WBC 11.9 H RBC 4.03 Hgb 10.4 L Hct 30.3 L MCV 75.2 L MCH 25.8 MCHC 34.3 RDW 15.8 H Plt Count 208 Gran % 81.5 H Lymph % (Auto) 7.8 L Simpson % (Auto) 10.5 H Eos % (Auto) 0.0 L Baso % (Auto) 0.2 Gran # 9.67 H Lymph # 0.9 L Simpson # 1.3 H Eos # 0.0 Baso # 0.02 pCO2 29 L pO2 70.0 L HCO3 22.1 ABG pH 7.49 H ABG Total CO2 23.0 ABG O2 Saturation 97.8 ABG O2 Content 11.7 L ABG Base Excess -0.8 ABG Hemoglobin 8.7 L ABG Carboxyhemoglobin 2.1 H POC ABG HHb (Measured) 2.1 ABG Methemoglobin 0.8 ABG O2 Capacity 12.0 L Hgb O2 Saturation 95.0 FiO2 32.0 Sodium 145 Potassium 3.3 L Chloride 112 H Carbon Dioxide 23 Anion Gap 13 BUN 35 H Creatinine 1.0 Est GFR ( Amer) > 60 Est GFR (Non-Af Amer) > 60 Random Glucose 326 H* D Calcium 8.4 Phosphorus 1.9 L Magnesium 2.2 Iron 52 TIBC 177 L % Saturation 30 Transferrin 126.85 L Total Bilirubin 0.5 AST 48 ALT 21 Alkaline Phosphatase 82 Total Protein 6.3 Albumin 2.7 L Globulin 3.6 Albumin/Globulin Ratio 0.8 L Procalcitonin 13.80 H Critical Care Progress Note - Nutrition Nutrition: Nutrition Category Date Time Status Dysphagia/Modified Consistency Diet [DIET] Diets 10/23/16 Breakfast Ordered Attending/Attestation - Attestation I have personally seen and examined this patient.: Yes I have fully participated in the care of the patient.: Yes I have reviewed all pertinent clinical information: Yes Notes (Text): 10/23/16 15:51 71 y/o M w/ resolved VDRF CHF , keep euvolemic, stop diuresis JESUSITA resolved, urine output > 40cc/hr NSTEMI plans for possible futher cardiac cath. HTn urgency overnight- started on CARDENE, noted to possibly have Pheo, not definite diagnosis yet. Will d/w nephrology about alpha blockers, phentolamine etc. Failed swallow eval, PT/OT needed F/U urine catecholamine studies. cc time 45 min
[2016-10-23] MEDS ORDERED: Potassium Chloride 20 mEq ER Tab PO STA (07:50)
[2016-10-23] MEDS ORDERED: Potassium Phosphate 3 mmol/ml Inj IV ONE (07:56)
[2016-10-23] MEDS ORDERED: Potassium Phosphate 15 MMOLE in Sodium Chloride 0.9% 250 ML IVPB ONE (08:15)
[2016-10-23] MEDS: Potassium Chloride 10 mEq 100 ML IVPB SCH ×2 (08:24→10:06)
--- NOTE | 2016-10-23 09:11 | PN ---
DATE: 10/21/2016 The patient was seen in the intensive care unit. He remains intubated with an FiO2 of 35%. He is be ing sedated with Precedex now. OG tube is in place, and he is receiving feeds at a rate of 50 mL per hour and water at a rate of 300 mL every 6 hours via the OG tube. Rectal tube is in place, as is a Mathur catheter that is draining darker-colored urine. He does not appear to be in any pain or distre ss. OBJECTIVE: VITAL SIGNS: Blood pressure is 121/71 with a minimum of 81/44 yesterday, maximum of 134/54. Heart r ate is 54, but has ranged from the 40s to as high as 60 in the last 24-hour period. Rectal temperatu re is 97.5 degrees, but the patient has a T-max of 100.9 degrees in the last 24-hour period. Respira tory rate is 21 breaths per minute, but has ranged from approximately 20-45 breaths per minute in the last 24-hour period. Oxygen saturation is 100%, but has ranged from 99-100% on the FiO2 of 35%. I' s and O's are documented as 5000/625. The remainder of the exam was as follows: HEENT: As stated above, the patient is intubated with an OG tube in place. Conjunctivae were neithe r pale nor icteric. NECK: I could not appreciate any jugular venous distention. LUNGS: Lung buckley on my exam were grossly clear to auscultation anteriorly without any rales, rhonc hi, or wheezing. Diaphragmatic excursion and airflow into both lung buckley was bilaterally symmetric al. CARDIAC: Had a regular rate and rhythm without any rubs or gallops. ABDOMEN: Soft, nontender, and nondistended, without any rebounding, guarding, or rigidity. There is mild distention, but there is no hepatosplenomegaly that I could appreciate. EXTREMITIES: Had no dependent edema. NEUROLOGIC: The patient was sedated with Precedex. VASCULAR: No bruits. GENITOURINARY: Had a Mathur catheter in place. There is no suprapubic tenderness. There is also a r ectal tube in place as well. SKIN: Intact. LABORATORY STUDIES: Sodium is 143. Potassium is 4.0, chloride 110, bicarbonate 23. BUN/creatinine is 106/2.5 with a glucose of 107. Calcium is 8.6, but corrects to 9.4 ____ the albumin is 3.0, phosp horus is 4.9. Magnesium is 2.4. White count is 10.6 with H and H of 10.3/30.2 and a platelet count of 173,000. MCV is 75. There are 84% neutrophils, 9% lymphocytes, 7% monocytes. Urinalysis was ye llow, cloudy with a pH of 5.5, specific gravity 1.020, trace protein with large blood. Fractional ex cretion of sodium is 0.4%. Fractional excretion of urea nitrogen is only 15%. BRAYDEN is noted to be po sitive at 1:320 in a speckled pattern. Chest x-ray was performed earlier today, the results of which are still pending. Yesterday, it did n ot reveal any congestive heart failure. There is no new culture data to report. Plasma metanephrine was less than 25. Normetanephrine was mildly increased to 204, but total metanep hrines were within normal limits. IMPRESSION AND PLAN: The patient is a 71-year-old gentleman with a known history of hypertension and left ventricular hypertrophy, dyslipidemia, coronary artery disease with decreased left ventricular systolic function on the basis of echo performed during this hospitalization, was admitted with dyspn ea on exertion, and had hypertensive emergency with congestive heart failure for which he required ni cardipine infusion. Hospitalization was complicated by atrial fibrillation with a rapid ventricular response. The patient was intubated where he currently remains intubated. He has also had acute kid karissa injury. 1. With respect to the patient's acute kidney injury, chest x-ray does not reveal any congestive hea rt failure, and given the fact that his fractional excretion of sodium is less than 0.4%, and his fra ctional excretion of urea nitrogen is 15%, I would continue intravenous fluids for now. He is on one -half normal saline at 100 mL per hour to provide water, as well as sodium chloride, but he has been having periods of hypotension, and therefore, we need to also increase the patient's blood pressure. I will change the fluid from one-half normal saline at 100 mL per hour to normal saline at 100 mL pe r hour for the time being. 2. I would continue feeds via the orogastric tube, as well as to give the patient his current rate o f water via the orogastric tube, as well since his sodium levels are finally within normal limits. 3. The patient's total metanephrines were elevated, but his free metanephrines were not. Metanephri aisha can be elevated in essential hypertension, and the increase in his metanephrines was not profound , and I doubt that he has pheochromocytoma, but for the sake of certainty, we are checking a 24-hour urine collection for volume creatinine, total and fractionated catecholamines, as well as total and f ractionated metanephrines. 4. The patient is noted to have a positive BRAYDEN. Urinalysis does not have any significant proteinuri a, but he does have microscopic hematuria. I have sent off C3, C4, and anti-double stranded DNA. I do not believe, however, that he is suffering from lupus nephritis at present given all the hemodynam ic insults he has experienced, including documented episodes of profound hypotension and hemodynamic instability when he did have his supraventricular tachycardia. If he did have systemic lupus erythem atosus, it may be affecting other organ beds, however. 5. Infectious disease followup is appreciated, and the patient is being treated for right-sided heal thcare-associated pneumonia with Zyvox, as well as meropenem. 6. For deep venous thrombosis prophylaxis in this patient, he is on heparin 5000 units subcutaneousl y twice daily, and for gastrointestinal prophylaxis, he is on pantoprazole. 7. With acute kidney injury, digoxin has been changed to thrice weekly instead of daily. The patien t is noted to be quite bradycardic at times. He is also on metoprolol. We will check a digoxin leve l to ensure that it is not elevated as a cause of his bradycardia. REVIEW OF SYSTEMS, PAST MEDICAL HISTORY, SOCIAL HISTORY AND FAMILY HISTORY: Have all been reviewed, and there are no new changes. More than 35 minutes were spent in the care of this ICU patient today. Erik Chan MD cc: [id number] TT: 10/21/2016 11:10:55 Confirmation # [id number] Dictation # [id number] jn
--- NOTE | 2016-10-23 09:39 | CP.PCM.PN ---
Subjective - Date & Time of Evaluation Date of Evaluation: 10/23/16 Time of Evaluation: 08:50 - Subjective Subjective: Still had low grade fever overnight, but is currently extubated, awake, not in distress and afebrile this morning, no cough currently, no diarrhea. Objective - Vital Signs/Intake and Output Vital Signs (last 24 hours): Temp Pulse Resp BP Pulse Ox 99.2 F 93 H 26 H 147/58 L 94 L 10/23/16 04:00 10/23/16 04:00 10/23/16 04:00 10/23/16 04:00 10/23/16 04:00 Intake and Output: 10/22/16 10/23/16 18:59 06:59 Intake Total 1960 1460 Output Total 900 2000 Balance 1060 -540 - Medications Medications: Current Medications Acetaminophen (Tylenol 325mg Tab) 650 mg PO Q6H PRN PRN Reason: Fever >100.4 F Last Admin: 10/20/16 01:12 Dose: 650 mg Albuterol/Ipratropium (Duoneb 3 Mg/0.5 Mg (3 Ml) Ud) 3 ml IH Q6 [facility] Last Admin: 10/23/16 02:30 Dose: 3 ml Amiodarone HCl (Cordarone) 200 mg PO DAILY [facility] Last Admin: 10/22/16 09:13 Dose: Not Given Aspirin (Aspirin Chewable) 81 mg PO DAILY [facility] Last Admin: 10/22/16 09:11 Dose: 81 mg Atorvastatin Calcium (Lipitor) 40 mg PO DIN [facility] Last Admin: 10/22/16 16:36 Dose: Not Given Digoxin (Lanoxin) 0.125 mg PO MWF [facility] Last Admin: 10/20/16 09:52 Dose: 0.125 mg Heparin Sodium (Porcine) (Heparin) 5,000 units SC Q12 [facility] Last Admin: 10/22/16 21:39 Dose: 5,000 units Meropenem 1 gm/ Sodium (Chloride) 100 mls @ 100 mls/hr IVPB Q12 [facility] PRN Reason: Protocol Stop: 10/25/16 16:46 Last Admin: 10/22/16 21:34 Dose: 100 mls/hr Dexmedetomidine HCl (Precedex 4 Mcg/Ml (100 Ml)) 100 mls @ 4.06 mls/hr IV .Q24H PRN; Protocol; 0.2 MCG/KG/HR PRN Reason: Agitation Last Titration: 10/23/16 02:35 Dose: 0.5 mcg/kg/hr Sodium Chloride (Sodium Chloride 0.9%) 1,000 mls @ 100 mls/hr IV .Q10H [facility] Last Admin: 10/22/16 21:24 Dose: 100 mls/hr Nicardipine HCl (Cardene Iv Premix) 200 mls @ 100 mls/hr IV .Q2H PRN; Protocol ; 10 MG/HR PRN Reason: TITRATE PER MD ORDER Last Titration: 10/23/16 06:00 Dose: 7 mg/hr Metoprolol Tartrate (Lopressor) 25 mg PO BID [facility] Last Admin: 10/22/16 18:00 Dose: Not Given Pantoprazole Sodium (Protonix Inj) 40 mg IVP DAILY [facility] Last Admin: 10/22/16 09:11 Dose: 40 mg Thiamine HCl (Vitamin B1 Tab) 100 mg PO DAILY [facility] Last Admin: 10/22/16 09:13 Dose: 100 mg - Labs Labs: 10/22/16 07:11 10/22/16 07:11 PT 11.0 Seconds (9.9-11.8) 10/14/16 14:06 INR 1.02 (0.93-1.08) 10/14/16 14:06 APTT 28.2 Seconds (23.7-30.8) 10/14/16 14:06 - Constitutional Appears: Non-toxic, No Acute Distress - Head Exam Head Exam: NORMAL INSPECTION - ENT Exam ENT Exam: Mucous Membranes Moist - Neck Exam Neck Exam: absent: Lymphadenopathy, Meningismus - Respiratory Exam Respiratory Exam: Decreased Breath Sounds - Cardiovascular Exam Cardiovascular Exam: +S1, +S2 - GI/Abdominal Exam GI & Abdominal Exam: Soft. absent: Tenderness - Extremities Exam Additional comments: left upper arm PICC line site clean and intact Assessment and Plan - Assessment and Plan (Free Text) Plan: Assessment S/P ventilator-dependent respiratory failure in a patient with severe sepsis with acute renal failure and acute encephalopathy probably due to right-sided hospital-acquired pneumonia, growing Pseudomonas on sputum cx, clinically improving Hypertensive emergency with acute renal failure HTN dyslipidemia arthritis S/P left knee surgery S/P bilateral cataract surgery Plan continue Merrem (day 5); repeat PCT is down to 13.8 from 27.54; will aim for 7 or 8 days of antibiotics Will continue to monitor clinically, trend fever curve
[2016-10-23] MEDS: Digoxin 125 mcg (0.125 mg) Tab PO SCH (10:04)
[2016-10-23] MEDS: Meropenem 1 GM in Sodium Chloride 0.9% 100 ML IVPB SCH ×2 (10:08→21:11)
--- NOTE | 2016-10-23 10:49 | PN ---
DATE: 10/23/2016 ATTENDING: The patient was showing clinical improvement in the ICU. Appears comfortable on nasal ca nnula oxygen, however, still confused, not oriented to place, but does appear to recognize me. PHYSICAL EXAMINATION: VITAL SIGNS: Stable. Temperature is 98, respirations are 18, pulse is 89, blood pressure 137/57. LUNGS: Clear. HEART: Regular rate and rhythm. ABDOMEN: Soft, nontender. EXTREMITIES: No edema. Chest x-ray showing improving pulmonary vascular congestion. PLAN: Agree with repeating potassium. Empiric Merrem is continuing as well, would consider stopping after day 5. Follow electrolytes and CBC tomorrow morning. Mobilize patient out of bed with soft P osey for his protection. Jf Posey MD cc: [id number] TT: 10/23/2016 10:48:27 Confirmation # [id number] Dictation # [id number]
[2016-10-23] MEDS ORDERED: Potassium Chloride 20 mEq ER Tab PO ONE (11:00)
--- NOTE | 2016-10-23 11:10 | PN ---
DATE: 10/23/2016 REASON FOR CONSULTATION AND FOLLOWUP: Congestive heart failure, paroxysmal atrial fibrillation, status post rapid response of respiratory failure, intubated, possible pheochromocytoma. BRIEF CLINICAL HISTORY: A 71-year-old male with past medical history significant for hypertension, hyperlipidemia, arthritis, admitted with shortness of breath, a few days ago respiratory status got worse, intubated. He was successfully extubated yesterday. Decreased LV function. Working diagnosis, possible pheochromocytoma. Awake and alert, not oriented, disoriented. PHYSICAL EXAMINATION: VITAL SIGNS: Temperature afebrile, heart rate 81, blood pressure 137/57. HEENT: PERRLA. Extraocular muscles intact. NECK: Supple. No carotid bruits. No thyromegaly. CHEST: Clear to auscultation. HEART: S1, S2 regular. ABDOMEN: Soft. EXTREMITIES: Clubbing and cyanosis negative. LABORATORY DATA: Blood workup as follows: WBC 11.9, hemoglobin 9.8 , hematocrit 30.3, platelet count 208. Chemistry shows sodium 145, potassium 3.3, chloride 112, carbon dioxide 23, anion gap of 13, BUN 35, creatinine 1.0. Glucose 326. Immunology positive, BRAYDEN screen positive, titer 1-20. Serology, influenza A and B negative. IMPRESSION: Status post respiratory failure, possible pheochromocytoma, coronary artery disease, possible cardiomyopathy, decreased left ventricular function, paroxysmal atrial fibrillation, now in normal sinus, confused, disoriented, altered mental status, last echo on 10/16/2016, ejection fraction 35 %, multiple wall motion abnormalities consistent with coronary artery disease, moderate aortic regurg, mild aortic stenosis, mild mitral regurgitation, mild tricuspid regurgitation. RECOMMENDATION: We will keep low dose beta adam to prevent AFib, will start labetalol. Continue workup of pheochromocytoma once the patient's mentation improves and able to understand. Consider cardiac catheterization before he goes home. We will follow with you. Thank you, Dr. Posey, for providing us the opportunity in taking care of this patient. Will discuss with the family. Continue DVT prophylaxis. Continue digoxin. Continue p.r.n. hydralazine. Continue amiodarone. We will follow with you. Supplement potassium. We will discontinue nicardipine and will start labetalol. Lucrecia Pérez MD cc: [id number] TT: 10/23/2016 11:09:23 Confirmation # [id number] Dictation # [id number] rn MTDD
--- NOTE | 2016-10-23 15:07 | RAD ---
HISTORY: on current settings COMPARISON: 10/22/2016 FINDINGS: LUNGS: Right infrahilar opacity noted. This is concerning for pneumonia or neoplasm. Followup to clearing is advised. No other abnormal opacity seen elsewhere. PLEURA: No significant pleural effusion identified, no pneumothorax apparent. CARDIOVASCULAR: Nasogastric tube removed. Left subclavian central venous catheter unchanged. OSSEOUS STRUCTURES: No significant abnormalities. VISUALIZED UPPER ABDOMEN: Normal. OTHER FINDINGS: None. IMPRESSION: Right infrahilar opacity. Followup advised. Status post removal of nasogastric tube.
[2016-10-23] MEDS: Insulin Lispro (humaLOG) LOW Coverage SC SCH (17:00)
--- NOTE | 2016-10-23 21:05 | PCM.PYCHPN ---
Psychiatric Progress Note - Psychiatric Progress Note Patient seen today, length of contact: 25 Patient Chief Complaint: Patient evaluated in ICU. Chart reviewed and case discussed with staff. Case also discussed with of 34 years who was at his bedside Patient had been agitated earlier. Is being treated for congestive heart failure with pulmonary involvement may be a with this in some denial. Children reportedly also may be in some denial. assures me that prior to this patient was capable of helping her with her diabetes and neuropathy. Yet also tells me that he has been somewhat forgetful over the past 2 years. It is not clear to me when he was offered a diagnosis of dementia nursing indicates there may be a history of alcohol use although this was presently denied. Patient had previously worked for [employer] but reportedly has been retired for about 30 years (if this is correct that I suspected there appeared to be some disability that prevented the patient from working over these years) in any event he seems that they have been home bound. He is a [employer]agon of the [facility] [employer].. The patient has 2 children who live nearby. A familial psychiatric history was denied. Problems Identified/Issues Discussed: Case reviewed with nursing. Chart reviewed. Family members at the bedside. Patient dealing with multiple medical problems who seems to be able to follow verbal commands. Agitation not reported Medical Problems: Multiple. Including history of hypertension with blood pressure lability presently, left ventricular hypertrophy, his lipidemia, coronary artery disease , left ventricular diastolic dysfunction, hyponatremia deep vein thrombosis prophylaxis Diagnostic Results: As noted in chart DSM 5 Symptoms Update: Alert and interactive but still quite passive and confused. Case reviewed with nursing and with Dr. Churchill Medication Change: No Medical Record Reviewed: Yes Mental Status Examination - Cognitive Function Orientation: Person (Nonverbal. Appears to respond to verbal commands) Memory: Impaired Attention: Poor Concentration: Poor Fund of Knowledge: Poor Decription of patient's judgement and insights: Remains impaired - Mood Mood: Other - Affect Affect: Other - Speech Speech: Soft - Formal Thought Process Formal Thought Process: Other Psychotic Thoughts and Behaviors: None evident - Suicidal Ideation Suicidal Ideation: No - Homicidal Ideation Homicidal Ideation: No Goal/Treatment Plan - Goal/Treatment Plan Need for Continued Stay: Severe functional impairment, Other Progress Toward Problem(s) and Goals/Treatment Plan: Awaiting improved cognitive status of that will presumably be coupled with improved medical status On October 23 appears improving; more so than I had anticipated. Still confused hopeful that as medical condition improves so will his cognitive status. I am told that he was taking care of his prior to his recent illness
--- NOTE | 2016-10-23 23:29 | PN ---
DATE: 10/23/2016 SUBJECTIVE: The patient was seen in the intensive care unit. He has since been extubated and is cur rently in Clarence vest. Family members are pleased with how he is doing, but they are somewhat concern ed that he is confused as well. He does not appear to be in any pain or distress, but does clearly a ppear to be somewhat encephalopathic. He is currently not on any pressors nor on any inotropes. Fol ey catheter remains in place. The patient has a Clarence in place as well. He does not have an NG tube or OG tube and instead is on a dysphagia modified consistency diet. OBJECTIVE: VITAL SIGNS: Blood pressure is 180/71, but has ranged as low as 120/70 and as high as 195/117, heart rate is 82, but has ranged from the 70s to approximately 101 beats per minute. Oral temperature is 98.5 degrees, but the patient has a T-max of 100.5 degrees at midnight, respiratory rate is 22, but h as ranged from 11 to approximately 30 breaths per minute in the last 24-hour period. Oxygen saturati on is 99%, but has ranged from 81-99% last 24-hour period with 2 liters oxygen via nasal cannula. I' s and O's are documented as 1700/2300. HEENT: The patient appeared to be somewhat confused and encephalopathic, as well as chronically ill. He had some temporal wasting. Otherwise, he was normocephalic and atraumatic. There was no sinus tenderness that I could appreciate. NECK: There was no jugular venous distention. CHEST: Lung buckley were auscultated anteriorly and were clear without any rales, rhonchi or wheezing . CARDIAC: Had a regular rate and rhythm without any rubs. ABDOMEN: Soft, nontender, nondistended, without any rebounding, guarding or rigidity. I could not a ppreciate any hepatosplenomegaly. EXTREMITIES: Had trace edema. NEUROLOGIC: He was confused, but otherwise nonfocal. GENITOURINARY: Notable for the presence of a Mathur catheter. There was no suprapubic tenderness. VASCULAR: Had no bruits. LABORATORY STUDIES: As follows: White count is 11.9, H and H 10.4/30.3 with a platelet count of 208 ,000. There are 82% neutrophils, 8% lymphocytes, 11% monocytes. Sodium is 145, potassium is 3.3, ch loride is 112, bicarbonate 23, BUN/creatinine is 35/1.0 with a glucose of 326. Calcium is 8.4, but a fter adjusting for albumin of 2.7 is 9.4, phosphorus is low at 1.9. Procalcitonin is 13.8. ABG had a pH of 7.49, pCO2 of 29, PaO2 of 70 and an oxygen saturation of 98%. BRAYDEN was positive at 1:320, but anti-double stranded DNA is negative and C3 to C4 are both within normal limits. Tracheal aspirate had grown out pseudomonas. Urine, as well as blood cultures, have been negative. C. diff antigen an d toxin are both negative. RADIOGRAPH: Chest x-ray from earlier today reveals a right infrahilar opacity. IMPRESSION AND PLAN: The patient is a 71-year-old gentleman with history of hypertension and left ve ntricular hypertrophy, dyslipidemia, coronary artery disease with decreased left ventricular systolic function recently admitted with dyspnea on exertion, found to have hypertensive emergency with conge stive heart failure for which he had been on nicardipine infusion. During the hospitalization, he de veloped atrial fibrillation with rapid ventricular response and hemodynamic instability and was ultim ately intubated. He has now been extubated. Blood pressure has been labile during this hospitalizat ion. He has also had acute kidney injury secondary to hemodynamic instability that have occurred dur ing his tachyarrhythmias. 1. With intravenous fluids, patient's acute kidney injury has resolved and he is back at his baselin e creatinine. At this point, Mathur catheter should remain in place. 2. The patient is noted to be hyperglycemic at present, which is likely contributing to his hypernat remia. We will need to intensify his insulin regimen so that he will have less hyperglycemia and les s glucosuria with less osmotic diuresis. 3. As we treat the patient's hyperglycemia with increased doses of insulin, he is likely to become m ore hypokalemic via shift of potassium intracellularly and so he will need potassium supplementation as well. 4. Since the patient is also hypophosphatemic, as well as hypokalemic, we will give him K-Phos 30 mi llimoles today intravenously and recheck these values. 5. Continue to encourage oral intake so that hopefully we can avoid the need to replace NG tube and give the patient water via NG tube. 6. Cardiology followup is appreciated as well and the patient currently remains on low dose beta blo cker to prevent recurrence of atrial fibrillation. Labetalol has been started. Workup for labile hy pertension revealed that his metanephrines was mildly elevated and 24-hour urine collection to rule o ut pheochromocytoma pending. Of note, it is noted that his metanephrines are only mildly elevated an d, thus, I doubt he will be found to have pheochromocytoma. 7. I agree with cardiology, given his decreased left ventricular systolic function, he does require cardiac catheterization at some point. He was noted to have multiple wall motion abnormalities consi stent with coronary artery disease on his echocardiogram. 8. Although the patient has a positive BRAYDEN, complements are normal and anti-double stranded DNA is n egative and thus there is no evidence of lupus nephritis and thus there would be no benefit that cons ideration of kidney biopsy or steroids from a renal perspective via BRAYDEN may be a false positive or ma y be an indicator of other collagen vascular disease or perhaps systemic lupus erythematosus affectin g another territory of his body. At this point, however, it does not appear to be contributing to hi s overall clinical state and the patient does not require specific treatment focused on this. 9. Infectious disease followup is appreciated as well and the patient remains on meropenem. His pro calcitonin level has decreased from 27 to 14 on day #5 out of total of 7-8 days of meropenem. Of not e, as his renal function improves, his procalcitonin is also likely to be decreasing on that basis as well. 10. For deep venous thrombosis prophylaxis, continue heparin 5000 units subcutaneously twice daily a nd for gastrointestinal prophylaxis, continue pantoprazole 40 mg intravenously daily. 11. To help maintain sinus rhythm, continue amiodarone and for heart rate control, the patient is on digoxin, as well as labetalol. The above was discussed with the patient's family present at bedside. Review of systems, past medical history, social history and family history were reviewed and there we re no new changes. More than 35 minutes were spent in the care of this ICU patient. Erik Chan MD cc: [id number] TT: 10/23/2016 23:28:20 Confirmation # [id number] Dictation # [id number] mn
[2016-10-24] MEDS: Albuterol-Ipratrop 3 mg / 0.5 (3 ml) UD IH SCH ×4 (01:30→19:31)
[2016-10-24] MEDS: Nicardipine 20 MG/200 ML 200 ML IV PRN ×3 (02:32→11:30)
[2016-10-24] MEDS: Insulin Lispro (humaLOG) LOW Coverage SC SCH ×5 (05:38→22:11)
--- NOTE | 2016-10-24 07:56 | CP.CCUPN ---
CCU Subjective - Physician Review Critical Care Time Spent (in minutes): 40 CCU Objective - Vital Signs / Intake & Output Intake and Output (Last 8hrs): Intake & Output 10/23/16 10/24/16 10/24/16 22:59 06:59 14:59 Intake Total 300 Output Total 325 Balance -25 Intake: Oral 300 Output: Urine 325 Urethral (Mathur) 325 Other: # Bowel Movements 1 - Physical Exam Head: Positive for: Atraumatic, Normocephalic Pupils: Positive for: PERRL Extroacular Muscles: Positive for: EOMI Conjunctiva: Positive for: Normal Mouth: Positive for: Dry Pharnyx: Positive for: Normal. Negative for: ERYTHEMA, EXUDATE Neck: Positive for: JVD Respiratory/Chest: Positive for: Good Air Exchange. Negative for: Clear to Auscultation (coarse breath sounds throughout. Intubated PRVC 500/14/40/5), Respiratory Distress, Accessory Muscle Use Cardiovascular: Positive for: Regular Rate and Rhythm, Normal S1, S2. Negative for: Murmurs Abdomen: Positive for: Normal Bowel Sounds. Negative for: Tenderness, Distention, Peritoneal Signs Back: Positive for: Normal Inspection Lower Extremity: Positive for: Normal Inspection. Negative for: Edema Neurological: Positive for: Other (intubated) Psychiatric: Positive for: Alert. Negative for: Oriented x 3 - Medications Active Medications: Active Medications Generic Name Dose Route Start Last Admin Trade Name Freq PRN Reason Stop Dose Admin Acetaminophen 650 mg 10/18/16 15:23 10/20/16 01:12 Tylenol 325mg Tab PO 650 mg Q6H PRN Administration Fever >100.4 F Albuterol/Ipratropium 3 ml 10/21/16 18:00 10/24/16 07:41 Duoneb 3 Mg/0.5 Mg (3 Ml) Ud IH 3 ml Q6 ROSALIA Administration Amiodarone HCl 200 mg 10/17/16 10:00 10/23/16 10:01 Cordarone PO 200 mg DAILY ROSALIA Administration Aspirin 81 mg 10/15/16 16:15 10/23/16 10:01 Aspirin Chewable PO 81 mg DAILY ROSALIA Administration Atorvastatin Calcium 40 mg 10/16/16 17:00 10/23/16 17:35 Lipitor PO 40 mg DIN ROSALIA Administration Cyanocobalamin 1,000 mcg 10/25/16 10:00 Vitamin B12 1000 Mcg Tab PO DAILY ROSALIA Digoxin 0.125 mg 10/20/16 10:00 10/23/16 10:04 Lanoxin PO 0.125 mg MWF ROSALIA Administration Heparin Sodium (Porcine) 5,000 units 10/17/16 13:45 10/23/16 21:13 Heparin SC 5,000 units Q12 ROSALIA Administration Meropenem 1 gm/ Sodium 100 mls @ 100 mls/hr 10/18/16 16:45 10/23/16 21:11 Chloride IVPB 10/25/16 16:46 100 mls/hr Q12 ROSALIA Administration Protocol Nicardipine HCl 200 mls @ 50 mls/hr 10/24/16 02:27 10/24/16 05:39 Cardene Iv Premix IV 10 mg/hr .Q4H PRN Titration TITRATE PER MD ORDER Protocol 5 MG/HR Insulin Human Lispro 0 units 10/23/16 11:30 10/24/16 05:38 Humalog Low SC Not Given ACHS [facility]ENDING [facility] TO [facility] Protocol Labetalol HCl 100 mg 10/23/16 10:45 10/23/16 17:39 Trandate PO 100 mg TID ROSALIA Administration Metoprolol Tartrate 25 mg 10/20/16 10:00 10/23/16 10:19 Lopressor PO Not Given BID [facility]END[facility] TO [facility] Pantoprazole Sodium 40 mg 10/16/16 12:45 10/23/16 10:00 Protonix Inj IVP 40 mg DAILY ROSALIA Administration Thiamine HCl 100 mg 10/15/16 17:00 10/23/16 10:06 Vitamin B1 Tab PO 100 mg DAILY ROSALIA Administration - Patient Studies Lab Studies: Microbiology Studies 10/18/16 11:30 Blood Culture - Final Blood NO GROWTH AFTER 5 DAYS Gram Stain - Final TEST NOT PERFORMED Lab Studies 10/23/16 10/23/16 10/23/16 Range/Units 21:45 16:21 07:03 POC Glucose (mg/dL) 92 96 101 (65-110) mg/dL Transferrin (206-381) mg/dL U Random Total Protein (50-250) mg/L Ur Total Protein 24 Hr (<150) mg/24 h Double Strand DNA Ab (()) IU/mL 10/23/16 10/22/16 10/21/16 Range/Units 05:45 09:00 12:30 POC Glucose (mg/dL) (65-110) mg/dL Transferrin 126.85 L (206-381) mg/dL U Random Total Protein 460 H (50-250) mg/L Ur Total Protein 24 Hr 1288 H (<150) mg/24 h Double Strand DNA Ab <1 (()) IU/mL Laboratory Results - last 24 hr 10/21/16 10/22/16 10/23/16 12:30 09:00 05:45 POC Glucose (mg/dL) Transferrin 126.85 L U Random Total Protein 460 H Ur Total Protein 24 Hr 1288 H Double Strand DNA Ab <1 10/23/16 10/23/16 10/23/16 07:03 16:21 21:45 POC Glucose (mg/dL) 101 96 92 Transferrin U Random Total Protein Ur Total Protein 24 Hr Double Strand DNA Ab Fingerstick Blood Sugar Results: 92 Critical Care Progress Note - Nutrition Nutrition: Nutrition Category Date Time Status Dysphagia/Modified Consistency Diet [DIET] Diets 10/23/16 Breakfast Ordered Assessment/Plan - Date & Time Date: 10/24/16 Time: 07:55
[2016-10-24 08:31] LABS: MAGNESIUM 2.2 mg/dL (1.7-2.2); PHOSPHOROUS 2.5 mg/dL (2.5-4.5)
--- NOTE | 2016-10-24 10:39 | PN ---
DATE: 10/24/2016 The patient seen and examined at bedside. He is confused and lethargic, however , it appears that his mental status is fluctuating and at times, he is more alert and appropriate. PHYSICAL EXAMINATION: VITAL SIGNS: He has irregular rate on the monitor with heart rate fluctuating between 110 and 120. Blood pressure 141/91, respiratory rate 24. He has good cough reflex. He is on Cardene drip at 10 mg per hour. HEAD AND NECK: Atraumatic. LUNGS: Clear to auscultation bilaterally. HEART: Regular rate and rhythm. S1, S2 normal. ABDOMEN: Soft, nontender, nondistended. MUSCULOSKELETAL: No C/C/E. NEUROLOGIC: The patient moves all extremities spontaneously. SKIN: Moist. PSYCHIATRIC: The patient is alert and awake at times; however, confused and lethargic on other occasions. LABORATORY DATA: WBC 11.9, hemoglobin 10.4, platelet count 208. Sodium 145, potassium 3.3 (supplemented), chloride 112, carbon dioxide 23, BUN 35, creatinine 1, glucose 326. However, the last Accu-Chek is 150. MEDICATIONS: Aspirin, clonidine 0.2 mg p.o. b.i.d. (just started by me), amiodarone, DuoNeb every 6, heparin 5000 subQ q. 12, regular insulin sliding scale low protocol, digoxin, Lipitor, meropenem, Protonix, labetalol 100 mg p.o. t.i.d., thiamine p.o. vitamin B12, Cardene drip. ASSESSMENT AND PLAN: This is a 71-year-old gentleman with poorly controlled hypertension and diabetes who presented to ICU with substantially altered mental status, inability to protect airways, status post intubation (due to need to protect the airways) and subsequent extubation . At the present time, his level of consciousness fluctuates; however, more time spent in better alertness and wakefulness. He has a good cough and appears to be able to protect his airways at present time. Major concern at present time is control of his blood pressure. Initial concern for pheochromocytoma appears to be less likely based on nephrology consultation and last progress note that is appreciated. At present time, patient is on labetalol and will be started on clonidine at a dose of 0.2 mg p.o. b.i.d. in attempt to wean him off of Cardene drip. It was discussed with nephrology service and agreed. We will continue to target euvolemia, euglycemia, normothermia and oxygen saturation more than 90 %. We will continue with deep venous thrombosis and gastrointestinal prophylaxis. Addendum: surya lundy is off ccm time 40 min Thang Youssef MD cc: [id number] TT: 10/24/2016 10:38:42 Confirmation # [id number] Dictation # [id number] tn MTDD
[2016-10-24] MEDS: Meropenem 1g/NS 100mL IVPB 100 ML IVPB SCH ×2 (11:01→22:08)
--- NOTE | 2016-10-24 11:10 | PN ---
DATE: 10/24/2016 ATTENDING: ICU. SUBJECTIVE: The patient appears comfortable now, but required sedation overnight. Apparently, refuse d blood work. PHYSICAL EXAMINATION: VITAL SIGNS: Stable. Temperature is 98, respirations 28, pulse is 115, blood pressure 178/91. LUNGS: Have decreased sounds in the bilateral bases. HEART: Regular rhythm, tachycardic with extrasystole. ABDOMEN: Soft. EXTREMITIES: No edema. PLAN: Readjust antihypertensives. Would increase labetalol at this time. Follow electrolytes and C BC today and tomorrow. Mobilize the patient out of bed as possible. Would refrain from sedation as possible and continue to reorient the patient to his locale. He now believes he is in "[place] " while watching television. Case discussed with the patient's family at length yesterday. Jf Posey MD cc: [phone] TT: 10/24/2016 11:09:01 Confirmation # [id number] Dictation # [id number] josefa
[2016-10-24 11:11] LABS: MAGNESIUM 2.3 mg/dL (1.7-2.2)
[2016-10-24 11:25] LABS: FREE T4 1.58 ng/dL (0.78-2.19)
[2016-10-24] MEDS: Potassium Chloride 10 mEq 100 ML IVPB SCH ×2 (11:25→20:04)
--- NOTE | 2016-10-24 11:32 | PN ---
DATE: 10/24/2016 REASON FOR CONSULTATION AND FOLLOWUP: Congestive heart failure, paroxysmal atrial fibrillation, stat us post rapid response, respiratory failure, intubated, possible pheochromocytoma. BRIEF CLINICAL HISTORY: This is a 71-year-old male with a past medical history significant for hyper tension, hyperlipidemia, arthritis, admitted with shortness of breath. His respiratory status got wo rse, intubated, successfully extubated. Now patient is confused, found to be decreased LV function. Working diagnosis: Possible pheochromocytoma. Awake and alert, but not oriented. In a soft [place] restraint as well as a chest Gisselle restraint. PHYSICAL EXAMINATION: VITAL SIGNS: Temperature afebrile, heart rate 98, blood pressure ____/91. HEENT: PERRLA. Extraocular muscles intact. NECK: Supple. No carotid bruits. No thyromegaly. CHEST: Clear to auscultation. HEART: S1, S2 regular. ABDOMEN: Soft. EXTREMITIES: Clubbing and cyanosis negative. BLOOD WORKUP: WBC 11.9, hemoglobin 10.3, hematocrit 30.3, platelet count 208. Chemistry shows sodiu m 145, potassium 3.3, chloride 112, carbon dioxide 23, anion gap of 13, BUN 35, creatinine 1. IMPRESSION: Hypertension, paroxysmal atrial fibrillation, rule out pheochromocytoma; cardiomyopathy, ischemic; possibly multiple wall motion abnormality, rule out underlying coronary artery disease; pa roxysmal atrial fibrillation, now patient is in normal sinus; disoriented, altered mental status. La st echocardiogram 10/16/2016, ejection fraction 35%, multiple wall motion abnormalities, coronary art zach disease, moderate aortic regurgitation, mild aortic stenosis, mild mitral regurgitation, mild tri cuspid regurgitation. RECOMMENDATION: Continue beta adam; somebody held it so we will increase back to 25 b.i.d. Tatiana nue amiodarone for paroxysmal atrial fibrillation. Will increase labetalol to 200 mg p.o. t.i.d. We will follow with you. Thank you, Dr. Posey, for providing the opportunity in taking care of the patient. Once the patien t is stable and mentation is cleared, consider cardiac catheterization. Will follow with you. Will supplement potassium. Will increase digoxin to daily, as the renal function is significantly improve d. Lucrecia Pérez MD cc: [id number] TT: 10/24/2016 11:31:43 Confirmation # [id number] Dictation # [id number] mn
[2016-10-24 11:39] LABS: THYROID STIMULATING HORMONE 0.8 mIU/mL (0.46-4.68)
--- NOTE | 2016-10-24 11:41 | CP.PCM.PN ---
Subjective - Date & Time of Evaluation Date of Evaluation: 10/24/16 Time of Evaluation: 07:50 - Subjective Subjective: Patient is more awake today, not in distress, breathing better, no acute events overnight and no fevers overnight. Objective - Vital Signs/Intake and Output Vital Signs (last 24 hours): Temp Pulse Resp BP Pulse Ox 98.5 F 89 29 H 147/87 95 10/23/16 20:00 10/24/16 10:58 10/24/16 07:02 10/24/16 10:58 10/24/16 02:00 - Medications Medications: Current Medications Acetaminophen (Tylenol 325mg Tab) 650 mg PO Q6H PRN PRN Reason: Fever >100.4 F Last Admin: 10/20/16 01:12 Dose: 650 mg Albuterol/Ipratropium (Duoneb 3 Mg/0.5 Mg (3 Ml) Ud) 3 ml IH Q6 [facility] Last Admin: 10/24/16 07:41 Dose: 3 ml Amiodarone HCl (Cordarone) 200 mg PO DAILY [facility] Last Admin: 10/24/16 10:45 Dose: 200 mg Aspirin (Aspirin Chewable) 81 mg PO DAILY [facility] Last Admin: 10/24/16 10:42 Dose: 81 mg Atorvastatin Calcium (Lipitor) 40 mg PO DIN [facility] Last Admin: 10/23/16 17:35 Dose: 40 mg Clonidine HCl (Catapres) 0.2 mg PO BID [facility] Last Admin: 10/24/16 10:44 Dose: 0.2 mg Cyanocobalamin (Vitamin B12 1000 Mcg Tab) 1,000 mcg PO DAILY [facility] Digoxin (Lanoxin) 0.125 mg PO DAILY [facility] Heparin Sodium (Porcine) (Heparin) 5,000 units SC Q12 [facility] Last Admin: 10/24/16 10:45 Dose: 5,000 units Nicardipine HCl (Cardene Iv Premix) 200 mls @ 50 mls/hr IV .Q4H PRN; Protocol; 5 MG/HR PRN Reason: TITRATE PER MD ORDER Last Admin: 10/24/16 10:42 Dose: 100 mls/hr MEROPENEM-0.9% SODIUM CHLORIDE (Meropenem 1g/Ns 100ml Ivpb) 100 mls @ 100 mls/ hr IVPB Q12 [facility] PRN Reason: Protocol Stop: 10/25/16 16:46 Last Admin: 10/24/16 11:01 Dose: 100 mls/hr Potassium Chloride (Potassium Chloride 10 Meq/100 Ml) 100 mls @ 100 mls/hr IVPB Q2H [facility] Stop: 10/24/16 13:44 Last Admin: 10/24/16 11:25 Dose: 100 mls/hr Insulin Human Lispro (Humalog Low) 0 units SC ACHS [facility] PRN Reason: Protocol Last Admin: 10/24/16 10:46 Dose: Not Given Labetalol HCl (Trandate) 200 mg PO TID [facility] Metoprolol Tartrate (Lopressor) 25 mg PO BID [facility] Pantoprazole Sodium (Protonix Inj) 40 mg IVP DAILY [facility] Last Admin: 10/24/16 10:49 Dose: 40 mg Thiamine HCl (Vitamin B1 Tab) 100 mg PO DAILY [facility] Last Admin: 10/24/16 10:48 Dose: 100 mg - Labs Labs: 10/23/16 05:45 10/23/16 05:45 PT 11.0 Seconds (9.9-11.8) 10/14/16 14:06 INR 1.02 (0.93-1.08) 10/14/16 14:06 APTT 28.2 Seconds (23.7-30.8) 10/14/16 14:06 - Constitutional Appears: Non-toxic, No Acute Distress - Head Exam Head Exam: NORMAL INSPECTION - ENT Exam ENT Exam: Mucous Membranes Moist - Neck Exam Neck Exam: absent: Lymphadenopathy, Meningismus - Respiratory Exam Respiratory Exam: Decreased Breath Sounds - Cardiovascular Exam Cardiovascular Exam: +S1, +S2 - GI/Abdominal Exam GI & Abdominal Exam: Soft. absent: Tenderness - Extremities Exam Additional comments: left upper arm PICC line site clean and intact Assessment and Plan - Assessment and Plan (Free Text) Plan: Assessment S/P ventilator-dependent respiratory failure in a patient with severe sepsis with acute renal failure and acute encephalopathy probably due to right-sided hospital-acquired pneumonia, growing Pseudomonas on sputum cx; patient continues to clinically improve Hypertensive emergency with acute renal failure HTN dyslipidemia arthritis S/P left knee surgery S/P bilateral cataract surgery Plan continue Merrem (day 6); repeat PCT is down to 13.8 from 27.54; will aim for 7 or 8 days of antibiotics Will continue to monitor clinically, trend fever curve and trend WBC count as well
--- NOTE | 2016-10-24 12:45 | RAD ---
HISTORY: pneumonia COMPARISON: Comparison is made to the previous study dated 10/23/2016 FINDINGS: LUNGS: Again seen is focal opacities/opacities at the medial aspect of the right lower lung. PLEURA: No significant pleural effusion identified, no pneumothorax apparent. CARDIOVASCULAR: The cardiac silhouette is mildly enlarged. OSSEOUS STRUCTURES: No significant abnormalities. VISUALIZED UPPER ABDOMEN: Normal. OTHER FINDINGS: None. IMPRESSION: No significant interval change. Persistent opacity at the right lower lung.
--- NOTE | 2016-10-24 14:44 | PN ---
DATE: 10/24/2016 SUBJECTIVE: The patient was seen in the intensive care unit. He remains with a Gisselle in place. He is a little bit more alert, but is still obviously confused. Mathur catheter also remains in place. Since yesterday, he was started on a nicardipine infusion once again. He denied any chest pain, shor tness of breath or palpitations. He is not on any intravenous fluids at present nor is he on any fee dings via NG tube or OG tube. OBJECTIVE: VITAL SIGNS: Blood pressure is now 156/88, but he had a high of 199/120 in the last 24-hour period a nd a minimum of 120/70 in the last 24-hour period. Heart rate is 82, but has ranged from the 80s to approximately 115 beats per minute in the last 24-hour period with monitoring showing sinus rhythm an d sinus tachycardia. Oral temperature is 98.5 degrees, but he has a T-max of 100.[address] 24-hour period. Respiratory rate is 29 breaths per minute, but has ranged from the 20s to the 30s in the last 24-hour period. Oxygen saturation is 95%, but has ranged from 81-97% in the last 24-ari r period on room air. I's and O's in the last 24-hour period are 1700/2300. HEENT: The patient appeared to be chronically ill with some temporal wasting, but he was normocephal ic and otherwise atraumatic. There was no sinus tenderness that I could appreciate. I was unable to appreciate any jugular venous distension on this patient either. CHEST: Lungs buckley on my exam were clear when ausculated anteriorly and there were no rales, rhonch i or wheezing that I could appreciate. CARDIAC: Had a regular rate and rhythm without any rubs or gallops. ABDOMEN: Soft, nontender and nondistended and there was no rebounding, guarding or rigidity. There was no hepatosplenomegaly noted. EXTREMITIES: Had no dependent edema. NEUROLOGIC: He was confused, but otherwise nonfocal. VASCULAR: Had no bruits. SKIN: Intact. GENITOURINARY: Had a Mathur catheter in place with linda-colored urine and there was no suprapubic te nderness. LABORATORY STUDIES: As follows: White count yesterday was 11.9 with an H and H of 10.4/30.3 and a p latelet count of 208,000. MCV is 75. There are 82% neutrophils, 8% lymphocytes, 11% monocytes. Sod ium is 145 yesterday with a potassium of 3.3, chloride 112, bicarbonate 23, BUN/creatinine is 35/1.0 with a glucose of 326. There is no new microbiology data to report and there is a chest x-ray from [facility], revealed a persistent opacity at the right lower lung. IMPRESSION AND PLAN: The patient is a 71-year-old gentleman with a known history of hypertension and left ventricular hypertrophy, dyslipidemia, coronary artery disease with decreased left ventricular systolic function, admitted with dyspnea on exertion, found to have hypertensive emergency with conge stive heart failure for which he required nicardipine infusion, during the hospitalization developed atrial fibrillation with a rapid ventricular response and hemodynamic instability which resulted in a cute kidney injury and for which he required intubation. Acute kidney injury has resolved with intra venous fluids to help increase his blood pressure. Of note, however, the patient is now once again w ith elevated blood pressure and is back on a nicardipine infusion. 1. Given the fact that this patient has paroxysms of hypertension and is now chronically hypertensiv e, I do not have any suspicion that he may have renovascular hypertension or hyperaldosteronism. Rat her, pheochromocytoma is a possibility. 2. Plasma metanephrines were not elevated; however plasma normetanephrines were elevated and the [facility] now has a 24-hour urine collection that was completed and we await the results to see whether or not pheochromocytoma may be present. 3. If the 24-hour urine collection suggests pheochromocytoma, we will need to image the patient to d sueine what the source and location may be 4. With respect to the patient's hypertension, he is currently on a nicardipine infusion. Alternat ively, we could place him on combined beta and alpha adam therapy and perhaps we can wean the mateo rdipine infusion to off while simultaneously increasing the patient's metoprolol and also starting hi m on an alpha adam such as doxazosin. I believe this would be a reasonable option for him to help control his blood pressure. 5. For gastrointestinal prophylaxis, since he is in the ICU, continue pantoprazole. 6. For heart rate control, given the fact that he had atrial fibrillation with recent rapid ventricu lar response, he remains on digoxin and he is also on metoprolol. In the meantime, he is also on ami odarone in an attempt to maintain sinus rhythm and clonidine as well. 7. Infectious disease followup is appreciated as well and the patient is on day #6 of meropenem for a possible right-sided healthcare-associated pneumonia. Sputum culture is noted to be growing out ps eudomonas. 8. Cardiology followup is appreciated also, but the patient is noted to be both on labetalol as well as metoprolol and perhaps we can choose one or the other. In my opinion, labetalol would be better. Although labetalol does have some alpha blocking properties, he will still require an additional al pha adam such as doxazosin for reasons stated above. 9. For deep venous thrombosis prophylaxis, continue heparin 5000 units subcutaneously twice daily an d since the patient is seen in the ICU, continue pantoprazole for gastrointestinal prophylaxis. 10. Continue heart healthy diet at present. 11. For now, would continue Mathur catheter in place in this patient. Review of systems, past medical history, social history and family history were all reviewed and ther e are no new changes. More than 35 minutes were spent in the care of this ICU patient today. Erik Chan MD cc: [id number] TT: 10/24/2016 14:43:27 Confirmation # [id number] Dictation # [id number] tn
[2016-10-24 16:12] LABS: CREATININE, RANDOM URINE 111.1 mg/dL (20-370); VMA/G CREATININE 1.8 mg/g creat (1.1-4.1)
[2016-10-24 16:55] LABS: METANEPHRINES 83 pg/mL (<=57); TOTAL METANEPHRINES 250 pg/mL (<=205)
[2016-10-24 17:47] LABS: FT3 3.34 pg/mL (2.77-5.27)
--- NOTE | 2016-10-24 17:47 | CARD ---
APPROVED REPORT EKG Measurement Heart [id number] <Conclusion> Sinus rhythm with APCs and PVCs Right bundle branch block Left anterior fascicular block Bifascicular block Septal infarct, age undetermined Abnormal ECG
[2016-10-24 22:38] LABS: AMIODARONE 0.8 mcg/mL (1.5-2.5); DESETHYLAMIODARONE 0.1 mcg/mL (1.5-2.5)
[2016-10-25] MEDS: Albuterol-Ipratrop 3 mg / 0.5 (3 ml) UD IH SCH ×4 (01:50→19:34)
[2016-10-25 05:36] LABS: ARTERIAL BLOOD GAS HCO3 25.5 mmol/L (21-28); ARTERIAL BLOOD GAS O2 CAPACITY 14.4 mL/dl (16-24); ARTERIAL BLOOD GAS O2 CONTENT 14.1 ML/dl (15-23); ARTERIAL BLOOD GAS PH 7.51 (7.35-7.45); CARBOXYHEMOGLOBIN 2.4 % (0.5-1.5); HHB 2.3 % (0-5); METHEMOGLOBIN 1.3 % (0.0-3.0)
[2016-10-25 06:22] LABS: ADD MANUAL DIFF? NO
[2016-10-25 06:32] LABS: BASO # 0.02 K/mm3 (0.0-2.0); BASO % 0.2 % (0.0-3.0); EOS # 0.1 (0.0-0.7); EOS % 0.7 % (1.5-5.0); GRAN # 9.97 (1.4-6.5); GRAN % 76.6 % (50.0-68.0); HEMATOCRIT 32.9 % (42.0-52.0); LYMPH # 2.1 (1.2-3.4); LYMPH % 16.3 % (22.0-35.0); MEAN CELL VOLUME 76.9 fL (80.0-105.0); MEAN CORPUSCULAR HEMOGLOBIN 25.9 pg (25.0-35.0); MEAN CORPUSCULAR HGB CONC 33.7 g/dl (31.0-37.0); MEAN PLATELET VOLUME 11.4 fl (7.0-11.0); MONO # 0.8 (0.1-0.6); MONO % 6.2 % (1.0-6.0); PLATELET COUNT 323 10^3/uL (120.0-450.0); RED CELL DISTRIBUTION WIDTH 15.8 % (11.5-14.5)
[2016-10-25 06:45] LABS: ALB/GLOB RATIO 0.8 (1.1-1.8); ALKALINE PHOSPHATASE 80 U/L (38-133); ALT/SGPT 23 U/L (7-56); AST/SGOT 47 U/L (15-59); BILIRUBIN,TOTAL 0.7 mg/dL (0.2-1.3); BLOOD UREA NITROGEN 29 mg/dL (7-21); CALCIUM 9.5 mg/dL (8.4-10.5); CARBON DIOXIDE 26 mmol/L (21-33); GFR AFRICAN-AMERICAN > 60; GLUCOSE,RANDOM 90 mg/dL (70-110); MAGNESIUM 2.1 mg/dL (1.7-2.2); PHOSPHOROUS 3.3 mg/dL (2.5-4.5); POTASSIUM 4.4 mmol/L (3.6-5.0); TOTAL PROTEIN 7.2 g/dL (5.8-8.3)
[2016-10-25 07:18] LABS: CHLORIDE 122 mmol/L (95-110); SODIUM 160 mmol/L (132-148)
[2016-10-25] MEDS: Insulin Lispro (humaLOG) LOW Coverage SC SCH ×3 (07:58→22:00)
[2016-10-25] MEDS ORDERED: Metoprolol 1 mg/ml Inj IVP ONE (08:13)
[2016-10-25] MEDS ORDERED: Digoxin 125 mcg (0.125 mg) Tab PO SCH (10:00)
--- NOTE | 2016-10-25 10:03 | PN ---
DATE: 10/25/2016 The patient seen and examined at bedside. He is a bit more alert and awake, however, poorly communicative (patient received 1 mg of Ativan at around 6 a.m.) . The patient's night was uneventful. PHYSICAL EXAMINATION: VITAL SIGNS: Heart rate 85 (irregular with PACs), blood pressure 164/85, oxygen saturation 95% on nasal cannula, respiratory rate 20-29. The patient is not in respiratory distress and occasional tachypnea appears to be habitual. HEAD AND NECK: Atraumatic. LUNGS: Clear to auscultation bilaterally. HEART: irregular rate and rhythm. S1, S2 distant. ABDOMEN: Soft, nontender, nondistended. MUSCULOSKELETAL: No C/C/E. NEUROLOGIC: The patient moves all extremities spontaneously. SKIN: Moist. PSYCHIATRIC: The patient is lethargic but following commands and more alert and awake. LABORATORY DATA: WBC 13, hemoglobin 11.1, platelet count 323. Sodium 160 (D5W started at a rate of 100 mL per hour and BMP ordered for this afternoon), chloride 122, BUN 29, creatinine 1.1 (up from 1.0), glucose 90. The patient has speckled pattern BRAYDEN positive titer of 1:320. ABG today showed 7.51/32/78 on 21% FIO2. MEDICATIONS: Aspirin, clonidine 0.2 mg p.o. b.i.d., amiodarone, D5 at 100 mL per hour, DuoNeb every 6 hours, heparin 5000 subQ q. 12, regular insulin sliding scale low protocol, digoxin, Lipitor, metoprolol, meropenem, Protonix, labetalol, thiamine, vitamin B12. ASSESSMENT AND PLAN: This is a 71-year-old gentleman with moderate left ventricular systolic dysfunction and poorly controlled hypertension who presented to intensive care unit initially with altered mental status. However , extensive workup did not reveal any acute organic pathology. Nevertheless, MRI of the brain showed extensive chronic microvascular changes. At present time , it appears that poorly controlled hypertension, coupled with CHF may have impaired autoregulatory mechanism of blood supply in the brain and accelerated microvascular pathology in the brain eventually leading to subacutely progressing dementia. While in the hospital/ICU delirium may have superimposed on to dementia, contributing to fluctuating mental status. We are trying to optimize his cardiac regimen and cardiology service is following patient as well. Unfortunately, due to acute kidney injury, CHELLE inhibitors had to be held off and having positive BRAYDEN/its elevated titer and speckled pattern, hydralazine was decided to hold off too. Discussed with renal and neuro service whether autoimmune cerebritis may play some role in patient fluctuation of level of consciousness, however it appears that consensus is that would be highly unlikely as dsDNA abs are negative, C3,C4 are WNL and MRI brain is not characteristic of SLE cerebritis-->rather rather microvascular changes predominant in frontal lobes c/w vascular dementia . Meanwhile, the patient is on clonidine and labetalol which also has some katiuska antagonistic activity which may have some vasodilatory properties and, as such, may reduce afterload as well. Cardiology service (Dr. Pérez) opted for a combination of labetalol and metoprolol for that purpose. Will continue to target euvolemia, euglycemia, normothermia and oxygen saturation more than 90%. Hypernatriemia noted and D5W started-->will repeat BMP. The patient is able to protect airways. He is swallowing okay. Will continue with deep venous thrombosis and gastrointestinal prophylaxis. Addendum: Na is down to 157 ccm time 40 min Thang Youssef MD cc: [id number] TT: 10/25/2016 09:25:01 Confirmation # [id number] Dictation # [id number] mn [id number]
[2016-10-25] MEDS: Meropenem 1 GM in Dextrose 5% In Water 100 ML IVPB SCH ×2 (10:07→21:48)
[2016-10-25 10:13] VITALS: PULSE 120
--- NOTE | 2016-10-25 11:58 | CP.PCM.PN ---
Subjective - Date & Time of Evaluation Date of Evaluation: 10/25/16 Time of Evaluation: 07:50 - Subjective Subjective: Comfortable, not in short of breath at rest, more awake compared to previous days, no fevers overnight, no cough. Objective - Vital Signs/Intake and Output Vital Signs (last 24 hours): Temp Pulse Resp BP Pulse Ox 98.1 F 95 H 27 H 132/103 H 100 10/25/16 00:00 10/25/16 10:01 10/25/16 05:48 10/25/16 10:01 10/25/16 05:48 - Medications Medications: Current Medications Acetaminophen (Tylenol 325mg Tab) 650 mg PO Q6H PRN PRN Reason: Fever >100.4 F Last Admin: 10/20/16 01:12 Dose: 650 mg Albuterol/Ipratropium (Duoneb 3 Mg/0.5 Mg (3 Ml) Ud) 3 ml IH Q6 [facility] Last Admin: 10/25/16 07:42 Dose: 3 ml Amiodarone HCl (Cordarone) 200 mg PO DAILY [facility] Last Admin: 10/25/16 09:56 Dose: 200 mg Aspirin (Aspirin Chewable) 81 mg PO DAILY [facility] Last Admin: 10/25/16 09:55 Dose: 81 mg Atorvastatin Calcium (Lipitor) 40 mg PO DIN [facility] Last Admin: 10/24/16 18:32 Dose: 40 mg Clonidine HCl (Catapres) 0.2 mg PO BID [facility] Last Admin: 10/25/16 09:55 Dose: 0.2 mg Cyanocobalamin (Vitamin B12 1000 Mcg Tab) 1,000 mcg PO DAILY [facility] Last Admin: 10/25/16 10:01 Dose: 1,000 mcg Digoxin (Lanoxin) 0.125 mg PO DAILY [facility] Last Admin: 10/25/16 09:57 Dose: 0.125 mg Heparin Sodium (Porcine) (Heparin) 5,000 units SC Q12 [facility] Last Admin: 10/25/16 09:57 Dose: 5,000 units Meropenem 1 gm/ Dextrose 100 mls @ 100 mls/hr IVPB Q12 [facility] Last Admin: 10/25/16 10:07 Dose: 100 mls/hr Dextrose (Dextrose 5% In Water 1000 Ml) 1,000 mls @ 250 mls/hr IV .Q4H [facility] Last Admin: 10/25/16 11:03 Dose: 250 mls/hr Insulin Human Lispro (Humalog Low) 0 units SC Q12 [facility] PRN Reason: Protocol Last Admin: 10/25/16 09:57 Dose: Not Given Labetalol HCl (Trandate) 200 mg PO TID [facility] Last Admin: 10/25/16 10:01 Dose: 200 mg Metoprolol Tartrate (Lopressor) 25 mg PO BID [facility] Last Admin: 10/25/16 08:15 Dose: 25 mg Pantoprazole Sodium (Protonix Inj) 40 mg IVP DAILY [facility] Last Admin: 10/25/16 10:01 Dose: 40 mg Thiamine HCl (Vitamin B1 Tab) 100 mg PO DAILY [facility] Last Admin: 10/25/16 10:01 Dose: 100 mg - Labs Labs: 10/25/16 06:10 10/25/16 06:10 PT 11.0 Seconds (9.9-11.8) 10/14/16 14:06 INR 1.02 (0.93-1.08) 10/14/16 14:06 APTT 28.2 Seconds (23.7-30.8) 10/14/16 14:06 - Constitutional Appears: Non-toxic, No Acute Distress - Head Exam Head Exam: NORMAL INSPECTION - ENT Exam ENT Exam: Mucous Membranes Moist - Neck Exam Neck Exam: absent: Lymphadenopathy, Meningismus - Respiratory Exam Respiratory Exam: Decreased Breath Sounds - Cardiovascular Exam Cardiovascular Exam: +S1, +S2 - GI/Abdominal Exam GI & Abdominal Exam: Soft. absent: Tenderness Assessment and Plan - Assessment and Plan (Free Text) Plan: Assessment S/P ventilator-dependent respiratory failure in a patient with severe sepsis with acute renal failure and acute encephalopathy probably due to right-sided hospital-acquired pneumonia, growing Pseudomonas on sputum cx; patient continues to clinically improve Hypertensive emergency with acute renal failure HTN dyslipidemia arthritis S/P left knee surgery S/P bilateral cataract surgery Plan continue Merrem (day 7); repeat PCT is down to 13.8 from 27.54; will aim for 7 or 8 days of antibiotics - will consider discontinuing antibiotics by tomorrow Will continue to monitor clinically, trend fever curve and trend WBC count as well; would suggest removal of PICC line if feasible to decrease the patient's risk for infection
[2016-10-25 12:47] LABS: BLOOD UREA NITROGEN 31 mg/dL (7-21); CALCIUM 9.5 mg/dL (8.4-10.5); CARBON DIOXIDE 26 mmol/L (21-33); CHLORIDE 120 mmol/L (95-110); GFR AFRICAN-AMERICAN > 60; GLUCOSE,RANDOM 138 mg/dL (70-110); POTASSIUM 4.2 mmol/L (3.6-5.0)
[2016-10-25 12:51] LABS: SODIUM 157 mmol/L (132-148)
--- NOTE | 2016-10-25 13:21 | CP.CCUPN ---
<Rachael Casillas - Last Filed: 10/25/16 15:38> CCU Subjective - Physician Review Events Since Last Encounter (Free Text): 10/25/16 08:19 Patient seen and examined bedside. BP max overnight 217/105. Patient slightly lethargic this AM due to benzos overnight but easily arousable. 10/25/16 15:47 Patient more alert, AAOx3, denies CP, SOB, abd pain, n/v, chills. Critical Care Time Spent (in minutes): 30 CCU Objective - Vital Signs / Intake & Output Vital Signs (Last 4 hours): Vital Signs Pulse BP 10/25/16 13:02 66 105/56 L 10/25/16 10:01 95 H 132/103 H 10/25/16 09:56 120 H 132/103 H 10/25/16 09:55 120 H 132/103 H Intake and Output (Last 8hrs): Intake & Output 10/24/16 10/25/16 10/25/16 22:59 06:59 14:59 Intake Total 820 Output Total 1000 Balance -180 Intake: Oral 320 Other 500 Output: Urine 1000 Urethral (Mathur) 1000 Other: Voiding Method Indwelling Catheter # Bowel Movements 1 - Physical Exam Head: Positive for: Atraumatic, Normocephalic Pupils: Positive for: PERRL Extroacular Muscles: Positive for: EOMI Conjunctiva: Positive for: Normal Mouth: Positive for: Dry Pharnyx: Positive for: Normal. Negative for: ERYTHEMA, EXUDATE Neck: Positive for: JVD Respiratory/Chest: Positive for: Good Air Exchange. Negative for: Clear to Auscultation (coarse breath sounds throughout. Intubated PRVC 500/14/40/5), Respiratory Distress, Accessory Muscle Use Cardiovascular: Positive for: Regular Rate and Rhythm, Normal S1, S2. Negative for: Murmurs Abdomen: Positive for: Normal Bowel Sounds. Negative for: Tenderness, Distention, Peritoneal Signs Back: Positive for: Normal Inspection Lower Extremity: Positive for: Normal Inspection. Negative for: Edema Neurological: Positive for: Other (intubated) Psychiatric: Positive for: Alert. Negative for: Oriented x 3 - Medications Active Medications: Active Medications Generic Name Dose Route Start Last Admin Trade Name Freq PRN Reason Stop Dose Admin Acetaminophen 650 mg 10/18/16 15:23 10/20/16 01:12 Tylenol 325mg Tab PO 650 mg Q6H PRN Administration Fever >100.4 F Albuterol/Ipratropium 3 ml 10/21/16 18:00 10/25/16 13:12 Duoneb 3 Mg/0.5 Mg (3 Ml) Ud IH 3 ml Q6 ROSALIA Administration Amiodarone HCl 200 mg 10/17/16 10:00 10/25/16 09:56 Cordarone PO 200 mg DAILY ROSALIA Administration Aspirin 81 mg 10/15/16 16:15 10/25/16 09:55 Aspirin Chewable PO 81 mg DAILY ROSALIA Administration Atorvastatin Calcium 40 mg 10/16/16 17:00 10/24/16 18:32 Lipitor PO 40 mg DIN ROSALIA Administration Clonidine HCl 0.2 mg 10/24/16 10:00 10/25/16 09:55 Catapres PO 0.2 mg BID ROSALIA Administration Cyanocobalamin 1,000 mcg 10/25/16 10:00 10/25/16 10:01 Vitamin B12 1000 Mcg Tab PO 1,000 mcg DAILY ROSALIA Administration Digoxin 0.125 mg 10/25/16 10:00 10/25/16 09:57 Lanoxin PO 0.125 mg DAILY ROSALIA Administration Heparin Sodium (Porcine) 5,000 units 10/17/16 13:45 10/25/16 09:57 Heparin SC 5,000 units Q12 ROSALIA Administration Meropenem 1 gm/ Dextrose 100 mls @ 100 mls/hr 10/25/16 10:00 10/25/16 10:07 IVPB 100 mls/hr Q12 ROSALIA Administration Dextrose 1,000 mls @ 250 mls/hr 10/25/16 11:00 10/25/16 11:03 Dextrose 5% In Water 1000 Ml IV 250 mls/hr .Q4H ROSALIA Administration Insulin Human Lispro 0 units 10/25/16 10:00 10/25/16 09:57 Humalog Low SC Not Given Q12 [facility] Protocol Labetalol HCl 200 mg 10/24/16 10:42 10/25/16 13:02 Trandate PO 200 mg TID ROSALIA Administration Metoprolol Tartrate 25 mg 10/24/16 10:45 10/25/16 08:15 Lopressor PO 25 mg BID ROSALIA Administration Pantoprazole Sodium 40 mg 10/16/16 12:45 10/25/16 10:01 Protonix Inj IVP 40 mg DAILY ROSALIA Administration Thiamine HCl 100 mg 10/15/16 17:00 10/25/16 10:01 Vitamin B1 Tab PO 100 mg DAILY ROSALIA Administration - Patient Studies Lab Studies: Lab Studies 10/25/16 10/25/16 10/25/16 Range/Units 12:31 06:10 05:00 WBC 13.0 H (4.5-11.0) 10^3/ul RBC 4.28 (3.5-6.1) 10^6/uL Hgb 11.1 L (14.0-18.0) gm/dL Hct 32.9 L (42.0-52.0) % MCV 76.9 L (80.0-105.0) fL MCH 25.9 (25.0-35.0) pg MCHC 33.7 (31.0-37.0) g/dl RDW 15.8 H (11.5-14.5) % Plt Count 323 (120.0-450.0) 10^3/uL MPV 11.4 H (7.0-11.0) fl Gran % 76.6 H (50.0-68.0) % Lymph % (Auto) 16.3 L (22.0-35.0) % [place] % (Auto) 6.2 H (1.0-6.0) % Eos % (Auto) 0.7 L (1.5-5.0) % Baso % (Auto) 0.2 (0.0-3.0) % Gran # 9.97 H (1.4-6.5) Lymph # 2.1 (1.2-3.4) [place] # 0.8 H (0.1-0.6) Eos # 0.1 (0.0-0.7) Baso # 0.02 (0.0-2.0) K/mm3 pCO2 32 L (35-45) mm/Hg pO2 78.0 L (80-100) mm/Hg HCO3 25.5 (21-28) mmol/L ABG pH 7.51 H (7.35-7.45) ABG Total CO2 26.5 (22-28) mmol.L ABG O2 Saturation 97.6 (95-98) % ABG O2 Content 14.1 L (15-23) ML/dl ABG Base Excess 2.7 (-2.0-3.0) mmol/L ABG Hemoglobin 10.6 L (11.7-17.4) g/dL ABG Carboxyhemoglobin 2.4 H (0.5-1.5) % POC ABG HHb (Measured) 2.3 (0-5) % ABG Methemoglobin 1.3 (0.0-3.0) % ABG O2 Capacity 14.4 L (16-24) mL/dl Hgb O2 Saturation 94.0 L (95.0-98.0) % FiO2 21.0 % Sodium 157 H* 160 H* (132-148) mmol/L Potassium 4.2 4.4 (3.6-5.0) mmol/L Chloride 120 H 122 H* (95-110) mmol/L Carbon Dioxide 26 26 (21-33) mmol/L Anion Gap 15 16 (10-20) BUN 31 H 29 H (7-21) mg/dL Creatinine 1.2 1.1 (0.5-1.4) mg/dL Est GFR ( Amer) > 60 > 60 Est GFR (Non-Af Amer) 59 > 60 POC Glucose (mg/dL) (65-110) mg/dL Random Glucose 138 H 90 (70-110) mg/dL Calcium 9.5 9.5 (8.4-10.5) mg/dL Phosphorus 3.3 (2.5-4.5) mg/dL Magnesium 2.1 (1.7-2.2) mg/dL Total Bilirubin 0.7 (0.2-1.3) mg/dL AST 47 (15-59) U/L ALT 23 (7-56) U/L Alkaline Phosphatase 80 (38-133) U/L Total Protein 7.2 (5.8-8.3) g/dL Albumin 3.1 (3.0-4.8) g/dL Globulin 4.1 gm/dL Albumin/Globulin Ratio 0.8 L (1.1-1.8) Plasma Metanephrine (<=57) pg/mL Plasma Normetanephrine (<=148) pg/mL Plas Total Metaneph (<=205) pg/mL VMA/Creatinine Ratio (1.1-4.1) mg/g creat Amiodarone (1.5-2.5) mcg/mL Desethylamiodarone (1.5-2.5) mcg/mL 10/24/16 10/24/16 10/21/16 Range/Units 21:54 16:21 12:20 WBC (4.5-11.0) 10^3/ul RBC (3.5-6.1) 10^6/uL Hgb (14.0-18.0) gm/dL Hct (42.0-52.0) % MCV (80.0-105.0) fL MCH (25.0-35.0) pg MCHC (31.0-37.0) g/dl RDW (11.5-14.5) % Plt Count (120.0-450.0) 10^3/uL MPV (7.0-11.0) fl Gran % (50.0-68.0) % Lymph % (Auto) (22.0-35.0) % [place] % (Auto) (1.0-6.0) % Eos % (Auto) (1.5-5.0) % Baso % (Auto) (0.0-3.0) % Gran # (1.4-6.5) Lymph # (1.2-3.4) [place] # (0.1-0.6) Eos # (0.0-0.7) Baso # (0.0-2.0) K/mm3 pCO2 (35-45) mm/Hg pO2 (80-100) mm/Hg HCO3 (21-28) mmol/L ABG pH (7.35-7.45) ABG Total CO2 (22-28) mmol.L ABG O2 Saturation (95-98) % ABG O2 Content (15-23) ML/dl ABG Base Excess (-2.0-3.0) mmol/L ABG Hemoglobin (11.7-17.4) g/dL ABG Carboxyhemoglobin (0.5-1.5) % POC ABG HHb (Measured) (0-5) % ABG Methemoglobin (0.0-3.0) % ABG O2 Capacity (16-24) mL/dl Hgb O2 Saturation (95.0-98.0) % FiO2 % Sodium (132-148) mmol/L Potassium (3.6-5.0) mmol/L Chloride (95-110) mmol/L Carbon Dioxide (21-33) mmol/L Anion Gap (10-20) BUN (7-21) mg/dL Creatinine (0.5-1.4) mg/dL Est GFR ( Amer) Est GFR (Non-Af Amer) POC Glucose (mg/dL) 117 H 115 H (65-110) mg/dL Random Glucose (70-110) mg/dL Calcium (8.4-10.5) mg/dL Phosphorus (2.5-4.5) mg/dL Magnesium (1.7-2.2) mg/dL Total Bilirubin (0.2-1.3) mg/dL AST (15-59) U/L ALT (7-56) U/L Alkaline Phosphatase (38-133) U/L Total Protein (5.8-8.3) g/dL Albumin (3.0-4.8) g/dL Globulin gm/dL Albumin/Globulin Ratio (1.1-1.8) Plasma Metanephrine (<=57) pg/mL Plasma Normetanephrine (<=148) pg/mL Plas Total Metaneph (<=205) pg/mL VMA/Creatinine Ratio (1.1-4.1) mg/g creat Amiodarone 0.8 L (1.5-2.5) mcg/mL Desethylamiodarone 0.1 L (1.5-2.5) mcg/mL 10/21/16 10/20/16 Range/Units 03:45 08:30 WBC (4.5-11.0) 10^3/ul RBC (3.5-6.1) 10^6/uL Hgb (14.0-18.0) gm/dL Hct (42.0-52.0) % MCV (80.0-105.0) fL MCH (25.0-35.0) pg MCHC (31.0-37.0) g/dl RDW (11.5-14.5) % Plt Count (120.0-450.0) 10^3/uL MPV (7.0-11.0) fl Gran % (50.0-68.0) % Lymph % (Auto) (22.0-35.0) % [place] % (Auto) (1.0-6.0) % Eos % (Auto) (1.5-5.0) % Baso % (Auto) (0.0-3.0) % Gran # (1.4-6.5) Lymph # (1.2-3.4) [place] # (0.1-0.6) Eos # (0.0-0.7) Baso # (0.0-2.0) K/mm3 pCO2 (35-45) mm/Hg pO2 (80-100) mm/Hg HCO3 (21-28) mmol/L ABG pH (7.35-7.45) ABG Total CO2 (22-28) mmol.L ABG O2 Saturation (95-98) % ABG O2 Content (15-23) ML/dl ABG Base Excess (-2.0-3.0) mmol/L ABG Hemoglobin (11.7-17.4) g/dL ABG Carboxyhemoglobin (0.5-1.5) % POC ABG HHb (Measured) (0-5) % ABG Methemoglobin (0.0-3.0) % ABG O2 Capacity (16-24) mL/dl Hgb O2 Saturation (95.0-98.0) % FiO2 % Sodium (132-148) mmol/L Potassium (3.6-5.0) mmol/L Chloride (95-110) mmol/L Carbon Dioxide (21-33) mmol/L Anion Gap (10-20) BUN (7-21) mg/dL Creatinine (0.5-1.4) mg/dL Est GFR ( Amer) Est GFR (Non-Af Amer) POC Glucose (mg/dL) (65-110) mg/dL Random Glucose (70-110) mg/dL Calcium (8.4-10.5) mg/dL Phosphorus (2.5-4.5) mg/dL Magnesium (1.7-2.2) mg/dL Total Bilirubin (0.2-1.3) mg/dL AST (15-59) U/L ALT (7-56) U/L Alkaline Phosphatase (38-133) U/L Total Protein (5.8-8.3) g/dL Albumin (3.0-4.8) g/dL Globulin gm/dL Albumin/Globulin Ratio (1.1-1.8) Plasma Metanephrine 83 H (<=57) pg/mL Plasma Normetanephrine 167 H (<=148) pg/mL Plas Total Metaneph 250 H (<=205) pg/mL VMA/Creatinine Ratio 1.8 (1.1-4.1) mg/g creat Amiodarone (1.5-2.5) mcg/mL Desethylamiodarone (1.5-2.5) mcg/mL Laboratory Results - last 24 hr 10/20/16 10/21/16 10/21/16 08:30 03:45 12:20 WBC RBC Hgb Hct MCV MCH MCHC RDW Plt Count MPV Gran % Lymph % (Auto) [place] % (Auto) Eos % (Auto) Baso % (Auto) Gran # Lymph # [place] # Eos # Baso # pCO2 pO2 HCO3 ABG pH ABG Total CO2 ABG O2 Saturation ABG O2 Content ABG Base Excess ABG Hemoglobin ABG Carboxyhemoglobin POC ABG HHb (Measured) ABG Methemoglobin ABG O2 Capacity Hgb O2 Saturation FiO2 Sodium Potassium Chloride Carbon Dioxide Anion Gap BUN Creatinine Est GFR ( Amer) Est GFR (Non-Af Amer) POC Glucose (mg/dL) Random Glucose Calcium Phosphorus Magnesium Total Bilirubin AST ALT Alkaline Phosphatase Total Protein Albumin Globulin Albumin/Globulin Ratio Plasma Metanephrine 83 H Plasma Normetanephrine 167 H Plas Total Metaneph 250 H VMA/Creatinine Ratio 1.8 Amiodarone 0.8 L Desethylamiodarone 0.1 L 10/24/16 10/24/16 10/25/16 16:21 21:54 05:00 WBC RBC Hgb Hct MCV MCH MCHC RDW Plt Count MPV Gran % Lymph % (Auto) [place] % (Auto) Eos % (Auto) Baso % (Auto) Gran # Lymph # [place] # Eos # Baso # pCO2 32 L pO2 78.0 L HCO3 25.5 ABG pH 7.51 H ABG Total CO2 26.5 ABG O2 Saturation 97.6 ABG O2 Content 14.1 L ABG Base Excess 2.7 ABG Hemoglobin 10.6 L ABG Carboxyhemoglobin 2.4 H POC ABG HHb (Measured) 2.3 ABG Methemoglobin 1.3 ABG O2 Capacity 14.4 L Hgb O2 Saturation 94.0 L FiO2 21.0 Sodium Potassium Chloride Carbon Dioxide Anion Gap BUN Creatinine Est GFR ( Amer) Est GFR (Non-Af Amer) POC Glucose (mg/dL) 115 H 117 H Random Glucose Calcium Phosphorus Magnesium Total Bilirubin AST ALT Alkaline Phosphatase Total Protein Albumin Globulin Albumin/Globulin Ratio Plasma Metanephrine Plasma Normetanephrine Plas Total Metaneph VMA/Creatinine Ratio Amiodarone Desethylamiodarone 10/25/16 10/25/16 06:10 12:31 WBC 13.0 H RBC 4.28 Hgb 11.1 L Hct 32.9 L MCV 76.9 L MCH 25.9 MCHC 33.7 RDW 15.8 H Plt Count 323 MPV 11.4 H Gran % 76.6 H Lymph % (Auto) 16.3 L [place] % (Auto) 6.2 H Eos % (Auto) 0.7 L Baso % (Auto) 0.2 Gran # 9.97 H Lymph # 2.1 [place] # 0.8 H Eos # 0.1 Baso # 0.02 pCO2 pO2 HCO3 ABG pH ABG Total CO2 ABG O2 Saturation ABG O2 Content ABG Base Excess ABG Hemoglobin ABG Carboxyhemoglobin POC ABG HHb (Measured) ABG Methemoglobin ABG O2 Capacity Hgb O2 Saturation FiO2 Sodium 160 H* 157 H* Potassium 4.4 4.2 Chloride 122 H* 120 H Carbon Dioxide 26 26 Anion Gap 16 15 BUN 29 H 31 H Creatinine 1.1 1.2 Est GFR ( Amer) > 60 > 60 Est GFR (Non-Af Amer) > 60 59 POC Glucose (mg/dL) Random Glucose 90 138 H Calcium 9.5 9.5 Phosphorus 3.3 Magnesium 2.1 Total Bilirubin 0.7 AST 47 ALT 23 Alkaline Phosphatase 80 Total Protein 7.2 Albumin 3.1 Globulin 4.1 Albumin/Globulin Ratio 0.8 L Plasma Metanephrine Plasma Normetanephrine Plas Total Metaneph VMA/Creatinine Ratio Amiodarone Desethylamiodarone Fingerstick Blood Sugar Results: 107 Review of Systems - Constitutional Constitutional: absent: Fever - EENT Eyes: absent: Blurred Vision, Change in Vision - Cardiovascular Cardiovascular: absent: Chest Pain, Dyspnea - Respiratory Respiratory: absent: Cough, Dyspnea, Pain on Inspiration - Gastrointestinal Gastrointestinal: absent: Abdominal Pain, Diarrhea, Nausea, Vomiting - Genitourinary Genitourinary: absent: Dysuria - Neurological Neurological: absent: Focal Weakness - Endocrine Endocrine: absent: Palpitations Critical Care Progress Note - Ventilator Checklist PUD Prophalyxis: Yes DVT Prophylaxis: Yes - Nutrition Nutrition: Nutrition Category Date Time Status Dysphagia/Modified Consistency Diet [DIET] Diets 10/25/16 Breakfast Ordered Assessment/Plan - Assessment and Plan (Free Text) Assessment: 71 yo M w h/o HTN, HLD, arthritis, medical noncompliance admitted for hypertensive emergency with AMS, transferred to ICU following [employer] for HTN and SVT on Nicardipine drip that has since been weaned off, intubated for 7 days now s/p extubation doing well on NC, course further complicated by JESUSITA now resolved, Pseudomonas PNA still on Meropenem. Plan: Neuro: AAOx3, NAD. Probable accelerated vascular demetia Able to protect airway, comfortable on NC Maintain normothermia. 10/18 CT head showed no evidence of acute intracranial hemorrhage, territorial infarct, mass effect or midline shift. 10/16 MRI brain had a lot of movement artifact but no significant intracranial pathology as per radiology read HOLD benzos in the future as it overly sedates the patient Pulm: s/p successful extubation, Tolerating NC. Maintain SpO2>90 Aspiration precautions. HOB >35degrees. Duonebs Q6hr CV: PAF. Workup for pheo negative. Hyperthyroidism workup negative. BP better controlled on current meds. Continue Amio, clonidine, digoxin, lopressor, labetalol, 2D ECHO shows LVEF 35%, mild-mod AR, mild , mild MR, mild TR, RVSP 35mmHg, trace pericardial effusion, grade 3 diastolic dysfunction. Possible cardiac cath in the future as per cardio Hold hydralazine given BRAYDEN positive and possibility of drug-induced SLE in this patient GI: GI ppx. Endo: A1c 5.1. Maintain euglycemia 140-180. Lispro Low SSI Renal: JESUSITA resolved. Hold all nephrotoxins. D/C IVF Continue to monitor renal function, strict I&Os Renal US showed no significant or acute findings Hypernatremia and hyperCl downtrending. Continue D5W @250cc/hr Rheum: BRAYDEN titer 1:320 in speckled pattern. DS DNA negative. Hold hydralazine in the future as it is known to be associated with drug-induced lupus erythematosus ID: Sputum culture significant for Pseudomonas aeruginosa. Continue Meropenem as per ID 10/14 and 10/18 blood cultures negative after 5 days. Heme: Mild microcytic anemia - of chronic disease and B12 deficiency. Hb 11.1 stable. No signs of bleeding. Will start PO B12 supplementation Platelet count stabilized, WNL. Continue to monitor DVT/GI ppx: SQH, PT/OT. IV protonix, Dispo: Transfer to remote tele - Date & Time Date: 10/25/16 Time: 15:38 <Thang Youssef - Last Filed: 10/25/16 16:32> CCU Objective - Vital Signs / Intake & Output Vital Signs (Last 4 hours): Vital Signs Pulse BP 10/25/16 13:02 66 105/56 L Intake and Output (Last 8hrs): Intake & Output 10/25/16 10/25/16 10/25/16 06:59 14:59 22:59 Weight 218 lb 14.4 oz Other: Voiding Method Indwelling Catheter - Medications Active Medications: Active Medications Generic Name Dose Route Start Last Admin Trade Name Freq PRN Reason Stop Dose Admin Acetaminophen 650 mg 10/18/16 15:23 10/20/16 01:12 Tylenol 325mg Tab PO 650 mg Q6H PRN Administration Fever >100.4 F Albuterol/Ipratropium 3 ml 10/21/16 18:00 10/25/16 13:12 Duoneb 3 Mg/0.5 Mg (3 Ml) Ud IH 3 ml Q6 ROSALIA Administration Amiodarone HCl 200 mg 10/17/16 10:00 10/25/16 09:56 Cordarone PO 200 mg DAILY ROSALIA Administration Aspirin 81 mg 10/15/16 16:15 10/25/16 09:55 Aspirin Chewable PO 81 mg DAILY ROSALIA Administration Atorvastatin Calcium 40 mg 10/16/16 17:00 10/24/16 18:32 Lipitor PO 40 mg DIN ROSALIA Administration Clonidine HCl 0.2 mg 10/24/16 10:00 10/25/16 09:55 Catapres PO 0.2 mg BID ROSALIA Administration Cyanocobalamin 1,000 mcg 10/25/16 10:00 10/25/16 10:01 Vitamin B12 1000 Mcg Tab PO 1,000 mcg DAILY ROSALIA Administration Digoxin 0.125 mg 10/25/16 10:00 10/25/16 09:57 Lanoxin PO 0.125 mg DAILY ROSALIA Administration Heparin Sodium (Porcine) 5,000 units 10/17/16 13:45 10/25/16 09:57 Heparin SC 5,000 units Q12 ROSALIA Administration Meropenem 1 gm/ Dextrose 100 mls @ 100 mls/hr 10/25/16 10:00 10/25/16 10:07 IVPB 100 mls/hr Q12 ROSALIA Administration Dextrose 1,000 mls @ 250 mls/hr 10/25/16 11:00 10/25/16 11:03 Dextrose 5% In Water 1000 Ml IV 250 mls/hr .Q4H ROSALIA Administration Insulin Human Lispro 0 units 10/25/16 10:00 10/25/16 09:57 Humalog Low SC Not Given Q12 [facility] Protocol Labetalol HCl 200 mg 10/25/16 13:50 Trandate PO TID ROSALIA Metoprolol Tartrate 25 mg 10/25/16 13:50 Lopressor PO BID ROSALIA Pantoprazole Sodium 40 mg 10/16/16 12:45 10/25/16 10:01 Protonix Inj IVP 40 mg DAILY ROSALIA Administration Thiamine HCl 100 mg 10/15/16 17:00 10/25/16 10:01 Vitamin B1 Tab PO 100 mg DAILY ROSALIA Administration - Patient Studies Lab Studies: Lab Studies 10/25/16 10/25/16 10/25/16 Range/Units 12:31 06:10 05:00 WBC 13.0 H (4.5-11.0) 10^3/ul RBC 4.28 (3.5-6.1) 10^6/uL Hgb 11.1 L (14.0-18.0) gm/dL Hct 32.9 L (42.0-52.0) % MCV 76.9 L (80.0-105.0) fL MCH 25.9 (25.0-35.0) pg MCHC 33.7 (31.0-37.0) g/dl RDW 15.8 H (11.5-14.5) % Plt Count 323 (120.0-450.0) 10^3/uL MPV 11.4 H (7.0-11.0) fl Gran % 76.6 H (50.0-68.0) % Lymph % (Auto) 16.3 L (22.0-35.0) % [place] % (Auto) 6.2 H (1.0-6.0) % Eos % (Auto) 0.7 L (1.5-5.0) % Baso % (Auto) 0.2 (0.0-3.0) % Gran # 9.97 H (1.4-6.5) Lymph # 2.1 (1.2-3.4) [place] # 0.8 H (0.1-0.6) Eos # 0.1 (0.0-0.7) Baso # 0.02 (0.0-2.0) K/mm3 pCO2 32 L (35-45) mm/Hg pO2 78.0 L (80-100) mm/Hg HCO3 25.5 (21-28) mmol/L ABG pH 7.51 H (7.35-7.45) ABG Total CO2 26.5 (22-28) mmol.L ABG O2 Saturation 97.6 (95-98) % ABG O2 Content 14.1 L (15-23) ML/dl ABG Base Excess 2.7 (-2.0-3.0) mmol/L ABG Hemoglobin 10.6 L (11.7-17.4) g/dL ABG Carboxyhemoglobin 2.4 H (0.5-1.5) % POC ABG HHb (Measured) 2.3 (0-5) % ABG Methemoglobin 1.3 (0.0-3.0) % ABG O2 Capacity 14.4 L (16-24) mL/dl Hgb O2 Saturation 94.0 L (95.0-98.0) % FiO2 21.0 % Sodium 157 H* 160 H* (132-148) mmol/L Potassium 4.2 4.4 (3.6-5.0) mmol/L Chloride 120 H 122 H* (95-110) mmol/L Carbon Dioxide 26 26 (21-33) mmol/L Anion Gap 15 16 (10-20) BUN 31 H 29 H (7-21) mg/dL Creatinine 1.2 1.1 (0.5-1.4) mg/dL Est GFR ( Amer) > 60 > 60 Est GFR (Non-Af Amer) 59 > 60 POC Glucose (mg/dL) (65-110) mg/dL Random Glucose 138 H 90 (70-110) mg/dL Calcium 9.5 9.5 (8.4-10.5) mg/dL Phosphorus 3.3 (2.5-4.5) mg/dL Magnesium 2.1 (1.7-2.2) mg/dL Total Bilirubin 0.7 (0.2-1.3) mg/dL AST 47 (15-59) U/L ALT 23 (7-56) U/L Alkaline Phosphatase 80 (38-133) U/L Total Protein 7.2 (5.8-8.3) g/dL Albumin 3.1 (3.0-4.8) g/dL Globulin 4.1 gm/dL Albumin/Globulin Ratio 0.8 L (1.1-1.8) Plasma Metanephrine (<=57) pg/mL Plasma Normetanephrine (<=148) pg/mL Plas Total Metaneph (<=205) pg/mL Amiodarone (1.5-2.5) mcg/mL Desethylamiodarone (1.5-2.5) mcg/mL 10/24/16 10/21/16 10/21/16 Range/Units 21:54 12:20 03:45 WBC (4.5-11.0) 10^3/ul RBC (3.5-6.1) 10^6/uL Hgb (14.0-18.0) gm/dL Hct (42.0-52.0) % MCV (80.0-105.0) fL MCH (25.0-35.0) pg MCHC (31.0-37.0) g/dl RDW (11.5-14.5) % Plt Count (120.0-450.0) 10^3/uL MPV (7.0-11.0) fl Gran % (50.0-68.0) % Lymph % (Auto) (22.0-35.0) % [place] % (Auto) (1.0-6.0) % Eos % (Auto) (1.5-5.0) % Baso % (Auto) (0.0-3.0) % Gran # (1.4-6.5) Lymph # (1.2-3.4) [place] # (0.1-0.6) Eos # (0.0-0.7) Baso # (0.0-2.0) K/mm3 pCO2 (35-45) mm/Hg pO2 (80-100) mm/Hg HCO3 (21-28) mmol/L ABG pH (7.35-7.45) ABG Total CO2 (22-28) mmol.L ABG O2 Saturation (95-98) % ABG O2 Content (15-23) ML/dl ABG Base Excess (-2.0-3.0) mmol/L ABG Hemoglobin (11.7-17.4) g/dL ABG Carboxyhemoglobin (0.5-1.5) % POC ABG HHb (Measured) (0-5) % ABG Methemoglobin (0.0-3.0) % ABG O2 Capacity (16-24) mL/dl Hgb O2 Saturation (95.0-98.0) % FiO2 % Sodium (132-148) mmol/L Potassium (3.6-5.0) mmol/L Chloride (95-110) mmol/L Carbon Dioxide (21-33) mmol/L Anion Gap (10-20) BUN (7-21) mg/dL Creatinine (0.5-1.4) mg/dL Est GFR ( Amer) Est GFR (Non-Af Amer) POC Glucose (mg/dL) 117 H (65-110) mg/dL Random Glucose (70-110) mg/dL Calcium (8.4-10.5) mg/dL Phosphorus (2.5-4.5) mg/dL Magnesium (1.7-2.2) mg/dL Total Bilirubin (0.2-1.3) mg/dL AST (15-59) U/L ALT (7-56) U/L Alkaline Phosphatase (38-133) U/L Total Protein (5.8-8.3) g/dL Albumin (3.0-4.8) g/dL Globulin gm/dL Albumin/Globulin Ratio (1.1-1.8) Plasma Metanephrine 83 H (<=57) pg/mL Plasma Normetanephrine 167 H (<=148) pg/mL Plas Total Metaneph 250 H (<=205) pg/mL Amiodarone 0.8 L (1.5-2.5) mcg/mL Desethylamiodarone 0.1 L (1.5-2.5) mcg/mL Laboratory Results - last 24 hr 10/21/16 10/21/16 10/24/16 03:45 12:20 21:54 WBC RBC Hgb Hct MCV MCH MCHC RDW Plt Count MPV Gran % Lymph % (Auto) [place] % (Auto) Eos % (Auto) Baso % (Auto) Gran # Lymph # [place] # Eos # Baso # pCO2 pO2 HCO3 ABG pH ABG Total CO2 ABG O2 Saturation ABG O2 Content ABG Base Excess ABG Hemoglobin ABG Carboxyhemoglobin POC ABG HHb (Measured) ABG Methemoglobin ABG O2 Capacity Hgb O2 Saturation FiO2 Sodium Potassium Chloride Carbon Dioxide Anion Gap BUN Creatinine Est GFR ( Amer) Est GFR (Non-Af Amer) POC Glucose (mg/dL) 117 H Random Glucose Calcium Phosphorus Magnesium Total Bilirubin AST ALT Alkaline Phosphatase Total Protein Albumin Globulin Albumin/Globulin Ratio Plasma Metanephrine 83 H Plasma Normetanephrine 167 H Plas Total Metaneph 250 H Amiodarone 0.8 L Desethylamiodarone 0.1 L 10/25/16 10/25/16 10/25/16 05:00 06:10 12:31 WBC 13.0 H RBC 4.28 Hgb 11.1 L Hct 32.9 L MCV 76.9 L MCH 25.9 MCHC 33.7 RDW 15.8 H Plt Count 323 MPV 11.4 H Gran % 76.6 H Lymph % (Auto) 16.3 L [place] % (Auto) 6.2 H Eos % (Auto) 0.7 L Baso % (Auto) 0.2 Gran # 9.97 H Lymph # 2.1 [place] # 0.8 H Eos # 0.1 Baso # 0.02 pCO2 32 L pO2 78.0 L HCO3 25.5 ABG pH 7.51 H ABG Total CO2 26.5 ABG O2 Saturation 97.6 ABG O2 Content 14.1 L ABG Base Excess 2.7 ABG Hemoglobin 10.6 L ABG Carboxyhemoglobin 2.4 H POC ABG HHb (Measured) 2.3 ABG Methemoglobin 1.3 ABG O2 Capacity 14.4 L Hgb O2 Saturation 94.0 L FiO2 21.0 Sodium 160 H* 157 H* Potassium 4.4 4.2 Chloride 122 H* 120 H Carbon Dioxide 26 26 Anion Gap 16 15 BUN 29 H 31 H Creatinine 1.1 1.2 Est GFR ( Amer) > 60 > 60 Est GFR (Non-Af Amer) > 60 59 POC Glucose (mg/dL) Random Glucose 90 138 H Calcium 9.5 9.5 Phosphorus 3.3 Magnesium 2.1 Total Bilirubin 0.7 AST 47 ALT 23 Alkaline Phosphatase 80 Total Protein 7.2 Albumin 3.1 Globulin 4.1 Albumin/Globulin Ratio 0.8 L Plasma Metanephrine Plasma Normetanephrine Plas Total Metaneph Amiodarone Desethylamiodarone Critical Care Progress Note - Nutrition Nutrition: Nutrition Category Date Time Status Dysphagia/Modified Consistency Diet [DIET] Diets 10/25/16 Breakfast Ordered Addendum Addendum: 10/25/16 16:32 patient was seen and examined at bedside with dr. Casillas. Please see Dr. Youssef's note
--- NOTE | 2016-10-25 13:38 | PCM.PYCHPN ---
Psychiatric Progress Note - Psychiatric Progress Note Patient seen today, length of contact: 25 Patient Chief Complaint: Patient evaluated in ICU. Chart reviewed and case discussed with staff. Case also discussed with of 32 years who was at his bedside Patient had been agitated earlier. Is being treated for congestive heart failure with pulmonary involvement may be a with this in some denial. Children reportedly also may be in some denial. assures me that prior to this patient was capable of helping her with her diabetes and neuropathy. Yet also tells me that he has been somewhat forgetful over the past 2 years. It is not clear to me when he was offered a diagnosis of dementia nursing indicates there may be a history of alcohol use although this was presently denied. Patient had previously worked for [email or web address] but reportedly has been retired for about 30 years (if this is correct that I suspected there appeared to be some disability that prevented the patient from working over these years) in any event he seems that they have been home bound. He is a [place] of the [facility].. The patient has 2 children who live nearby. A familial psychiatric history was denied. Problems Identified/Issues Discussed: Case reviewed with nursing. Chart reviewed. Family members at the bedside. Patient dealing with multiple medical problems who seems to be able to follow verbal commands. Agitation not reported Medical Problems: Multiple. Including history of hypertension with blood pressure lability presently, left ventricular hypertrophy, his lipidemia, coronary artery disease , left ventricular diastolic dysfunction, hyponatremia deep vein thrombosis prophylaxis Diagnostic Results: As noted in chart DSM 5 Symptoms Update: Nursing indicates no change. Patient rows of both but basically not interactive Medication Change: No Medical Record Reviewed: Yes Mental Status Examination - Cognitive Function Orientation: Person (Nonverbal. Appears to respond to verbal commands) Memory: Impaired Attention: Poor Concentration: Poor Fund of Knowledge: Poor - Mood Mood: Other - Affect Affect: Other - Speech Speech: Soft - Formal Thought Process Formal Thought Process: Other - Suicidal Ideation Suicidal Ideation: No - Homicidal Ideation Homicidal Ideation: No Goal/Treatment Plan - Goal/Treatment Plan Need for Continued Stay: Severe functional impairment, Other Progress Toward Problem(s) and Goals/Treatment Plan: Awaiting improved cognitive status of that will presumably be coupled with improved medical status On October 23 appears improving; more so than I had anticipated. Still confused hopeful that as medical condition improves so will his cognitive status. I am told that he was taking care of his prior to his recent illness
[2016-10-25 16:31] LABS: BLOOD UREA NITROGEN 35 mg/dL (7-21); CALCIUM 9.3 mg/dL (8.4-10.5); CARBON DIOXIDE 26 mmol/L (21-33); CHLORIDE 117 mmol/L (98-107); GFR AFRICAN-AMERICAN > 60; GLUCOSE,RANDOM 124 mg/dL (70-110); SODIUM 152 mmol/L (132-148)
--- NOTE | 2016-10-25 18:05 | PN ---
DATE: 10/25/2016 REASON FOR CONSULTATION AND FOLLOWUP: Congestive heart failure, paroxysmal atrial fibrillation, stat us post rapid response, respiratory failure, intubated and successfully extubated, rule out pheochrom ocytoma. BRIEF CLINICAL HISTORY: A 71-year-old male with past medical history significant for hypertension, h yperlipidemia, admitted with shortness of breath. Respiratory status deteriorated, intubated. Now, the patient successfully extubated, but still confused, has decreased LV function. Working diagnosis is rule out pheochromocytoma. PHYSICAL EXAMINATION: VITAL SIGNS: Temperature afebrile, heart rate 77, blood pressure 105/56. HEENT: PERRLA. Extraocular muscles intact. NECK: Supple. No carotid bruits. No thyromegaly. CHEST: Clear to auscultation. HEART: S1, S2 regular. ABDOMEN: Soft. EXTREMITIES: Clubbing and cyanosis negative. BLOOD WORKUP: WBC 13, hemoglobin 11.1, hematocrit 32.9, platelet count 323. Chemistry shows sodium 152, potassium ____, 117 chloride ,carbon dioxide 27, anion gap of 35, BUN 1.4. IMPRESSION: Hypernatremia, hypertension, paroxysmal atrial fibrillation, wide complex tachycardia se condary to bundle branch block and atrial fibrillation, cardiomyopathy, rule out underlying coronary artery disease, status post respiratory failure, intubated. Last echo shows 10/16/____ejection fracti on ____, multiple wall motion abnormality consistent with coronary artery disease, moderate aortic re gurgitation, mild aortic stenosis, mild mitral regurgitation, mild tricuspid regurgitation, no eviden ce of acute myocardial infarction or aqb-LV-qpejbuh myocardial infarction. RECOMMENDATION: Aggressive control of blood pressure. Workup for pheochromocytoma in progress. Con tinue amiodarone to prevent going back into A-fib. Continue low-dose beta-adam. Continue digoxin , clonidine. Continue labetalol 200 mg 3 times a day. Avoid hydralazine because of lupus. We will follow with you. Once the patient is stable and mentation is cleared, able to walk, consider cardiac catheterization or at least a stress test. We will follow with you. Thank you, Dr. Posey, for providing the opportunity in taking care of the patient. Lucrecia Pérez MD cc: [id number] TT: 10/25/2016 18:04:50 Confirmation # [id number] Dictation # [id number]
--- NOTE | 2016-10-25 18:18 | PN ---
DATE: 10/25/2016 ATTENDING: ICU. The patient appears comfortable with a loose [place] aboard at bed rest. Sodium found to be low at 160 today; received some IV hydration. VITAL SIGNS: Stable. Temperature is 98, respiration 18, pulse 74, blood pressure 162/80. LUNGS: Clear. HEART: Regular rhythm. ABDOMEN: Soft, nontender. EXTREMITIES: No edema. PLAN: Continue rehydration enterally and intravenously. Follow electrolytes and CBC again tomorrow. Encourage nutrition and oral fluids. Psychiatry followup greatly appreciated. Jf Posey MD cc: [id number] TT: 10/25/2016 18:17:28 Confirmation # [id number] Dictation # [id number] jn
--- NOTE | 2016-10-26 01:57 | PN ---
DATE: 10/25/2016 SUBJECTIVE: The patient was seen in the intensive care unit earlier today. Gisselle was in place. Fol ey catheter had been removed. He appeared to be somewhat encephalopathic. He was not on any inotrop es nor on any pressors. He was receiving D5W at 100 mL per hour on account of his hypernatremia. He was able to answer questions, but was clearly somewhat encephalopathic. He did not appear to be in any pain. OBJECTIVE: VITAL SIGNS: Blood pressure is 131/51 with a minimum of 97/67 and a maximum of 217/105 in the last 2 4-hour period. Heart rate is 56, but has ranged from the 50s to as high as 123 beats per minute in t he last 24-hour period, axillary temperature is 98.1 and the patient has been afebrile for a 24-hour period. Respiratory rate is 19, but has ranged from 18 to approximately 35 breaths per minute in the last 24-hour period. Oxygen saturation is 91%, but has ranged from the high 80s to approximately 99 % on 2 liters oxygen via nasal cannula. I's and O's are documented as 2110/250. HEENT: The patient was normocephalic and atraumatic. His oral mucosa, however, appear to be quite d ry. NECK: Conjunctivae were not pale, nor were they anicteric and there was no jugular venous distention that I could appreciate. CHEST: Lungs buckley on my exam were grossly clear without any rales, rhonchi or wheezing. CARDIAC: Shows that he is irregularly irregular. There were no rubs that I could appreciated. ABDOMEN: Soft, nontender and nondistended without any rebounding, guarding or rigidity. EXTREMITIES: Had no edema. GENITOURINARY: Had no suprapubic tenderness. NEUROLOGIC: The patient is confused, but nonfocal. VASCULAR: No bruits. LABORATORY STUDIES: White count is 13, H and H 11.1/32.9 with a platelet count of 323,000. There ar e 77% neutrophils, 16% lymphocytes, and 6% monocytes. Sodium this morning was 160, but is now 152, p otassium is 4.0, chloride is 117, bicarbonate 26, BUN/creatinine increased 35/1.4. Creatinine was 1. 1 earlier today. BRAYDEN is positive at 1:320, complements are normal; however anti-double stranded DNA is negative, 24-hour urine collection to rule out pheochromocytoma is still pending. There is no new imaging to report and there is no new microbiology date to report either. IMPRESSION AND PLAN: The patient is a 71-year-old gentleman with hypertension and left ventricular h ypertrophy, dyslipidemia, coronary artery disease with decreased left ventricular systolic function, admitted with dyspnea on exertion. Hospitalization has been complicated by hypertensive emergency wi th congestive heart failure, for which the patient required nicardipine infusion, as well as atrial f ibrillation with rapid ventricular response and hemodynamic instability with acute kidney injury for which he was intubated, but has since been extubated, acute kidney injury had resolved. This patient has become hypernatremic in the setting of decreasing urine output, consistent with the hypernatremi a being secondary to inadequate fluid intake in this patient who appears to be too encephalopathic to drink on his own and is limited in drinking with a Gisselle. Of note, blood pressure has been quite la bile during this hospitalization as well. 1. The patient is currently on D5W and his sodium has decreased nicely from 160 to 152 thus far toda y. Based on his current sodium of 152, patient is noted to have a free water deficit of 4.25 liters and I would continue him on D5W with 100 mL hour. 2. The patient's creatinine has increased from 1.1-1.4 today, which may be secondary to dehydration or secondary to documented episodes of hypotension given his labile blood pressure. He was noted to have a blood pressure as low as 97/67 earlier today. Nonetheless, correcting his dehydration will fa cilitate treatment of his acute kidney injury. 3. The patient does have a markedly positive BRAYDEN, but, since C3 and C4 are within normal limits and anti-double stranded DNA is negative, there is no evidence of lupus nephritis, although it is possib le that he may have underlying lupus with manifestations in other organs. We will check anti-Javier a ntibody and anti-SAILBOAT CAPTAIN antibody with his next set of labs. 4. I am wondering whether the patient's labile blood pressure may represent autonomic nervous system dysfunction, which has been described in association with collagen vascular disorders including lupu s. If the patient's anti-Javier antibody and anti-SAILBOAT CAPTAIN antibodies are positive and if he meets enough criteria for us to be somewhat confident of an underlying diagnosis of lupus nephritis, then perhaps it would be reasonable to start the patient on steroids and CellCept, but I believe that we may benef it from neurology evaluation on this patient. 5. In the meantime, there is a greater risk for the patient being hypotensive than hypertensive and we need to be cautious as to not overmedicated him. Metoprolol tartrate is currently on hold for ep isodes of bradycardia, as is labetalol, but the patient is on clonidine 0.2 mg orally twice daily. I nstead, given his encephalopathy, I believe we can use clonidine on a p.r.n. basis, but, instead, per haps start him on amlodipine and, for his decreased left ventricular systolic function, on hydralazin e and isosorbide. I would not place him on an CHELLE inhibitor or on an angiotensin receptor adam, g iven what appears to be chronically low oral intake secondary to encephalopathy since putting him on an agent that blocks to rennin angiotensin aldosterone system would increase the patient's risk of ac javier kidney injury. 6. Since the patient remains essentially bedbound, continue DVT prophylaxis with heparin 5000 units subcutaneously twice daily. He is on gastrointestinal prophylaxis with pantoprazole 40 mg intravenou sly daily while he is in the intensive care unit. 7. Cardiology followup is appreciated and the patient remains on amiodarone to prevent his going toy k to atrial fibrillation. He is currently in sinus rhythm. He is also on digoxin as well and clonid ine. 8. Certainly, medications can result in elevated BRAYDEN and anti-histone antibodies can be seen occasio luis in such patients and I will order these as well with his next set of labs. Also, anti-Ro antib odies are positive in approximately 80% of patients with drug-induced lupus and we will check these a s well. 9. Overall, the patient does not appear to be improving and does appear to be encephalopathic. If a fter hyponatremia has corrected he still is unable to maintain adequate hydration and nutrition, we w ill need to consider possible PEG placement. 10. We can continue to leave Mathur catheter out. If, however, his creatinine continues to increase, we will check a bedside bladder ultrasound to rule out urinary retention. Via the chart, review of systems, past medical history, social history and family history were review ed without any changes. More than 35 minutes were spent in the care of this ICU patient today. Erik Chan MD cc: [id number] TT: 10/26/2016 01:57:04 Confirmation # [id number] Dictation # [id number] mn
[2016-10-26] MEDS: Albuterol-Ipratrop 3 mg / 0.5 (3 ml) UD IH SCH ×4 (02:04→20:11)
[2016-10-26] MEDS ORDERED: Digoxin 125 mcg (0.125 mg) Tab PO SCH (05:24)
[2016-10-26 06:41] LABS: ADD MANUAL DIFF? NO
[2016-10-26 06:47] LABS: BASO # 0.02 K/mm3 (0.0-2.0); BASO % 0.1 % (0.0-3.0); EOS # 0.2 (0.0-0.7); EOS % 1.5 % (1.5-5.0); GRAN # 11.96 (1.4-6.5); GRAN % 79.2 % (50.0-68.0); HEMATOCRIT 30.7 % (42.0-52.0); LYMPH # 2.3 (1.2-3.4); MEAN CELL VOLUME 77.1 fL (80.0-105.0); MEAN CORPUSCULAR HEMOGLOBIN 25.6 pg (25.0-35.0); MEAN CORPUSCULAR HGB CONC 33.2 g/dl (31.0-37.0); MEAN PLATELET VOLUME 10.9 fl (7.0-11.0); MONO # 0.6 (0.1-0.6); MONO % 4.2 % (1.0-6.0); PLATELET COUNT 322 10^3/uL (120.0-450.0); RED CELL DISTRIBUTION WIDTH 15.6 % (11.5-14.5); WHITE BLOOD COUNT 15.1 10^3/ul (4.5-11.0)
[2016-10-26 06:55] LABS: ALB/GLOB RATIO 0.7 (1.1-1.8); ALKALINE PHOSPHATASE 79 U/L (38-133); ALT/SGPT 27 U/L (7-56); AST/SGOT 52 U/L (15-59); BILIRUBIN,TOTAL 0.7 mg/dL (0.2-1.3); BLOOD UREA NITROGEN 30 mg/dL (7-21); CALCIUM 9.3 mg/dL (8.4-10.5); CARBON DIOXIDE 26 mmol/L (21-33); CHLORIDE 115 mmol/L (98-107); GFR AFRICAN-AMERICAN > 60; GLUCOSE,RANDOM 96 mg/dL (70-110); MAGNESIUM 1.9 mg/dL (1.7-2.2); PHOSPHOROUS 3.8 mg/dL (2.5-4.5); POTASSIUM 3.7 mmol/L (3.6-5.0); SODIUM 151 mmol/L (132-148); TOTAL PROTEIN 7.1 g/dL (5.8-8.3)
[2016-10-26] MEDS: Meropenem 1 GM in Dextrose 5% In Water 100 ML IVPB SCH ×2 (10:01→22:39)
--- NOTE | 2016-10-26 10:48 | PN ---
DATE: 10/26/2016 ATTENDING: The patient is still Gisselle'ed for his protection in ICU, appears comfortable. He is orie nted to person, but still not to place. Nephrology's followup note greatly appreciated. PHYSICAL EXAMINATION: VITAL SIGNS: Stable. Temperature is 98, respiration 22, pulse 77, blood pressure 158/64. LUNGS: Clear. HEART: Regular rhythm with extrasystole. ABDOMEN: Soft. EXTREMITIES: No edema. Sodium is down to 151. PLAN: Continue oral hydration. The patient is taking food and fluids by mouth. Possible transfer t o regular floor later today. Follow electrolytes and CBC tomorrow. We will begin calorie count. Mo bilize the patient out of bed as possible, likely with 1:1 on the floor. Jf Posey MD cc: 84 TT: 10/26/2016 10:47:28 Confirmation # [id number] Dictation # [id number] warren
[2016-10-26] MEDS: Insulin Lispro (humaLOG) LOW Coverage SC SCH ×2 (11:00→22:00)
--- NOTE | 2016-10-26 11:52 | PCM.PYCHPN ---
Psychiatric Progress Note - Psychiatric Progress Note Patient seen today, length of contact: 25 Patient Chief Complaint: Patient evaluated in ICU. Chart reviewed and case discussed with staff. Case also discussed with of 32 years who was at his bedside Patient had been agitated earlier. Is being treated for congestive heart failure with pulmonary involvement may be a with this in some denial. Children reportedly also may be in some denial. assures me that prior to this patient was capable of helping her with her diabetes and neuropathy. Yet also tells me that he has been somewhat forgetful over the past 2 years. It is not clear to me when he was offered a diagnosis of dementia nursing indicates there may be a history of alcohol use although this was presently denied. Patient had previously worked for [employer] but reportedly has been retired for about 30 years (if this is correct that I suspected there appeared to be some disability that prevented the patient from working over these years) in any event he seems that they have been home bound. He is a [place] of the [facility].. The patient has 2 children who live nearby. A familial psychiatric history was denied. Problems Identified/Issues Discussed: Case reviewed with nursing. Chart reviewed. Family members at the bedside. Patient dealing with multiple medical problems who seems to be able to follow verbal commands. Agitation not reported Medical Problems: Multiple. Including history of hypertension with blood pressure lability presently, left ventricular hypertrophy, his lipidemia, coronary artery disease , left ventricular diastolic dysfunction, hyponatremia deep vein thrombosis prophylaxis Diagnostic Results: As noted in chart DSM 5 Symptoms Update: seem slightlymorealert chart reviewed and case discussed with nursing [facility] Medication Change: No Medical Record Reviewed: Yes Mental Status Examination - Cognitive Function Orientation: Person (Nonverbal. Appears to respond to verbal commands) Memory: Impaired Attention: Poor Concentration: Poor Fund of Knowledge: Poor - Mood Mood: Other - Affect Affect: Other - Speech Speech: Soft - Formal Thought Process Formal Thought Process: Other - Suicidal Ideation Suicidal Ideation: No - Homicidal Ideation Homicidal Ideation: No Goal/Treatment Plan - Goal/Treatment Plan Need for Continued Stay: Severe functional impairment, Other Progress Toward Problem(s) and Goals/Treatment Plan: Awaiting improved cognitive status of that will presumably be coupled with improved medical status On October 23 appears improving; more so than I had anticipated. Still confused hopeful that as medical condition improves so will his cognitive status. I am told that he was taking care of his prior to his recent illness on October 26 seems somewha more alert. There reportedly is being considered to move to a Med surg floor
--- NOTE | 2016-10-26 13:13 | CP.PCM.PN ---
Subjective - Date & Time of Evaluation Date of Evaluation: 10/26/16 Time of Evaluation: 08:10 - Subjective Subjective: No fevers overnight, no diarrhea, breathing much better, no cough currently, no abdominal pain. Objective - Vital Signs/Intake and Output Vital Signs (last 24 hours): Temp Pulse Resp BP Pulse Ox 98.1 F 83 38 H 170/64 H 84 L 10/25/16 20:00 10/26/16 01:01 10/26/16 01:01 10/26/16 01:02 10/25/16 23:00 Intake and Output: 10/25/16 10/26/16 18:59 06:59 Intake Total 2110 1300 Output Total 250 Balance 1860 1300 - Medications Medications: Current Medications Acetaminophen (Tylenol 325mg Tab) 650 mg PO Q6H PRN PRN Reason: Fever >100.4 F Last Admin: 10/20/16 01:12 Dose: 650 mg Albuterol/Ipratropium (Duoneb 3 Mg/0.5 Mg (3 Ml) Ud) 3 ml IH Q6 [facility] Last Admin: 10/26/16 02:04 Dose: Not Given Amiodarone HCl (Cordarone) 200 mg PO DAILY [facility] Last Admin: 10/25/16 09:56 Dose: 200 mg Aspirin (Aspirin Chewable) 81 mg PO DAILY [facility] Last Admin: 10/25/16 09:55 Dose: 81 mg Atorvastatin Calcium (Lipitor) 40 mg PO DIN [facility] Last Admin: 10/25/16 17:23 Dose: 40 mg Clonidine HCl (Catapres) 0.2 mg PO BID [facility] Last Admin: 10/25/16 17:22 Dose: 0.2 mg Cyanocobalamin (Vitamin B12 1000 Mcg Tab) 1,000 mcg PO DAILY [facility] Last Admin: 10/25/16 10:01 Dose: 1,000 mcg Digoxin (Lanoxin) 0.125 mg PO 1400 [facility] Heparin Sodium (Porcine) (Heparin) 5,000 units SC Q12 [facility] Last Admin: 10/25/16 21:49 Dose: 5,000 units Meropenem 1 gm/ Dextrose 100 mls @ 100 mls/hr IVPB Q12 [facility] Last Admin: 10/25/16 21:48 Dose: 100 mls/hr Dextrose (Dextrose 5% In Water 1000 Ml) 1,000 mls @ 100 mls/hr IV .Q10H [facility] Last Admin: 10/26/16 05:54 Dose: 100 mls/hr Insulin Human Lispro (Humalog Low) 0 units SC Q12 [facility] PRN Reason: Protocol Last Admin: 10/25/16 22:00 Dose: Not Given Labetalol HCl (Trandate) 200 mg PO TID [facility] Last Admin: 10/25/16 17:23 Dose: 200 mg Metoprolol Tartrate (Lopressor) 25 mg PO BID [facility] Last Admin: 10/25/16 17:23 Dose: 25 mg Pantoprazole Sodium (Protonix Inj) 40 mg IVP DAILY [facility] Last Admin: 10/25/16 10:01 Dose: 40 mg Thiamine HCl (Vitamin B1 Tab) 100 mg PO DAILY [facility] Last Admin: 10/25/16 10:01 Dose: 100 mg - Labs Labs: 10/25/16 06:10 10/25/16 16:00 PT 11.0 Seconds (9.9-11.8) 10/14/16 14:06 INR 1.02 (0.93-1.08) 10/14/16 14:06 APTT 28.2 Seconds (23.7-30.8) 10/14/16 14:06 - Constitutional Appears: Non-toxic, No Acute Distress - Head Exam Head Exam: NORMAL INSPECTION - ENT Exam ENT Exam: Mucous Membranes Moist - Neck Exam Neck Exam: absent: Lymphadenopathy, Meningismus - Respiratory Exam Respiratory Exam: Decreased Breath Sounds - Cardiovascular Exam Cardiovascular Exam: +S1, +S2 - GI/Abdominal Exam GI & Abdominal Exam: Soft. absent: Tenderness - Extremities Exam Additional comments: left upper arm PICC line site intact and clean Assessment and Plan - Assessment and Plan (Free Text) Plan: Assessment S/P ventilator-dependent respiratory failure in a patient with severe sepsis with acute renal failure and acute encephalopathy probably due to right-sided hospital-acquired pneumonia, growing Pseudomonas on sputum cx; patient continues to clinically improve daily Hypertensive emergency with acute renal failure HTN dyslipidemia arthritis S/P left knee surgery S/P bilateral cataract surgery Plan continue Merrem (day 8); will discontinue antibiotics after today Will continue to monitor clinically, trend WBC count; would suggest removal of PICC line if feasible to decrease the patient's risk for infection
--- NOTE | 2016-10-26 14:35 | RAD ---
PROCEDURE: Chest portable HISTORY: pneumonia COMPARISON: 10/24/2016. TECHNIQUE: Technique: Single view portable semi erect @ 10:23. FINDINGS: Stable right lower lobe infiltrate. Cardiomegaly. No evidence of acute, significant cardiovascular disease. IMPRESSION: No significant interval change compared to the prior examination(s).
--- NOTE | 2016-10-26 15:27 | CARD ---
APPROVED REPORT EKG Measurement Heart [id number] <Conclusion> Sinus rhythm with premature supraventricular complexes with occasional premature ventricular complexes Right bundle branch block Left anterior fascicular block Bifascicular block Minimal voltage criteria for LVH, may be normal variant Anterior infarct, age undetermined T wave abnormality, consider lateral ischemia Abnormal ECG
--- NOTE | 2016-10-26 16:14 | PN ---
DATE: 10/26/2016 REASON FOR CONSULTATION: Congestive heart failure, paroxysmal atrial fibrillation, bradycardiac, alt ered mental status, intubated, now successfully extubated. BRIEF CLINICAL HISTORY: A 71-year-old male with a past medical history significant for hypertension, hyperlipidemia. Admitted with shortness of breath, respiratory status deteriorated requiring intuba tion. The patient briefly went into AFib with rapid ventricular rate with bundle branch block, appea rs as VT. Now, patient is normal sinus, but going into bradycardia. On digoxin, amiodarone and beta adam as well as clonidine. PHYSICAL EXAMINATION: VITAL SIGNS: Temperature afebrile, heart rate 77 but at one point had dipped down to 52, blood press ure 158/ . HEENT: PERRLA. Extraocular muscles intact. NECK: Supple. No carotid bruits. No thyromegaly. CHEST: Clear to auscultation. HEART: S1, S2 regular. ABDOMEN: Soft. EXTREMITIES: Clubbing, cyanosis negative. Telemetry shows normal sinus, sinus bradycardia. BLOOD WORKUP: WBC 15.1, hemoglobin 10. , hematocrit 30.7, platelet count 322. Chemistry shows s odium 151, potassium 3.7, chloride 115, carbon dioxide 26, anion gap of 14, BUN 30, creatinine 1.2. IMPRESSION: Hypernatremia, leukocytosis, respiratory failure, anemia, paroxysmal atrial fibrillation , status post wide complex tachycardia which is secondary to atrial fibrillation with rapid ventricul ar rate, bundle branch block, bradycardia, cardiomyopathy, possibly ischemic, as mentioned paroxysmal atrial fibrillation, ejection fraction 35%, multiple wall motion abnormalities consistent with coron tanner artery disease, moderate aortic stenosis, mild mitral regurgitation, mild tricuspid regurgitation , no evidence of acute coronary syndrome or unstable or [id number] myocardial infarction, no evid ence, troponin remained flat. RECOMMENDATION: Continue atorvastatin. Continue low-dose beta-adam. Continue metoprolol. We wi ll discontinue amiodarone, discontinue digoxin because of slow heart rate. Clonidine has also a cent ral effect of slowing the heart rate, so patient is on amiodarone, beta adam and digoxin. All the se probably causes bradycardia. Continue low-dose beta-adam to prevent going into atrial fibrilla tion. Continue labetalol which is 4-time alpha, 1-time beta adam effect as working diagnosis stil l for pheochromocytoma is not ruled out as of yet, so continue labetalol. May increase to 300 mg 3 t imes a day. Since the patient is off labetalol, we may increase clonidine to 0.2 mg 3 times a day __ ___ holding systolic pressure. We will follow with you. The patient needs better control of the blo od pressure, but first we will increase labetalol. Actually, while looking in the chart, patient is off labetalol which was discontinued yesterday by resident. We will continue clonidine 0.2 mg b.i.d. as per before and we will restart labetalol 200 mg 3 times a day. We will discuss with Dr. Youssef . Thank for, Dr. Posey, for providing us the opportunity in taking care of the patient. We will foll ow with you. Lucrecia Pérez MD cc: [id number] TT: 10/26/2016 12:36:57 Confirmation # [id number] Dictation # [id number]
--- NOTE | 2016-10-26 17:21 | EEG ---
DATE: 10/26/2016 ICU Bed 5 History of seizure. Past medical history of hypertension, hyperlipidemia, arthritis, CHF. DESCRIPTION: Background activity of this tracing was composed of 7-8 cycles per second alpha-like ac tivity, small amount of beta activity noted in the tracing. Theta activity was seen in the record, 5 -7 cycles in most of the record. The patient is sleeping, drowsiness composed of mixed beta and thet a activity. The patient is alert muscle artifact secondary the tests done in ICU. IMPRESSION: Bilateral cerebral dysfunction, diffuse. Rik Kevin LIAO cc: [id number] TT: 10/26/2016 17:20:43 Confirmation # [id number] Dictation # [id number] jn
--- NOTE | 2016-10-26 20:47 | PN ---
DATE: 10/26/2016 This is a 71-year-old male with a past medical history of hypertension, hyperlipidemia; was admitted with shortness of breath and was intubated, now extubated. The patient also had AFib and bundle bran ch block. Now feels okay, sitting up in the chair, able to follow simple commands. The patient is o n digoxin, amiodarone, and beta adam. PHYSICAL EXAMINATION: HEENT: Normocephalic, atraumatic. NECK: Supple. NEUROLOGIC EXAMINATION: Awake, a little confused. Pupils reactive, EOM intact. Spontaneous movement of all the extremities noted. Deep tendon reflexe s 1+. Both plantars are downgoing. Sensory: Appears intact. Cerebellar: Gait deferred. IMPRESSION: A 71-year-old male with hypertension, hyperlipidemia, had respiratory failure, paroxysm al atrial fibrillation, and also cardiomyopathy, and feeling better. Continue present management. W ill follow up. Rik Brown MD cc: [id number] TT: 10/26/2016 20:46:50 Confirmation # [id number] Dictation # [id number] warren
--- NOTE | 2016-10-27 01:54 | PN ---
DATE: 10/26/2016 SUBJECTIVE: The patient was seen in the intensive care unit earlier today. While there, he had a Po sey in place. There was no Mathur catheter. He was receiving D5W at 100 mL per hour intravenously. Since then, he has been transferred to a general medical floor. OBJECTIVE: VITAL SIGNS: Blood pressure is 112/84 with a heart rate 70, oral temperature 98.4, respiratory rate is 18, oxygen saturation 96%. I's and O's were not strictly documented since he does not have a Fole y catheter in place. The remainder of the exam is as follows: HEENT: The patient was normocephalic and atraumatic. There was no sinus tenderness. There was no j ugular venous distention. Conjunctivae were neither pale nor icteric. CHEST: Lungs buckley were grossly clear to auscultation. There were no rales, rhonchi or wheezing. CARDIAC: Had a regular rate and rhythm without any rubs or gallops. ABDOMEN: Soft, mildly distended, but nontender, without any rebounding, guarding or rigidity. There was no hepatosplenomegaly. EXTREMITIES: Had no edema. NEUROLOGIC: The patient was still encephalopathic. VASCULAR: Had no bruits. LABORATORY STUDIES: Sodium is 151, potassium 3.7, chloride 115, bicarbonate 26, BUN/creatinine is 30 /1.2 with a glucose of 96, calcium is 9.3, phosphorus is 3.8, magnesium is 1.9. White count 15.1, H and H of 10.2/30.7 with a platelet count 322,000. There are 79% neutrophils, 15% lymphocytes, 4% mon ocytes. Chest x-ray from today did not reveal any acute pathology. There is no new microbiology to report. IMPRESSION AND PLAN: The patient is a 71-year-old gentleman with hypertension and left ventricular h ypertrophy, dyslipidemia, coronary artery disease with decreased left ventricular systolic function _ ____ exertion. Treated in the hospital today, he presents with hypertensive emergency with congestiv e heart failure for which he required nicardipine infusion. He also had atrial fibrillation with rap id ventricular response and hemodynamic instability for which he developed acute kidney injury and wa s intubated, but has since been extubated, acute kidney injury has resolved. Of note, the patient is hypernatremic in the setting of encephalopathy and having limited movement because of his [place]. Bl ood pressure has also been labile during this hospitalization 1. For hypernatremia, we will continue D5W at 100 mL per hour. 2. After the patient's hypernatremia is corrected, if he develops hypernatremia once again, then thi s would suggest he is not able to adequately provide water for himself and I will consider PEG placem ent at that time if that is consistent with goals of care. 3. For his history of atrial fibrillation with rapid ventricular response, the patient's digoxin has been discontinued because of slow heart rate, as has amiodarone. Low dose beta blockers continuing however (Labetalol). 4. Metanephrines were only mildly elevated. I await the complete results of his 24-hour urine colle ction to rule out pheochromocytoma. I do not believe he is what we found to have one, however. 5. For deep venous thrombosis prophylaxis in this bedbound patient, continue heparin 5000 units subc utaneously twice daily. Review of systems, past medical history, social history and family history were all reviewed and ther e were no new changes. Erik Chan MD cc: [phone] TT: 10/27/2016 01:53:53 Confirmation # [id number] Dictation # [id number] mn
--- NOTE | 2016-10-27 02:02 | CP.PCM.PN ---
Subjective - Date & Time of Evaluation Date of Evaluation: 10/27/16 Time of Evaluation: 01:59 - Subjective Subjective: Patient was seen by bedside because he was very agitated, could not sleep, restless. Patient is sitting in bed. States that he is in the hospital, this is June and it's Sunday. Has no complaints. No pains, no anxiety. This 71 year old male was admitted with sob, substernal chest pain/CHF. Has PMH of Hypertension, CHF, HLD, pulmonary edema, arthritis, arthroscopy. Objective - Vital Signs/Intake and Output Vital Signs (last 24 hours): Temp Pulse Resp BP Pulse Ox 98.1 F 86 20 139/78 98 10/27/16 00:00 10/27/16 00:00 10/27/16 00:00 10/27/16 00:00 10/27/16 00:00 Intake and Output: 10/26/16 10/27/16 18:59 06:59 Intake Total 1680 Output Total 0 Balance 1680 - Medications Medications: Current Medications Acetaminophen (Tylenol 325mg Tab) 650 mg PO Q6H PRN PRN Reason: Fever >100.4 F Last Admin: 10/20/16 01:12 Dose: 650 mg Albuterol/Ipratropium (Duoneb 3 Mg/0.5 Mg (3 Ml) Ud) 3 ml IH [id number] [facility] Aspirin (Aspirin Chewable) 81 mg PO DAILY [facility] Last Admin: 10/26/16 09:55 Dose: 81 mg Atorvastatin Calcium (Lipitor) 40 mg PO DIN [facility] Last Admin: 10/26/16 18:02 Dose: 40 mg Clonidine HCl (Catapres) 0.2 mg PO BID [facility] Last Admin: 10/26/16 18:01 Dose: 0.2 mg Cyanocobalamin (Vitamin B12 1000 Mcg Tab) 1,000 mcg PO DAILY [facility] Last Admin: 10/26/16 09:58 Dose: 1,000 mcg Heparin Sodium (Porcine) (Heparin) 5,000 units SC Q12 [facility] Last Admin: 10/26/16 21:27 Dose: 5,000 units Meropenem 1 gm/ Dextrose 100 mls @ 100 mls/hr IVPB Q12 [facility] Last Admin: 10/26/16 22:39 Dose: 100 mls/hr Dextrose (Dextrose 5% In Water 1000 Ml) 1,000 mls @ 100 mls/hr IV .Q10H [facility] Last Admin: 10/26/16 18:00 Dose: 100 mls/hr Insulin Human Lispro (Humalog Low) 0 units SC Q12 [facility] PRN Reason: Protocol Last Admin: 10/26/16 22:00 Dose: Not Given Labetalol HCl (Trandate) 200 mg PO TID [facility] Last Admin: 10/26/16 18:01 Dose: 200 mg Metoprolol Tartrate (Lopressor) 25 mg PO BID [facility] Last Admin: 10/25/16 17:23 Dose: 25 mg Pantoprazole Sodium (Protonix Inj) 40 mg IVP DAILY [facility] Last Admin: 10/26/16 09:57 Dose: 40 mg Thiamine HCl (Vitamin B1 Tab) 100 mg PO DAILY [facility] Last Admin: 10/26/16 09:58 Dose: 100 mg - Labs Labs: 10/26/16 06:25 10/26/16 06:25 PT 11.0 Seconds (9.9-11.8) 10/14/16 14:06 INR 1.02 (0.93-1.08) 10/14/16 14:06 APTT 28.2 Seconds (23.7-30.8) 10/14/16 14:06 - Constitutional Appears: No Acute Distress - Head Exam Head Exam: ATRAUMATIC, NORMAL INSPECTION, NORMOCEPHALIC - Eye Exam Eye Exam: Normal appearance - ENT Exam ENT Exam: Normal External Ear Exam - Respiratory Exam Respiratory Exam: NORMAL BREATHING PATTERN - Cardiovascular Exam Cardiovascular Exam: absent: JVD - GI/Abdominal Exam GI & Abdominal Exam: absent: Distended - Rectal Exam Rectal Exam: Deferred - Extremities Exam Extremities Exam: Normal Inspection - Back Exam Back Exam: NORMAL INSPECTION - Neurological Exam Neurological Exam: Altered (mental status.) - Psychiatric Exam Psychiatric exam: Agitated - Skin Skin Exam: Normal Color Assessment and Plan - Assessment and Plan (Free Text) Assessment: A/P: Agitation. HTN. CHF. HLD. Ativan 0.5 mg IV STAT.
[2016-10-27] MEDS: Albuterol-Ipratrop 3 mg / 0.5 (3 ml) UD IH SCH ×4 (02:52→19:17)
[2016-10-27 06:37] LABS: ADD MANUAL DIFF? NO
[2016-10-27 06:54] LABS: BASO # 0.01 K/mm3 (0.0-2.0); BASO % 0.1 % (0.0-3.0); EOS # 0.3 (0.0-0.7); EOS % 1.8 % (1.5-5.0); GRAN # 11.31 (1.4-6.5); GRAN % 79.6 % (50.0-68.0); HEMATOCRIT 27.3 % (42.0-52.0); LYMPH % 13.8 % (22.0-35.0); MEAN CORPUSCULAR HEMOGLOBIN 25.6 pg (25.0-35.0); MEAN CORPUSCULAR HGB CONC 33.7 g/dl (31.0-37.0); MEAN PLATELET VOLUME 11.5 fl (7.0-11.0); MONO # 0.7 (0.1-0.6); MONO % 4.7 % (1.0-6.0); PLATELET COUNT 340 10^3/uL (120.0-450.0); RED CELL DISTRIBUTION WIDTH 15.3 % (11.5-14.5); WHITE BLOOD COUNT 14.2 10^3/ul (4.5-11.0)
[2016-10-27 08:02] LABS: ALB/GLOB RATIO 0.8 (1.1-1.8); ALKALINE PHOSPHATASE 71 U/L (38-133); ALT/SGPT 25 U/L (7-56); AST/SGOT 48 U/L (15-59); BILIRUBIN,TOTAL 0.6 mg/dL (0.2-1.3); BLOOD UREA NITROGEN 26 mg/dL (7-21); CARBON DIOXIDE 26 mmol/L (21-33); CHLORIDE 110 mmol/L (98-107); GFR AFRICAN-AMERICAN > 60; GLUCOSE,RANDOM 93 mg/dL (70-110); MAGNESIUM 1.8 mg/dL (1.7-2.2); PHOSPHOROUS 3.6 mg/dL (2.5-4.5); POTASSIUM 3.8 mmol/L (3.6-5.0); SODIUM 147 mmol/L (132-148); TOTAL PROTEIN 6.5 g/dL (5.8-8.3)
[2016-10-27] MEDS: Insulin Lispro (humaLOG) LOW Coverage SC SCH ×2 (10:17→22:21)
[2016-10-27 10:59] LABS: CALCULATED TOTAL (E/NE) 14 mcg/24 h (26-121); DOPAMINE 24 HR UR 254 mcg/24 h (52-480); NOREPINEPHRINE 24 HR UR 14 mcg/24 h (15-100)
--- NOTE | 2016-10-27 11:31 | PN ---
DATE: 10/27/2016 The patient transferred to regular floor last night. Still appears confused. Believes he is in [facility]. PHYSICAL EXAMINATION: VITAL SIGNS: Stable. Temperature is 98.6, respirations 20, pulse 82, blood pressure 136/71. LUNGS: Clear. HEART: Regular rhythm. ABDOMEN: Soft, nontender. EXTREMITIES: No edema. LABORATORY DATA: Revealed improving hypernatremia. PLAN: Continue IV fluids. Mobilize patient out of bed. Calorie count. Jf Posey MD cc: [phone] TT: 10/27/2016 11:31:14 Confirmation # [id number] Dictation # [id number] rn
--- NOTE | 2016-10-27 13:39 | CP.PCM.PN ---
Subjective - Date & Time of Evaluation Date of Evaluation: 10/27/16 Time of Evaluation: 09:15 - Subjective Subjective: Comfortable in bed, not in distress, no fevers, no cough, not short of breath at rest, no diarrhea. Objective - Vital Signs/Intake and Output Vital Signs (last 24 hours): Temp Pulse Resp BP Pulse Ox 98.6 F 82 20 136/71 97 10/27/16 06:00 10/27/16 06:00 10/27/16 06:00 10/27/16 06:00 10/27/16 06:00 Intake and Output: 10/27/16 10/27/16 06:59 18:59 Intake Total 1300 Balance 1300 - Medications Medications: Current Medications Acetaminophen (Tylenol 325mg Tab) 650 mg PO Q6H PRN PRN Reason: Fever >100.4 F Last Admin: 10/20/16 01:12 Dose: 650 mg Albuterol/Ipratropium (Duoneb 3 Mg/0.5 Mg (3 Ml) Ud) 3 ml IH [id number] [facility] Last Admin: 10/27/16 13:09 Dose: 3 ml Aspirin (Aspirin Chewable) 81 mg PO DAILY [facility] Last Admin: 10/27/16 10:16 Dose: 81 mg Atorvastatin Calcium (Lipitor) 40 mg PO DIN [facility] Last Admin: 10/26/16 18:02 Dose: 40 mg Clonidine HCl (Catapres) 0.2 mg PO BID [facility] Last Admin: 10/27/16 10:16 Dose: 0.2 mg Cyanocobalamin (Vitamin B12 1000 Mcg Tab) 1,000 mcg PO DAILY [facility] Last Admin: 10/27/16 10:17 Dose: 1,000 mcg Heparin Sodium (Porcine) (Heparin) 5,000 units SC Q12 [facility] Last Admin: 10/27/16 10:16 Dose: 5,000 units Dextrose (Dextrose 5% In Water 1000 Ml) 1,000 mls @ 100 mls/hr IV .Q10H [facility] Last Admin: 10/27/16 13:12 Dose: 100 mls/hr Insulin Human Lispro (Humalog Low) 0 units SC Q12 [facility] PRN Reason: Protocol Last Admin: 10/27/16 10:17 Dose: 1 units Labetalol HCl (Trandate) 200 mg PO TID [facility] Last Admin: 10/27/16 13:13 Dose: 200 mg Metoprolol Tartrate (Lopressor) 25 mg PO BID [facility] Last Admin: 10/25/16 17:23 Dose: 25 mg Pantoprazole Sodium (Protonix Inj) 40 mg IVP DAILY [facility] Last Admin: 10/27/16 10:17 Dose: 40 mg Thiamine HCl (Vitamin B1 Tab) 100 mg PO DAILY [facility] Last Admin: 10/27/16 10:17 Dose: 100 mg - Labs Labs: 10/27/16 06:20 10/27/16 06:20 PT 11.0 Seconds (9.9-11.8) 10/14/16 14:06 INR 1.02 (0.93-1.08) 10/14/16 14:06 APTT 28.2 Seconds (23.7-30.8) 10/14/16 14:06 - Constitutional Appears: Non-toxic, No Acute Distress - Head Exam Head Exam: NORMAL INSPECTION - ENT Exam ENT Exam: Mucous Membranes Moist - Neck Exam Neck Exam: absent: Lymphadenopathy, Meningismus - Respiratory Exam Respiratory Exam: Decreased Breath Sounds - Cardiovascular Exam Cardiovascular Exam: +S1, +S2 - GI/Abdominal Exam GI & Abdominal Exam: Soft. absent: Tenderness Assessment and Plan - Assessment and Plan (Free Text) Plan: Assessment S/P ventilator-dependent respiratory failure in a patient with severe sepsis with acute renal failure and acute encephalopathy probably due to right-sided hospital-acquired pneumonia, growing Pseudomonas on sputum cx, clinically improved Hypertensive emergency with acute renal failure HTN dyslipidemia arthritis S/P left knee surgery S/P bilateral cataract surgery Plan S/P 8 days of Merrem; will continue to monitor off antibiotics since he is at risk for infection; will continue to trend WBC count; would suggest removal of PICC line if feasible to decrease the patient's risk for infection
--- NOTE | 2016-10-27 14:30 | PN ---
DATE: 10/27/2016 The patient is in room 367, bed 1. REASON FOR CONSULTATION AND FOLLOWUP: Congestive heart failure, paroxysmal atrial fibrillation, mc ycardia, altered mental status, status post extubated. HISTORY OF PRESENT ILLNESS: The patient is a 71-year-old male with past medical history significant for hypertension, hyperlipidemia, admitted with shortness of breath, respiratory failure. The patien t was on respirator and then successfully extubated. Briefly the patient went also went into atrial fibrillation with rapid ventricular rate with bundle branch block pattern, which at times look to medina tricular tachycardia but actually it was atrial fibrillation with rapid rate with bundle branch block . The patient was treated and patient converted to sinus rhythm and now patient is maintaining sinus rhythm. The patient is still confused, lying flat in bed without any respiratory distress. PHYSICAL EXAMINATION: VITAL SIGNS: Blood pressure 136/71, respirations 20, pulse 82, temperature 98.6. HEAD: Normocephalic. EYES: Pupils normal. Conjunctivae slightly pale. NECK: JVP low. Carotid equal. THORAX: AP diameter normal. LUNGS: No significant rales. CARDIOVASCULAR: S1, S2, systolic murmur, no rub. ABDOMEN: Soft, nontender, no organomegaly. Bowel sounds normal. EXTREMITIES: No clubbing, no cyanosis. LABORATORY DATA: WBC 14.2, hemoglobin 9.2, hematocrit 27.3, platelets 340. Sodium 147, potassium 3. 8, BUN 26, creatinine 1.0, calcium 9.0, phosphorus 3.6, magnesium 1.8. AST, ALT normal. Total prote in 6.5, albumin 2.8. DIAGNOSES: Status post respiratory failure, status post intubation and successful extubation, anemia , paroxysmal atrial fibrillation, altered mental status, atrial fibrillation with wide QRS complex du e to bundle branch block, cardiomyopathy, possibly ischemic, left ventricular ejection fraction 35%, moderate aortic stenosis, mild mitral regurgitation, mild tricuspid regurgitation, hypernatremia whic h has improved on today's blood work. PLAN: To continue aspirin 81 mg p.o. daily. The patient getting D5 IV fluid, heparin 5000 units q. 12 hours, Lipitor 40 daily, metoprolol tartrate 25 b.i.d. metoprolol tartrate has been on hold jacquelin se patient is on labetalol 200 mg p.o. t.i.d., digoxin and amiodarone have been put on hold because o f bradycardia. We will continue present therapy and will follow with you closely. Lucrecia Elizabeth MD cc: [phone] TT: 10/27/2016 14:29:44 Confirmation # [id number] Dictation # [id number] jn
--- NOTE | 2016-10-27 14:51 | PCM.PYCHPN ---
Psychiatric Progress Note - Psychiatric Progress Note Patient seen today, length of contact: 25 Patient Chief Complaint: Patient evaluated in ICU. Chart reviewed and case discussed with staff. Case also discussed with of 34 years who was at his bedside Patient had been agitated earlier. Is being treated for congestive heart failure with pulmonary involvement may be a with this in some denial. Children reportedly also may be in some denial. assures me that prior to this patient was capable of helping her with her diabetes and neuropathy. Yet also tells me that he has been somewhat forgetful over the past 2 years. It is not clear to me when he was offered a diagnosis of dementia nursing indicates there may be a history of alcohol use although this was presently denied. Patient had previously worked for [employer] but reportedly has been retired for about 30 years (if this is correct that I suspected there appeared to be some disability that prevented the patient from working over these years) in any event he seems that they have been home bound. He is a [place] of the [facility].. The patient has 2 children who live nearby. A familial psychiatric history was denied. Problems Identified/Issues Discussed: Case reviewed with nursing. Chart reviewed. Family members at the bedside. Patient dealing with multiple medical problems who seems to be able to follow verbal commands. Agitation not reported Medical Problems: Multiple. Including history of hypertension with blood pressure lability presently, left ventricular hypertrophy, his lipidemia, coronary artery disease , left ventricular diastolic dysfunction, hyponatremia deep vein thrombosis prophylaxis Diagnostic Results: As noted in chart DSM 5 Symptoms Update: [place] discussed with nursing. Case also discussed with and aid at the bedside Patient appears to be sundowning in reverse; being somewhat more interactive and less confused in the evening. This conveyed by and a When patient interacts he does so only minimally. It is mostly confused. Medication Change: No Medical Record Reviewed: Yes Mental Status Examination - Cognitive Function Orientation: Person (Nonverbal. Appears to respond to verbal commands) Memory: Impaired Attention: Poor Concentration: Poor Fund of Knowledge: Poor - Mood Mood: Other - Affect Affect: Other - Speech Speech: Soft - Formal Thought Process Formal Thought Process: Other - Suicidal Ideation Suicidal Ideation: No - Homicidal Ideation Homicidal Ideation: No Goal/Treatment Plan - Goal/Treatment Plan Need for Continued Stay: Severe functional impairment, Other Progress Toward Problem(s) and Goals/Treatment Plan: Awaiting improved cognitive status of that will presumably be coupled with improved medical status On October 23 appears improving; more so than I had anticipated. Still confused hopeful that as medical condition improves so will his cognitive status. I am told that he was taking care of his prior to his recent illness on October 26 seems somewha more alert. There reportedly is being considered to move to a Med surg floor On October 27 patient seen on medical floor. This in itself implies an improvement in patient's medical condition. Is minimally meaningfully interactive; most of which is confused
[2016-10-27 15:38] LABS: METANEPHRINE 616 mcg/24 h (90-315); NORMETANEPHRINE 1871 mcg/24 h (122-676)
[2016-10-27 17:39] LABS: Interpretation Negative (Negative); RNP <1.0 AI (<1.0); RNP Interpretation Negative (Negative)
--- NOTE | 2016-10-27 21:14 | CP.PCM.PN ---
Subjective - Date & Time of Evaluation Date of Evaluation: 10/27/16 Time of Evaluation: 21:13 - Subjective Subjective: Received a call from nurse to renew BRANDON restraint. Objective - Vital Signs/Intake and Output Vital Signs (last 24 hours): Temp Pulse Resp BP Pulse Ox 98.7 F 61 18 130/70 98 10/27/16 16:00 10/27/16 16:00 10/27/16 16:00 10/27/16 16:00 10/27/16 16:00 - Medications Medications: Current Medications Acetaminophen (Tylenol 325mg Tab) 650 mg PO Q6H PRN PRN Reason: Fever >100.4 F Last Admin: 10/20/16 01:12 Dose: 650 mg Albuterol/Ipratropium (Duoneb 3 Mg/0.5 Mg (3 Ml) Ud) 3 ml IH [id number] [facility] Last Admin: 10/27/16 19:17 Dose: 3 ml Aspirin (Aspirin Chewable) 81 mg PO DAILY [facility] Last Admin: 10/27/16 10:16 Dose: 81 mg Atorvastatin Calcium (Lipitor) 40 mg PO DIN [facility] Last Admin: 10/27/16 17:10 Dose: 40 mg Clonidine HCl (Catapres) 0.2 mg PO BID [facility] Last Admin: 10/27/16 17:10 Dose: 0.2 mg Cyanocobalamin (Vitamin B12 1000 Mcg Tab) 1,000 mcg PO DAILY [facility] Last Admin: 10/27/16 10:17 Dose: 1,000 mcg Heparin Sodium (Porcine) (Heparin) 5,000 units SC Q12 [facility] Last Admin: 10/27/16 10:16 Dose: 5,000 units Dextrose (Dextrose 5% In Water 1000 Ml) 1,000 mls @ 100 mls/hr IV .Q10H [facility] Last Admin: 10/27/16 13:12 Dose: 100 mls/hr Insulin Human Lispro (Humalog Low) 0 units SC Q12 [facility] PRN Reason: Protocol Last Admin: 10/27/16 10:17 Dose: 1 units Labetalol HCl (Trandate) 200 mg PO TID [facility] Last Admin: 10/27/16 17:10 Dose: 200 mg Metoprolol Tartrate (Lopressor) 25 mg PO BID [facility] Last Admin: 10/25/16 17:23 Dose: 25 mg Pantoprazole Sodium (Protonix Inj) 40 mg IVP DAILY [facility] Last Admin: 10/27/16 10:17 Dose: 40 mg Thiamine HCl (Vitamin B1 Tab) 100 mg PO DAILY [facility] Last Admin: 10/27/16 10:17 Dose: 100 mg - Labs Labs: 10/27/16 06:20 10/27/16 06:20 PT 11.0 Seconds (9.9-11.8) 10/14/16 14:06 INR 1.02 (0.93-1.08) 10/14/16 14:06 APTT 28.2 Seconds (23.7-30.8) 10/14/16 14:06
[2016-10-28] MEDS: Albuterol-Ipratrop 3 mg / 0.5 (3 ml) UD IH SCH ×4 (02:20→20:42)
--- NOTE | 2016-10-28 02:49 | CP.PCM.PN ---
Subjective - Date & Time of Evaluation Date of Evaluation: 10/28/16 Time of Evaluation: 02:45 - Subjective Subjective: This 71 year old male was admitted with sob, substernal chest pain/CHF. Has PMH of Hypertension, CHF, HLD, pulmonary edema, arthritis, arthroscopy. Medical record was reviewed. It was requested to me to renew restraint order of BRANDON. Patient is calm now. Objective - Vital Signs/Intake and Output Vital Signs (last 24 hours): Temp Pulse Resp BP Pulse Ox 98.7 F 61 18 130/70 98 10/27/16 16:00 10/27/16 16:00 10/27/16 16:00 10/27/16 16:00 10/27/16 16:00 Intake and Output: 10/27/16 10/28/16 18:59 06:59 Intake Total 420 Balance 420 - Medications Medications: Current Medications Acetaminophen (Tylenol 325mg Tab) 650 mg PO Q6H PRN PRN Reason: Fever >100.4 F Last Admin: 10/20/16 01:12 Dose: 650 mg Albuterol/Ipratropium (Duoneb 3 Mg/0.5 Mg (3 Ml) Ud) 3 ml IH [id number] [facility] Last Admin: 10/28/16 02:20 Dose: Not Given Aspirin (Aspirin Chewable) 81 mg PO DAILY [facility] Last Admin: 10/27/16 10:16 Dose: 81 mg Atorvastatin Calcium (Lipitor) 40 mg PO DIN [facility] Last Admin: 10/27/16 17:10 Dose: 40 mg Clonidine HCl (Catapres) 0.2 mg PO BID [facility] Last Admin: 10/27/16 17:10 Dose: 0.2 mg Cyanocobalamin (Vitamin B12 1000 Mcg Tab) 1,000 mcg PO DAILY [facility] Last Admin: 10/27/16 10:17 Dose: 1,000 mcg Heparin Sodium (Porcine) (Heparin) 5,000 units SC Q12 [facility] Last Admin: 10/27/16 22:22 Dose: 5,000 units Dextrose (Dextrose 5% In Water 1000 Ml) 1,000 mls @ 100 mls/hr IV .Q10H [facility] Last Admin: 10/27/16 13:12 Dose: 100 mls/hr Insulin Human Lispro (Humalog Low) 0 units SC Q12 [facility] PRN Reason: Protocol Last Admin: 10/27/16 22:21 Dose: Not Given Labetalol HCl (Trandate) 200 mg PO TID [facility] Last Admin: 10/27/16 17:10 Dose: 200 mg Metoprolol Tartrate (Lopressor) 25 mg PO BID [facility] Last Admin: 10/25/16 17:23 Dose: 25 mg Pantoprazole Sodium (Protonix Inj) 40 mg IVP DAILY [facility] Last Admin: 10/27/16 10:17 Dose: 40 mg Thiamine HCl (Vitamin B1 Tab) 100 mg PO DAILY [facility] Last Admin: 10/27/16 10:17 Dose: 100 mg - Labs Labs: 10/27/16 06:20 10/27/16 06:20 PT 11.0 Seconds (9.9-11.8) 10/14/16 14:06 INR 1.02 (0.93-1.08) 10/14/16 14:06 APTT 28.2 Seconds (23.7-30.8) 10/14/16 14:06 - Constitutional Appears: No Acute Distress - Head Exam Head Exam: ATRAUMATIC, NORMAL INSPECTION, NORMOCEPHALIC - Eye Exam Eye Exam: Normal appearance - ENT Exam ENT Exam: Normal External Ear Exam - Neck Exam Neck Exam: Normal Inspection - Respiratory Exam Respiratory Exam: NORMAL BREATHING PATTERN - Cardiovascular Exam Cardiovascular Exam: absent: JVD - GI/Abdominal Exam GI & Abdominal Exam: absent: Distended - Rectal Exam Rectal Exam: Deferred - Neurological Exam Neurological Exam: Alert - Psychiatric Exam Psychiatric exam: Normal Affect, Normal Mood - Skin Skin Exam: Normal Color Assessment and Plan - Assessment and Plan (Free Text) Assessment: A/P:Agitation. HTN CHF HLD BRANDON restraint renewed. Can have wrist restraint prn.
[2016-10-28 06:38] LABS: ADD MANUAL DIFF? NO
[2016-10-28 06:41] LABS: BASO # 0.01 K/mm3 (0.0-2.0); BASO % 0.1 % (0.0-3.0); EOS # 0.2 (0.0-0.7); EOS % 1.6 % (1.5-5.0); GRAN # 11.11 (1.4-6.5); GRAN % 79.2 % (50.0-68.0); HEMATOCRIT 27.7 % (42.0-52.0); LYMPH # 2.2 (1.2-3.4); LYMPH % 15.3 % (22.0-35.0); MEAN CELL VOLUME 75.3 fL (80.0-105.0); MEAN CORPUSCULAR HEMOGLOBIN 25.8 pg (25.0-35.0); MEAN CORPUSCULAR HGB CONC 34.3 g/dl (31.0-37.0); MEAN PLATELET VOLUME 10.5 fl (7.0-11.0); MONO # 0.5 (0.1-0.6); MONO % 3.8 % (1.0-6.0); PLATELET COUNT 353 10^3/uL (120.0-450.0); RED CELL DISTRIBUTION WIDTH 15.1 % (11.5-14.5)
[2016-10-28 07:33] LABS: ALB/GLOB RATIO 0.7 (1.1-1.8); ALKALINE PHOSPHATASE 85 U/L (38-133); ALT/SGPT 32 U/L (7-56); AST/SGOT 55 U/L (15-59); BILIRUBIN,TOTAL 0.7 mg/dL (0.2-1.3); BLOOD UREA NITROGEN 18 mg/dL (7-21); CALCIUM 8.9 mg/dL (8.4-10.5); CARBON DIOXIDE 26 mmol/L (21-33); CHLORIDE 106 mmol/L (98-107); GFR AFRICAN-AMERICAN > 60; GLUCOSE,RANDOM 92 mg/dL (70-110); POTASSIUM 3.7 mmol/L (3.6-5.0); SODIUM 142 mmol/L (132-148); TOTAL PROTEIN 6.8 g/dL (5.8-8.3)
[2016-10-28] MEDS: Insulin Lispro (humaLOG) LOW Coverage SC SCH ×2 (11:09→22:42)
--- NOTE | 2016-10-28 11:40 | PN ---
DATE: 10/28/2016 Attending. SUBJECTIVE: The patient appears comfortable, though confusion persists. He is more alert, but was d isoriented to person and place. PHYSICAL EXAMINATION: VITAL SIGNS: Stable. Temperature 98.6, respirations 20, pulse 82, blood pressure 160/70. LUNGS: Clear. HEART: Regular rhythm. ABDOMEN: Soft, nontender. EXTREMITIES: No edema. PLAN: Continue current therapy. Urine metanephrines and normetanephrines noted. Lupus screen so fa r negative. Follow electrolytes, CBC tomorrow. Mobilize patient out of bed. Continue calorie count . Transfer to subacute rehab discussed with patient's family. Dr. Partida's followup note greatly ap preciated. Jf Posey MD cc: 84 TT: 10/28/2016 11:40:34 Confirmation # [id number] Dictation # [id number] tn
--- NOTE | 2016-10-28 12:05 | RAD ---
HISTORY: pneumonia COMPARISON: 10/23/2016 FINDINGS: The left PICC line terminates at the cavoatrial junction. LUNGS: There is persistent right lower lobe airspace disease. Lung markings are accentuated. PLEURA: No significant pleural effusion identified, no pneumothorax apparent. CARDIOVASCULAR: There is severe cardiomegaly and prominent central vasculature. OSSEOUS STRUCTURES: No significant abnormalities. VISUALIZED UPPER ABDOMEN: Normal. OTHER FINDINGS: None. IMPRESSION: Persistent right lower lobe airspace disease which may represent pneumonia. Severe cardiomegaly and pulmonary venous congestion.
--- NOTE | 2016-10-28 13:10 | PN ---
DATE: 10/28/2016 The patient is in bed in no acute distress. PHYSICAL EXAMINATION: VITAL SIGNS: Temperature is 98, blood pressure is 160/70, respiratory rate of 16. HEENT: Unremarkable. NECK: Supple. LUNGS: Have decreased breath sounds. HEART: Normal S1, S2. ABDOMEN: Soft. LABORATORY DATA: Reveals a white count of 14,000, hemoglobin of 9, platelets of 353. The chemistrie s reveal the BUN of 18, creatinine of 1.1. Urinalysis is noted. ASSESSMENT AND PLAN: This is a 71-year-old, status post ventilatory dependent respiratory failure in a patient with severe sepsis, acute renal failure and acute encephalopathy, probably due to right-si ded hospital-acquired pneumonia growing pseudomonas in the sputum, clinically improved, hypertensive emergency, acute renal failure, status post 8 days of meropenem. Currently off of antibiotics. The patient is at risk for developing nosocomial infections. Review of the chest x-ray from today is not ed. Review of the orders reveals the patient to be off of antibiotics. Dr. Jf Posey's note is re viewed. The patient's last procalcitonin on the was 13.8, but we will repeat procalcitonin toda y. Sp Arora MD cc: 350 TT: 10/28/2016 13:10:24 Confirmation # [id number] Dictation # [id number] htom
[2016-10-28 22:56] LABS: AMIODARONE 0.3 mcg/mL (1.5-2.5); DESETHYLAMIODARONE 0.1 mcg/mL (1.5-2.5)
--- NOTE | 2016-10-29 03:44 | CP.PCM.PN ---
Subjective - Date & Time of Evaluation Date of Evaluation: 10/29/16 Time of Evaluation: 03:40 - Subjective Subjective: It was requested to renew restraints of BRANDON order. Patient was seen at bedside. Medical record was reviewed. Patient is still trying to get out of bed. This 71 year old male was admitted with sob, substernal chest pain/CHF. Has PMH of Hypertension, CHF, HLD, pulmonary edema, arthritis, arthroscopy. Objective - Vital Signs/Intake and Output Vital Signs (last 24 hours): Temp Pulse Resp BP Pulse Ox 98.5 F 54 L 22 134/69 95 10/28/16 17:16 10/28/16 17:16 10/28/16 17:16 10/28/16 17:16 10/28/16 17:16 Intake and Output: 10/28/16 10/29/16 18:59 06:59 Intake Total 240 Balance 240 - Medications Medications: Current Medications Acetaminophen (Tylenol 325mg Tab) 650 mg PO Q6H PRN PRN Reason: Fever >100.4 F Last Admin: 10/28/16 21:55 Dose: 650 mg Albuterol/Ipratropium (Duoneb 3 Mg/0.5 Mg (3 Ml) Ud) 3 ml IH [id number] [facility] Last Admin: 10/28/16 20:42 Dose: 3 ml Aspirin (Aspirin Chewable) 81 mg PO DAILY [facility] Last Admin: 10/28/16 10:13 Dose: 81 mg Atorvastatin Calcium (Lipitor) 40 mg PO DIN [facility] Last Admin: 10/28/16 17:25 Dose: 40 mg Clonidine HCl (Catapres) 0.2 mg PO BID [facility] Last Admin: 10/28/16 17:25 Dose: 0.2 mg Cyanocobalamin (Vitamin B12 1000 Mcg Tab) 1,000 mcg PO DAILY [facility] Last Admin: 10/28/16 10:13 Dose: 1,000 mcg Heparin Sodium (Porcine) (Heparin) 5,000 units SC Q12 [facility] Last Admin: 10/28/16 21:56 Dose: 5,000 units Dextrose (Dextrose 5% In Water 1000 Ml) 1,000 mls @ 100 mls/hr IV .Q10H [facility] Last Admin: 10/28/16 15:25 Dose: 100 mls/hr Insulin Human Lispro (Humalog Low) 0 units SC Q12 [facility] PRN Reason: Protocol Last Admin: 10/28/16 11:09 Dose: Not Given Labetalol HCl (Trandate) 200 mg PO TID [facility] Last Admin: 10/28/16 18:50 Dose: 200 mg Metoprolol Tartrate (Lopressor) 25 mg PO BID [facility] Last Admin: 10/25/16 17:23 Dose: 25 mg Pantoprazole Sodium (Protonix Inj) 40 mg IVP DAILY [facility] Last Admin: 10/28/16 10:14 Dose: 40 mg Thiamine HCl (Vitamin B1 Tab) 100 mg PO DAILY [facility] Last Admin: 10/28/16 10:13 Dose: 100 mg - Labs Labs: 10/28/16 06:20 10/28/16 06:20 PT 11.0 Seconds (9.9-11.8) 10/14/16 14:06 INR 1.02 (0.93-1.08) 10/14/16 14:06 APTT 28.2 Seconds (23.7-30.8) 10/14/16 14:06 - Constitutional Appears: Well, No Acute Distress - Head Exam Head Exam: ATRAUMATIC, NORMAL INSPECTION, NORMOCEPHALIC - Eye Exam Eye Exam: Normal appearance - ENT Exam ENT Exam: Normal External Ear Exam - Neck Exam Neck Exam: Normal Inspection - Respiratory Exam Respiratory Exam: NORMAL BREATHING PATTERN - Cardiovascular Exam Cardiovascular Exam: absent: JVD - GI/Abdominal Exam GI & Abdominal Exam: absent: Distended - Rectal Exam Rectal Exam: Deferred - Back Exam Back Exam: NORMAL INSPECTION - Neurological Exam Neurological Exam: Altered - Psychiatric Exam Psychiatric exam: Agitated - Skin Skin Exam: Normal Color Assessment and Plan - Assessment and Plan (Free Text) Assessment: A/P:Agitation. HTN. CHF. HLD. Arthritis. Restraint order was renewed. Continue present management.
[2016-10-29 05:04] LABS: ADD MANUAL DIFF? NO
[2016-10-29 05:22] LABS: ALB/GLOB RATIO 0.8 (1.1-1.8); ALKALINE PHOSPHATASE 87 U/L (38-133); ALT/SGPT 26 U/L (7-56); AST/SGOT 61 U/L (15-59); BILIRUBIN,TOTAL 0.6 mg/dL (0.2-1.3); BLOOD UREA NITROGEN 27 mg/dL (7-21); CALCIUM 9.1 mg/dL (8.4-10.5); CARBON DIOXIDE 25 mmol/L (21-33); CHLORIDE 101 mmol/L (98-107); GFR AFRICAN-AMERICAN > 60; GLUCOSE,RANDOM 88 mg/dL (70-110); POTASSIUM 4.1 mmol/L (3.6-5.0); SODIUM 136 mmol/L (132-148)
[2016-10-29 05:25] LABS: BASO # 0.01 K/mm3 (0.0-2.0); BASO % 0.1 % (0.0-3.0); EOS # 0.2 (0.0-0.7); EOS % 1.7 % (1.5-5.0); GRAN # 10.05 (1.4-6.5); HEMATOCRIT 25.6 % (42.0-52.0); LYMPH # 2.1 (1.2-3.4); LYMPH % 15.7 % (22.0-35.0); MEAN CELL VOLUME 74.6 fL (80.0-105.0); MEAN CORPUSCULAR HEMOGLOBIN 25.7 pg (25.0-35.0); MEAN CORPUSCULAR HGB CONC 34.4 g/dl (31.0-37.0); MEAN PLATELET VOLUME 11.2 fl (7.0-11.0); MONO # 0.9 (0.1-0.6); MONO % 6.5 % (1.0-6.0); PLATELET COUNT 373 10^3/uL (120.0-450.0); RED CELL DISTRIBUTION WIDTH 15.2 % (11.5-14.5); WHITE BLOOD COUNT 13.2 10^3/ul (4.5-11.0)
[2016-10-29] MEDS: Albuterol-Ipratrop 3 mg / 0.5 (3 ml) UD IH SCH ×4 (08:10→21:00)
[2016-10-29] MEDS: Insulin Lispro (humaLOG) LOW Coverage SC SCH ×2 (10:36→22:08)
--- NOTE | 2016-10-29 10:59 | PN ---
DATE: 10/29/2016 The patient seen in room 367. No fevers, no chills. PHYSICAL EXAMINATION: VITAL SIGNS: Temperature is 98, blood pressure is 155/70, respiratory rate of 20, heart rate of 58. HEENT: Unremarkable. NECK: Supple. LUNGS: Have decreased breath sounds. HEART: Normal S1, S2. ABDOMEN: Soft. LABORATORY DATA: Reveals a white count of 13,000, hemoglobin of 8, platelets of 373. Chemistries re veal the BUN of 27, creatinine of 1.4. Procalcitonin 0.46. The patient's BRAYDEN is positive titers of 1:320 with a speckled pattern. Review of the orders reveals the patient to be off of antibiotics. Dr. Jackson's note is reviewed from this morning, requests for restraints of Milaca order. ASSESSMENT AND PLAN: This is a 71-year-old male seen earlier this morning in room 367, bed 1, has hi story of status post ventilatory dependent respiratory failure in a patient with severe sepsis, acute renal failure and acute encephalopathy due to right-sided healthcare-associated pneumonia growing Ps eudomonas in the sputum, clinically improved. The patient with hypertensive emergency, acute renal failure, status post 8 days of meropenem. Currently, now off of antibiotics. He is at risk for deve loping new nosocomial infections. The patient had a chest x-ray yesterday and the results are noted, persistent right lower lobe airspace disease, which may represent pneumonia with severe cardiomegaly with pulmonary venous congestion, currently off of antibiotics, afebrile with a temperature of 98 an d a white count in a downward trend of 13,000, off of antibiotics. We will follow closely with you. Overall prognosis is poor. Sp Arora MD cc: 350 TT: 10/29/2016 10:58:04 Confirmation # [id number] Dictation # [id number] warren
[2016-10-29 14:51] LABS: HISTONE AB <1.0 U (<1.0)
--- NOTE | 2016-10-29 15:04 | PN ---
DATE: 10/29/2016 The patient appears comfortable, is more oriented, knew was in the hospital this afternoon. ID and h ouse doctor followup greatly appreciated. The patient is still on p.r.n. restraints. PHYSICAL EXAMINATION: VITAL SIGNS: Stable. Temperature 98.4, respiration 20, pulse 58, blood pressure 155/72. LUNGS: Clear. HEART: Regular rhythm. ABDOMEN: Soft, nontender. EXTREMITIES: +2 edema, left leg and calf, with some tenderness to the calf. PLAN: Continue current therapy. Will switch heparin to Lovenox. His renal function is now improved . Check venous Doppler of lower extremities. Follow electrolytes and CBC, uric acid tomorrow poncho ospina Jf Posey MD cc: 84 TT: 10/29/2016 15:04:04 Confirmation # [id number] Dictation # [id number] josefa
[2016-10-29] MEDS ORDERED: Iodixanol 320 MG/ML 100 ML BOTTLE IV ONE (16:38)
--- NOTE | 2016-10-29 17:28 | CT ---
PROCEDURE: CT Chest with contrast (Pulmonary Angiogram) HISTORY: r/o pe, spiral cat scan COMPARISON: None available. TECHNIQUE: Axial computed tomography images were obtained of the chest in the pulmonary arterial phase of enhancement. Coronal and sagittal reformatted images were created and reviewed. Intravenous contrast dose: 100 mL Visipaque er Radiation dose: Total exam DLP = 545.80 mGy-cm. FINDINGS: PULMONARY ARTERIES: There are central filling defects in the distal right main pulmonary artery, upper, middle and lower lobe arteries and distal right lower lobe branches. AORTA: There is aneurysm of the ascending aorta measuring 5.6 x 5.1 cm. LUNGS: The left PICC line terminates in the SVC. There is consolidation in the posterior segment of the right lower lobe with air bronchogram. There is extensive centrilobular emphysema with upper lobe predominance and extensive bilateral upper lobe paraseptal emphysema with large bullous changes. PLEURAL SPACES: There is a small right pleural effusion. There is extensive subsegmental atelectasis in the left lower lobe. HEART: There is mild cardiomegaly without pericardial effusion. LYMPH NODES: No pathologic lymphadenopathy. BONES, CHEST WALL: There is a mild dextroscoliosis in the thoracic spine. No destructive bony lesions. OTHER FINDINGS: Both adrenal glands are normal. There is a small simple cyst in the left hepatic lobe. There is a small sliding hiatal hernia. IMPRESSION: 1. Acute pulmonary embolism in the distal right main pulmonary artery, upper, middle and lower lobe segmental branches and distal branches in the right lower lobe. 2. Extensive consolidation in the posterior segment of the right lower lobe and small right pleural effusion. Follow-up after medical management is recommended to ensure complete resolution and exclude underlying mass. 3. Extensive centrilobular emphysema with upper lobe predominance and extensive upper lobe paraseptal emphysema. 4. Aneurysm of the ascending aorta. Mild cardiomegaly.
[2016-10-29] MEDS: Enoxaparin 80 mg Syringe SC SCH (17:43)
[2016-10-29] MEDS ORDERED: Enoxaparin 40 mg Syringe SC SCH (18:00)
[2016-10-29] MEDS ORDERED: Acetylcysteine 20% Inhal Soln (4ml) PO SCH (21:30)
[2016-10-29] MEDS: Sodium Chloride 0.9% 1,000 ML IV SCH (21:50)
--- NOTE | 2016-10-29 23:53 | PN ---
DATE: 10/27/2016 SUBJECTIVE: The patient was seen on the general medical floor. was present at bedside. He rem ains encephalopathic with a Mathur catheter in place. He was receiving D5W at 100 mL per hour. He di d not appear to be in any pain or distress when I saw him. OBJECTIVE: VITAL SIGNS: Blood pressure was 133/79, heart rate 59, oral temperature 98.4, respiratory rate is 18 , oxygen saturation 100% on 2 liters via nasal cannula. I's and O's were not strictly documented. T he remainder of the exam was as follows: HEENT: The patient was normocephalic and atraumatic. There was no sinus tenderness. There was no j ugular venous distention that I could appreciate. Conjunctivae were mildly pale, but they were anict franko. CHEST: Lung buckley were grossly clear to auscultation, but the patient was not cooperative with deep breaths. CARDIAC: At present had a regular rate and rhythm without any rubs. ABDOMEN: Soft and nontender, mildly protuberant but without any rebounding, guarding or rigidity. T here was no hepatosplenomegaly. EXTREMITIES: Had no significant edema. NEUROLOGIC: The patient is encephalopathic as stated above. VASCULAR: Had no bruits. GENITOURINARY: Had no suprapubic tenderness. I was unable to palpate a bladder. Mathur catheter was no longer in place. LABORATORY STUDIES: White count is 13.2, H and H is 8.8/25.6 with a platelet count of 373,000. Ther e was 76% neutrophils, 16% lymphocytes, 7% monocytes. Sodium is 136, potassium 4.1, chloride 101, bi carbonate 25, BUN/creatinine now 27/1.4 with a glucose of 88. Calcium is 9.1 but corrects to 9.9 sin ce the albumin is 3.0. Anti-SSA as well as anti-SSB are negative. Anti-[employer] is negative. Anti-doubl e stranded DNA is negative. Antihistone is negative. Complement levels are within normal limits, al though BRAYDEN is noted to be positive. There is no new microbiology data to report. CT scan of the pat ient's chest (CT angiogram) revealed acute pulmonary embolism in the distal right main pulmonary tarsha ry, upper, middle, and lower lobe segmental branches, and distal branch of the right lower lobe, and extensive consolidation of the posterior segment of the right lower lobe as well as emphysema and ane urysm of the ascending aorta measuring 5.6 x 5.1 cm. IMPRESSION AND PLAN: The patient is a 71-year-old gentleman with hypertension and left ventricular h ypertrophy, dyslipidemia, coronary artery disease with decreased left ventricular systolic function, admitted with dyspnea on exertion. Over the course of hospitalization, he had hypertensive emergency with congestive heart failure requiring nicardipine infusion as well as atrial fibrillation with rap id ventricular response and hemodynamic instability after which he developed acute kidney injury and was intubated but has since been extubated. He remains encephalopathic. Of note, the patient is now noted to have pulmonary emboli as well. 1. Since the patient's creatinine has been increased even prior to the CT angiogram today, I am hansel rned about his developing contrast nephropathy. 2. In light of this, I will change his intravenous fluids from D5W (since the sodium is now within no rmal limits and he is no longer hypernatremic) to normal saline at 100 mL per hour to be continued fo r the next 12 hours only as a means of decreasing his risk of contrast nephropathy. 3. The patient is generally noncooperative. He is on a heart healthy diet, and to the degree that he is going to tolerate it, we will also start him on Mucomyst 600 mg orally twice daily for 4 doses. 4. Infectious disease followup is appreciated as well, and the patient has completed [address] scan, however, does reveal persistent right lower lobe airspace disease. He is currently of f antibiotics, but he is being monitored closely. 5. For his pulmonary embolism, the patient has been started on Lovenox 80 mg subcutaneously twice demi ly. However, if his creatinine continues to increase, we will need to modify this dose to 80 mg subc utaneously once a day for acute kidney injury. The anticoagulation is to treat pulmonary emboli. 6. For blood pressure control, the patient remains on clonidine 0.2 mg orally twice daily, as well as labetalol 200 mg orally 3 times a day as well. I suspect that the intravenous fluids will increase his blood pressure and if it does so exorbitantly, then we can start amlodipine. 7. For gastrointestinal prophylaxis, since the patient is on aspirin now on Lovenox, continue pantopr azole. Review of systems, past medical history, social history and family history were all reviewed, and the re are no new changes, and this progress note is from 10/27/2016. Erik Chan MD cc: [id number] TT: 10/29/2016 23:52:52 Confirmation # [id number] Dictation # [id number] mn
[2016-10-30] MEDS: Albuterol-Ipratrop 3 mg / 0.5 (3 ml) UD IH SCH ×4 (02:40→20:02)
--- NOTE | 2016-10-30 04:53 | CP.PCM.PN ---
Subjective - Date & Time of Evaluation Date of Evaluation: 10/30/16 Time of Evaluation: 04:51 - Subjective Subjective: It was requested to renew restraint order. Patient was seen at bedside. He is awake.Confused.Complained of right knee pain. Has no other complaints. Does not know where he is at. Medical record was reviewed. This 71 year old male was admitted with sob, substernal chest pain/CHF. Has PMH of Hypertension, CHF, HLD, pulmonary edema, arthritis, arthroscopy. Objective - Vital Signs/Intake and Output Vital Signs (last 24 hours): Temp Pulse Resp BP Pulse Ox 98.5 F 61 18 139/75 98 10/29/16 23:46 10/29/16 23:46 10/29/16 23:46 10/29/16 23:46 10/29/16 23:46 Intake and Output: 10/29/16 10/30/16 18:59 06:59 Intake Total 2580 300 Output Total 500 Balance 2580 -200 - Medications Medications: Current Medications Acetaminophen (Tylenol 325mg Tab) 650 mg PO Q6H PRN PRN Reason: Fever >100.4 F Last Admin: 10/28/16 21:55 Dose: 650 mg Acetylcysteine (Acetylcysteine 20%) 3 ml PO BID [facility] Stop: 10/31/16 10:01 Albuterol/Ipratropium (Duoneb 3 Mg/0.5 Mg (3 Ml) Ud) 3 ml IH [id number] [facility] Last Admin: 10/30/16 02:40 Dose: 3 ml Aspirin (Aspirin Chewable) 81 mg PO DAILY [facility] Last Admin: 10/29/16 10:17 Dose: 81 mg Atorvastatin Calcium (Lipitor) 40 mg PO DIN [facility] Last Admin: 10/29/16 17:44 Dose: 40 mg Clonidine HCl (Catapres) 0.2 mg PO BID [facility] Last Admin: 10/29/16 17:43 Dose: 0.2 mg Cyanocobalamin (Vitamin B12 1000 Mcg Tab) 1,000 mcg PO DAILY [facility] Last Admin: 10/29/16 10:17 Dose: 1,000 mcg Enoxaparin Sodium (Lovenox) 80 mg SC BID [facility] PRN Reason: Protocol Last Admin: 10/29/16 17:43 Dose: 80 mg Sodium Chloride (Sodium Chloride 0.9%) 1,000 mls @ 100 mls/hr IV .Q10H [facility] Last Admin: 10/29/16 21:50 Dose: 100 mls/hr Insulin Human Lispro (Humalog Low) 0 units SC Q12 [facility] PRN Reason: Protocol Last Admin: 10/29/16 22:08 Dose: Not Given Labetalol HCl (Trandate) 200 mg PO TID [facility] Last Admin: 10/29/16 17:43 Dose: 200 mg Metoprolol Tartrate (Lopressor) 25 mg PO BID [facility] Last Admin: 10/25/16 17:23 Dose: 25 mg Pantoprazole Sodium (Protonix Inj) 40 mg IVP DAILY [facility] Last Admin: 10/29/16 10:17 Dose: 40 mg Thiamine HCl (Vitamin B1 Tab) 100 mg PO DAILY [facility] Last Admin: 10/29/16 10:18 Dose: 100 mg - Labs Labs: 10/29/16 05:00 10/29/16 05:00 PT 11.0 Seconds (9.9-11.8) 10/14/16 14:06 INR 1.02 (0.93-1.08) 10/14/16 14:06 APTT 28.2 Seconds (23.7-30.8) 10/14/16 14:06 - Constitutional Appears: Well, No Acute Distress - Head Exam Head Exam: ATRAUMATIC, NORMAL INSPECTION, NORMOCEPHALIC - Eye Exam Eye Exam: Normal appearance - ENT Exam ENT Exam: Normal External Ear Exam - Neck Exam Neck Exam: Normal Inspection - Respiratory Exam Respiratory Exam: NORMAL BREATHING PATTERN - Cardiovascular Exam Cardiovascular Exam: absent: JVD - GI/Abdominal Exam GI & Abdominal Exam: absent: Distended - Rectal Exam Rectal Exam: Deferred - Extremities Exam Extremities Exam: Normal Inspection - Back Exam Back Exam: NORMAL INSPECTION - Neurological Exam Neurological Exam: Altered - Psychiatric Exam Psychiatric exam: Agitated - Skin Skin Exam: Normal Color Assessment and Plan - Assessment and Plan (Free Text) Assessment: A/P:Agitation. HTN. Hyperlipidemia . Arthritis. Renew restraint order.-BRANDON. Continue management.
[2016-10-30 06:41] LABS: ADD MANUAL DIFF? NO
[2016-10-30 06:48] LABS: EOS # 0.2 (0.0-0.7); GRAN # 8.28 (1.4-6.5); GRAN % 77.2 % (50.0-68.0); LYMPH # 1.6 (1.2-3.4); LYMPH % 14.7 % (22.0-35.0); MEAN CORPUSCULAR HEMOGLOBIN 25.9 pg (25.0-35.0); MEAN CORPUSCULAR HGB CONC 34.6 g/dl (31.0-37.0); MEAN PLATELET VOLUME 11.1 fl (7.0-11.0); MONO # 0.7 (0.1-0.6); MONO % 6.1 % (1.0-6.0); PLATELET COUNT 390 10^3/uL (120.0-450.0); RED CELL DISTRIBUTION WIDTH 15.1 % (11.5-14.5); WHITE BLOOD COUNT 10.7 10^3/ul (4.5-11.0)
[2016-10-30 07:01] LABS: HEMATOCRIT 23.7 % (42.0-52.0)
[2016-10-30 07:18] LABS: BLOOD UREA NITROGEN 25 mg/dL (7-21); CALCIUM 8.5 mg/dL (8.4-10.5); CARBON DIOXIDE 25 mmol/L (21-33); CHLORIDE 105 mmol/L (98-107); GFR AFRICAN-AMERICAN > 60; GLUCOSE,RANDOM 81 mg/dL (70-110); POTASSIUM 3.9 mmol/L (3.6-5.0); SODIUM 139 mmol/L (132-148); URIC ACID 7.1 mg/dL (3.5-8.5)
[2016-10-30] MEDS: Enoxaparin 80 mg Syringe SC SCH ×2 (09:26→17:15)
[2016-10-30] MEDS: Insulin Lispro (humaLOG) LOW Coverage SC SCH ×2 (09:26→21:29)
[2016-10-30] MEDS: Sodium Chloride 0.9% 1,000 ML IV SCH (09:27)
[2016-10-30] MEDS ORDERED: Enoxaparin 40 mg Syringe SC SCH (10:00)
--- NOTE | 2016-10-30 10:11 | US ---
HISTORY: Leg pain and swelling. Evaluate for DVT PHYSICIAN(S): Tim Javier MD. TECHNIQUE: Duplex sonography and color-flow Doppler with graded compression were used to evaluate the deep venous systems of both lower extremities. FINDINGS: There is extensive, occlusive, acute hypoechoic thrombus in the left common femoral vein, left femoral vein, left popliteal vein, and visualized left tibial veins. The superior extent of the thrombus into the left iliac system was not determined. No sonographic evidence for deep venous thrombosis is appreciated in the visualized segments of the right lower extremity. IMPRESSION: Extensive left iliofemoral DVT. The superior extent of the thrombus is not determined. The patient may benefit from a CT scan of the abdomen pelvis with contrast to evaluate the IVC and iliac veins.
--- NOTE | 2016-10-30 10:29 | PN ---
DATE: 10/30/2016 ATTENDING: The patient appears comfortable, sitting up in bed. Doppler ultrasound of lower extremit ies revealed extensive left DVT and spiral CT revealed multiple PEs to the right lung. The patient i s oxygenating well, appears comfortable, is more oriented today. He stated it is 06/2017 and he is i [facility]. PHYSICAL EXAMINATION: VITAL SIGNS: Stable. Temperature is 98.3, respirations 20, pulse is 58, blood pressure 123/71. LUNGS: Clear. HEART: Regular rhythm. ABDOMEN: Soft. EXTREMITIES: +1 edema of left leg with exquisite tenderness at the calf with positive Homans sign. NEUROLOGIC: Nonfocal. PLAN: The patient was begun on Lovenox yesterday. We will check PT/INR and type and screen with sli ghtly lower hemoglobin. We will consider starting coumadinization tomorrow. Jf Posey MD cc: [id number] TT: 10/30/2016 10:28:35 Confirmation # [id number] Dictation # [id number] en
[2016-10-30 10:37] LABS: COLLECTION TIME 24 Hours
[2016-10-30 11:13] LABS: INR 1.06 (0.93-1.08)
--- NOTE | 2016-10-30 13:06 | CP.PCM.CON ---
<Fatou Cortez - Last Filed: 10/30/16 13:02> History of Present Illness - History of Present Illness History of Present Illness: 71 y/o male seen at bedside with attending Dr. Godwin w/ PM of Hypertension, CHF, HLD, pulmonary edema, arthritis. Patient was seen after the request of podiatry consultation for routine foot care. Patient alert and awake but unable to respond to verbal questioning. Unable to obtain thorough history and physical exam. patient does not appear to be in acute distress. patient has no pedal complaints at this time. Review of Systems - Constitutional Constitutional: As Per HPI Past Patient History - Past Medical History & Family History Past Medical History?: Yes - Past Social History Smoking Status: Current Some Days Smoker Alcohol: None Drugs: Denies Home Situation {Lives}: With Family - CARDIAC Hx Cardiac Disorders: Yes Hx Congestive Heart Failure: Yes Hx Hypercholesterolemia: Yes Hx Hypertension: Yes - PULMONARY Hx Chronic Obstructive Pulmonary Disease (COPD): No Hx Pneumonia: No - NEUROLOGICAL HX Cerebrovascular Accident: No - HEENT Hx HEENT Problems: Yes Hx Cataracts: Yes (BILATERAL SX) - RENAL Hx Renal Failure: No - ENDOCRINE/METABOLIC Hx Diabetes Mellitus Type 1: No Hx Diabetes Mellitus Type 2: No Hx Hypothyroidism: No - HEMATOLOGICAL/ONCOLOGICAL Hx Cancer: No - INTEGUMENTARY Hx Dermatological Problems: Yes (BILATERAL LE SKIN DRYNESS,DRY THIN FLAKY SKIN) - MUSCULOSKELETAL/RHEUMATOLOGICAL Hx Arthritis: Yes Hx Rheumatoid Arthritis: No - GASTROINTESTINAL Hx Gastroesophageal Reflux: No - GENITOURINARY/GYNECOLOGICAL Hx Genitourinary Disorders: No - PSYCHIATRIC Hx Psychophysiologic Disorder: No Hx Substance Use: No - SURGICAL HISTORY Hx Surgeries: Yes (BILATERAL CATARACT SURGERY) Hx Orthopedic Surgery: Yes (left knee) - ANESTHESIA Hx Anesthesia: Yes Hx Anesthesia Reactions: No Meds Allergies/Adverse Reactions: Allergies Allergy/AdvReac Type Severity Reaction Status Date / Time No Known Allergies Allergy Verified 10/14/16 17:48 - Medications Medications: Current Medications Acetaminophen (Tylenol 325mg Tab) 650 mg PO Q6H PRN PRN Reason: Fever >100.4 F Last Admin: 10/28/16 21:55 Dose: 650 mg Acetylcysteine (Acetylcysteine 20%) 3 ml PO BID [facility] Stop: 10/31/16 10:01 Albuterol/Ipratropium (Duoneb 3 Mg/0.5 Mg (3 Ml) Ud) 3 ml IH [id number] [facility] Last Admin: 10/30/16 08:00 Dose: 3 ml Aspirin (Aspirin Chewable) 81 mg PO DAILY [facility] Last Admin: 10/30/16 09:25 Dose: 81 mg Atorvastatin Calcium (Lipitor) 40 mg PO DIN [facility] Last Admin: 10/29/16 17:44 Dose: 40 mg Clonidine HCl (Catapres) 0.1 mg PO BID [facility] Cyanocobalamin (Vitamin B12 1000 Mcg Tab) 1,000 mcg PO DAILY [facility] Last Admin: 10/30/16 09:27 Dose: 1,000 mcg Enoxaparin Sodium (Lovenox) 80 mg SC BID [facility] PRN Reason: Protocol Last Admin: 10/30/16 09:26 Dose: 80 mg Insulin Human Lispro (Humalog Low) 0 units SC Q12 [facility] PRN Reason: Protocol Last Admin: 10/30/16 09:26 Dose: Not Given Labetalol HCl (Trandate) 200 mg PO TID [facility] Last Admin: 10/30/16 09:27 Dose: 200 mg Pantoprazole Sodium (Protonix Inj) 40 mg IVP DAILY [facility] Last Admin: 10/30/16 09:26 Dose: 40 mg Thiamine HCl (Vitamin B1 Tab) 100 mg PO DAILY [facility] Last Admin: 10/30/16 09:27 Dose: 100 mg Physical Exam - Constitutional Appears: Well, Non-toxic, No Acute Distress - Extremities Exam Additional comments: Vasc: pedal pulses nonpalpable b/l, TG wnl, CFT < 3 sec to all digits, +1 pitting edema to LLE neuro: grossly diminished derm: no erythema, no open lesions, diffuse xerosis plantarly b/l, no acute clinical signs of infection, nails are elongated,thickened and dystrophic x 10 ortho: no pain on palpation of feet b/l - Neurological Exam Neurological exam: Alert, Oriented x3 - Psychiatric Exam Psychiatric exam: Normal Affect, Normal Mood Results - Vital Signs Recent Vital Signs: Last Vital Signs Temp 98.3 F 10/30/16 06:00 Pulse 58 L 10/30/16 06:00 Resp 20 10/30/16 06:00 BP 123/71 10/30/16 06:00 Pulse Ox 96 10/30/16 06:00 - Labs Result Diagrams: 10/30/16 05:45 10/30/16 05:45 Labs: Laboratory Results - last 24 hr 10/22/16 10/26/16 10/29/16 09:00 06:25 17:33 WBC RBC Hgb Hct MCV MCH MCHC RDW Plt Count MPV Gran % Lymph % (Auto) [place] % (Auto) Eos % (Auto) Baso % (Auto) Gran # Lymph # [place] # Eos # Baso # PT INR Sodium Potassium Chloride Carbon Dioxide Anion Gap BUN Creatinine Est GFR ( Amer) Est GFR (Non-Af Amer) POC Glucose (mg/dL) 108 Random Glucose Uric Acid Calcium Ur 24 Hour Volume 2.8 liters Histone Antibodies <1.0 Blood Type Blood Type Confirm Antibody Screen BBK History Checked 10/29/16 10/30/16 10/30/16 22:04 05:45 10:50 WBC 10.7 RBC 3.16 L Hgb 8.2 L Hct 23.7 L MCV 75.0 L MCH 25.9 MCHC 34.6 RDW 15.1 H Plt Count 390 MPV 11.1 H Gran % 77.2 H Lymph % (Auto) 14.7 L [place] % (Auto) 6.1 H Eos % (Auto) 2.0 Baso % (Auto) 0.0 Gran # 8.28 H Lymph # 1.6 [place] # 0.7 H Eos # 0.2 Baso # 0.00 PT 11.5 INR 1.06 Sodium 139 Potassium 3.9 Chloride 105 Carbon Dioxide 25 Anion Gap 13 BUN 25 H Creatinine 1.2 Est GFR ( Amer) > 60 Est GFR (Non-Af Amer) 59 POC Glucose (mg/dL) 132 H Random Glucose 81 Uric Acid 7.1 Calcium 8.5 Ur 24 Hour Volume Histone Antibodies Blood Type O POSITIVE Blood Type Confirm Antibody Screen Negative BBK History Checked No verified bt 10/30/16 11:20 WBC RBC Hgb Hct MCV MCH MCHC RDW Plt Count MPV Gran % Lymph % (Auto) [place] % (Auto) Eos % (Auto) Baso % (Auto) Gran # Lymph # [place] # Eos # Baso # PT INR Sodium Potassium Chloride Carbon Dioxide Anion Gap BUN Creatinine Est GFR ( Amer) Est GFR (Non-Af Amer) POC Glucose (mg/dL) Random Glucose Uric Acid Calcium Ur 24 Hour Volume Histone Antibodies Blood Type Blood Type Confirm O POSITIVE Antibody Screen BBK History Checked Assessment & Plan - Assessment and Plan (Free Text) Assessment: 71 y/o male with PMH of Hypertension, CHF, HLD, pulmonary edema, arthritis seen at bedside for onycomycotic and elongated toenails Plan: patient evaluated and seen at bedside with attending Dr. Godwin labs and vitals reviewed excisional debridement of nails using sterile nipper to hygienic length patient tolerated procedure with no complications podiatry will continue to monitor while patient remains in house thank you for the consultation <Sivan Godwin - Last Filed: 11/05/16 12:20> Results - Vital Signs Recent Vital Signs: Last Vital Signs Temp 98.6 F 11/02/16 16:00 Pulse 70 11/03/16 09:46 Resp 20 11/02/16 16:00 BP 130/80 11/03/16 09:46 Pulse Ox 99 11/02/16 16:00 - Labs Result Diagrams: 11/03/16 06:50 11/03/16 06:50 Attending/Attestation - Attestation I have personally seen and examined this patient.: Yes I have fully participated in the care of the patient.: Yes I have reviewed all pertinent clinical information: Yes
--- NOTE | 2016-10-30 14:30 | CP.PCM.PN ---
Subjective - Date & Time of Evaluation Date of Evaluation: 10/30/16 Time of Evaluation: 10:05 - Subjective Subjective: Comfortable in bed, not in distress, no fevers overnight, not in distress, no diarrhea. Objective - Vital Signs/Intake and Output Vital Signs (last 24 hours): Temp Pulse Resp BP Pulse Ox 98.3 F 58 L 20 123/71 96 10/30/16 06:00 10/30/16 06:00 10/30/16 06:00 10/30/16 06:00 10/30/16 06:00 Intake and Output: 10/30/16 10/30/16 06:59 18:59 Intake Total 2700 0 Output Total 500 200 Balance 2200 -200 - Medications Medications: Current Medications Acetaminophen (Tylenol 325mg Tab) 650 mg PO Q6H PRN PRN Reason: Fever >100.4 F Last Admin: 10/28/16 21:55 Dose: 650 mg Acetylcysteine (Acetylcysteine 20%) 3 ml PO BID [facility]PL[facility]ED BY [facility] Stop: 10/31/16 10:01 Albuterol/Ipratropium (Duoneb 3 Mg/0.5 Mg (3 Ml) Ud) 3 ml IH [id number] REPLACED BY [facility] Last Admin: 10/30/16 08:00 Dose: 3 ml Aspirin (Aspirin Chewable) 81 mg PO DAILY [facility] Last Admin: 10/29/16 10:17 Dose: 81 mg Atorvastatin Calcium (Lipitor) 40 mg PO DIN [facility]PL[facility] BY [facility] Last Admin: 10/29/16 17:44 Dose: 40 mg Clonidine HCl (Catapres) 0.2 mg PO BID [facility]PL[facility]ED BY [facility] Last Admin: 10/29/16 17:43 Dose: 0.2 mg Cyanocobalamin (Vitamin B12 1000 Mcg Tab) 1,000 mcg PO DAILY [facility] Last Admin: 10/29/16 10:17 Dose: 1,000 mcg Enoxaparin Sodium (Lovenox) 80 mg SC BID [facility] PRN Reason: Protocol Last Admin: 10/29/16 17:43 Dose: 80 mg Sodium Chloride (Sodium Chloride 0.9%) 1,000 mls @ 100 mls/hr IV .Q10H REPLACED BY [facility] Last Admin: 10/29/16 21:50 Dose: 100 mls/hr Insulin Human Lispro (Humalog Low) 0 units SC Q12 [facility] PRN Reason: Protocol Last Admin: 03/26/17 22:08 Dose: Not Given Labetalol HCl (Trandate) 200 mg PO TID [facility]PL[facility] BY [facility] Last Admin: 10/29/16 17:43 Dose: 200 mg Metoprolol Tartrate (Lopressor) 25 mg PO BID [facility]PL[facility] BY [facility] Last Admin: 10/25/16 17:23 Dose: 25 mg Pantoprazole Sodium (Protonix Inj) 40 mg IVP DAILY [facility] Last Admin: 10/29/16 10:17 Dose: 40 mg Thiamine HCl (Vitamin B1 Tab) 100 mg PO DAILY [facility] Last Admin: 10/29/16 10:18 Dose: 100 mg - Labs Labs: 10/30/16 05:45 10/30/16 05:45 PT 11.0 Seconds (9.9-11.8) 10/14/16 14:06 INR 1.02 (0.93-1.08) 10/14/16 14:06 APTT 28.2 Seconds (23.7-30.8) 10/14/16 14:06 - Constitutional Appears: Non-toxic, No Acute Distress - Head Exam Head Exam: NORMAL INSPECTION - ENT Exam ENT Exam: Mucous Membranes Moist - Neck Exam Neck Exam: absent: Lymphadenopathy, Meningismus - Respiratory Exam Respiratory Exam: Decreased Breath Sounds - Cardiovascular Exam Cardiovascular Exam: +S1, +S2 - GI/Abdominal Exam GI & Abdominal Exam: Soft. absent: Tenderness Assessment and Plan - Assessment and Plan (Free Text) Plan: Assessment S/P ventilator-dependent respiratory failure in a patient with severe sepsis with acute renal failure and acute encephalopathy probably due to right-sided hospital-acquired pneumonia, growing Pseudomonas on sputum cx, clinically improved and S/P treatment Hypertensive emergency with acute renal failure HTN dyslipidemia arthritis S/P left knee surgery S/P bilateral cataract surgery Plan S/P 8 days of Merrem; will continue to monitor off antibiotics since he is at risk for nosocomial infection; WBC count has now normalized
--- NOTE | 2016-10-30 16:04 | PN ---
DATE: 10/30/2016 The patient is seen on a general medical floor. He continues to have a Adams in place. He is awake and alert and able to carry on a simple and brief conversation. He does not appear to be in any dist ress and there is no obvious dyspnea. PHYSICAL EXAMINATION: VITAL SIGNS: Blood pressure is 123/71 with a heart rate of 58, oral temperature is 98.3, respiratory rate is 18, oxygen saturation was 96% on 2 liters via nasal cannula. I's and O's were not strictly documented. HEENT: The patient was normocephalic and atraumatic without any sinus tenderness. There was no jugu lar venous distention. Conjunctivae were pale, but they were anicteric. CHEST: Lung buckley on my exam were clear, but the patient was not cooperative with very deep breaths . CARDIAC: Had a regular rate and rhythm without any rubs or gallops. There were no heaves. ABDOMEN: Soft, mildly distended, but nontender. There was no rebounding, guarding or rigidity. EXTREMITIES: Had no dependent edema. GENITOURINARY: Did not have any suprapubic tenderness in place. NEUROLOGIC: He was confused, but nonfocal. LABORATORY STUDIES: White count is 10.7, H and H is 8.2/23.7 with a platelet count of 390,000. Ther e were 77% neutrophils, 15% lymphocytes, 6% monocytes, 2% eosinophils. Sodium is 139, potassium is 3 .9, chloride is 105, bicarbonate 25. BUN/creatinine is 25/1.2 with a glucose of 132. Calcium is 8.5 , but corrects to 9.3 since the albumin is 3.0. CT angiogram from yesterday is appreciated. The pat ient does have several pulmonary emboli in his right lung as well as consolidation in the right lung and COPD with an ascending aortic aneurysm. Chest x-ray from 10/28 also revealed pulmonary vascular c ongestion. Lower extremity venous Doppler reveals extensive left iliofemoral DVT. IMPRESSION AND PLAN: The patient is a 71-year-old gentleman with hypertension and left ventricular h ypertrophy, dyslipidemia, coronary artery disease with decreased left ventricular systolic function, admitted with dyspnea on exertion. He was found to have uncontrolled hypertension with acute decompe nsated congestive heart failure resulting in a diagnosis of hypertensive emergency, for which he was treated with a nicardipine infusion. He was also noted to have atrial fibrillation with a rapid vent ricular response and hemodynamic instability that had resulted in acute kidney injury and for which h ad been intubated. He has since been extubated, but remains quite confused and I suspect that he has underlying advanced dementia. More recently, he was noted to have pulmonary emboli present on a CT angiogram as well as extensive left lower extremity deep venous thromboses. 1. The patient has been started on Lovenox 80 mg subcutaneously twice daily. For long-term manageme nt, we can also start him on concurrent warfarin at present as well with a goal INR between 2-3 and o nce his INR is therapeutic, we can then discontinue the Lovenox. 2. Alternatively, since the patient would require anticoagulation for atrial fibrillation as well as for deep venous thrombosis and pulmonary embolism, Eliquis could also be considered at the dose of 5 mg orally twice daily with discontinuation of the Lovenox. 3. Since the patient is on aspirin as well as Lovenox at this point, we will also continue him on pa ntoprazole for gastrointestinal prophylaxis. 4. For his known vascular disease, continue aspirin and atorvastatin. Metoprolol is currently on ho ld on account of the patient having had episodes of bradycardia. However, perhaps it can be resumed at a lower dose given his history of coronary artery disease. I will decrease his clonidine from 0.2 mg orally twice daily to 0.1 mg orally twice daily since clonidine is sedating and in so decreasing his clonidine, we would be able to continue to give him his labetalol and there is a greater evidence based use for beta adam in this patient with coronary artery disease and decreased left ventricul ar systolic function. 5. Overall, patient's prognosis does remain poor. 6. Chest x-ray from 10/28 did also demonstrate evidence of congestive heart failure. Clinically on e xam, the patient does not appear to be significantly volume overloaded to me and I do not believe he requires diuresis at this time. 7. With respect to the patient's deep venous thrombosis and pulmonary emboli, he had been on heparin 5000 units subcutaneously twice daily yet developed them anyway. Despite being on subcutaneous hepa rin, he still developed deep venous thrombosis and pulmonary emboli. There does not appear to be any prior history of thromboembolic events, however, to suggest familial history. Perhaps, hematology e valuation would be of benefit. Review of systems, past medical history, social history and family history were all reviewed and ther e were no new changes. Erik Chan MD cc: [id number] TT: 10/30/2016 13:46:16 Confirmation # [id number] Dictation # [id number] en
[2016-10-31] MEDS: Albuterol-Ipratrop 3 mg / 0.5 (3 ml) UD IH SCH ×4 (01:19→21:12)
[2016-10-31 06:47] LABS: ADD MANUAL DIFF? NO
[2016-10-31 07:12] LABS: BASO # 0.02 K/mm3 (0.0-2.0); BASO % 0.2 % (0.0-3.0); BLOOD UREA NITROGEN 25 mg/dL (7-21); CALCIUM 9.3 mg/dL (8.4-10.5); CARBON DIOXIDE 24 mmol/L (21-33); CHLORIDE 106 mmol/L (98-107); EOS # 0.2 (0.0-0.7); EOS % 1.8 % (1.5-5.0); GFR AFRICAN-AMERICAN > 60; GLUCOSE,RANDOM 83 mg/dL (70-110); GRAN # 7.34 (1.4-6.5); GRAN % 73.2 % (50.0-68.0); HEMATOCRIT 25.5 % (42.0-52.0); LYMPH # 1.9 (1.2-3.4); LYMPH % 18.7 % (22.0-35.0); MEAN CELL VOLUME 75.9 fL (80.0-105.0); MEAN CORPUSCULAR HEMOGLOBIN 25.6 pg (25.0-35.0); MEAN CORPUSCULAR HGB CONC 33.7 g/dl (31.0-37.0); MEAN PLATELET VOLUME 10.6 fl (7.0-11.0); MONO # 0.6 (0.1-0.6); MONO % 6.1 % (1.0-6.0); PLATELET COUNT 468 10^3/uL (120.0-450.0); RED CELL DISTRIBUTION WIDTH 15.3 % (11.5-14.5); SODIUM 141 mmol/L (132-148)
--- NOTE | 2016-10-31 08:30 | PN ---
DATE: 10/30/2016 The patient is in room 367, bed 1. REASON FOR CONSULTATION AND FOLLOWUP: Congestive heart failure, paroxysmal atrial fibrillation, mc ycardia, altered mental status, status post extubation, thrombophlebitis, pulmonary embolism, ascendi ng aortic aneurysm. HISTORY OF PRESENT ILLNESS: The patient is a 71-year-old male with past medical history significant for hypertension, hyperlipidemia, admitted with shortness of breath and respiratory failure. The pat ient was on respirator, and now successfully extubated. The patient also went into atrial fibrillati on with rapid rate with bundle branch block pattern which at times looked like ventricular tachycardi a, but actually it was atrial fibrillation with rapid rate with bundle branch block. The patient was treated; converted to sinus rhythm. The patient now found to have a left iliofemoral DVT, and also patient has a right-sided pulmonary embolism, and also of aneurysm of the ascending aorta seen on the CAT scan of the chest on 10/29/2016, measuring 5.6 5.1 cm. Also seen, the consolidation in the posterior segment of the right lower lobe. DIAGNOSES: Status post respiratory failure. Status post intubation, now successfully extubated. An emia, persistent atrial fibrillation converted to sinus rhythm, altered mental status. Cardiomyopath y, possible ischemic. Left ventricular ejection fraction 35%, moderate aortic stenosis, mild mitral regurgitation, mild tricuspid regurgitation, hypernatremia which has improved, thrombophlebitis, pulm onary embolism or ascending aortic aneurysm, consolidation suggestive of pneumonia. PLAN: The patient on clonidine 0.1 mg b.i.d., albuterol/ipratropium hand nebulizer therapy, Lipitor 40 daily, Lovenox 80 mg subQ b.i.d., Protonix 40 IV daily, labetalol 200 mg b.i.d. Will continue present therapy and will follow with you. Lucrecia Elizabeth MD cc: [id number] TT: 10/31/2016 08:29:45 Confirmation # [id number] Dictation # [id number] warren
[2016-10-31] MEDS: Enoxaparin 80 mg Syringe SC SCH ×4 (10:19→22:34)
[2016-10-31] MEDS: Insulin Lispro (humaLOG) LOW Coverage SC SCH ×2 (10:23→22:00)
--- NOTE | 2016-10-31 11:33 | PN ---
DATE: 10/30/2016 SUBJECTIVE: The patient appears comfortable, bright and alert, appears oriented to person. He still cannot recall what hospital he is in. Family also believes his mentation is improving. PHYSICAL EXAMINATION: VITAL SIGNS: Stable. Temperature is 99.2, respiration 19, pulse is 61, blood pressure 143/94. LUNGS: Clear. HEART: Regular rhythm. ABDOMEN: Soft, nontender. EXTREMITIES: +2 edema on the left with tenderness and positive Homans sign. PLAN: Continue current therapy. Begin Coumadin 10 mg today. Follow electrolytes, CBC, PT, INR tomor row. Mobilize the patient out of bed if possible. Subacute rehab discussed with family. Jf Posey MD cc: [id number] TT: 10/31/2016 11:32:21 Confirmation # [id number] Dictation # [id number] [place]ren
--- NOTE | 2016-10-31 12:26 | PN ---
DATE: 10/31/2016 REASON FOR CONSULTATION AND FOLLOWUP: Congestive heart failure, paroxysmal atrial fibrillation, tach ycardia, altered mental status, status post extubated, thrombophlebitis, pulmonary embolism, ascendin g aortic aneurysm. BRIEF CLINICAL HISTORY: This is a 71-year-old male with past medical history significant for hyperte nsion, hyperlipidemia, admitted with shortness of breath, respiratory failure. The patient was on re spirator. Now successfully extubated. Also found to have paroxysmal atrial fibrillation, now rate i s well controlled. At times looks like ventricular tachycardia but actually it is atrial fibrillatio n. Lying flat. Now patient is in 3R. The patient also found to have deep venous thrombosis. Also patient found to have PE. Also aneurysm of the ascending aorta. On a CAT scan of the chest 10/30/19 17, it measured 5.6 cm. Also had pneumonia. PHYSICAL EXAMINATION: VITAL SIGNS: Temperature afebrile, heart rate ____, blood pressure 143/94. HEENT: PERRLA. Extraocular muscles intact. NECK: Supple. No carotid bruits. No thyromegaly. CHEST: Clear to auscultation. HEART: S1, S2 regular. ABDOMEN: Soft. EXTREMITIES: Clubbing and cyanosis negative. BLOOD WORKUP: WBC 10, hemoglobin 8.6, hematocrit 25.5, platelet count 468. Sodium 140, potassium 4, chloride 106, carbon dioxide 24, anion gap of 10, BUN 25, creatinine 1.2. IMPRESSION: Acute deep venous thrombosis, acute pulmonary embolism, ascending aortic aneurysm, cardi omyopathy, decreased left ventricular function, status post respiratory failure, status post intubate d, 35% ejection fraction, moderate aortic ____, ____ mitral regurgitation, mild tricuspid regurgitati on, ascending aortic aneurysm, pneumonia. RECOMMENDATION: Continue clonidine. Avoid nephrotoxic medication. Continue Coumadin; once INR is t herapeutic, will discontinue. Continue labetalol for control of the blood pressure. Will follow wit h you. The patient is now in normal sinus. At one point, will consider cardiac catheterization, but because of so much comorbidities with recently PE and no evidence of acute coronary syndrome, I will suggest to continue medical treatment. Repeat PT/INR tomorrow ____. Lucrecia Péerz MD cc: [facility] TT: 10/31/2016 12:26:12 Confirmation # [id number] Dictation # [id number] [place]
--- NOTE | 2016-10-31 22:40 | CP.PCM.PN ---
Subjective - Date & Time of Evaluation Date of Evaluation: 10/31/16 Time of Evaluation: 22:00 - Subjective Subjective: Patient complaining of L leg pain; not on any standing pain meds; otherwise breathing well; Objective - Vital Signs/Intake and Output Vital Signs (last 24 hours): Temp Pulse Resp BP Pulse Ox 98.8 F 58 L 20 110/67 98 10/31/16 16:00 10/31/16 16:00 10/31/16 16:00 10/31/16 16:00 10/31/16 16:00 - Medications Medications: Current Medications Acetaminophen (Tylenol 325mg Tab) 650 mg PO Q6H PRN PRN Reason: Fever >100.4 F Last Admin: 10/28/16 21:55 Dose: 650 mg Albuterol/Ipratropium (Duoneb 3 Mg/0.5 Mg (3 Ml) Ud) 3 ml IH [id number] [facility] Last Admin: 10/31/16 21:12 Dose: 3 ml Clonidine HCl (Catapres) 0.1 mg PO BID [facility] Last Admin: 10/31/16 18:29 Dose: Not Given Cyanocobalamin (Vitamin B12 1000 Mcg Tab) 1,000 mcg PO DAILY [facility] Last Admin: 10/31/16 10:20 Dose: 1,000 mcg Enoxaparin Sodium (Lovenox) 80 mg SC BID [facility] PRN Reason: Protocol Last Admin: 10/31/16 22:34 Dose: 80 mg Insulin Human Lispro (Humalog Low) 0 units SC Q12 [facility] PRN Reason: Protocol Last Admin: 10/31/16 10:23 Dose: Not Given Labetalol HCl (Trandate) 200 mg PO TID [facility] Last Admin: 10/31/16 18:30 Dose: Not Given Lorazepam (Ativan) 1 mg IM Q4H PRN; Protocol PRN Reason: Agitation Last Admin: 10/31/16 21:31 Dose: 1 mg Warfarin Sodium (Coumadin) 10 mg PO 1800 [facility] Last Admin: 10/31/16 22:36 Dose: 10 mg - Labs Labs: 10/31/16 06:00 10/31/16 06:00 PT 11.5 Seconds (9.9-11.8) 10/30/16 10:50 INR 1.06 (0.93-1.08) 10/30/16 10:50 APTT 28.2 Seconds (23.7-30.8) 10/14/16 14:06 - Constitutional Appears: Well, No Acute Distress - Head Exam Head Exam: NORMAL INSPECTION - Eye Exam Eye Exam: Normal appearance - ENT Exam ENT Exam: Mucous Membranes Moist - Neck Exam Neck Exam: Normal Inspection - Respiratory Exam Respiratory Exam: Clear to Ausculation Bilateral, NORMAL BREATHING PATTERN - Cardiovascular Exam Cardiovascular Exam: REGULAR RHYTHM, +S1, +S2 - GI/Abdominal Exam GI & Abdominal Exam: Soft. absent: Distended, Tenderness - Extremities Exam Additional comments: Marked leg lower leg edema, tenderness; - Neurological Exam Neurological Exam: Alert, Awake - Psychiatric Exam Psychiatric exam: Normal Affect, Normal Mood - Skin Skin Exam: Warm. absent: Cyanosis Assessment and Plan - Assessment and Plan (Free Text) Assessment: Acute renal failure - Resolved; seen in setting of decompensated systolic heart failure; appears euvolemic currently so no need for diuresis; Acute CHF w/ systolic and diastolic dysfunction - Symptoms improved; currently on labetalol 200 mg tid; should consider once daily metoprolol XL or bid coreg as patient has been refusing meds; additionally, should restart small dose losartan for cardiac optimization since renal function has been stable; HTN - Appears controlled when patient takes his meds; as noted above, should simplify regimen; taper off clonidine by decreasing to once daily dosing for next 3 days before stopping; start losartan 25 mg daily and change labetalol as mentioned above; Anemia - Secondary to chronic disease; monitor; DVT/PE - On therapeutic lovenox bridge, coumadin started today; pain secondary to DVT; avoid NSAIDS.
[2016-11-01] MEDS: Albuterol-Ipratrop 3 mg / 0.5 (3 ml) UD IH SCH ×4 (02:50→20:04)
[2016-11-01 05:35] LABS: ADD MANUAL DIFF? NO
[2016-11-01 05:40] LABS: BASO # 0.02 K/mm3 (0.0-2.0); BASO % 0.2 % (0.0-3.0); EOS # 0.1 (0.0-0.7); EOS % 1.3 % (1.5-5.0); GRAN # 6.99 (1.4-6.5); GRAN % 73.8 % (50.0-68.0); HEMATOCRIT 25.3 % (42.0-52.0); LYMPH # 1.7 (1.2-3.4); LYMPH % 17.8 % (22.0-35.0); MEAN CELL VOLUME 76.2 fL (80.0-105.0); MEAN CORPUSCULAR HEMOGLOBIN 25.6 pg (25.0-35.0); MEAN CORPUSCULAR HGB CONC 33.6 g/dl (31.0-37.0); MEAN PLATELET VOLUME 10.6 fl (7.0-11.0); MONO # 0.7 (0.1-0.6); MONO % 6.9 % (1.0-6.0); PLATELET COUNT 470 10^3/uL (120.0-450.0); RED CELL DISTRIBUTION WIDTH 15.4 % (11.5-14.5); WHITE BLOOD COUNT 9.5 10^3/ul (4.5-11.0)
[2016-11-01 05:50] LABS: INR 1.05 (0.93-1.08)
[2016-11-01 06:07] LABS: BLOOD UREA NITROGEN 22 mg/dL (7-21); CALCIUM 9.3 mg/dL (8.4-10.5); CARBON DIOXIDE 24 mmol/L (21-33); GFR AFRICAN-AMERICAN > 60; GLUCOSE,RANDOM 82 mg/dL (70-110); POTASSIUM 4.5 mmol/L (3.6-5.0); SODIUM 144 mmol/L (132-148)
[2016-11-01 06:54] LABS: CHLORIDE 108 mmol/L (98-107)
[2016-11-01] MEDS: Enoxaparin 80 mg Syringe SC SCH ×2 (09:12→18:14)
[2016-11-01] MEDS: Insulin Lispro (humaLOG) LOW Coverage SC SCH ×2 (09:18→22:11)
--- NOTE | 2016-11-01 12:31 | PN ---
DATE: 11/01/2016 The patient is in room 367, bed 1. REASON FOR CONSULTATION AND FOLLOWUP: Congestive heart failure, paroxysmal atrial fibrillation, stat us post respiratory failure, status post extubation, thrombophlebitis, pulmonary embolism, ascending aortic aneurysm. HISTORY OF PRESENT ILLNESS: The patient is a 71-year-old male with past medical history significant for hypertension, hyperlipidemia, admitted with shortness of breath and developed respiratory failure . The patient was on respirator, now has been successfully extubated, also found to have paroxysmal atrial fibrillation. The patient also developed deep venous thrombosis and pulmonary embolism. On C AT scan, aneurysm of the ascending aorta measuring 5.6 cm has been noted. The patient also had pneum onia. The patient lying flat in bed without any respiratory distress. The patient at times is very confused. PHYSICAL EXAMINATION: VITAL SIGNS: Blood pressure 129/88, respirations 22, pulse 70, temperature 97.8. HEENT: Head is normocephalic. Eyes: Pupils normal. Conjunctivae slightly pale. NECK: JVP low. Carotid equal. THORAX: AP diameter normal. LUNGS: No rales. CARDIOVASCULAR: S1, S2, systolic murmur, no rub. ABDOMEN: Soft, nontender, no organomegaly. EXTREMITIES: No clubbing, no cyanosis. LABORATORY DATA: WBC 9.5, hemoglobin 8.5, hematocrit 25.3, platelets 470. Sodium 144, potassium 4.5 , BUN 22, creatinine 1.2, calcium 9.3, random glucose 82. DIAGNOSES: Deep venous thrombosis, pulmonary embolism, ascending aortic aneurysm, cardiomyopathy, de creased left ventricular function, status post respiratory failure, status post extubation, left vent ricular ejection fraction around 35%, mild tricuspid regurgitation, moderate aortic stenosis, mild mi tral regurgitation, hypernatremia which has improved; thrombophlebitis, pulmonary embolism, ascending aortic aneurysm, consolidation on the CT chest suggestive of pneumonia. PLAN: The patient is on clonidine 0.1 b.i.d., warfarin 10 mg daily, DuoNeb hand nebulizer therapy, l abetalol 200 mg p.o. t.i.d., vitamin B12 1000 mcg p.o. daily. The patient's prothrombin time is 11.3 , INR is 1.05, so we will continue Coumadin and Lovenox at the present moment until PT/INR becomes th erapeutic and we will follow with you. Lucrecia Elizabeth MD cc: [id number] TT: 11/01/2016 12:30:38 Confirmation # [id number] Dictation # [id number] tn
--- NOTE | 2016-11-01 13:37 | CP.PCM.PN ---
Subjective - Date & Time of Evaluation Date of Evaluation: 11/01/16 Time of Evaluation: 09:20 - Subjective Subjective: No acute events overnight, no fevers, not in distress. Objective - Vital Signs/Intake and Output Vital Signs (last 24 hours): Temp Pulse Resp BP Pulse Ox 98.8 F 58 L 20 110/67 98 10/31/16 16:00 10/31/16 16:00 10/31/16 16:00 10/31/16 16:00 10/31/16 16:00 Intake and Output: 11/01/16 11/01/16 06:59 18:59 Intake Total 0 Balance 0 - Medications Medications: Current Medications Acetaminophen (Tylenol 325mg Tab) 650 mg PO Q6H PRN PRN Reason: Fever >100.4 F Last Admin: 10/28/16 21:55 Dose: 650 mg Albuterol/Ipratropium (Duoneb 3 Mg/0.5 Mg (3 Ml) Ud) 3 ml IH [id number] [facility] Last Admin: 11/01/16 08:12 Dose: 3 ml Clonidine HCl (Catapres) 0.1 mg PO BID [facility] Last Admin: 10/31/16 18:29 Dose: Not Given Cyanocobalamin (Vitamin B12 1000 Mcg Tab) 1,000 mcg PO DAILY [facility] Last Admin: 10/31/16 10:20 Dose: 1,000 mcg Enoxaparin Sodium (Lovenox) 80 mg SC BID [facility] PRN Reason: Protocol Last Admin: 10/31/16 22:34 Dose: 80 mg Insulin Human Lispro (Humalog Low) 0 units SC Q12 [facility] PRN Reason: Protocol Last Admin: 10/31/16 22:00 Dose: Not Given Labetalol HCl (Trandate) 200 mg PO TID [facility] Last Admin: 10/31/16 18:30 Dose: Not Given Lorazepam (Ativan) 1 mg IM Q4H PRN; Protocol PRN Reason: Agitation Last Admin: 10/31/16 21:31 Dose: 1 mg Warfarin Sodium (Coumadin) 10 mg PO 1800 [facility] Last Admin: 10/31/16 22:36 Dose: 10 mg - Labs Labs: 11/01/16 05:30 11/01/16 05:30 PT 11.3 Seconds (9.9-11.8) 11/01/16 05:30 INR 1.05 (0.93-1.08) 11/01/16 05:30 APTT 28.2 Seconds (23.7-30.8) 10/14/16 14:06 - Constitutional Appears: Non-toxic, No Acute Distress - Head Exam Head Exam: NORMAL INSPECTION - ENT Exam ENT Exam: Mucous Membranes Moist - Neck Exam Neck Exam: absent: Lymphadenopathy, Meningismus - Respiratory Exam Respiratory Exam: Decreased Breath Sounds - Cardiovascular Exam Cardiovascular Exam: +S1, +S2 - GI/Abdominal Exam GI & Abdominal Exam: Soft. absent: Tenderness Assessment and Plan - Assessment and Plan (Free Text) Plan: Assessment S/P ventilator-dependent respiratory failure in a patient with severe sepsis with acute renal failure and acute encephalopathy probably due to right-sided hospital-acquired pneumonia, growing Pseudomonas on sputum cx, clinically improved and S/P treatment Hypertensive emergency with acute renal failure HTN dyslipidemia arthritis S/P left knee surgery S/P bilateral cataract surgery Plan S/P 8 days of Merrem; will continue to monitor off antibiotics since he is at risk for hospital-acquired infections; WBC count has now normalized
--- NOTE | 2016-11-01 19:45 | PN ---
DATE: 11/01/2016 SUBJECTIVE: The patient appears comfortable, bright and alert and knows he is in [place], [place] . He had to be reminded about hospital. He states his leg hurts when he stands. PHYSICAL EXAMINATION: VITAL SIGNS: Stable. Temperature 98, respiration 21, pulse 78, blood pressure 138/83. LUNGS: Clear. HEART: Regular rhythm. ABDOMEN: Soft, nontender. EXTREMITIES: +1 edema, left leg with exquisite tenderness. PT/INR is still not therapeutic. PLAN: Coumadin 12 mg today. Check INR tomorrow. Possible discharge to subacute with coumadini zation and Lovenox continued. Jf Posey MD cc: [id number] TT: 11/01/2016 19:44:24 Confirmation # [id number] Dictation # [id number] id
[2016-11-01 22:06] LABS: INR 1.21 (0.93-1.08)
[2016-11-02] MEDS: Albuterol-Ipratrop 3 mg / 0.5 (3 ml) UD IH SCH ×4 (01:28→19:27)
[2016-11-02 08:22] LABS: ADD MANUAL DIFF? NO
[2016-11-02 08:24] LABS: BASO # 0.02 K/mm3 (0.0-2.0); BASO % 0.2 % (0.0-3.0); EOS # 0.1 (0.0-0.7); GRAN # 6.43 (1.4-6.5); GRAN % 70.3 % (50.0-68.0); HEMATOCRIT 25.4 % (42.0-52.0); MEAN CELL VOLUME 76.5 fL (80.0-105.0); MEAN CORPUSCULAR HEMOGLOBIN 25.9 pg (25.0-35.0); MEAN CORPUSCULAR HGB CONC 33.9 g/dl (31.0-37.0); MEAN PLATELET VOLUME 9.7 fl (7.0-11.0); MONO # 0.6 (0.1-0.6); MONO % 6.5 % (1.0-6.0); PLATELET COUNT 484 10^3/uL (120.0-450.0); RED CELL DISTRIBUTION WIDTH 15.3 % (11.5-14.5); WHITE BLOOD COUNT 9.1 10^3/ul (4.5-11.0)
[2016-11-02 08:38] LABS: BLOOD UREA NITROGEN 21 mg/dL (7-21); CALCIUM 9.5 mg/dL (8.4-10.5); CARBON DIOXIDE 28 mmol/L (21-33); CHLORIDE 108 mmol/L (95-110); GFR AFRICAN-AMERICAN > 60; GLUCOSE,RANDOM 90 mg/dL (70-110); POTASSIUM 4.8 mmol/L (3.6-5.0); SODIUM 146 mmol/L (132-148)
[2016-11-02] MEDS: Insulin Lispro (humaLOG) LOW Coverage SC SCH ×2 (09:56→21:45)
[2016-11-02] MEDS: Enoxaparin 80 mg Syringe SC SCH ×2 (09:58→17:54)
[2016-11-02 10:26] VITALS: RESP 20; O2SAT 99
--- NOTE | 2016-11-02 10:44 | PN ---
DATE: 11/02/2016 Attending. The patient appears comfortable, voices no complaint. Gisselle today is off. PHYSICAL EXAMINATION: VITAL SIGNS: Stable. Temperature is 97.9, respirations 20, pulse 94, blood pressure 140/72. LUNGS: Clear. HEART: Regular rate and rhythm. ABDOMEN: Soft, nontender. EXTREMITIES: +2 edema, left leg, with some tenderness. PLAN: Continue Lovenox 80 b.i.d. Continue coumadinization. INR today is pending. Jf Posey MD cc: [id number] TT: 11/02/2016 10:44:22 Confirmation # [id number] Dictation # [id number] tn
[2016-11-02 11:32] LABS: INR 1.77 (0.93-1.08)
--- NOTE | 2016-11-02 12:51 | PN ---
DATE: 11/02/2016 The patient is in room 367, bed 1. REASON FOR CONSULTATION AND FOLLOWUP: Congestive heart failure, paroxysmal atrial fibrillation, stat us post respiratory failure, status post extubation, thrombophlebitis, pulmonary embolism, ascending aortic aneurysm. HISTORY OF PRESENT ILLNESS: The patient is a 71-year-old male with past medical history significant for hypertension, hyperlipidemia, admitted with shortness of breath and developed respiratory failure . The patient was on respirator. He had been successfully extubated. The patient also found to hav e paroxysmal atrial fibrillation. The patient developed deep vein thrombosis and pulmonary embolism on CAT scan. Also there is aneurysm of ascending aorta measuring 5.6 cm, also patient had pneumonia. The patient now conscious, alert. Denies any chest pain, shortness of breath, palpitation, lying f lat in bed without any respiratory distress. PHYSICAL EXAMINATION: VITAL SIGNS: Blood pressure 140/72, respirations 20, pulse 72, temperature 97.9. HEENT: Head is normocephalic. Eyes: Pupils normal. Conjunctivae slightly pale. NECK: JVP low. Carotid equal. THORAX: AP diameter normal. LUNGS: Few rales in the lungs. CARDIOVASCULAR: S1, S2, ejection systolic murmur, no rub. ABDOMEN: Soft, nontender, no organomegaly. EXTREMITIES: No clubbing, no cyanosis. LABORATORY DATA: Shows WBC 9.1, hemoglobin 8.6, hematocrit 25.4, platelet 484. Sodium 146, potassiu m 4.8, BUN 21, creatinine 1.2, calcium 9.5, glucose 90. DIAGNOSES: Deep venous thrombosis, pulmonary embolism, ascending aortic aneurysm, cardiomyopathy ___ __ LV ejection fraction, status post respiratory failure, status post extubation, left ventricle eje ction fraction around 35%, mild tricuspid regurg, moderate aortic stenosis, mild mitral regurg, conso lidation on CT of the chest suggestive of pneumonia. The patient's prothrombin time 19.1, INR 1.77. PLAN: The patient received Coumadin 5 mg yesterday. The patient is supposed to get warfarin 10 mg p .o. today, which has been already ordered, clonidine 0.1 b.i.d., DuoNeb hand nebulizer therapy, Loven ox 80 mg subQ b.i.d., labetalol 200 mg p.o. t.i.d., vitamin B12 1000 mcg p.o. daily. We will continu e present therapy and will follow. Lucrecia Elizabeth MD cc: [id number] TT: 11/02/2016 12:51:00 Confirmation # [id number] Dictation # [id number] an
[2016-11-02 16:48] VITALS: TEMP 98.6
[2016-11-03] MEDS: Albuterol-Ipratrop 3 mg / 0.5 (3 ml) UD IH SCH ×3 (01:03→13:52)
[2016-11-03 06:53] LABS: ADD MANUAL DIFF? NO
[2016-11-03 07:07] LABS: BASO # 0.03 K/mm3 (0.0-2.0); BASO % 0.3 % (0.0-3.0); EOS # 0.1 (0.0-0.7); EOS % 1.5 % (1.5-5.0); GRAN # 5.92 (1.4-6.5); GRAN % 66.4 % (50.0-68.0); HEMATOCRIT 26.3 % (42.0-52.0); LYMPH # 2.4 (1.2-3.4); LYMPH % 26.4 % (22.0-35.0); MEAN CELL VOLUME 76.7 fL (80.0-105.0); MEAN CORPUSCULAR HEMOGLOBIN 25.9 pg (25.0-35.0); MEAN CORPUSCULAR HGB CONC 33.8 g/dl (31.0-37.0); MEAN PLATELET VOLUME 10.1 fl (7.0-11.0); MONO # 0.5 (0.1-0.6); MONO % 5.4 % (1.0-6.0); PLATELET COUNT 533 10^3/uL (120.0-450.0); RED CELL DISTRIBUTION WIDTH 15.4 % (11.5-14.5); WHITE BLOOD COUNT 8.9 10^3/ul (4.5-11.0)
[2016-11-03 07:08] LABS: BLOOD UREA NITROGEN 20 mg/dL (7-21); CALCIUM 9.5 mg/dL (8.4-10.5); CARBON DIOXIDE 27 mmol/L (21-33); CHLORIDE 108 mmol/L (98-107); GFR AFRICAN-AMERICAN > 60; GLUCOSE,RANDOM 90 mg/dL (70-110); INR 2.13 (0.93-1.08); POTASSIUM 4.5 mmol/L (3.6-5.0); SODIUM 145 mmol/L (132-148)
[2016-11-03] MEDS: Insulin Lispro (humaLOG) LOW Coverage SC SCH (09:42)
[2016-11-03] MEDS: Enoxaparin 80 mg Syringe SC SCH (09:45)
[2016-11-03 09:47] VITALS: BP 130/80; PULSE 70
--- NOTE | 2016-11-03 12:56 | PN ---
DATE: 11/03/2016 ATTENDING: The patient appears comfortable, still in bed after lunch. RN reports the patient was of f [place] for over 24 hours and appears calm and comfortable. PHYSICAL EXAMINATION: VITAL SIGNS: Stable. Temperature is 98, respiration 18, pulse 70, blood pressure 130/80. LUNGS: Clear. HEART: Regular rhythm. ABDOMEN: Soft. EXTREMITIES: No edema with calf tenderness on the left. PLAN: Continue current therapy. Discharge in improved condition on Coumadin 6 mg daily, Catapres 0. 1 twice a day, DuoNeb 4 times a day, Trandate 200 mg 3 times a day. His condition is improved. Foll owup care will be provided by myself and the [facility] staff if bed can be made available today. DIET: 2 g sodium. ACTIVITY: As tolerated with PT for safe ambulation and transfers. Jf Posey MD cc: 84 TT: 11/03/2016 12:55:12 Confirmation # [id number] Dictation # [id number] en
--- NOTE | 2016-11-03 12:57 | PN ---
DATE: 11/03/2016 The patient is in room 367, bed 1. REASON FOR CONSULTATION AND FOLLOWUP: Congestive heart failure, paroxysmal atrial fibrillation, stat us post respiratory failure, status post extubation, thrombophlebitis, pulmonary embolism, ascending aortic aneurysm. HISTORY OF PRESENT ILLNESS: The patient is a 71-year-old male with past medical history significant for hypertension, hyperlipidemia, admitted with shortness of breath and developed respiratory failure . The patient was on respirator, now has been successfully extubated. Also found to have paroxysmal atrial fibrillation. The patient developed deep venous thrombosis, pulmonary embolism. On CAT scan , also there is an aneurysm of the ascending aorta measuring 5.6 cm. The patient also had pneumonia. The patient lying flat in bed without any cardiac complaints, but patient is very confused [facility]. PHYSICAL EXAMINATION: VITAL SIGNS: Blood pressure 130/80, respirations 20, pulse 70, temperature 98.6. HEAD: Normocephalic. EYES: Pupils normal. Conjunctivae are slightly pale. NECK: JVP low. Carotids equal. THORAX: AP diameter normal. LUNGS: No rales. CARDIOVASCULAR: S1, S2, systolic murmur, no rub. ABDOMEN: Soft, nontender, no organomegaly. EXTREMITIES: No clubbing, no cyanosis. Edema on the legs has cleared. LABORATORY DATA: WBC 8.9, hemoglobin 8.9, hematocrit 26.3, platelets 533. Sodium 145, potassium 4.5 , BUN 20, creatinine 1.1, calcium 9.5. DIAGNOSES: Deep venous thrombosis, pulmonary embolism, ascending aortic aneurysm, cardiomyopathy, st atus post respiratory failure, status post extubation, left ventricular ejection fraction 35%, mild t ricuspid regurgitation, moderate aortic stenosis, mild mitral regurgitation, consolidation on CT scan of the chest suggestive of pneumonia, altered mental status, the patient confused. Prothrombin time 23.0, INR 2.13, which is therapeutic. PLAN: The patient's INR is therapeutic today. We will discontinue Lovenox. The patient on labetalo l 200 mg p.o. t.i.d., clonidine 0.1 b.i.d., warfarin 10 mg daily, vitamin B12 at 1000 mcg p.o. daily. We will continue present therapy and we will follow with you. Lucrecia Elizabeth MD cc: [id number] TT: 11/03/2016 12:57:07 Confirmation # [id number] Dictation # [id number] rn
--- NOTE | 2016-11-03 16:23 | PCM.PYCHPN ---
Psychiatric Progress Note - Psychiatric Progress Note Patient seen today, length of contact: 25 Patient Chief Complaint: Patient evaluated in ICU. Chart reviewed and case discussed with staff. Case also discussed with of 34 years who was at his bedside Patient had been agitated earlier. Is being treated for congestive heart failure with pulmonary involvement may be a with this in some denial. Children reportedly also may be in some denial. assures me that prior to this patient was capable of helping her with her diabetes and neuropathy. Yet also tells me that he has been somewhat forgetful over the past 2 years. It is not clear to me when he was offered a diagnosis of dementia nursing indicates there may be a history of alcohol use although this was presently denied. Patient had previously worked for [employer] but reportedly has been retired for about 30 years (if this is correct that I suspected there appeared to be some disability that prevented the patient from working over these years) in any event he seems that they have been home bound. He is a [place] of the [facility] [employer].. The patient has 2 children who live nearby. A familial psychiatric history was denied. Problems Identified/Issues Discussed: Case reviewed with nursing. Chart reviewed. Family members at the bedside. Patient dealing with multiple medical problems who seems to be able to follow verbal commands. Agitation not reported Medical Problems: Multiple. Including history of hypertension with blood pressure lability presently, left ventricular hypertrophy, his lipidemia, coronary artery disease , left ventricular diastolic dysfunction, hyponatremia deep vein thrombosis prophylaxis Diagnostic Results: As noted in chart DSM 5 Symptoms Update: Met with patient and at the bedside Is more interactive. Disoriented but less confused and not agitated. On the whole patient has shown an improvement in his mental status Medication Change: No Medical Record Reviewed: Yes Mental Status Examination - Cognitive Function Orientation: Person (Nonverbal. Appears to respond to verbal commands) Memory: Impaired Attention: Poor Concentration: Poor Fund of Knowledge: Poor - Mood Mood: Neutral, Other - Affect Affect: Constricted, Other - Speech Speech: Soft - Formal Thought Process Formal Thought Process: Other Psychotic Thoughts and Behaviors: No psychotic ideation - Suicidal Ideation Suicidal Ideation: No - Homicidal Ideation Homicidal Ideation: No Goal/Treatment Plan - Goal/Treatment Plan Need for Continued Stay: Severe functional impairment, Other Progress Toward Problem(s) and Goals/Treatment Plan: Awaiting improved cognitive status of that will presumably be coupled with improved medical status On October 23 appears improving; more so than I had anticipated. Still confused hopeful that as medical condition improves so will his cognitive status. I am told that he was taking care of his prior to his recent illness on October 26 seems somewha more alert. There reportedly is being considered to move to a Med surg floor On October 27 patient seen on medical floor. This in itself implies an improvement in patient's medical condition. Is minimally meaningfully interactive; most of which is confused On November 03 patient seen accompanied by at the bedside. Flat in affect and with a poverty of thought but did not disorganized or agitated. His going to a rehabilitation facility. On whole patient has improved - Smoking Cessation Smoking Cessation Initiated: No Reason for not providing: Nonsmoker presently
== END 2016-11-03 18:51 | DRG 291 ==
LOC: ED 13:35 → ERH 15:16 → 2RNO 20:39 → CCU 10-15 20:22 → 3RNO 10-26 20:59
PROVIDERS: ADMIT Internal Medicine; ATTEND Internal Medicine
PROC: 0T9B70Z Drainage of Bladder with Drainage Device, Via Natural or Artificial Opening (ICD-10-PCS; 2016-10-15)
PROC: 5A1955Z Respiratory Ventilation, Greater than 96 Consecutive Hours (ICD-10-PCS; principal; 2016-10-16)
PROC: 0BH17EZ Insertion of Endotracheal Airway into Trachea, Via Natural or Artificial Opening (ICD-10-PCS; 2016-10-16)
PROC: 02HV33Z Insertion of Infusion Device into Superior Vena Cava, Percutaneous Approach (ICD-10-PCS; 2016-10-19)
PROC: B51N1ZA Fluoroscopy of Left Upper Extremity Veins using Low Osmolar Contrast, Guidance (ICD-10-PCS; 2016-10-19)
PROC: B54NZZA Ultrasonography of Left Upper Extremity Veins, Guidance (ICD-10-PCS; 2016-10-19)
PROC: 0HBRXZZ Excision of Toe Nail, External Approach (ICD-10-PCS; 2016-10-30)
PROC: 0HBRXZZ Excision of Toe Nail, External Approach (ICD-10-PCS; 2016-10-30)
PROC: 0HBRXZZ Excision of Toe Nail, External Approach (ICD-10-PCS; 2016-10-30)
PROC: 0HBRXZZ Excision of Toe Nail, External Approach (ICD-10-PCS; 2016-10-30)
PROC: 0HBRXZZ Excision of Toe Nail, External Approach (ICD-10-PCS; 2016-10-30)
PROC: 0HBRXZZ Excision of Toe Nail, External Approach (ICD-10-PCS; 2016-10-30)
PROC: 0HBRXZZ Excision of Toe Nail, External Approach (ICD-10-PCS; 2016-10-30)
PROC: 0HBRXZZ Excision of Toe Nail, External Approach (ICD-10-PCS; 2016-10-30)
PROC: 0HBRXZZ Excision of Toe Nail, External Approach (ICD-10-PCS; 2016-10-30)
PROC: 0HBRXZZ Excision of Toe Nail, External Approach (ICD-10-PCS; 2016-10-30)
DX: I11.0 Hypertensive heart disease with heart failure (principal); I50.41 Acute combined systolic (congestive) and diastolic (congestive) heart failure; A41.9 Sepsis, unspecified organism; J96.90 Respiratory failure, unspecified, unspecified whether with hypoxia or hypercapnia; R65.20 Severe sepsis without septic shock; I26.99 Other pulmonary embolism without acute cor pulmonale; J15.1 Pneumonia due to Pseudomonas; G93.49 Other encephalopathy; I16.1 Hypertensive emergency; N17.9 Acute kidney failure, unspecified; I48.0 Paroxysmal atrial fibrillation; I47.1 Supraventricular tachycardia; I45.2 Bifascicular block; E87.0 Hyperosmolality and hypernatremia; I82.422 Acute embolism and thrombosis of left iliac vein; I25.10 Atherosclerotic heart disease of native coronary artery without angina pectoris; D63.8 Anemia in other chronic diseases classified elsewhere; E53.8 Deficiency of other specified B group vitamins; E78.5 Hyperlipidemia, unspecified; M19.90 Unspecified osteoarthritis, unspecified site; F17.210 Nicotine dependence, cigarettes, uncomplicated; E87.6 Hypokalemia; I45.10 Unspecified right bundle-branch block; D50.9 Iron deficiency anemia, unspecified; B35.1 Tinea unguium; E86.0 Dehydration; I08.3 Combined rheumatic disorders of mitral, aortic and tricuspid valves; F03.90 Unspecified dementia, unspecified severity, without behavioral disturbance, psychotic disturbance, mood disturbance, and anxiety; R73.9 Hyperglycemia, unspecified; I25.5 Ischemic cardiomyopathy; I71.2 Thoracic aortic aneurysm, without rupture; Y95 Nosocomial condition; Z99.11 Dependence on respirator [ventilator] status; Z91.14 Patient's other noncompliance with medication regimen; Z78.1 Physical restraint status